=== PATIENT | male | born 1945 | race Caucasian/White ===

== ENCOUNTER → 2017-01-01 | Outpatient (CLI) | payer OTHER ==
[~2017-01-01] MED LIST: ACET-1256 PO; ALBU0.5N2 NEB; ASPI81TA28 PO; FLM4 PO; FLUT0.15 NAE; GFNSR600 PO; MULT-506 PO; NTRGSL/4 SL; OPTIRAY 320 IV PRN; SYMIN INH; SYMIN/8045 INH
--- NOTE | 2017-01-01 14:40 | DIAGNOSTIC IMAGING REPORT ---
CT OF THE CHEST WITH IV CONTRAST CLINICAL HISTORY: Lung cancer. COMPARISON STUDY: Chest CT February 07, 2015 and PET/CT June 18, 2010. TECHNIQUE: Following IV administration of 93 mL of Optiray-320, helical axial images of the chest were obtained. Images were viewed in the axial, sagittal and coronal planes. IV contrast was administered without complication. CT DOSE: 230.38 mGycm FINDINGS: The appearance of the left pneumonectomy cavity is unchanged and fluid-filled as expected. Several extrapleural nodules remain unchanged. These are benign given stability. There is expected left hemithorax volume loss. There is no pneumothorax. There is no right pleural effusion. There is mucus within the dependent aspect of the trachea. Band-like scarring within the right upper lobe is unchanged. However, there has been interval development of a 1 cm irregular nodule within the right upper lobe shown on image 91 of 341. This is new since prior exam. There is moderate to severe emphysema within the right lung. No suspicious osseous lesions are present. There is a 1 cm cyst within the upper pole of the left kidney. There are no adrenal lesions. Note is made of an 8 mm hepatic dome cyst. IMPRESSION: 1. Interval development of a 1 cm irregular right upper lobe nodule since CT of February 07, 2015. This is worrisome for malignancy. Progressive scar formation could appear similar although is considered unlikely. Otherwise, unchanged appearance of band-like scarring within the right upper lobe. 2. Stable appearance of the left pneumonectomy cavity. 3. No thoracic lymphadenopathy. 4. Moderate to severe emphysema within the right lung. Electronically signed by: Zackery Salgado M.D. 01/01/2017 2:38 PM Dictated Date/Time: 01/01/2017 1:56 PM
== END | disposition home or self-care (01) ==
LOC: C.CTS 13:24
PROVIDERS: ATTEND Internal Medicine Hematology & Oncology
DX: C34.90 Malignant neoplasm of unspecified part of unspecified bronchus or lung (principal)

== ENCOUNTER → 2017-01-11 | Outpatient (CLI) | payer OTHER ==
[~2017-01-11] MED LIST changes: -OPTIRAY 320 IV PRN
== END | disposition home or self-care (01) ==
LOC: C.LAB 15:12
PROVIDERS: ATTEND Surgery
DX: C34.90 Malignant neoplasm of unspecified part of unspecified bronchus or lung (principal)

== ENCOUNTER 2017-01-20 09:06 | Day surgery (SDC) | payer OTHER ==
[2017-01-13 08:31] VITALS: BMI 21.0
[~2017-01-20] VITALS: Ht 185.4 cm; Wt 72.7 kg
[~2017-01-20 09:06] MED LIST changes: -ACET-1256 PO; -FLM4 PO; -GFNSR600 PO; +LACTATED RINGER'S 1000ML IV SCH; -SYMIN INH
[2017-01-20] MEDS ORDERED: ACET-1256 PO (09:28)
[2017-01-20 09:29] VITALS: BP 166/84; PULSE 72; TEMP 36.5; O2SAT 98; Ht 185.4 cm; Wt 72.7 kg
[2017-01-20] MEDS ORDERED: NEOSTIGMINE METHYLSULFATE 5 MG/5 ML SYR ONE (12:25)
[2017-01-20] MEDS ORDERED: LIDOCAINE HCL 2% 2 ML VIAL (20MG/ML) ONE (12:25)
[2017-01-20] MEDS ORDERED: DEXAMETHASONE SOD INJ 4 MG/ML VIAL ONE (12:25)
[2017-01-20] MEDS ORDERED: MIDAZOLAM HCL 1 MG/ML 2ML VIAL ONE (12:25)
[2017-01-20] MEDS ORDERED: ROCURONIUM BROMIDE 10 MG/ML 5 ML VIAL ONE (12:25)
[2017-01-20] MEDS ORDERED: PROPOFOL IV EMULSION 10 MG/ML 20 ML VIAL IV ONE (12:25)
[2017-01-20] MEDS ORDERED: ONDANSETRON INJ 2 MG/ML 2 ML VIAL ONE (12:25)
[2017-01-20] MEDS ORDERED: FENTANYL CITRATE INJ 50 MCG/1 ML 2 ML VIAL ONE (12:25)
[2017-01-20] MEDS ORDERED: GLYCOPYRROLATE INJ 0.2 MG/ML VIAL ONE ×2 (12:25→13:25)
--- NOTE | 2017-01-20 12:26 | History & Physical Bridge Note ---
H&P Re-Evaluation Bridge Note: I have examined the patient, reviewed the History & Physical and in the interval since the performance of the History & Physical I have noted the following changes of clinical significance: No changes noted
--- NOTE | 2017-01-20 13:05 | Discharge Instructions ---
Discharge Instructions Date of Service Jan 20, 2017. Visit Reason for Visit: Right Lung Mass Discharge Discharge Diagnosis / Problem: Right Lung Mass Discharge Goals Goal(s): Learn about illness Activity Recommendations Activity Limitations: resume your previous activity (in 24 hours) Anesthesia . Post Anesthesia Instructions: If you have had General Anesthesia or IV Sedation: * Do not drive today. * Resume driving when surgeon permits. * Do not make important decisions or sign legal documents today. * Call surgeon for: 1. Temperature elevations greater than 101 degrees F. 2. Uncontrollable pain. 3. Excessive bleeding. 4. Persistent nausea and vomiting. 5. Medication intolerance (nausea, vomiting or rash). * For nausea and vomiting use only clear liquids such as: tea, soda, bouillon until nausea subsides, then gradually increase diet as tolerated. * If you have any concerns or questions, call your surgeon's office. If physician is unavailable and it is an emergency, call 911 or go to the nearest emergency room. . Instructions / Follow-Up Instructions / Follow-Up 1. Keep your scheduled appointment with Dr. Vicente on January 26 @ 1:30. 2. You may cough up some blood. Call physician if excessive amount noted. Diet Recommendations Recommended Home Diet: resume previous diet Pending Studies Studies pending at discharge: no Medical Emergencies . Who to Call and When: Medical Emergencies: If at any time you feel your situation is an emergency, please call 911 immediately. . Non-Emergent Contact Non-Emergency issues call your: Surgeon Call Non-Emergent contact if: temperature is above 101 . . "Provider Documentation" section prepared by Hector Michel.
[2017-01-20] MEDS ORDERED: PROMETHAZINE HCL INJ 6.25 MG in SODIUM CHLORIDE 0.9% 50ML 50 ML IV PRN (13:15)
[2017-01-20] MEDS ORDERED: FENTANYL CITRATE INJ 50 MCG/1 ML 2 ML VIAL IV PRN (13:15)
[2017-01-20] MEDS ORDERED: EpHEDrine SULFATE INJ 50 MG/ML AMP IV PRN (13:15)
[2017-01-20] MEDS ORDERED: ONDANSETRON INJ 2 MG/ML 2 ML VIAL IV PRN (13:15)
[2017-01-20] MEDS ORDERED: ATROPINE SULFATE 0.1 MG/ML 5ML SYR IV PRN (13:15)
[2017-01-20] MEDS ORDERED: CLINDAMYCIN PHOS 150 MG/ML 2 ML VIAL ONE (13:25)
[2017-01-20] MEDS ORDERED: PHENYLEPHRINE HCL INJ 10 MG/ML VIAL ONE (13:25)
--- NOTE | 2017-01-20 14:11 | DIAGNOSTIC IMAGING REPORT ---
Portable chest CHEST 1 VIEW FRONTAL CLINICAL HISTORY: NAVIGATIONAL BRONCH navigational bronchoscopy TECHNIQUE: Navigational bronchoscopy COMPARISON STUDY: 11/18/2015 FINDINGS: Image intensifier was used for navigational bronchoscopy. Catheter is identified with evidence for a marker IMPRESSION: Navigational bronchoscopy Electronically signed by: Paddy Douglas M.D. 01/20/2017 2:10 PM Dictated Date/Time: 01/20/2017 2:09 PM
--- NOTE | 2017-01-20 14:39 | Anesthesiology Progress Note ---
Anesthesia Post Op Note Date & Time Jan 20, 2017 at 14:39 Vital Signs Pain Intensity: 0 Vital Signs Past 12 Hours Date Time Temp Pulse Resp B/P Pulse Ox O2 Delivery O2 Flow Rate FiO2 01/20/17 09:29 36.5 72 18 166/84 98 Room Air Notes Mental Status: alert / awake / arousable, participated in evaluation Pt Amnestic to Procedure: Yes Nausea / Vomiting: adequately controlled Pain: adequately controlled Airway Patency, RR, SpO2: stable & adequate BP & HR: stable & adequate Hydration State: stable & adequate Anesthetic Complications: no major complications apparent
--- NOTE | 2017-01-20 14:45 | DIAGNOSTIC IMAGING REPORT ---
CHEST ONE VIEW PORTABLE CLINICAL HISTORY: s/p [facility] post procedural evaluation COMPARISON STUDY: 11/18/2015 FINDINGS: Complete opacification left hemithorax post fibrotic changes right pulmonary apex with a biopsy marker within the right upper lung inferior to the fibrotic line. No evidence for postprocedural pneumothorax. IMPRESSION: No significant postprocedural pneumothorax. Post biopsy marker right upper lung Electronically signed by: Paddy Douglas M.D. 01/20/2017 2:43 PM Dictated Date/Time: 01/20/2017 2:42 PM
[2017-01-20 15:05] VITALS: BP 137/76; PULSE 63; TEMP 36.6; O2SAT 98
[2017-01-20 15:35] VITALS: BP 113/68; PULSE 55; O2SAT 96
--- NOTE | 2017-01-20 15:54 | OPERATIVE REPORT ---
DATE OF OPERATION: 01/20/2017 PREOPERATIVE DIAGNOSES: 1. Right upper lobe mass. 2. Status post left pneumonectomy for non-small cell carcinoma. POSTOPERATIVE DIAGNOSES: Same. PROCEDURES: 1. Endobronchial ultrasound with biopsy. 2. Navigational bronchoscopy with biopsy. 3. Placement of fiducial marker in right upper lobe mass. 4. Use of ultrasound guidance. SURGEON: Naun Vicente MD DIRECTOR OF SEARCH ENGINE MARKETING: CHRISTIANO Pang ANESTHESIA: General anesthesia endotracheal intubation. INDICATIONS FOR PROCEDURE AND FINDINGS: James Abdi is a 71-year-old male who underwent a left pneumonectomy many years ago in [place] for a non-small cell lung carcinoma. He apparently had an en bloc chest wall resection. He underwent chemotherapy postoperative, apparently developed a mass in the right upper lobe and this was biopsied with a needle and he was treated with radiation therapy. It sounds like he had FBRT at [place]. At any rate, he has done fine until recently when a surveillance CT scan showed a new mass in the right upper lobe below the scarring of the prior radiation therapy. We had a long talk about this and elected to proceed with a biopsy and possible leaving a fiducial marker. I did not think this patient is a candidate for any further resections. On 01/18/2017, he underwent uneventful endobronchial ultrasound. The nodes were small, but I felt that we were there, I would like to at least biopsy them and biopsied the left level 10, right level 10, right level 4 and level 7 nodes. We saw some lymphocytes in the right level 10, but we did not see any evidence of malignancy. We then performed a navigation bronchoscopy and with the radial ultrasound, I could see that I was right in the middle of this mass. I did brushings, needle biopsies, as well as forceps biopsies with touch preps. We saw no evidence of malignancy. I did leave a fiducial marker and did washings. The patient tolerated it well. DESCRIPTION OF PROCEDURE: The patient was brought to the operating room and laid in supine position. General anesthesia was induced and endotracheal intubation was performed with a single lumen tube. After appropriate time-out had been called and prophylactic antibiotics have been given, the endobronchial ultrasound scope was placed. There was scant amount of thick whitish sputum and I suctioned this out. He had a fairly long stump in the left mainstem bronchus, but it was intact. I then biopsied the level 10 area laterally, a bit distal to the bifurcation, but I did not put the scope all the way down to the old suture line. I then biopsied the level 7 areas on the right side and then the level 10 areas and the level 4 areas. These were small nodes and while it appeared that we were right in the middle of most of that we had very little in the way of lymphatic tissue bed. We did have full lymph nodes in the right level 10 node which appeared to be the largest node even though still not pathologic in size and very little in the way of bleeding. I irrigated out both airways. A fiberoptic bronchoscope was then placed. Using a navigational probe, we then registered the right bronchial tree airways. We then navigated out to the open wound mass without difficulty. We removed the navigational probe and under ultrasound guidance conceivably right in the middle of this mass. I then did multiple biopsies with brushes as well as needle biopsies with aspiration and forceps biopsies with the touch preps. We got very little in the way of bleeding. I irrigated this out and we saw very little in the way of any bleeding. I then placed a fiducial marker in this mass after I checked again to make sure we were in the middle of it during the ultrasound. After this, I then used 35 mL of normal saline and irrigated out and suctioned from this airway as we were leaving. There was really very little in the way of any bleeding. After suctioning all the excess fluid, blood, and mucus, I slowly removed the bronchoscope. He tolerated it well and chest x-ray is pending at this time. I attest to the content of the Intraoperative Record and any orders documented therein. Any exceptio ns are noted below.
[2017-01-20 16:00] VITALS: BP 134/75; PULSE 62; TEMP 36.6; O2SAT 95
== END 2017-01-20 16:22 | disposition home or self-care (01) ==
LOC: C.ACU 09:06
PROVIDERS: ATTEND Surgery
DX: C34.91 Malignant neoplasm of unspecified part of right bronchus or lung (principal); J44.9 Chronic obstructive pulmonary disease, unspecified; L04.9 Acute lymphadenitis, unspecified; J96.90 Respiratory failure, unspecified, unspecified whether with hypoxia or hypercapnia; Z98.890 Other specified postprocedural states

== ENCOUNTER 2017-01-24 02:27 | Inpatient (IN) | payer OTHER ==
[2017-01-24] VITALS (11 sets, daily range): BP systolic 101–145; BP diastolic 66–79; PULSE 69–95; TEMP 36.7–37.7; O2SAT 93–98; Ht 182.9 cm; Wt 73.0 kg
[~2017-01-24] VITALS: Ht 182.9 cm; Wt 73.0 kg
[~2017-01-24 02:27] MED LIST changes: +ACET-1256 PO; -LACTATED RINGER'S 1000ML IV SCH
[2017-01-24] MEDS ORDERED: ALBUT/IPRATROP 3MG/0.5MG NEB 3 ML VIAL INH ONE (03:15)
[2017-01-24] MEDS ORDERED: OPTIRAY 320 IV PRN (03:15)
[2017-01-24 03:26] LABS: BUN/CREATININE RATIO 14.2 (10-20); CALCIUM 8.8 mg/dl (8.5-10.1); CREATININE 0.93 mg/dl (0.60-1.40); MAGNESIUM 1.9 mg/dl (1.8-2.4); POTASSIUM 3.5 mmol/L (3.5-5.1)
[2017-01-24 04:10] LABS: BASO % 0.2 %; BASO ABS # 0.04 K/uL (0-0.2); COMPLETE YES; EOS % 0.1 %; HEMATOCRIT 48.5 % (42-52); IG% 0.4 %; LYMPH % 7.2 %; LYMPH ABS # 1.57 K/uL (1.2-3.4); MEAN CORPUSCULAR HEMOGLOBIN 29.6 pg (25-34); MEAN CORPUSCULAR HGB CONC 34.4 g/dl (32-36); MEAN PLATELET VOLUME 11.6 fL (7.4-10.4); MONO % 9.4 %; NEUT % 82.7 %; PLATELET COUNT 283 K/uL (130-400); PLT ESTIMATE NORMAL; RED BLOOD COUNT 5.64 M/uL (4.7-6.1); WHITE BLOOD COUNT 21.88 K/uL (4.8-10.8)
[2017-01-24 04:27] LABS: VEN BLOOD GAS BASE EXCESS -1.2 mmol/L
--- NOTE | 2017-01-24 04:42 | EMERGENCY ROOM VISIT NOTE ---
ED Visit Note First contact with patient: 02:56 I saw this patient in conjunction with Darion Porras PA-C. I agree with his decision-making and treatment plan.
[2017-01-24] MEDS ORDERED: LEVAQUIN 750MG / 150ML D5W IV ONE (05:15)
[2017-01-24] MEDS ORDERED: VANCOMYCIN INJ 1,000 MG in SODIUM CHLORIDE 0.9% 250ML 250 ML IV STA (05:29)
[2017-01-24] MEDS ORDERED: ACETAMINOPHEN IV 100 ML IV PRN (05:30)
[2017-01-24] MEDS ORDERED: ONDANSETRON INJ 2 MG/ML 2 ML VIAL IV PRN (05:30)
[2017-01-24] MEDS ORDERED: IPRATROPIUM BROMIDE NEB SOLN 0.02% 2.5 ML VIAL INH PRN (05:45)
[2017-01-24] MEDS ORDERED: LEVALBUTEROL 1.25MG/0.5ML NEB INH PRN (05:45)
[2017-01-24] MEDS ORDERED: VANCOMYCIN INJ 1,900 MG in SODIUM CHLORIDE 0.9% 500ML 500 ML IV STA (05:49)
[2017-01-24] MEDS ORDERED: VANCOMYCIN CONSULT ACTIVE PRN (06:15)
--- NOTE | 2017-01-24 06:36 | EMERGENCY ROOM VISIT NOTE ---
History First contact with patient: 02:56 Chief Complaint: RESPIRATORY DISTRESS Stated Complaint: RESP DIFFICULTY Nursing Triage Summary: Patient arrived ALS for evaluation of respiratory distress. Patient has hx lung cancer in 2003 and was treated and in remission. Patient had a CT January 01, 2017 and showed possible new lung cancer, biopsy was taken but no treatment has been started. Patient has hx COPD. History of Present Illness The patient is a 71 year old male who presents to the Emergency Room with complaints of difficulty breathing worsening over the past day. The patient has extensive pulmonary history. He had lung cancer that was treated 13 years ago. He had a CT scan 3 weeks ago that showed possible new cancer, and biopsy did appear to show a new cancerous process. The patient has a history of COPD secondary to tobacco use, but he has not been smoking for greater than 20 years. The patient reports that he has had an increased heart rate today between 110 and 1:30. He has a pulse oximeter at home, and states that his oxygen has been in the low 90s throughout the day. This is different from his normal baseline. He does not have chest pain, but does report dyspnea on exertion. No reported fever or chills. He has not taken anything over-the- counter for his symptoms. He does not wear oxygen at home. He rates his current discomfort a 7/10. Review of Systems More than 10 systems were reviewed and otherwise negative with the exception of history of present illness. Past Medical/Surgical History Medical Problems: (1) Aspiration pneumonia (2) Bronchitis (3) Community acquired pneumonia (4) COPD (chronic obstructive pulmonary disease) (5) COPD (chronic obstructive pulmonary disease) (6) left thoracotomy (7) Lung cancer (8) Pneumonia involving right lung Social History Problems: (1) History of pneumonectomy Family History Cardiovascular disease Heart disease Social History Smoking Status: Never Smoker Alcohol Use: none Drug Use: none Marital Status: Housing Status: lives alone Occupation Status: retired Current/Historical Medications Scheduled Aspirin (Aspirin Ec), 81 MG PO QAM Budesonide/Formoterol Fumarate (Symbicort 80/4.5 Inhaler), 2 PUFFS INH BID Fluticasone Propionate (Nasal) (Flonase Allergy Relief), 2 SPRAY CHARITY QD Multivitamin (Multivitamin), 1 TABLET PO QAM Nitroglycerin (Nitrostat), 1 TAB SL UD Scheduled PRN Acetaminophen (Tylenol), 1,500 MG PO Q8 PRN for Pain Albuterol 0.5% Soln (Ventolin 0.5% Soln), 1 VIAL NEB Q6 PRN for SOB/Wheezing Allergies Coded Allergies: Penicillins (Verified Allergy, Mild, RASH, 01/24/17) Lorazepam (Unverified Allergy, Unknown, PT UNSURE, 01/24/17) Cephalexin (Unverified Adverse Reaction, Mild, pt states "unpleasent yeast infection", 01/24/17) Minocycline (Unverified Adverse Reaction, Mild, BAD YEAST INFECTION, ) Physical Exam Vital Signs Date Time Temp Pulse Resp B/P Pulse Ox O2 Delivery O2 Flow Rate FiO2 01/24/17 04:35 122 35 133/68 98 Nebulizer 10.0 01/24/17 02:35 109 01/24/17 02:33 90 Room Air 01/24/17 02:33 90 Room Air 01/24/17 02:33 37.0 115 34 159/88 90 Room Air Physical Exam VITALS: Vitals are noted on the nurse's note and reviewed by myself. Vital signs stable. GENERAL: Well-developed, well-nourished, white male, who appears chronically ill. He is speaking in 4-5 word sentences. HEAD: Normocephalic atraumatic. NECK: Supple without nuchal rigidity. No lymphadenopathy. No thyromegaly. Cervical spine is nontender. HEART: Regular rate and rhythm without murmurs gallops or rubs. LUNGS: Diffuse wheezing and rhonchi throughout. No distinct crackles. ABDOMEN: Positive normal bowel sounds x 4. Soft, nontender, without masses or organomegaly. No guarding or rebound tenderness. MUSCULOSKELETAL: No muscle atrophy, erythema, or edema noted. Full range of motion without joint tenderness in all extremities. Medical Decision & Procedures ER Provider Diagnostic Interpretation: Preliminary Findings Only See Final Report For Complete Findings CT CHEST With Contrast: Pulmonary venous greater than arterial contrast density limits the evaluation No evidence of filling defect to suggest pulmonary embolism Patchy right lower lobe airspace opacity concerning for possible pneumonia Status post left pneumonectomy again noted with small amount of left pleural fluid again seen Bandlike area of scar at the right apex again seen Mediastinal structures are again shifted to the left, unchanged Small pericardial fluid again noted Thoracic aorta within limits Laboratory Results 01/24/17 02:33 Red Blood Count 5.64, Mean Corpuscular Volume 86.0, Mean Corpuscular Hemoglobin 29.6, Mean Corpuscular Hemoglobin Concent 34.4, Mean Platelet Volume 11.6, Neutrophils (%) (Auto) 82.7, Lymphocytes (%) (Auto) 7.2, Monocytes (%) (Auto) 9.4, Eosinophils (%) (Auto) 0.1, Basophils (%) (Auto) 0.2, Neutrophils # (Auto) 18.10, Lymphocytes # (Auto) 1.57, Monocytes # (Auto) 2.06, Eosinophils # (Auto) 0.03, Basophils # (Auto) 0.04 01/24/17 02:33 Test 01/24/17 02:33 01/24/17 03:17 01/24/17 04:09 White Blood Count 21.88 K/uL (4.8-10.8) Red Blood Count 5.64 M/uL (4.7-6.1) Hemoglobin 16.7 g/dL (14.0-18.0) Hematocrit 48.5 % (42-52) Mean Corpuscular Volume 86.0 fL (80-100) Mean Corpuscular Hemoglobin 29.6 pg (25-34) Mean Corpuscular Hemoglobin Concent 34.4 g/dl (32-36) Platelet Count 283 K/uL (130-400) Mean Platelet Volume 11.6 fL (7.4-10.4) Neutrophils (%) (Auto) 82.7 % Lymphocytes (%) (Auto) 7.2 % Monocytes (%) (Auto) 9.4 % Eosinophils (%) (Auto) 0.1 % Basophils (%) (Auto) 0.2 % Neutrophils # (Auto) 18.10 K/uL (1.4-6.5) Lymphocytes # (Auto) 1.57 K/uL (1.2-3.4) Monocytes # (Auto) 2.06 K/uL (0.11-0.59) Eosinophils # (Auto) 0.03 K/uL (0-0.5) Basophils # (Auto) 0.04 K/uL (0-0.2) RDW Standard Deviation 43.7 fL (36.4-46.3) RDW Coefficient of Variation 14.0 % (11.5-14.5) Immature Granulocyte % (Auto) 0.4 % Immature Granulocyte # (Auto) 0.08 K/uL (0.00-0.02) Platelet Estimate NORMAL Anion Gap 10.0 mmol/L (3-11) Est Creatinine Clear Calc Drug Dose 77.7 ml/min Estimated GFR () 95.4 Estimated GFR (Non- 82.3 BUN/Creatinine Ratio 14.2 (10-20) Calcium Level 8.8 mg/dl (8.5-10.1) Magnesium Level 1.9 mg/dl (1.8-2.4) Total Bilirubin 0.7 mg/dl (0.2-1) Aspartate Amino Transf (AST/SGOT) 15 U/L (15-37) Alanine Aminotransferase (ALT/SGPT) 24 U/L (12-78) Alkaline Phosphatase 90 U/L (45-117) Total Protein 7.7 gm/dl (6.4-8.2) Albumin 3.8 gm/dl (3.4-5.0) Globulin 3.9 gm/dl (2.5-4.0) Albumin/Globulin Ratio 1.0 (0.9-2) Lipase 95 U/L (73-393) Bedside Troponin I 0.000 ng/ml (0-0.045) Venous Blood pH 7.32 (7.36-7.41) Venous Blood Partial Pressure CO2 52 mmHg (38.0-50.0) Venous Blood Partial Pressure O2 36 mmHg Venous Blood HCO3 26 mmol/L Venous Blood Oxygen Saturation 67.0 % Venous Blood Base Excess -1.2 mmol/L Medications Administered Medications (Trade) Dose Ordered Sig/Avila Route Start Time Stop Time Status Last Admin Dose Admin Albuterol/ Ipratropium (Duoneb) 12 ml NOW ONCE INH 01/24/17 03:15 01/24/17 03:16 DC 01/24/17 03:29 12 ML Levofloxacin (Levaquin / D5W) 750 mg NOW ONCE IV 01/24/17 05:15 01/24/17 05:16 DC 01/24/17 05:36 750 MG ED Course Physical exam and history were performed. Nursing notes and EMR were reviewed. Patient appears to have shortness of breath with an elevated heart rate worsening over the past day. On examination the patient is able to speak in several word sentences. He is not febrile, however his recent history is concerning. IV access was established and labs were obtained. The patient was given a one-hour DuoNeb. I did elect to perform a CTA injury of the chest due to his risk for PE or other metastatic etiology. The patient was placed on a sr. operations manager. The patient's blood work is as above and was reviewed. He does have an elevated white blood cell count of greater than 20,000. He does not have significant anemia, bandemia, or gross electrolyte imbalance. His VBG's are as above. Troponin 1 is negative. Lipase and transaminases are nondiagnostic. The patient CT scan is as above and is concerning for pneumonia which would be new from CT scan on 12/31/2016. I discussed the case with my attending physician, Dr. Tobar, who also had apparently evaluated the patient. The patient was empirically started on IV Levaquin and his case was discussed with the on-call hospitalist, Dr. Olivas. Please see Dr. Olivas's dictation for patient course, plan, and disposition. The chart was completed utilizing [employer] Speech Voice Recognition Software. Grammatical errors, random word insertions, pronoun errors, and incomplete sentences are an occasional consequence of this system due to software limitations, ambient noise, and hardware issues. Any formal questions or concerns about the content, text, or information contained within the body of this dictation should be directly addressed to the provider for clarification. . Medical Decision Differential diagnosis includes, but is not limited to: Myocardial infarction, dysrhythmia, pericarditis, pneumothorax, aortic aneurysm/dissection, DVT/PE, anxiety, GERD, PUD, electrolyte imbalance, thyroid disorder, pneumonia, bronchitis, pancreatitis, and others Impression Primary Impression: Pneumonia Additional Impression: Shortness of breath Departure Information Referrals Jarvis Ortega M.D. (PCP) Patient Instructions Asthma - [facility], COPD - [facility], Croup - [facility], My [facility] Problem Qualifiers
--- NOTE | 2017-01-24 07:01 | History and Physical ---
History & Physical Date & Time of Service: Jan 24, 2017 at 06:45 Chief Complaint: Resp Difficulty Primary Care Physician: Jarvis Ortega M.D. History of Present Illness Source: patient The patient is a 71-year-old male who presents emergency department with worsening breathing and cough over the past day. He has a past medical history of lung cancer, status post left pneumonectomy in 2003, and had a CT scan performed 3 weeks ago that showed a possible new cancer. He underwent a lung biopsy by Dr. Vicente 2 days ago, that showed a new lung cancer. Yesterday he noted coughing up some bright red blood, and then later on in the day reports that it was black. His heart rate did increase into the 110 to 130s, and his pulse ox decreased to the low 90s throughout the day yesterday. He reports that he has noted more noise when he breathes, which has developed after the procedure. He denies any fevers or chills. His overall appetite has decreased but he does not report difficulty swallowing. Past Medical/Surgical History Medical Problems: (1) Aspiration pneumonia Status: Resolved (2) Bronchitis Status: Resolved (3) Community acquired pneumonia Status: Resolved (4) COPD (chronic obstructive pulmonary disease) Status: Chronic (5) COPD (chronic obstructive pulmonary disease) Status: Chronic (6) left thoracotomy Status: Chronic (7) Lung cancer Status: Resolved Social History Problems: (1) History of pneumonectomy Status: Resolved Family History Cardiovascular disease Heart disease Social History Smoking Status: Former Smoker Smokeless Tobacco Use: No Alcohol Use: none Drug Use: none Marital Status: Housing status: lives with family Occupational Status: retired Immunizations History of Influenza Vaccine: Unknown History of Tetanus Vaccine?: Unknown History of Pneumococcal: Unknown History of Hepatitis B Vaccine: Unknown Multi-Drug Resistant Organisms History of MDRO: No Allergies Coded Allergies: Penicillins (Verified Allergy, Mild, RASH, 01/24/17) Lorazepam (Unverified Allergy, Unknown, PT UNSURE, 01/24/17) Cephalexin (Unverified Adverse Reaction, Mild, pt states "unpleasent yeast infection", 01/24/17) Minocycline (Unverified Adverse Reaction, Mild, BAD YEAST INFECTION, ) Home Medications Scheduled Aspirin (Aspirin Ec), 81 MG PO QAM Budesonide/Formoterol Fumarate (Symbicort 80/4.5 Inhaler), 2 PUFFS INH BID Fluticasone Propionate (Nasal) (Flonase Allergy Relief), 2 SPRAY CHARITY QD Multivitamin (Multivitamin), 1 TABLET PO QAM Nitroglycerin (Nitrostat), 1 TAB SL UD Scheduled PRN Acetaminophen (Tylenol), 1,500 MG PO Q8 PRN for Pain Albuterol 0.5% Soln (Ventolin 0.5% Soln), 1 VIAL NEB Q6 PRN for SOB/Wheezing Review of Systems The patient denies lower extremity swelling, vision change, hearing change, sore throat, fevers, chills, sweats, weight change, vomiting, abdominal pain, pelvic pain, blood in urine or stool, dysuria, urinary frequency or urgency, lightheadedness, dizziness, headache, memory loss, rash, abnormal bruising , imbalance, focal weakness, numbness or tingling in arms or legs, arthralgias or myalgias, back or neck pain, night sweats, or allergy symptoms. The review of systems is otherwise negative other than for that already noted above, and at least 10 systems have been reviewed. Physical Exam Vital Signs Date Time Temp Pulse Resp B/P Pulse Ox O2 Delivery O2 Flow Rate FiO2 01/24/17 04:35 122 35 133/68 98 Nebulizer 10.0 01/24/17 02:35 109 01/24/17 02:33 90 Room Air 01/24/17 02:33 90 Room Air 01/24/17 02:33 37.0 115 34 159/88 90 Room Air The patient is awake, alert and oriented 3, normocephalic and atraumatic, appears somewhat disheveled, sitting upright in bed and in mild respiratory distress. HEENT--PERRL, EOMI, mucous membranes and oropharynx dry. Neck--supple, no JVD or bruits, thyroid normal, trachea midline, no adenopathy. Heart--normal S1 and S2, no extra beats, no murmurs, rubs or gallops. Lungs--coarse breath sounds bilaterally decreased at the bases bilaterally, mild respiratory distress, no accessory muscle use. Abdomen--normal bowel sounds and soft, nontender and nondistended, no hernias or masses, no organomegaly. Extremities--no cyanosis, clubbing or edema. There are good distal pulses b/l. Dermatologic--normal skin turgor, normal color, warm and dry, no abnormal lymph nodes, no rash. Neurologic--cranial nerves II through XII grossly intact, motor and sensory examination normal. Rheumatologic--normal range of motion, nontender, muscles and joints. Psychiatric--normal affect. Diagnostics Laboratory Results Results Past 24 Hours Test 01/24/17 02:33 01/24/17 03:17 01/24/17 04:09 Range/Units White Blood Count 21.88 4.8-10.8 K/uL Red Blood Count 5.64 4.7-6.1 M/uL Hemoglobin 16.7 14.0-18.0 g/dL Hematocrit 48.5 42-52 % Mean Corpuscular Volume 86.0 80-100 fL Mean Corpuscular Hemoglobin 29.6 25-34 pg Mean Corpuscular Hemoglobin Concent 34.4 32-36 g/dl Platelet Count 283 130-400 K/uL Mean Platelet Volume 11.6 7.4-10.4 fL Neutrophils (%) (Auto) 82.7 % Lymphocytes (%) (Auto) 7.2 % Monocytes (%) (Auto) 9.4 % Eosinophils (%) (Auto) 0.1 % Basophils (%) (Auto) 0.2 % Neutrophils # (Auto) 18.10 1.4-6.5 K/uL Lymphocytes # (Auto) 1.57 1.2-3.4 K/uL Monocytes # (Auto) 2.06 0.11-0.59 K/uL Eosinophils # (Auto) 0.03 0-0.5 K/uL Basophils # (Auto) 0.04 0-0.2 K/uL RDW Standard Deviation 43.7 36.4-46.3 fL RDW Coefficient of Variation 14.0 11.5-14.5 % Immature Granulocyte % (Auto) 0.4 % Immature Granulocyte # (Auto) 0.08 0.00-0.02 K/uL Platelet Estimate NORMAL Sodium Level 140 136-145 mmol/L Potassium Level 3.5 3.5-5.1 mmol/L Chloride Level 102 98-107 mmol/L Carbon Dioxide Level 28 21-32 mmol/L Anion Gap 10.0 3-11 mmol/L Blood Urea Nitrogen 13 7-18 mg/dl Creatinine 0.93 0.60-1.40 mg/dl Est Creatinine Clear Calc Drug Dose 77.7 ml/min Estimated GFR () 95.4 Estimated GFR (Non- 82.3 BUN/Creatinine Ratio 14.2 10-20 Random Glucose 116 70-99 mg/dl Calcium Level 8.8 8.5-10.1 mg/dl Magnesium Level 1.9 1.8-2.4 mg/dl Total Bilirubin 0.7 0.2-1 mg/dl Aspartate Amino Transf (AST/SGOT) 15 15-37 U/L Alanine Aminotransferase (ALT/SGPT) 24 12-78 U/L Alkaline Phosphatase 90 45-117 U/L Total Protein 7.7 6.4-8.2 gm/dl Albumin 3.8 3.4-5.0 gm/dl Globulin 3.9 2.5-4.0 gm/dl Albumin/Globulin Ratio 1.0 0.9-2 Lipase 95 73-393 U/L Bedside Troponin I 0.000 0-0.045 ng/ml Venous Blood pH 7.32 7.36-7.41 Venous Blood Partial Pressure CO2 52 38.0-50.0 mmHg Venous Blood Partial Pressure O2 36 mmHg Venous Blood HCO3 26 mmol/L Venous Blood Oxygen Saturation 67.0 % Venous Blood Base Excess -1.2 mmol/L EKG EKG shows sinus tachycardia at 106 bpm, left anterior fascicular block, no acute ST-T changes. Impression Assessment and Plan Lung cancer/status post left pneumonectomy 2003/status post lung biopsy 3 days ago/hemoptysis--the patient will be admitted to telemetry unit for close oxygen monitoring. We'll start on vancomycin 1 g IV per renal dosing, aztreonam 2000 mg IV every 8 hours, clindamycin 900 mg IV every 8 hours, and Xopenex with Atrovent nebulizer to use every 6 hours while awake and every 2 hours when necessary. We'll consult Dr. Rafael Gonsalez his door and arrival attendant, and Dr. Vicente his thoracic surgeon. We'll keep him nothing by mouth in the event of upcoming procedure. Place on normal saline with potassium chloride 20 mEq at 100 ML's per hour. Hold aspirin 81 mg by mouth daily, Symbicort, Flonase and Ventolin nebulizer. Of note, the patient is allergic to cephalosporins and penicillins. Level of Care Telemetry Advanced Directives Existing Advance Directive: No Existing Living Will: No Existing Power of Golf Cart Assembler: No Resuscitation Status FULL RESUSCITATION VTE Prophylaxis VTE Risk Assessment Done? Y/N: Yes Risk Level: Moderate Given or contraindicated: SCD's
[2017-01-24] MEDS: LEVALBUTEROL 1.25MG/0.5ML NEB INH SCH ×3 (07:54→20:52)
[2017-01-24] MEDS: IPRATROPIUM BROMIDE NEB SOLN 0.02% 2.5 ML VIAL INH SCH ×3 (07:54→20:52)
[2017-01-24] MEDS: AZTREONAM IV 2,000 MG in DEXTROSE 5% 100ML 100 ML IV SCH ×3 (08:00→23:45)
[2017-01-24] MEDS: LACTOBACILLUS ACIDOPHILUS (FLORANEX) TAB PO SCH ×3 (08:00→17:22)
[2017-01-24] MEDS ORDERED: FLUTICASONE PROPIONATE NA SPR 16 GM BTL NAE SCH (08:45)
[2017-01-24] MEDS ORDERED: LEVALBUTEROL/IPRATROPIUM NEB INH SCH (09:00)
--- NOTE | 2017-01-24 09:11 | DIAGNOSTIC IMAGING REPORT ---
CT ANGIOGRAPHY OF THE CHEST, PULMONARY EMBOLUS PROTOCOL CLINICAL HISTORY: Shortness of breath. History of lung cancer and recent bronchoscopy. COMPARISON STUDY: Chest CT January 01, 2017 and chest radiograph January 20, 2017. TECHNIQUE: Following IV administration of 92 mL of Optiray-320, helical axial images of the chest were obtained utilizing the pulmonary embolus protocol. Maximal intensity projections and sagittal and coronal reformats were viewed on an independent 3D workstation. IV contrast was administered without complication. CT DOSE: 327.96 mGy.cm FINDINGS: There are postsurgical findings consistent with a left pneumonectomy. The appearance of the left pneumonectomy cavity is unchanged. Opacification of the right sided pulmonary arteries is suboptimal but no central large pulmonary embolus is identified. Cardiac size is normal. There is no evidence of thoracic aortic dissection. No enlarged axillary, mediastinal or hilar lymph nodes are present. Bandlike scarring within the right lung apex is unchanged. The previously described 1 cm irregular right upper lobe nodule shown image 244 of 333 is again noted. There has been interval placement of a fiducial marker within this nodule. Moderate to severe right lung emphysema is present. Right lower lobe consolidation has developed. Bony thorax and upper abdomen are unremarkable. There is no pneumothorax or pleural effusion. IMPRESSION: 1. Suboptimal opacification of the right-sided pulmonary arteries. No central pulmonary embolus identified. 2. Stable appearance of the left pneumonectomy cavity. 3. Redemonstration of the 1 cm right upper lobe irregular nodule as shown on prior CT. This now contains a fiducial marker and is suggestive of malignancy. 4. Interval development of mild to moderate right lower lobe consolidation which favors pneumonia. Electronically signed by: Zackery Salgado M.D. 01/24/2017 9:09 AM Dictated Date/Time: 01/24/2017 9:02 AM
[2017-01-24] MEDS: BUDESONIDE/FORMOTEROL FUMARATE 80/4.5 60 PUFFS/INHALER INH SCH ×2 (09:43→21:25)
[2017-01-24] MEDS: CLINDAMYCIN IV 900 MG in DEXTROSE 5% ADD-VANTAGE 100ML 100 ML IV SCH ×3 (09:44→23:46)
--- NOTE | 2017-01-24 11:04 | Pharmacy Progress Note ---
Pharmacy Antibiotic Consult Date of Service: Jan 24, 2017. Pharmacy Dosing Scope Pharmacy is consulted to initiate IV Vancomycin dosing therapy, order appropriate labs and adjust drug dose/frequency. Subjective The patient is a 71 year old male admitted on Jan 24, 2017 at 05:59. Objective Height (Feet): 6 Height (Inches): 0.00 Weight (Kilograms): 75.400 Lab Results (24hrs): Laboratory Tests Test 01/24/17 02:33 BUN/Creatinine Ratio 14.2 Blood Urea Nitrogen 13 mg/dl Creatinine 0.93 mg/dl White Blood Count 21.88 K/uL Red Blood Count 5.64 M/uL Hemoglobin 16.7 g/dL Hematocrit 48.5 % Mean Corpuscular Volume 86.0 fL Mean Corpuscular Hemoglobin 29.6 pg Mean Corpuscular Hemoglobin Concent 34.4 g/dl Platelet Count 283 K/uL Mean Platelet Volume 11.6 fL Neutrophils (%) (Auto) 82.7 % Lymphocytes (%) (Auto) 7.2 % Monocytes (%) (Auto) 9.4 % Eosinophils (%) (Auto) 0.1 % Basophils (%) (Auto) 0.2 % Neutrophils # (Auto) 18.10 K/uL Lymphocytes # (Auto) 1.57 K/uL Monocytes # (Auto) 2.06 K/uL Eosinophils # (Auto) 0.03 K/uL Basophils # (Auto) 0.04 K/uL Recent Pertinent Medications Item Value Date Time Vancomycin HCl 538 ml @ 200 mls/hr 01/24/17 0549 1900 mg/Sodium NOW STAT/IV 01/24/17 0710 Chloride Vancomycin HCl 272 ml @ 125 mls/hr 01/24/17 1800 1100 mg/Sodium Q12H/IV Chloride Item Value Date Time Aztreonam 2000 mg/ 110 ml @ 100 mls/hr 01/24/17 0800 Dextrose Q8H/IV Item Value Date Time Clindamycin 106 ml @ 100 mls/hr 01/24/17 0800 Phosphate 900 mg/ Q8H/IV 01/24/17 0944 Dextrose Assessment & Plan Vancomycin * Loading dose: Vancomycin 1900mg IV x 1 dose (25mg/kg) * Maintenance dose: Vancomycin 1100mg IV q12h (14.6mg/kg) * Goal peak level: 30-40mcg/mL * Goal trough level: 15-20mcg/mL * Est half-life ~ 10hr * Trough level ordered for: 01/26/17 0600 dose Pharmacy will continue to follow and will adjust dose/frequency as necessary. Thank you
[2017-01-24 11:28] LABS: MANUAL MICROSCOPIC REQUIRED? NO; REVIEW REQ? NO; URINE APPEARANCE CLEAR (CLEAR); URINE BILIRUBIN NEG (NEG); URINE COLOR YELLOW; URINE NITRITE NEG (NEG); URINE SPECIFIC GRAVITY > 1.045 (1.000-1.030); UROBILINOGEN NEG (NEG); ZZUR CULT IF INDIC CLEAN CATCH NO
--- NOTE | 2017-01-24 14:17 | Progress Note ---
Progress Note Date of Service Jan 24, 2017. Progress Note Patient was admitted this morning by Dr. Hickey with pneumonia/COPD exac. He is breathing better, but not as baseline. Pulmonology Dr. Gonsalez was consulted and has already seen the patient.
--- NOTE | 2017-01-24 15:21 | PULMONARY CONSULTATION ---
DATE OF CONSULTATION: 01/24/2017 HISTORY OF PRESENT ILLNESS: The patient is a 71-year-old male who is admitted to [facility] with right lower lobe pneumonia. Dr. Hickey has asked me to evaluate this patient from a pulmonary standpoint. The patient had bronchoscopy done on Wednesday, the by Dr. Vicente. He had evaluation of the right upper lobe mass, endobronchial ultrasound, and navigational bronchoscopy done. I reviewed the pathology specimens. It reveals changes consistent with adenocarcinoma with recurrence and nodular density in the right upper lobe. All lymph nodes are negative. Washings showed some atypical cells, not consistent with adenocarcinoma but the biopsies are certainly consistent with it. Nonetheless, on Wednesday and , he did well and was able to get out, do his chores, care for his animals at home, etc. and then Wednesday night, just 48 hours after the procedure, he developed some cough, producing some thick posey sputum with 1 episode of bloody sputum on Wednesday night. Yesterday, he felt poorly with some shortness of breath and cough and then presented to the Emergency Room this morning with shortness of breath, was seen by Dr. Tobar. He arrived by ALS with respiratory distress. He states he had increased heart rate. He has a pulse oximeter at home and his oxygen saturation was low. In the emergency room, his oxygen saturation was 90% on room air with respiratory rate of 34 and blood pressure of 159/88. He had a CT of his chest, which shows a right lower lobe infiltrative process with a nodular density in the right upper lobe. No evidence of any pulmonary emboli. He is status post left pneumonectomy. His white count is 21.88 as well. He has been placed on triple antimicrobial agents, lying in bed this morning supine and states he feels better. He denies any chest pain, lower extremity edema, fevers, or night sweats. Actually he has been gaining weight recently. He has had no chills or rigors. No one in his family has been ill. He has not been around anyone that has been ill. None of his animals have been ill. He does his chores at home and is able to shovel some snow and work on his trucks without difficulty, but he is limited with significant dyspnea with exertion. He had been evaluated by nutrition in the past for severe cachexia and that has all resolved. REVIEW OF SYSTEMS: Otherwise unremarkable. He has not had any TB. 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 Ramon Howard in [place] in 2003. 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 He actually did fairly well and then around 2007, had recurrence or an additional carcinoma of the right upper lobe, but because of the pneumonectomy and significant obstructive lung disease, no surgery was recommended. He underwent full radiation therapy to his right upper lobe, but has not had any evidence of recurrence until now. He carries a history of respiratory failure in the past from aspiration and significant dysphagia with aspiration. He has been seen by Dr. Burns in the past and had an upper GI series with barium swallow that showed significant aspiration. He had this treated by speech therapy and he has actually done fairly well. He states he usually uses a chin tuck maneuver when he eats. He carries a history of shoulder surgery, left thoracotomy without chest wall resection, recurrent lung cancer in the right upper lobe, chronic obstructive lung disease and pneumonia in the past. SOCIAL HISTORY: He has a [id number] history of cigarette smoking, quit in 2003. He is not an alcohol user. 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 He actually remains fairly active at home. He is up-to-date with the immunizations. ALLERGIES: LORAZEPAM, KEFLEX, MINOCYCLINE, AND PENICILLIN. THE REACTIONS ARE UNKNOWN. He has been using his inhalers at home and actually does fairly well at home. PHYSICAL EXAMINATION: VITAL SIGNS: Stable. Blood pressure 101/66, oxygen saturation 95% on 4 liters, and respiratory rate is down from 35-18. His weight is stable at 75.4 kilograms. When he was seen here in August of 2015, he was 69.6 kilograms. So, he is actually up about 5 kilograms over the last 2 years. HEENT: Unremarkable. He does have some temporal muscle wasting, which I believe is new. The posterior pharynx is unremarkable. No adenopathy is noted anywhere. CHEST: Expansion of the thorax, actually I thought was fairly good with deep inspiration. Trachea is midline. Carotid upstroke normal. No axillary adenopathy or supraclavicular adenopathy is noted. Breast exam normal. HEART: Regular rate and rhythm. No murmurs are heard. LUNGS: With decreased breath sounds bilaterally. I do not detect any crackles or rales. Decreased breath sounds over the left hemithorax of course are noted. ABDOMEN: Soft and nontender. EXTREMITIES: He has no cyanosis, clubbing or edema. 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 EKG shows a normal sinus rhythm with left anterior fascicular block, borderline right atrial enlargement, has not changed since August of 2015. A CT of his chest reveals an infiltrative process at the right base with no evidence of pulmonary emboli noted. He does have evidence of the left pneumonectomy with a small amount of fluid in the left chest. I reviewed the biopsies of the bronchoscopy from the that suggest recurrent adenocarcinoma of the right upper lobe. LABORATORY DATA: White count is 21.88, hemoglobin is 16.7, and hematocrit is 48.5% with platelet count 283,000 with 83% segmented neutrophils. Blood gas reveals pH 7.32, pCO2 of 52, and pO2 of 36, that was a venous blood gas. Glucose is 116. Otherwise, the PRP, chemistry profile, and troponin are unremarkable. IMPRESSION: 1. Right lower lobe pneumonia. This needs to be considered as healthcare facility pneumonia following the bronchoscopy, although interestingly, he actually did very well on Wednesday, and Wednesday until he developed some shortness of breath and cough, producing some bloody sputum. I still think pneumococcus needs to be considered. 2. Respiratory insufficiency with chronic obstructive pulmonary disease. 3. 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 He has had pneumonectomy on the left side for adenocarcinoma in 2003, radiation therapy to the right upper lobe lesion in about 2005 or [address] in [place] [address] Geovanny Cochran and now has recurrence in that area. He did have fiducial markers placed during the bronchoscopy by Dr. Vicente. 4. History of aspiration. Certainly, aspiration pneumonia is a possibility that may have occurred when he was home. RECOMMENDATIONS: 1. Check a sputum Gram stain C & S. 2. Continue on his present antimicrobial agents. I believe the choice is good to cover anaerobes and staph. 3. Continue on the Xopenex 2 puffs 4 times a day and q. 4 hours p.r.n. and Atrovent. 4. Continue on oxygen at 1-2 liters per minute, just to keep his saturation at about 90%. You may want to consider putting a courtesy consult in for Dr. Vicente as well. The patient will be followed by Dr. Gutierrez, starting tomorrow. ALEXANDREA
--- NOTE | 2017-01-24 16:12 | SURGICAL CONSULTATION ---
DATE OF CONSULTATION: 01/24/2017 HISTORY OF PRESENT ILLNESS: Mr. Abdi is a 71-year-old male who I met a couple of weeks ago in the office. He has a history of a left pneumonectomy and had the other cancer in his right lung which was treated with external beam radiation and then subsequently treated again with SBRT. This was 12 years ago. He is 13 years out from his original pneumonectomy. The patient has a new nodule in his right upper lobe with no symptoms. I brought the patient to the operating room 4 days ago and did a navigational bronchoscopy and an endobronchial ultrasound. The patient appears to have an adenocarcinoma of this right upper lobe mass. We only got lymphatic tissue back on 3 of the specimens, but it appears the right level 10 node was negative. Right level 4 node had some cells, as did the level 7. These were insufficient for definitive diagnosis; however, there was very little in the way of lymphadenopathy in these nodes. I left a fiducial marker in him. He was sent home and was okay for a couple days and then developed acute shortness of breath and was admitted with an infiltrate in his right lower lobe. He is coughing up purulent sputum and some bloody sputum which is not surprising. There really was not much blood in what I looked at today. He feels better since the antibiotics were instituted last night. PAST MEDICAL HISTORY: 1. History of cigarette smoking. 2. History of nonsmall cell lung carcinoma, right lung. 3. History of nonsmall cell lung carcinoma, right upper lobe. 4. Newly diagnosed adenocarcinoma, right upper lobe. 5. Chronic obstructive pulmonary disease. 6. Probable coronary artery disease. PAST SURGICAL HISTORY: 1. Left thoracotomy with pneumonectomy. 2. Endobronchial ultrasound with biopsy. 3. Electromagnetic navigational bronchoscopy with fiducial marking. 4. Needle biopsy of right upper lobe mass in the past. MEDICATIONS: Please see chart. ALLERGIES: INCLUDE PENICILLIN, LORAZEPAM, KEFLEX AND MINOCYCLINE. SOCIAL HISTORY: The patient does not smoke now. He . His sisters are very devoted to him. FAMILY MEDICAL HISTORY: Significant for coronary artery disease as well as hypertension, atherosclerotic cardiovascular disease. REVIEW OF SYSTEMS: The patient really has not had any symptoms until this occurred. He denied any chest pain or palpitations. He has had no fevers or chills until this occurred. He has had no real weight loss. He does have dyspnea on exertion but this has been unchanged over the last several months. He denies any night sweats or peripheral edema. PHYSICAL EXAMINATION: GENERAL: He is a well-developed, well-nourished male who is thin and tall. He is awake, alert and oriented. He appears to be a bit short of breath and audibly has some expiratory wheezing. HEENT: His sclerae are injected. He has no oral mucosal lesions. His tongue is midline. NECK: Supple. He has no carotid bruits. LUNGS: He has decreased breath sounds with some coarse rales in his right base. He has some mild tracheal deviation to the left. He has decreased breath sounds on the left. He has a well-healed thoracotomy incision on the left. ABDOMEN: Soft, nontender. EXTREMITIES: He has no peripheral edema. No joint effusion, has good peripheral pulses. NEUROLOGIC: He is intact. DATA: I reviewed his CT scan, shows an infiltrate in the right lower lobe. The fiducial marker is directly in the middle of this mass. ASSESSMENT AND PLAN: Newly diagnosed adenocarcinoma and the patient has already undergone a left pneumonectomy and not only external beam radiation but SBRT to the right upper lobe. We are going to discuss this patient at the cancer conference but I am not sure there is much we can offer him.
[2017-01-24] MEDS: VANCOMYCIN INJ 1,100 MG in SODIUM CHLORIDE 0.9% 250ML 250 ML IV SCH (17:22)
[2017-01-24] MEDS ORDERED: NURSING VERBAL MED ORDER ONE (21:30)
[2017-01-25] VITALS (11 sets, daily range): BP systolic 112–144; BP diastolic 67–82; PULSE 72–104; TEMP 36.5–36.8; O2SAT 94–99
[2017-01-25] MEDS: LEVALBUTEROL 1.25MG/0.5ML NEB INH SCH ×4 (01:30→20:49)
[2017-01-25] MEDS: IPRATROPIUM BROMIDE NEB SOLN 0.02% 2.5 ML VIAL INH SCH ×4 (01:30→20:49)
[2017-01-25] MEDS: VANCOMYCIN INJ 1,100 MG in SODIUM CHLORIDE 0.9% 250ML 250 ML IV SCH ×2 (05:49→17:27)
[2017-01-25 06:06] LABS: BASO % 0.1 %; BASO ABS # 0.02 K/uL (0-0.2); COMPLETE YES; EOS % 0.4 %; HEMATOCRIT 43.4 % (42-52); IG% 0.3 %; LYMPH % 7.2 %; LYMPH ABS # 1.12 K/uL (1.2-3.4); MEAN CELL VOLUME 87.9 fL (80-100); MEAN CORPUSCULAR HEMOGLOBIN 30.2 pg (25-34); MEAN CORPUSCULAR HGB CONC 34.3 g/dl (32-36); MEAN PLATELET VOLUME 11.3 fL (7.4-10.4); MONO % 11.2 %; NEUT % 80.8 %; PLATELET COUNT 234 K/uL (130-400); RED BLOOD COUNT 4.94 M/uL (4.7-6.1); WHITE BLOOD COUNT 15.57 K/uL (4.8-10.8)
[2017-01-25 06:41] LABS: BUN/CREATININE RATIO 17.3 (10-20); CALCIUM 8.2 mg/dl (8.5-10.1); CREATININE 0.81 mg/dl (0.60-1.40); MAGNESIUM 2.2 mg/dl (1.8-2.4); POTASSIUM 3.6 mmol/L (3.5-5.1)
[2017-01-25] MEDS: BUDESONIDE/FORMOTEROL FUMARATE 80/4.5 60 PUFFS/INHALER INH SCH (08:55)
[2017-01-25] MEDS: LACTOBACILLUS ACIDOPHILUS (FLORANEX) TAB PO SCH ×3 (08:57→17:24)
[2017-01-25] MEDS: AZTREONAM IV 2,000 MG in DEXTROSE 5% 100ML 100 ML IV SCH ×3 (09:02→23:48)
[2017-01-25] MEDS: CLINDAMYCIN IV 900 MG in DEXTROSE 5% ADD-VANTAGE 100ML 100 ML IV SCH ×3 (09:02→23:48)
[2017-01-25] MEDS ORDERED: TAMSULOSIN HCL 0.4 MG CAP PO ONE (09:45)
--- NOTE | 2017-01-25 12:32 | Pulmonology Progress Note ---
Pulmonary Progress Note Date of Service Jan 25, 2017. Attending Dr. Gutierrez Subjective Denies any changes in his respiratory effort, continued mild dyspnea and cough. No further episodes of expectoration or hemoptysis. No significant relief from nebulizers. Denies fevers or chills. Appetite diminished without abdominal discomfort or pain. Urinary retention relieved with indwelling catheter which is not bothersome. Reports some sinus congestion and drainage. Objective 71-yo male admitted to [facility] 01/24/17 with right sided pneumonia. 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 He recently underwent navigational bronchoscopy and EBUS 01/20/17 with RUL nodule biopsy consistent with adenocarcinoma (fiducial placed). Patient presented with 1-week h/o dyspnea and cough productive of brown/banda sputum and hemoptysis x 1 beginning several days post bronchoscopy. CTA described moderate/severe emphysema, h/o prior pneumonectomy on the left, right apical scar tissue, 1cm RUL nodule with fiducial marker and RLL consolidation - no evidence of definite PE. ABG 01/24 suggestive of CO2 retention. He was treated wtih oxygen, broad spectrum antibiotic (Vancomycin #2 , Clindamycin #2, and aztreonam #2), and bronchodilators. Today: - 94-97% 3-4LPM - Afebrile, HD stable - PT/OT consulted - WBC: 15.57 (decreased from 21.88), Co2: 29 - Sputum Pending Physical Exam: Constitutional: Well developed thin male sleeping in hospital bed - easily aroused to voice, no acute distress Head: + facial symmetry Eyes: EOMi, PERRLA, no injection Mouth: dry mucous membranes. Mallampati I. Thick green mucoid material adherent to the posterior pharynx. Respiratory: O2 via NC in place. Non-labored respirations with extended expiratory phase. Rhonchi on the right. CV: Diminished S1, S2, regular MSK/Extremities: moving symmetrically. No peripheral edema. missing digits left hand. Neurologic: A&O. Good data recall. Appropriate affect. Assessment & Plan 71-yo male with h/o lung adenocarcinoma s/p left pneumonectomy with recurrence on the right as well as COPD/emphysema and recent health care contact admitted with right sided pneumonia. 1. Agree with coverage for HAP 2. Avoid LAMA / Spiriva with urinary retention but will increase Symbicort to 160/4.5 BID 3. Add Mucinex 600 BID x 2 days with visible thick mucoid material from upper respiratory tract as long as he has an indwelling catheter 4. Consider nutrition consultation 5. Consideration addition of 40mg PO prednisone with Q3-day 10mg taper given underlying obstructive lung disease. Case discussed with Dr. Gutierrez Data Medications: Current Inpatient Medications Medications (Trade) Dose Ordered Sig/Avila Route Start Time Stop Time Status Last Admin Dose Admin Ioversol 100 ml 100 ml UD PRN IV 01/24/17 03:15 01/28/17 03:14 Aztreonam 2000 mg/ Dextrose 110 ml @ 100 mls/hr Q8H IV 01/24/17 08:00 01/31/17 07:59 01/25/17 09:02 100 MLS/HR Clindamycin Phosphate/Dextrose (Cleocin Iv/ Dextrose Add-[place] 100ML) 106 ml @ 100 mls/hr Q8H IV 01/24/17 08:00 01/31/17 07:59 01/25/17 09:02 100 MLS/HR Ondansetron HCl 4 mg 4 mg Q6H PRN IV 01/24/17 05:30 02/23/17 05:29 Acetaminophen (Ofirmev Iv) 100 ml @ 400 mls/hr Q8H PRN IV 01/24/17 05:30 02/23/17 05:29 Lactobacillus Acidophilus (Floranex Tab) 1 tab TIDM PO 01/24/17 08:00 02/23/17 07:59 01/25/17 11:33 1 TAB Ipratropium [place] (Atrovent 0.02% 0.5MG/2.5ML Neb) 0.5 mg Q6R INH 01/24/17 09:00 02/23/17 08:59 01/25/17 07:42 0.5 MG Levalbuterol (Xopenex 1.25MG/ 0.5ML Neb) 1.25 mg Q6R INH 01/24/17 09:00 02/23/17 08:59 01/25/17 07:42 1.25 MG Ipratropium [place] (Atrovent 0.02% 0.5MG/2.5ML Neb) 0.5 mg Q2H PRN INH 01/24/17 05:45 02/23/17 05:44 Levalbuterol (Xopenex 1.25MG/ 0.5ML Neb) 1.25 mg Q2H PRN INH 01/24/17 05:45 02/23/17 05:44 Vancomycin HCl (Consult) 1 ea UD PRN N/A 01/24/17 06:15 02/23/17 06:14 Budesonide/ Formoterol Fumarate 2 puffs 2 puffs BID INH 01/24/17 09:00 02/23/17 08:59 01/25/17 08:55 2 PUFFS Vancomycin HCl/ Sodium Chloride (Vancomycin Inj/ Nss 250ml) 272 ml @ 125 mls/hr Q12H IV 01/24/17 18:00 01/31/17 17:59 01/25/17 05:49 125 MLS/HR Fluticasone Propionate (Flonase Nasal [place]) 2 sprays HS CHARITY 01/25/17 21:00 02/24/17 20:59 Tamsulosin HCl (Flomax Cap) 0.4 mg QAM PO 01/26/17 09:00 02/25/17 08:59 I & O: 24-Hour Column 01/25/17 07:59 Intake Total 2716 ml Output Total 1075 ml Balance 1641 ml Vital Signs: Date Time Temp Pulse Resp B/P Pulse Ox O2 Delivery O2 Flow Rate FiO2 01/25/17 12:02 Nasal Cannula 3.0 01/25/17 11:24 36.5 84 20 131/73 98 4.0 01/25/17 08:00 Nasal Cannula 3.0 01/25/17 07:51 36.8 85 20 136/80 95 01/25/17 07:42 72 18 94 Nasal Cannula 4.0 01/25/17 04:50 36.8 95 18 144/82 97 01/25/17 04:00 Nasal Cannula 3.0 01/25/17 01:30 72 18 94 Nasal Cannula 4.0 01/25/17 00:00 Nasal Cannula 3.0 01/24/17 23:19 37.1 89 18 122/67 94 Room Air 01/24/17 20:53 72 18 96 Nasal Cannula 5.0 01/24/17 20:20 37.7 92 18 127/77 93 Room Air 01/24/17 20:00 Nasal Cannula 01/24/17 16:00 93 Nasal Cannula 4.0 01/24/17 16:00 93 Nasal Cannula 4.0 01/24/17 15:21 36.7 90 16 145/79 98 Nasal Cannula 4.0 01/24/17 14:37 71 18 96 Nasal Cannula 4.0 Laboratory Results: Last 24 Hours Test 01/25/17 05:21 White Blood Count 15.57 K/uL Red Blood Count 4.94 M/uL Hemoglobin 14.9 g/dL Hematocrit 43.4 % Mean Corpuscular Volume 87.9 fL Mean Corpuscular Hemoglobin 30.2 pg Mean Corpuscular Hemoglobin Concent 34.3 g/dl Platelet Count 234 K/uL Mean Platelet Volume 11.3 fL Neutrophils (%) (Auto) 80.8 % Lymphocytes (%) (Auto) 7.2 % Monocytes (%) (Auto) 11.2 % Eosinophils (%) (Auto) 0.4 % Basophils (%) (Auto) 0.1 % Neutrophils # (Auto) 12.58 K/uL Lymphocytes # (Auto) 1.12 K/uL Monocytes # (Auto) 1.74 K/uL Eosinophils # (Auto) 0.06 K/uL Basophils # (Auto) 0.02 K/uL RDW Standard Deviation 46.5 fL RDW Coefficient of Variation 14.3 % Immature Granulocyte % (Auto) 0.3 % Immature Granulocyte # (Auto) 0.05 K/uL Sodium Level 139 mmol/L Potassium Level 3.6 mmol/L Chloride Level 104 mmol/L Carbon Dioxide Level 29 mmol/L Anion Gap 6.0 mmol/L Blood Urea Nitrogen 14 mg/dl Creatinine 0.81 mg/dl Est Creatinine Clear Calc Drug Dose 89.3 ml/min Estimated GFR () 103.6 Estimated GFR (Non- 89.4 BUN/Creatinine Ratio 17.3 Random Glucose 122 mg/dl Calcium Level 8.2 mg/dl Magnesium Level 2.2 mg/dl
--- NOTE | 2017-01-25 15:14 | Family Medicine Progress Note ---
Progress Note Date of Service Jan 25, 2017. Subjective Pt evaluation today including: conversation w/ patient, physical exam, chart review, lab review, review of studies, review of inpatient medication list Voiding: santana catheter in place Urinary retention overnight therefore Santana catheter was placed. He feels much better after this and thinks he might be able to get some sleep. He notes a history of enlarged prostate previously. He complains of poor sleeping due steroids (he currently is not on any systemic steroids however). He feels his breathing is stable although he is not on any home O2 and currently requiring 3- 4L. He denies any fevers, chills or chest pain. He has an ongoing productive cough but reports no problems clearing his lungs. All Other Systems: Reviewed and Negative Medications Current Inpatient Medications Medications (Trade) Dose Ordered Sig/[place]ila Route Start Time Stop Time Status Last Admin Dose Admin Ioversol 100 ml 100 ml UD PRN IV 01/24/17 03:15 01/28/17 03:14 Aztreonam 2000 mg/ Dextrose 110 ml @ 100 mls/hr Q8H IV 01/24/17 08:00 01/31/17 07:59 01/25/17 09:02 100 MLS/HR Clindamycin Phosphate/Dextrose (Cleocin Iv/ Dextrose Add-[place] 100ML) 106 ml @ 100 mls/hr Q8H IV 01/24/17 08:00 01/31/17 07:59 01/25/17 09:02 100 MLS/HR Ondansetron HCl 4 mg 4 mg Q6H PRN IV 01/24/17 05:30 02/23/17 05:29 Acetaminophen (Ofirmev Iv) 100 ml @ 400 mls/hr Q8H PRN IV 01/24/17 05:30 02/23/17 05:29 Lactobacillus Acidophilus (Floranex Tab) 1 tab TIDM PO 01/24/17 08:00 02/23/17 07:59 01/25/17 11:33 1 TAB Ipratropium [place] (Atrovent 0.02% 0.5MG/2.5ML Neb) 0.5 mg Q6R INH 01/24/17 09:00 02/23/17 08:59 01/25/17 14:09 0.5 MG Levalbuterol (Xopenex 1.25MG/ 0.5ML Neb) 1.25 mg Q6R INH 01/24/17 09:00 02/23/17 08:59 01/25/17 14:09 1.25 MG Ipratropium [place] (Atrovent 0.02% 0.5MG/2.5ML Neb) 0.5 mg Q2H PRN INH 01/24/17 05:45 02/23/17 05:44 Levalbuterol (Xopenex 1.25MG/ 0.5ML [facility]) 1.25 mg Q2H PRN INH 01/24/17 05:45 02/23/17 05:44 Vancomycin HCl 1 ea 1 ea UD PRN N/A 01/24/17 06:15 02/23/17 06:14 Vancomycin HCl/ Sodium Chloride (Vancomycin Inj/ Nss 250ml) 272 ml @ 125 mls/hr Q12H IV 01/24/17 18:00 01/31/17 17:59 01/25/17 05:49 125 MLS/HR Fluticasone Propionate (Flonase Nasal [place]) 2 sprays HS CHARITY 01/25/17 21:00 02/24/17 20:59 Tamsulosin HCl (Flomax Cap) 0.4 mg QAM PO 01/26/17 09:00 02/25/17 08:59 Budesonide/ Formoterol Fumarate (Symbicort 160/ 4.5 Inh) 2 puffs BID INH 01/25/17 21:00 02/24/17 20:59 Guaifenesin (Mucinex Contr Rel Tab) 600 mg Q12 PO 01/25/17 21:00 02/26/17 09:00 Objective Vital Signs Date Time Temp Pulse Resp B/P Pulse Ox O2 Delivery O2 Flow Rate FiO2 01/25/17 14:10 72 18 94 Nasal Cannula 4.0 01/25/17 12:02 Nasal Cannula 3.0 01/25/17 11:24 36.5 84 20 131/73 98 4.0 01/25/17 08:00 Nasal Cannula 3.0 01/25/17 07:51 36.8 85 20 136/80 95 01/25/17 07:42 72 18 94 Nasal Cannula 4.0 01/25/17 04:50 36.8 95 18 144/82 97 01/25/17 04:00 Nasal Cannula 3.0 01/25/17 01:30 72 18 94 Nasal Cannula 4.0 01/25/17 00:00 Nasal Cannula 3.0 01/24/17 23:19 37.1 89 18 122/67 94 Room Air 01/24/17 20:53 72 18 96 Nasal Cannula 5.0 01/24/17 20:20 37.7 92 18 127/77 93 Room Air 01/24/17 20:00 Nasal Cannula 01/24/17 16:00 93 Nasal Cannula 4.0 01/24/17 16:00 93 Nasal Cannula 4.0 01/24/17 15:21 36.7 90 16 145/79 98 Nasal Cannula 4.0 Physical Exam General Appearance: WD/WN, no apparent distress Eyes: normal inspection (pupils equal), EOMI Neck: supple, no JVD Respiratory/Chest: no respiratory distress, no accessory muscle use, + pertinent finding (assymetrical chest expansion reduced on left, reduced breath sounds on left side, rhonchus, good air entry without wheezing) Cardiovascular: regular rate, rhythm, no JVD, no murmur Abdomen: normal bowel sounds, non tender, soft Extremities: no pedal edema, no calf tenderness, normal capillary refill Neurologic/Psychiatric: no motor/sensory deficits, alert, oriented x 3 Skin: normal color, warm/dry, no rash Laboratory Results 01/25/17 05:21 Red Blood Count 4.94, Mean Corpuscular Volume 87.9, Mean Corpuscular Hemoglobin 30.2, Mean Corpuscular Hemoglobin Concent 34.3, Mean Platelet Volume 11.3, Neutrophils (%) (Auto) 80.8, Lymphocytes (%) (Auto) 7.2, Monocytes (%) (Auto) 11.2, Eosinophils (%) (Auto) 0.4, Basophils (%) (Auto) 0.1, Neutrophils # (Auto ) 12.58, Lymphocytes # (Auto) 1.12, Monocytes # (Auto) 1.74, Eosinophils # (Auto ) 0.06, Basophils # (Auto) 0.02 01/25/17 05:21 Test 01/25/17 05:21 White Blood Count 15.57 K/uL (4.8-10.8) Red Blood Count 4.94 M/uL (4.7-6.1) Hemoglobin 14.9 g/dL (14.0-18.0) Hematocrit 43.4 % (42-52) Mean Corpuscular Volume 87.9 fL (80-100) Mean Corpuscular Hemoglobin 30.2 pg (25-34) Mean Corpuscular Hemoglobin Concent 34.3 g/dl (32-36) Platelet Count 234 K/uL (130-400) Mean Platelet Volume 11.3 fL (7.4-10.4) Neutrophils (%) (Auto) 80.8 % Lymphocytes (%) (Auto) 7.2 % Monocytes (%) (Auto) 11.2 % Eosinophils (%) (Auto) 0.4 % Basophils (%) (Auto) 0.1 % Neutrophils # (Auto) 12.58 K/uL (1.4-6.5) Lymphocytes # (Auto) 1.12 K/uL (1.2-3.4) Monocytes # (Auto) 1.74 K/uL (0.11-0.59) Eosinophils # (Auto) 0.06 K/uL (0-0.5) Basophils # (Auto) 0.02 K/uL (0-0.2) RDW Standard Deviation 46.5 fL (36.4-46.3) RDW Coefficient of Variation 14.3 % (11.5-14.5) Immature Granulocyte % (Auto) 0.3 % Immature Granulocyte # (Auto) 0.05 K/uL (0.00-0.02) Anion Gap 6.0 mmol/L (3-11) Est Creatinine Clear Calc Drug Dose 89.3 ml/min Estimated GFR () 103.6 Estimated GFR (Non- 89.4 BUN/Creatinine Ratio 17.3 (10-20) Calcium Level 8.2 mg/dl (8.5-10.1) Magnesium Level 2.2 mg/dl (1.8-2.4) Date/Time Source Procedure Growth Status 01/24/17 17:00 Nasal MRSA DNA Surveillance Screen - Final Specimen Negative for MRSA by DNA Probe Complete Assessment and Plan 71 year old male with presents with shortness of breath, hemoptysis with red and black blood. 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 Pneumonia - hospital acquired (started after after recent RUL nodule biopsy) vs. aspiration given (Hx significant dysphagia with aspiration) - Appreciate pulmonology recommendations - Continue aztreonam, clindamycin and vancomycin. Noted MRSA negative in nasal swab however - Guaifenesin added by pulmonology - speech consult for severe dysphagia with aspiration - sputum culture no growth, no blood cultures on admission Recurrent lung adenocarcinoma - to be discussed at tumor board. Managed by Edgard Dodge and Dr Gonsalez. Hemoptysis - s/p biopsy, possibly from biopsy site vs. lung ca. vs. pneumonia. - hold ASA and hold chemical VTE prophylaxis at present COPD - moderate to severe on CT, severe on PFTs 2010. - Continue Symbicort (increased to 160/4.5 2 puffs BID by pulmonology) - No LAMA ?due to urinary retention. I'm not concerned with his urinary retention given lack of systemic absorption but will leave this up to pulmonology given long winder tender he is not on this medication. - Continue Xopenex and Atrovent nebulizers - No steroids currently as no wheezing. - Aim sats 88-92% Urinary retention - probably secondary to BPH - Santana catheter to gravity - start tamsulosin - TWOC in urology clinic in 2 weeks Code - Discussed with patient in some detail and he wishes to be for full resuscitation at this stage. He has capacity to make this decision. VTE Prophylaxis - high risk of VTE but hold off chemical prophylaxis at present due to hemoptysis Disposition - stable on telemetry therefore will step down to med/surg care History Resident Physician Supervision Note: I was present with Dr. José during the history and exam. I discussed the case with the resident and agree with the findings and plan as documented in the note. Any exceptions or clarifications are listed here Pt seen and examined at bedside. No acute events overnight. At present, patient reports his breathing is somewhat improved from previous, though he reports minimal change with nebulizers. He reports no f/c, n/v/d/c, abd pain, [place], lightheadedness. General Appearance: WD/WN, no apparent distress Respiratory: chest non-tender, no respiratory distress, decreased breath sounds (RLL) Cardiovascular: normal peripheral pulses, regular rate, rhythm, no edema, no murmur Gastrointestinal: normal bowel sounds, non tender, soft, no organomegaly Assessment/Plan 71 y/o male h/o adenoCA of the lung s/p left lobectomy w/ RUL recurrence, COPD/ emphysema w/ R CAP CAP - continue present abx regimen at present COPD - increase symbicort, continue nebulizer. Agree w/ addition of mucinex RUL nodule w/ h/o adenoCA - have begun discussions regarding potential avenues of addressing, but will wait for further details for options from Dr. Vicente for now Urinary retention - continue flomax, urinary catheter in place Resident Tracking Resident Involvement: Resident Care Provided Care Provided: Adult Hospital Medicine
--- NOTE | 2017-01-25 18:13 | SURGERY PROGRESS NOTE ---
DATE: 01/25/2017 Mr. Abdi was seen today, on 01/25/2017. Mr. Abdi continues to complain of shortness of breath, but he looks much better than he did yesterday. He has got very little in the way of reserves so it does not surprise me that he has had such a difficult time with his right lower lobe pneumonia. His A-a gradient is improving; he is on 99% saturation on two liters. Overall, he is getting better. MTDD
[2017-01-25] MEDS: GUAIFENESIN 600 MG TABCR PO SCH (20:46)
[2017-01-25] MEDS: FLUTICASONE PROPIONATE NA SPR 16 GM BTL NAE SCH (20:46)
[2017-01-25] MEDS: BUDESONIDE/FORMOTEROL FUMARATE 160/4.5 60 PUFFS/INHALER INH SCH (20:56)
[2017-01-26] VITALS (7 sets, daily range): BP systolic 117–157; BP diastolic 72–86; PULSE 68–107; TEMP 36.4–37.3; O2SAT 95–98
[2017-01-26] MEDS ORDERED: NURSING VERBAL MED ORDER ONE (01:30)
[2017-01-26] MEDS ORDERED: MULTIVITAMIN TAB PO STA (02:08)
[2017-01-26] MEDS ORDERED: ASPIRIN 81 MG ECTAB PO STA (02:09)
[2017-01-26] MEDS: IPRATROPIUM BROMIDE NEB SOLN 0.02% 2.5 ML VIAL INH SCH ×4 (02:31→19:37)
[2017-01-26] MEDS: LEVALBUTEROL 1.25MG/0.5ML NEB INH SCH ×4 (02:31→19:37)
[2017-01-26] MEDS ORDERED: VANCOMYCIN TROUGH SCH (05:30)
[2017-01-26 06:15] LABS: BASO % 0.2 %; BASO ABS # 0.02 K/uL (0-0.2); COMPLETE YES; EOS % 1.3 %; HEMATOCRIT 41.2 % (42-52); IG% 0.3 %; LYMPH % 6.9 %; LYMPH ABS # 0.73 K/uL (1.2-3.4); MEAN CELL VOLUME 87.7 fL (80-100); MEAN CORPUSCULAR HGB CONC 34.2 g/dl (32-36); MEAN PLATELET VOLUME 11.2 fL (7.4-10.4); MONO % 13.4 %; NEUT % 77.9 %; PLATELET COUNT 244 K/uL (130-400); WHITE BLOOD COUNT 10.65 K/uL (4.8-10.8)
[2017-01-26] MEDS: VANCOMYCIN INJ 1,100 MG in SODIUM CHLORIDE 0.9% 250ML 250 ML IV SCH (06:20)
[2017-01-26 06:45] LABS: BUN/CREATININE RATIO 14.5 (10-20); CALCIUM 8.8 mg/dl (8.5-10.1); CREATININE 0.69 mg/dl (0.60-1.40); POTASSIUM 3.5 mmol/L (3.5-5.1)
[2017-01-26] MEDS: CLINDAMYCIN IV 900 MG in DEXTROSE 5% ADD-VANTAGE 100ML 100 ML IV SCH ×2 (08:59→15:48)
--- NOTE | 2017-01-26 09:31 | Clinical Documentation Query ---
CLINICAL DOCUMENTATION QUERY Dr. STOVALL, In your clinical opinion is this patient being managed for: (X) Acute respiratory failure, POA, treated and improved ( ) Other explanation of clinical findings (Please Explain) ( ) Unable to determine (Please Define) ( ) Need to Discuss ( ) Not Agree The medical record reflects the following clinical findings, treatment, and risk factors. Clinical Indicators: 71 yo male presenting with worsening dyspnea. ER documentation indicates pulse ox 90% on room air. Pt only able to speak in 4-5 word sentences. Respiratory rate of 34, HR 115. Treatment: hour long duoneb, IV levaquin, O2 support, CT chest, pulmonary and thoracic surgery consults, atrovent, xopenex Risk Factors: COPD, newly diagnosed adenocarcinoma RUL, hx of L pneumonectomy, pneumonia Please clarify and document your clinical opinion in the progress notes and discharge summary. Terms such as "probable", "suspected", "likely", "questionable", "possible", or "still to be ruled out" are acceptable. IF IN AGREEMENT, YOU MUST DOCUMENT ABOVE DIAGNOSTIC STATEMENT IN DAILY PROGRESS NOTES AND DISCHARGE SUMMARY. This document is not part of the patient's record. Thank You, Priscila Martini, RN [phone]
--- NOTE | 2017-01-26 09:32 | Clinical Documentation Query ---
CLINICAL DOCUMENTATION QUERY Dr. BRANTLEY, In your clinical opinion is this patient being managed for: ( X) Acute respiratory failure, POA, treated and improved ( ) Other explanation of clinical findings (Please Explain) ( ) Unable to determine (Please Define) ( ) Need to Discuss ( ) Not Agree The medical record reflects the following clinical findings, treatment, and risk factors. Clinical Indicators: 71 yo male presenting with worsening dyspnea. ER documentation indicates pulse ox 90% on room air. Pt only able to speak in 4-5 word sentences. Respiratory rate of 34, HR 115. Treatment: hour long duoneb, IV levaquin, O2 support, CT chest, pulmonary and thoracic surgery consults, atrovent, xopenex Risk Factors: COPD, newly diagnosed adenocarcinoma RUL, hx of L pneumonectomy, pneumonia Please clarify and document your clinical opinion in the progress notes and discharge summary. Terms such as "probable", "suspected", "likely", "questionable", "possible", or "still to be ruled out" are acceptable. IF IN AGREEMENT, YOU MUST DOCUMENT ABOVE DIAGNOSTIC STATEMENT IN DAILY PROGRESS NOTES AND DISCHARGE SUMMARY. This document is not part of the patient's record. Thank You, Priscila Martini, RN [phone]
[2017-01-26] MEDS: BUDESONIDE/FORMOTEROL FUMARATE 160/4.5 60 PUFFS/INHALER INH SCH ×2 (10:18→20:39)
[2017-01-26] MEDS: TAMSULOSIN HCL 0.4 MG CAP PO SCH (10:19)
[2017-01-26] MEDS: LACTOBACILLUS ACIDOPHILUS (FLORANEX) TAB PO SCH ×3 (10:19→17:24)
[2017-01-26] MEDS: GUAIFENESIN 600 MG TABCR PO SCH ×2 (10:19→20:39)
--- NOTE | 2017-01-26 10:42 | Family Medicine Progress Note ---
Progress Note Date of Service Jan 26, 2017. Subjective Pt evaluation today including: conversation w/ patient, physical exam, chart review, lab review, review of studies, conversation w/ home service consultant (Dr Gutierrez), review of inpatient medication list Voiding: no voiding problems Seen this morning just after walking outside his room and around the nursing station and he appears short of breath but notes such a distance would usually make him short of breath even before the biopsy and this acute illness. He doesn 't think he will be able to cope at home currently and is afraid about going home before he is completely better. Discussed antibiotics and initially refused to have any more antibiotics as they " enlarge his prostate" and cause him to have fungal infections, but he also wants the pneumonia to be completely clear so eventually was able to understand the need for antibiotics for the pneumonia. He is afraid of going to rehabilitation as "they will take his house ". All Other Systems: Reviewed and Negative Medications Current Inpatient Medications Medications (Trade) Dose Ordered Sig/[place] Route Start Time Stop Time Status Last Admin Dose Admin Ioversol 100 ml 100 ml UD PRN IV 01/24/17 03:15 01/28/17 03:14 Aztreonam 2000 mg/ Dextrose 110 ml @ 100 mls/hr Q8H IV 01/24/17 08:00 01/31/17 07:59 01/25/17 23:48 100 MLS/HR Clindamycin Phosphate/Dextrose (Cleocin Iv/ Dextrose Add-[place] 100ML) 106 ml @ 100 mls/hr Q8H IV 01/24/17 08:00 01/31/17 07:59 01/26/17 08:59 100 MLS/HR Ondansetron HCl 4 mg 4 mg Q6H PRN IV 01/24/17 05:30 02/23/17 05:29 Acetaminophen (Ofirmev Iv) 100 ml @ 400 mls/hr Q8H PRN IV 01/24/17 05:30 02/23/17 05:29 Lactobacillus Acidophilus (Floranex Tab) 1 tab TIDM PO 01/24/17 08:00 02/23/17 07:59 01/26/17 10:19 1 TAB Ipratropium [place] (Atrovent 0.02% 0.5MG/2.5ML Neb) 0.5 mg Q6R INH 01/24/17 09:00 02/23/17 08:59 01/26/17 07:26 0.5 MG Levalbuterol (Xopenex 1.25MG/ 0.5ML Neb) 1.25 mg Q6R INH 01/24/17 09:00 02/23/17 08:59 01/26/17 07:26 1.25 MG Ipratropium [place] (Atrovent 0.02% 0.5MG/2.5ML Neb) 0.5 mg Q2H PRN INH 01/24/17 05:45 02/23/17 05:44 Levalbuterol (Xopenex 1.25MG/ 0.5ML Neb) 1.25 mg Q2H PRN INH 01/24/17 05:45 02/23/17 05:44 Vancomycin HCl (Consult) 1 ea UD PRN N/A 01/24/17 06:15 02/23/17 06:14 Fluticasone Propionate (Flonase Nasal [place]) 2 sprays HS CHARITY 01/25/17 21:00 02/24/17 20:59 01/25/17 20:46 2 SPRAYS Tamsulosin HCl (Flomax Cap) 0.4 mg QAM PO 01/26/17 08:00 02/25/17 08:59 01/26/17 10:19 0.4 MG Budesonide/ Formoterol Fumarate (Symbicort 160/ 4.5 Inh) 2 puffs BID INH 01/25/17 21:00 02/24/17 20:59 01/26/17 10:18 2 PUFFS Guaifenesin (Mucinex Contr Rel Tab) 600 mg Q12 PO 01/25/17 21:00 02/26/17 09:00 01/26/17 10:19 600 MG Multivitamins (Multivitamin Tab) 1 tab QAM PO 01/27/17 08:00 02/26/17 07:59 Aspirin 81 mg 81 mg QAM PO 01/27/17 08:00 02/26/17 07:59 Vancomycin HCl/ Sodium Chloride (Vancomycin Inj/ Nss 250ml) 272 ml @ 125 mls/hr Q8H IV 01/26/17 14:00 01/30/17 23:59 Objective Vital Signs Date Time Temp Pulse Resp B/P Pulse Ox O2 Delivery O2 Flow Rate FiO2 01/26/17 07:35 37.3 92 22 117/72 97 Nasal Cannula 2.0 01/26/17 07:26 92 18 97 Nasal Cannula 2.0 01/26/17 02:31 68 18 95 Nasal Cannula 4.0 01/26/17 00:10 Nasal Cannula 2.0 01/25/17 23:35 36.6 89 18 112/67 97 Nasal Cannula 4.0 01/25/17 20:50 78 18 97 Nasal Cannula 4.0 01/25/17 20:13 36.7 104 18 130/81 96 Nasal Cannula 4.0 01/25/17 16:00 99 Nasal Cannula 2.0 01/25/17 15:32 36.6 98 16 125/75 99 01/25/17 14:10 72 18 94 Nasal Cannula 4.0 01/25/17 12:02 Nasal Cannula 3.0 01/25/17 11:24 36.5 84 20 131/73 98 4.0 Physical Exam General Appearance: + mild distress (after walking appears short of breath) Eyes: normal inspection (pupils equal) Neck: supple, no JVD Respiratory/Chest: no accessory muscle use, + respiratory distress (mild resp distress after walking), + decreased breath sounds (googd air entry bilaterally improved from previously, reduced expansion of left chest and reduced breath sounds this side as expected s/p pneumonectomy) Cardiovascular: regular rate, rhythm (HS loudest on left apex (heart shifted to this side due to pneumonectomy)), no edema, no murmur Abdomen: normal bowel sounds, non tender, soft Neurologic/Psychiatric: no motor/sensory deficits (no unilateal), alert, oriented x 3 Skin: normal color, warm/dry, no rash Laboratory Results 01/26/17 05:45 Red Blood Count 4.70, Mean Corpuscular Volume 87.7, Mean Corpuscular Hemoglobin 30.0, Mean Corpuscular Hemoglobin Concent 34.2, Mean Platelet Volume 11.2, Neutrophils (%) (Auto) 77.9, Lymphocytes (%) (Auto) 6.9, Monocytes (%) (Auto) 13.4, Eosinophils (%) (Auto) 1.3, Basophils (%) (Auto) 0.2, Neutrophils # (Auto ) 8.30, Lymphocytes # (Auto) 0.73, Monocytes # (Auto) 1.43, Eosinophils # (Auto ) 0.14, Basophils # (Auto) 0.02 01/26/17 05:45 Test 01/26/17 05:45 White Blood Count 10.65 K/uL (4.8-10.8) Red Blood Count 4.70 M/uL (4.7-6.1) Hemoglobin 14.1 g/dL (14.0-18.0) Hematocrit 41.2 % (42-52) Mean Corpuscular Volume 87.7 fL (80-100) Mean Corpuscular Hemoglobin 30.0 pg (25-34) Mean Corpuscular Hemoglobin Concent 34.2 g/dl (32-36) Platelet Count 244 K/uL (130-400) Mean Platelet Volume 11.2 fL (7.4-10.4) Neutrophils (%) (Auto) 77.9 % Lymphocytes (%) (Auto) 6.9 % Monocytes (%) (Auto) 13.4 % Eosinophils (%) (Auto) 1.3 % Basophils (%) (Auto) 0.2 % Neutrophils # (Auto) 8.30 K/uL (1.4-6.5) Lymphocytes # (Auto) 0.73 K/uL (1.2-3.4) Monocytes # (Auto) 1.43 K/uL (0.11-0.59) Eosinophils # (Auto) 0.14 K/uL (0-0.5) Basophils # (Auto) 0.02 K/uL (0-0.2) RDW Standard Deviation 46.1 fL (36.4-46.3) RDW Coefficient of Variation 14.2 % (11.5-14.5) Immature Granulocyte % (Auto) 0.3 % Immature Granulocyte # (Auto) 0.03 K/uL (0.00-0.02) Anion Gap 7.0 mmol/L (3-11) Est Creatinine Clear Calc Drug Dose 104.9 ml/min Estimated GFR () 110.7 Estimated GFR (Non- 95.5 BUN/Creatinine Ratio 14.5 (10-20) Calcium Level 8.8 mg/dl (8.5-10.1) Vancomycin Level Trough 8.9 mcg/ml (SEE COMMENT) Assessment and Plan 71 year old male with presents with shortness of breath, hemoptysis with red and black blood. 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 Pneumonia - hospital acquired (started after after recent RUL nodule biopsy) vs. aspiration given (Hx significant dysphagia with aspiration) - Appreciate pulmonology recommendations - Guaifenesin added by pulmonology - speech consult - video swallow negative for aspiration - sputum culture no growth, no blood cultures on admission - discussed antibiotic coverage with Dr Gutierrez. No aspiration on video swallow, negative sputum, no BC taken on admission, MRSA neg, clinical improvement will step down antibiotics to Levaquin - CXR in morning as per Dr Vicente Recurrent lung adenocarcinoma - to be discussed at tumor board. Managed by Edgard Dodge and Dr Gonsalez. - Dr Rene consulted by Thoracic surgery Hemoptysis - s/p biopsy, possibly from biopsy site vs. lung ca. vs. pneumonia. - hold chemical VTE prophylaxis at present as ambulatory and expected d/c tomorrow - ASA restarted by night doctor, therefore will continue to monitor this closely COPD - moderate to severe on CT, severe on PFTs 2010. - Continue Symbicort (increased to 160/4.5 2 puffs BID by pulmonology) - No LAMA ?due to urinary retention. I'm not concerned with his urinary retention given lack of systemic absorption but will leave this up to pulmonology given detention he is not on this medication. - Continue Xopenex and Atrovent nebulizers - No steroids currently as no wheezing, patient very anxious about steroid treatment in general - Aim sats 88-92% Urinary retention - probably secondary to BPH - Coelho catheter to gravity - start tamsulosin - TWOC in urology clinic in 2 weeks Code - Discussed with patient in some detail and he wishes to be for full resuscitation at this stage. He has capacity to make this decision. VTE Prophylaxis - high risk of VTE but hold off chemical prophylaxis at present due to hemoptysis Disposition - continued med/surg stay. Aim d/c tomorrow. History Resident Physician Supervision Note: I was present with Dr. José during the history and exam. I discussed the case with the resident and agree with the findings and plan as documented in the note. Any exceptions or clarifications are listed here. Shortness of breath after considerable walking on the floors 1 hour ago which has not improved. This is close to his baseline re: breathing. HE has not had a treatment since this event. Cough/SOB improving. Respiratory: chest non-tender, lungs clear, no respiratory distress, decreased breath sounds (left base), rales (mildly lower lobe improved) Cardiovascular: normal peripheral pulses, regular rate, rhythm, no edema, no murmur Assessment/Plan 71 y/o male h/o adenoCA of the lung s/p left lobectomy w/ RUL recurrence, COPD/ emphysema w/ R CAP CAP - continue present abx regimen at present, d/w pulmonology re: narrowing ( likely to FQ) Hemoptysis - 4 days prior, have been holding AC/AP agents, can restart ASA tm COPD - Continue symbicort, mucinex and nebulizer RUL nodule w/ h/o adenoCA - per Dr. Rene, will f/u OP for further chemo/rad related management Urinary retention - continue flomax, urinary catheter in place for outpatient voiding trial Resident Tracking Resident Involvement: Resident Care Provided Care Provided: Adult Hospital Medicine
[2017-01-26] MEDS: AZTREONAM IV 2,000 MG in DEXTROSE 5% 100ML 100 ML IV SCH ×2 (10:49→15:48)
--- NOTE | 2017-01-26 11:48 | SURGERY PROGRESS NOTE ---
DATE: 01/26/2017 DATE: 01/26/2017. Mr. Abdi looks much better today. He is sitting up eating breakfast. He is still on oxygen, but his lungs sound much better to me. His saturation is on 2 liters was 97% today. He is making good urine. His white count has now fallen to 10,650, hemoglobin stable. We really did not grow anything out from his sputum or other cultures. We are going to check a chest x-ray tomorrow since it has now been 3 days since he had any studies. I think his right lower lobe pneumonia is responding to the antibiotics. At this point, I think he is going to be stable for discharge. It should also be noted that this patient has what appears to be an isolated cancer in his right lung which we have marked with a fiducial marker. I will discuss his case at cancer conference.
--- NOTE | 2017-01-26 12:15 | PULMONARY PROGRESS NOTE ---
DATE: 01/26/2017 TIME: 11:10 a.m. SUBJECTIVE: The patient states he is feeling much better. His breathing is a lot better. He is less congested. He did cough up some sputum this morning. He describes it as the size of his thumb nail. He states it was somewhat black in color. This might suggest dried blood. He is having no chest pains. The patient still has a catheter in place. He has been started on tamsulosin. OBJECTIVE: GENERAL: The patient appears comfortable. VITAL SIGNS: Temperature is 37.3 this morning. NECK: Palpation of the neck reveals no lymph nodes. HEART: Rate is 92 per minute. Blood pressure 117/72. Respiratory rate was 22 breaths per minute. The breath sounds are markedly LUNGS: Diminished on the left. There were mild rhonchi on the right side. Saturation was 97% on 2 liters. He does have a surgical scar on the left side. ABDOMEN: Soft and nontender. EXTREMITIES: Showed no edema. LABORATORY DATA: White count today is 10.65. This has been steadily improving. He was 21.88 on the . Hemoglobin today is 14.1. Platelets are 244,000. Electrolytes show sodium 139, potassium 3.5, chloride 103, and bicarbonate 29. BUN was 10 with a creatinine of 0.69. Blood sugar was 114. I did review the patient's CAT scan, which was done on January 24. IMPRESSIONS: 1. Right lower lobe pneumonia. 2. Adenocarcinoma, right upper lobe. 3. Status post left pneumonectomy for a carcinoma in 2003. 4. Chronic obstructive pulmonary disease. COMMENTS AND RECOMMENDATIONS: The patient clinically is much improved. He has been receiving vancomycin and clindamycin and aztreonam. He is on the Symbicort 2 puffs b.i.d. He is on levalbuterol and ipratropium by nebulizer q. 6 hours. I agree with all of the above. The patient still has a Coelho in place as noted. He may be appropriate for discharge relatively soon.
--- NOTE | 2017-01-26 12:49 | DIAGNOSTIC IMAGING REPORT ---
VIDEO SWALLOW HISTORY: Dysphagia assess for aspiration, please schedule per order TECHNIQUE: Video fluoroscopic evaluation of swallowing was performed in the AP and lateral projections by the speech pathology staff. The patient is fed nectar-thick and thin liquid barium, a barium coated wafer, and barium pudding. FLUOROSCOPY TIME: 3.1 minutes. COMPARISON STUDY: None. FINDINGS: There is normal hyoid excursion and epiglottic deflection. No significant penetration or aspiration identified. Swallowing function is within normal limits. Trace penetration with thin liquids. IMPRESSION: 1. No aspiration identified. Trace intermittent penetration. 2. Please see the speech pathologist report for detailed findings and recommendations. Electronically signed by: Paddy Douglas M.D. 01/26/2017 12:48 PM Dictated Date/Time: 01/26/2017 12:46 PM
[2017-01-26] MEDS ORDERED: VANCOMYCIN INJ 1,100 MG in SODIUM CHLORIDE 0.9% 250ML 250 ML IV SCH (14:00)
--- NOTE | 2017-01-26 18:31 | ONCOLOGY CONSULTATION ---
DATE OF CONSULTATION: 01/26/2017 REASON FOR CONSULTATION: Newly diagnosed lung cancer. HISTORY OF PRESENT ILLNESS: Mr. Abdi is a pleasant 71-year-old gentleman, actually well known to [facility] with history of lung cancer x2. He was previously managed by Dr. Ramon Rodriguez, who was subsequently left [facility] for another opportunity. Nonetheless, Mr. Abdi was actually seen by me in follow up back on the 06 of January. At that time, reviewed most recent CT scan of the chest revealing a 1 cm right upper lobe lesion which was new from comparison films performed in January of 2015. Based on these findings, I asked the patient to visit with Dr. Vicente who performed a navigational bronchoscopy and subsequent biopsy, a couple of days prior to his most recent admission. Bronchial washings and tissue biopsy were submitted for pathologic analysis both positive for either cellular atypia or adenocarcinoma. Pathology comments the relative uniform atypia favors a neoplastic process over reaction. Overall, thought to be consistent with a low grade adenocarcinoma. Unfortunately, a couple of days post-procedurally, he developed cough with mild hemoptysis. He was subsequently admitted and has been seen by Dr. Vicente and pulmonary. James appears clinically stable at the time of this consultation and I have been asked to see him to discuss most recent pathologic findings and establish a therapeutic plan. PAST MEDICAL HISTORY: Again, significant for nonsmall cell lung cancer x2, chronic obstructive pulmonary disease and suspected coronary artery disease. PAST SURGICAL HISTORY: Includes a left thoracotomy with pneumonectomy, endobronchial ultrasound with biopsy, electromagnetic navigational bronchoscopy with fiducial marking, needle biopsy of right upper lobe mass. MEDICATIONS: Prior to admission include albuterol via nebulizer, Ecotrin 81 mg p.o. daily, mometasone nasal spray 2 sprays once daily, multivitamins 1 capsule p.o. every day, nitroglycerin sublingual p.r.n., Symbicort 80/4.5 mcg 2 puffs twice daily. ALLERGIES: CEPHALEXIN AND LORAZEPAM. SOCIAL HISTORY: The patient is retired, , reformed smoker, nondrinker. FAMILY MEDICAL HISTORY: Significant for coronary artery disease, hypertension, and atherosclerotic cardiovascular disease. REVIEW OF SYSTEMS: GENERAL: James actually had been feeling well and maintaining his weight and appetite. SKIN: No skin rashes. No history of dermatosis. HEENT: Denies headaches, lightheadedness or dizziness. No visual or hearing deficits. No sinus symptoms, sore throat, or dysphasia. Positive for cough post-procedurally and hemoptysis. LYMPH: No history of lymphoproliferative disorder. PULMONARY: Status post left pneumonectomy for lung cancer. He is not acutely short of breath or dyspneic. Reported cough prior to admission. GASTROINTESTINAL: Negative for abdominal pain, nausea, vomiting, diarrhea or constipation, hematochezia or melena of stools. GENITOURINARY: No hematuria, dysuria, no history of prostate disease. PSYCHIATRIC: Negative for anxiety, depression or psychoses. ENDOCRINE: Negative for diabetes or thyroid disease. NEUROLOGIC: Negative for seizure, stroke, or migraine headache. HEMATOLOGIC: Negative for anemia, thrombophilia or bleeding diathesis. PHYSICAL EXAMINATION: GENERAL: Very pleasant 71-year-old gentleman in no acute distress. VITAL SIGNS: Temperature 36.9, pulse 97, respirations 22, blood pressure 122/79. SKIN: Warm, dry, noncyanotic without petechia, rash, or ecchymosis. Turgor is poor. HEENT: Atraumatic, normocephalic. EYES: PERRLA, EOMI. Sclerae nonicteric. No conjunctival injection. Nares are patent without rhinorrhea or discharge. Throat is clear. Tongue is midline. NECK: Supple without JVD or thyromegaly. LYMPH: No cervical, supraclavicular, axillary palpable nodes. HEART: Regular rate and rhythm. LUNGS: Diffuse rhonchorous breath sounds, diminished on the left side of the chest status post laminectomy. ABDOMEN: Soft, nontender, nondistended, without palpable hepatosplenomegaly. EXTREMITIES: No calf tenderness or swelling. No clubbing, cyanosis or edema. NEUROLOGICALLY: He is awake, alert and oriented x3. Cranial nerves II-XII were intact. No gross motor or sensory deficits are noted. RADIOGRAPHIC DATA: CTA of the chest done on admission. Redemonstration 1 cm right upper lobe irregular nodule shown on prior CT, now contains a fiduciary marker, suggestive of malignancy. Interval development of mild to moderate right lower lobe, thought to be impending pneumonic process. LABORATORY DATA: WBC count 10,650, hemoglobin 14.1, platelet count 244,000. Sodium 139, potassium 3.5, chloride 103, carbon dioxide 29, creatinine 0.69 and BUN 10. IMPRESSION: 1. New nonsmall cell lung cancer diagnosis, right upper lobe. 2. Hemoptysis. 3. Right lower lobe pneumonia. PLAN: I was asked to visit with James today at bedside. His clinical history and hospital course are well documented. I had seen James in the outpatient clinic back in early December, when radiographs revealed a new right upper lobe lesion (1 cm). I asked Dr. Vicente to evaluate James and recommended EBUS, which was performed a couple of days prior to admission. Biopsy confirms low grade adenocarcinoma. Recommend analysis of tumor specifically EGFR, ALK, and PDL-1 biomarkers. Surgical resection is most likely not an option considering prior pneumonectomy. salvage radiation may be feasible. Mr. Abdi's performance status is reasonable to consider chemo options and will discuss further as outpatient. Thank you for allowing me to participate in Mr. Abdi's care. [facility] HOSPITALPurnima
[2017-01-26] MEDS: FLUTICASONE PROPIONATE NA SPR 16 GM BTL NAE SCH (20:39)
[2017-01-27] VITALS (14 sets, daily range): BP systolic 110–167; BP diastolic 70–95; PULSE 78–107; TEMP 36.4–37.2; O2SAT 92–100
[2017-01-27] MEDS: LEVALBUTEROL 1.25MG/0.5ML NEB INH SCH ×4 (01:45→19:25)
[2017-01-27] MEDS: IPRATROPIUM BROMIDE NEB SOLN 0.02% 2.5 ML VIAL INH SCH ×4 (01:45→19:25)
[2017-01-27 07:27] LABS: BASO % 0.3 %; BASO ABS # 0.02 K/uL (0-0.2); COMPLETE YES; EOS % 3.5 %; HEMATOCRIT 40.5 % (42-52); IG% 0.4 %; LYMPH % 13.8 %; LYMPH ABS # 1.08 K/uL (1.2-3.4); MEAN CORPUSCULAR HEMOGLOBIN 28.7 pg (25-34); MEAN CORPUSCULAR HGB CONC 33.3 g/dl (32-36); MEAN PLATELET VOLUME 10.8 fL (7.4-10.4); MONO % 18.4 %; NEUT % 63.6 %; PLATELET COUNT 297 K/uL (130-400); RED BLOOD COUNT 4.71 M/uL (4.7-6.1); WHITE BLOOD COUNT 7.81 K/uL (4.8-10.8)
[2017-01-27] MEDS: BUDESONIDE/FORMOTEROL FUMARATE 160/4.5 60 PUFFS/INHALER INH SCH ×2 (07:46→19:57)
[2017-01-27] MEDS: ASPIRIN 81 MG ECTAB PO SCH (07:55)
[2017-01-27] MEDS: LACTOBACILLUS ACIDOPHILUS (FLORANEX) TAB PO SCH ×3 (07:55→17:30)
[2017-01-27] MEDS: GUAIFENESIN 600 MG TABCR PO SCH ×2 (07:56→19:57)
[2017-01-27] MEDS: MULTIVITAMIN TAB PO SCH (07:56)
[2017-01-27] MEDS: TAMSULOSIN HCL 0.4 MG CAP PO SCH (07:56)
--- NOTE | 2017-01-27 08:14 | DIAGNOSTIC IMAGING REPORT ---
CHEST ONE VIEW PORTABLE CLINICAL HISTORY: lung cancer COMPARISON STUDY: 01/20/2017 FINDINGS: Post pneumonectomy changes are again evident on the left. There is cardiac and mediastinal shift to the left. There is underlying emphysema. There is right apical bandlike scarring. Since the prior study, the patient has developed right basilar airspace opacities suspicious for a pneumonia.[ There is a right upper lung zone fiducial marker. IMPRESSION: 1. Post pneumonectomy changes of the left 2. Interval development of right basilar airspace opacities, suspicious for pneumonia. Films subsequent to treatment are recommended in follow-up. Electronically signed by: Francisco J Campbell M.D. 01/27/2017 8:13 AM Dictated Date/Time: 01/27/2017 8:11 AM
--- NOTE | 2017-01-27 11:45 | SURGERY PROGRESS NOTE ---
DATE: 01/27/2017 DATE: 01/27/2017. Mr. Abdi was seen today on 01/27/2017. He is better. He still has some rales in the right base, but is moving air better. He is much more comfortable. Dr. Darion Rene has evaluated the patient. I am going to present this patient at the cancer conference next week. It is interesting to try to determine exactly what this patient needs. I think with his history of external beam radiation and then SBRT he may not be a candidate for any further radiation therapy. We will have to discuss this.
[2017-01-27] MEDS ORDERED: FLM4 PO (17:03)
[2017-01-27] MEDS ORDERED: SYMIN INH (17:03)
[2017-01-27] MEDS ORDERED: GFNSR600 PO (17:03)
--- NOTE | 2017-01-27 17:58 | Family Medicine Progress Note ---
Progress Note Date of Service Jan 27, 2017. Subjective Pt evaluation today including: conversation w/ patient, physical exam, chart review, lab review, review of studies, conversation w/ remediation consultant (Ramirez Julio PA-C), review of inpatient medication list Voiding: santana catheter in place Mr Abdi was seen in the morning and appears less short of breath than the previous day. He was ready to go home awaiting his 2 step evaluation for home O2. No acute events overnight and he feels he is improving day to day. Constitutional: No chills, No fever Respiratory: + cough, + dyspnea on exertion, + sputum, No wheezing Cardiovascular: No chest pain, No edema, No orthopnea Abdomen: No GI bleeding, No constipation, No diarrhea, No nausea, No pain, No vomiting Male : + problem reported (santana catheter in place) All Other Systems: Reviewed and Negative Medications Current Inpatient Medications Medications (Trade) Dose Ordered Sig/Avila Route Start Time Stop Time Status Last Admin Dose Admin Ioversol (Optiray 320) 100 ml UD PRN IV 01/24/17 03:15 01/28/17 03:14 Ondansetron HCl 4 mg 4 mg Q6H PRN IV 01/24/17 05:30 02/23/17 05:29 Acetaminophen (Ofirmev Iv) 100 ml @ 400 mls/hr Q8H PRN IV 01/24/17 05:30 02/23/17 05:29 Lactobacillus Acidophilus (Floranex Tab) 1 tab TIDM PO 01/24/17 08:00 02/23/17 07:59 01/27/17 17:30 1 TAB Ipratropium [place] (Atrovent 0.02% 0.5MG/2.5ML Neb) 0.5 mg Q6R INH 01/24/17 09:00 02/23/17 08:59 01/27/17 14:20 0.5 MG Levalbuterol (Xopenex 1.25MG/ 0.5ML Neb) 1.25 mg Q6R INH 01/24/17 09:00 02/23/17 08:59 01/27/17 14:20 1.25 MG Ipratropium [place] (Atrovent 0.02% 0.5MG/2.5ML Neb) 0.5 mg Q2H PRN INH 01/24/17 05:45 02/23/17 05:44 Levalbuterol (Xopenex 1.25MG/ 0.5ML Neb) 1.25 mg Q2H PRN INH 01/24/17 05:45 02/23/17 05:44 Fluticasone Propionate (Flonase Nasal [place]) 2 sprays HS CHARITY 01/25/17 21:00 02/24/17 20:59 01/26/17 20:39 2 SPRAYS Tamsulosin HCl (Flomax Cap) 0.4 mg QAM PO 01/26/17 08:00 02/25/17 08:59 01/27/17 07:56 0.4 MG Budesonide/ Formoterol Fumarate (Symbicort 160/ 4.5 Inh) 2 puffs BID INH 01/25/17 21:00 02/24/17 20:59 01/27/17 07:46 2 PUFFS Guaifenesin (Mucinex Contr Rel Tab) 600 mg Q12 PO 01/25/17 21:00 02/26/17 09:00 01/27/17 07:56 600 MG Multivitamins (Multivitamin Tab) 1 tab QAM PO 01/27/17 08:00 02/26/17 07:59 01/27/17 07:56 1 TAB Aspirin (Ecotrin Tab) 81 mg QAM PO 01/27/17 08:00 02/26/17 07:59 01/27/17 07:55 81 MG Objective Vital Signs Date Time Temp Pulse Resp B/P Pulse Ox O2 Delivery O2 Flow Rate FiO2 01/27/17 16:00 93 Nasal Cannula 3.0 01/27/17 15:48 36.4 79 16 130/77 100 01/27/17 15:00 78 20 94 Room Air 01/27/17 14:21 85 18 98 Room Air 01/27/17 11:20 37.2 92 16 110/70 97 Nasal Cannula 3.0 01/27/17 08:30 93 Nasal Cannula 3.0 01/27/17 07:43 37.0 85 18 131/70 93 01/27/17 07:31 102 20 97 Nasal Cannula 3.0 01/27/17 04:12 36.9 88 20 139/79 94 3.0 01/27/17 01:45 84 28 98 Nasal Cannula 3.0 01/27/17 00:35 37.2 107 18 167/95 96 3.0 01/27/17 00:10 Nasal Cannula 4.0 01/26/17 20:16 36.4 100 20 157/86 97 2.0 01/26/17 19:38 107 28 98 Nasal Cannula 3.0 01/26/17 19:12 Nasal Cannula 4.0 Physical Exam General Appearance: WD/WN, no apparent distress Respiratory/Chest: no respiratory distress, no accessory muscle use, + decreased breath sounds (left sided chronically, upper airway rhonchi noted throughout, improved air entry from previous day) Cardiovascular: regular rate, rhythm, no murmur Abdomen: normal bowel sounds, non tender, soft Neurologic/Psychiatric: alert, oriented x 3 Skin: normal color, warm/dry, no rash Laboratory Results 01/27/17 06:35 Red Blood Count 4.71, Mean Corpuscular Volume 86.0, Mean Corpuscular Hemoglobin 28.7, Mean Corpuscular Hemoglobin Concent 33.3, Mean Platelet Volume 10.8, Neutrophils (%) (Auto) 63.6, Lymphocytes (%) (Auto) 13.8, Monocytes (%) (Auto) 18.4, Eosinophils (%) (Auto) 3.5, Basophils (%) (Auto) 0.3, Neutrophils # (Auto ) 4.97, Lymphocytes # (Auto) 1.08, Monocytes # (Auto) 1.44, Eosinophils # (Auto ) 0.27, Basophils # (Auto) 0.02 Test 01/27/17 06:35 White Blood Count 7.81 K/uL (4.8-10.8) Red Blood Count 4.71 M/uL (4.7-6.1) Hemoglobin 13.5 g/dL (14.0-18.0) Hematocrit 40.5 % (42-52) Mean Corpuscular Volume 86.0 fL (80-100) Mean Corpuscular Hemoglobin 28.7 pg (25-34) Mean Corpuscular Hemoglobin Concent 33.3 g/dl (32-36) Platelet Count 297 K/uL (130-400) Mean Platelet Volume 10.8 fL (7.4-10.4) Neutrophils (%) (Auto) 63.6 % Lymphocytes (%) (Auto) 13.8 % Monocytes (%) (Auto) 18.4 % Eosinophils (%) (Auto) 3.5 % Basophils (%) (Auto) 0.3 % Neutrophils # (Auto) 4.97 K/uL (1.4-6.5) Lymphocytes # (Auto) 1.08 K/uL (1.2-3.4) Monocytes # (Auto) 1.44 K/uL (0.11-0.59) Eosinophils # (Auto) 0.27 K/uL (0-0.5) Basophils # (Auto) 0.02 K/uL (0-0.2) RDW Standard Deviation 44.1 fL (36.4-46.3) RDW Coefficient of Variation 13.9 % (11.5-14.5) Immature Granulocyte % (Auto) 0.4 % Immature Granulocyte # (Auto) 0.03 K/uL (0.00-0.02) Assessment and Plan 71 year old male with presents with shortness of breath, hemoptysis with red and black blood. 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 Acute hypoxic respiratory failure on admission Pneumonia - possible hospital acquired (started after after recent RUL nodule biopsy) - Appreciate pulmonology recommendations - Continue guaifenesin - speech consult - video swallow negative for aspiration - sputum culture no growth, no blood cultures on admission - Continue 10 day course of antibiotics with Levaquin Recurrent lung adenocarcinoma - to be discussed at tumor board. Managed by Edgard Dodge and Dr Gonsalez. - Dr Rene seen yesterday Hemoptysis - s/p biopsy, possibly from biopsy site vs. lung ca. vs. pneumonia. - holding chemical VTE prophylaxis at present as ambulatory and had hemoptysis - Continue aspirin and monitor COPD - moderate to severe on CT, severe on PFTs 2010. - Continue Symbicort (increased to 160/4.5 2 puffs BID by pulmonology) - Not on LAMA secondary to urinary retention - Continue Xopenex and Atrovent nebulizers - No steroids currently as no wheezing, patient very anxious about steroid treatment in general - Aim sats 88-92% Urinary retention - probably secondary to BPH - Santana catheter to gravity - start tamsulosin - originally the plan was discussed with the patient over multiple days as he was adamant he didn't want a quick removal so to give him the best opportunity to pass. However as I wrote his discharge papers he told the nurses he absolutely would not go home with a catheter. Despite discussing his concerns he is extremely concerned and is certain that he will get a UTI with the catheter inserted and tells me if he is discharged this afternoon we need to take the catheter out before he goes. He has never had a recorded UTI in the past and he describes some skin irritation previously around a catheter site when he last had a catheter in for urinary retention. Considering the risk of him failing (given previous urinary retention, BPH and only 2 days on tamsulosin ), going into urinary retention and ending back in the ER for reinsertion, or worse with a UTI/pyelonephritis/hydronephrosis/sepsis; I feel the safest option was to keep him overnight and take out the catheter around 2am to see if he can pass by the morning. Code - Discussed with patient in some detail and he wishes to be for full resuscitation at this stage. He has capacity to make this decision. VTE Prophylaxis - high risk of VTE but hold off chemical prophylaxis at present due to hemoptysis Disposition - Patient to stay overnight as refusing discharge with catheter despite previous plan discussed with him to leave it in for 2 weeks. Therefore safer to remove catheter tonight and discharge in the morning. History Resident Physician Supervision Note: I was present with Dr. José during the history and exam. I discussed the case with the resident and agree with the findings and plan as documented in the note. Any exceptions or clarifications are listed here. Gradually improving shortness of breath which still requires O2 at rest for comfort. Reports no sensory changes, nausea, [place], lightheadedness, chest pain, palpitations. 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 Rene, will f/u OP for further chemo/rad related management Resident Tracking Resident Involvement: Resident Care Provided Care Provided: Adult Hospital Medicine
[2017-01-27] MEDS: FLUTICASONE PROPIONATE NA SPR 16 GM BTL NAE SCH (19:57)
[2017-01-28] VITALS (7 sets, daily range): BP systolic 129–147; BP diastolic 73–99; PULSE 77–96; TEMP 36.7–37; O2SAT 93–95
[2017-01-28] MEDS: LEVALBUTEROL 1.25MG/0.5ML NEB INH SCH ×3 (01:53→14:28)
[2017-01-28] MEDS: IPRATROPIUM BROMIDE NEB SOLN 0.02% 2.5 ML VIAL INH SCH ×3 (01:53→14:28)
[2017-01-28] MEDS ORDERED: NURSING VERBAL MED ORDER ONE (04:30)
[2017-01-28] MEDS ORDERED: ACETAMINOPHEN 325 MG TAB ONE (04:34)
[2017-01-28] MEDS ORDERED: ACETAMINOPHEN 325 MG TAB PO PRN (05:00)
[2017-01-28 06:15] LABS: HEMATOCRIT 41.9 % (42-52)
[2017-01-28] MEDS: BUDESONIDE/FORMOTEROL FUMARATE 160/4.5 60 PUFFS/INHALER INH SCH (08:12)
[2017-01-28] MEDS: LACTOBACILLUS ACIDOPHILUS (FLORANEX) TAB PO SCH ×2 (08:12→14:48)
[2017-01-28] MEDS: GUAIFENESIN 600 MG TABCR PO SCH (08:12)
[2017-01-28] MEDS: ASPIRIN 81 MG ECTAB PO SCH (08:12)
[2017-01-28] MEDS: TAMSULOSIN HCL 0.4 MG CAP PO SCH (08:12)
[2017-01-28] MEDS: MULTIVITAMIN TAB PO SCH (08:12)
--- NOTE | 2017-01-28 08:54 | HEME/ONC PROGRESS NOTE ---
DATE: 01/28/2017 DATE: 01/28/2017. DIAGNOSES: 1. 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 2. Hemoptysis. 3. Right lower lobe pneumonia. HOSPITAL COURSE: Mr. Abdi is a pleasant 71-year-old gentleman well known to me with history of lung cancer x2. He was electively admitted and underwent biopsy via navigational bronchoscopy. Post-procedurally, he developed cough with mild hemoptysis and was subsequently admitted with presumptive pneumonia. Clinically, he seems to be doing pretty well. He is ambulating ad sundar, tolerating diet and moving his bowels. Nursing reports no overnight issues. PHYSICAL EXAMINATION: GENERAL: He is in no acute distress. VITAL SIGNS: Temperature 36.7, pulse 81, respiration 16, blood pressure 147/99. SKIN: Without rash or lesion. HEAD, EYES, EARS, NOSE, AND THROAT: Oral mucosa without erythema or ulceration. NECK: Supple. HEART: Regular rate and rhythm. No clicks, rubs or murmurs. LUNGS: Right hemithorax clear to auscultation. ABDOMEN: Soft, nontender, nondistended. EXTREMITIES: No clubbing, cyanosis or edema. NEUROLOGIC EXAMINATION: Grossly intact. LABORATORY DATA: Hemoglobin 14, hematocrit 41.9. Chest x-ray performed yesterday post-pneumonectomy changes on the left, interval development of a right basilar airspace opacities suspicious for pneumonia. IMPRESSION: 1. Right lower lobe pneumonia. 2. New nonsmall cell cancer diagnosis right upper lobe nodule. 3. Hemoptysis. PLAN: James was seen and examined at bedside today. I again reviewed his most recent imaging and lab results. Clinically, seems to be doing quite well and I anticipate discharge in the near future. Again would like pathology to analyze his tumor for EGFR, ALK and PD-L1 biomarkers. Outpatient followup has already been established and I have asked Mr. Abdi to maintain that appointment time. I will officially sign off at this juncture. I will certainly see him back if need be. Thank you for allowing me to participate in his care.
--- NOTE | 2017-01-28 10:22 | Discharge Instructions ---
Discharge Instructions Date of Service Jan 28, 2017. Admission Reason for Admission: Pneumonia Right Lung, Respiratory Distress Discharge Discharge Diagnosis / Problem: Pneumonia Discharge Goals Goal(s): Improve function Activity Recommendations Activity Limitations: per Instructions/Follow-up section Exercise/Sports Limitations: rest today, gradually increase as tolerated . Instructions / Follow-Up Instructions / Follow-Up You were admitted to [facility] for cough and difficulty breathing initially requiring oxygen. CT demonstrated acute find of right lower lobe pneumonia. You were treated with antibiotics for his. Given DOCUMENT REVIEWER your maintenance inhaler dose was also increased an you were treated with nebulizers. You were seen by pulmonology, thoracic surgery (Dr Vicente, due to recent recent biopsy) and oncology (Dr Rene, due to new reoccurance of lung cancer). You lung cancer case will be discussed at the tumor boar meeting next week with further follow up to be arrange after this. You had a catheter placed for urinary retention and were started on tamsulosin to treat an enlarged prostate. The urine catheter was removed the day before discharge and you were able to pass urine without a problem. We have prescribed tamsulosin and recommend taking for the next month to reduce the risk of this occurring again. We recommend following up with your Primary Care doctor potentially requiring longer term treatment with tamsulosin as this is your second episode of urinary retention. Please follow up with your primary care doctor within the next week for reassessment of pneumonia and urinary retention. You will be called regarding thoracic surgery, pulmonology an oncology follow up. Current Hospital Diet Patient's current hospital diet: Regular Diet Discharge Diet Recommended Diet: Regular Diet Pending Studies Studies pending at discharge: no Medical Emergencies . Who to Call and When: Medical Emergencies: If at any time you feel your situation is an emergency, please call 911 immediately. . Non-Emergent Contact Non-Emergency issues call your: Primary Care Provider . . "Provider Documentation" section prepared by Michael José. VTE Core Measure Inpt VTE Proph given/why not?: SCD's, Contraindicated (hemoptysis)
--- NOTE | 2017-01-28 11:19 | SURGERY PROGRESS NOTE ---
DATE: 01/28/2017 Mr. Abid is now on room air. Ambulating better. He would like pneumococcal vaccine before he leaves the hospital. His hemoptysis and cough is improved. He sounds better although he still has a few rales in the right base. I am going to present him at the cancer conference next week, we will discuss and I will see him back in the office. Dr. Rene is also following this patient.
--- NOTE | 2017-01-28 20:55 | Discharge Summary ---
Discharge Summary Date of Service Jan 28, 2017. (Michael José MD) Discharge Summary Admission Date: Jan 24, 2017 at 05:59 Discharge Date: Jan 28, 2017 Discharge Disposition: Home Principal Diagnosis: Acute hypoxic respiratory failure, Pneumonia Problems/Secondary Diagnoses: Acute hypoxic respiratory failure on admission Pneumonia - continue antibiotics, Recurrent lung adenocarcinoma - to be discussed at tumor board. Managed by Edgard Dodge and Dr Gonsalez. Hemoptysis - susspect from above COPD - Continue Symbicort (increased to 160/4.5 2 puffs BID by pulmonology), Not on LAMA secondary to urinary retention, refused steroids due to previous adverse effects (no current wheezing) Urinary retention - probably secondary to BPH, started tamsulosin, passed trial without catheter Code - Discussed with patient in some detail and he wishes to be for full resuscitation at this stage. He has capacity to make this decision. Immunizations: Have You Had Influenza Vaccine: Unknown History of Tetanus Vaccine?: Unknown History of Pneumococcal: Unknown History of Hepatitis B Vaccine: Unknown Consultations: Oncology Pulmonology Thoracic Surgery (Michael José MD) Medication Reconciliation New Medications: Budesonide/Formoterol Fumarate (Symbicort 160-4.5 Mcg/Act) 60 Puffs/Inhaler Aero 2 PUFFS INH BID for 30 Days Guaifenesin Ext Rel (Mucinex Ext Rel) 600 Mg Tabcr 600 MG PO Q12 for 7 Days, #14 TAB Tamsulosin HCl (Tamsulosin HCl) 0.4 Mg Cap 0.4 MG PO QAM for 30 Days, #30 CAP Continued Medications: Acetaminophen (Tylenol) 500 Mg Tab 1500 MG PO Q8 PRN for Pain, TAB Albuterol 0.5% Soln (Ventolin 0.5% Soln) Nebu 1 VIAL NEB Q6 PRN for SOB/Wheezing for 30 Days, #120 VIAL 5 Refills Aspirin (Aspirin Ec) 81 Mg Tab 81 MG PO QAM WAS NOT INSTRUCTED TO STOP Fluticasone Propionate (Nasal) (Flonase Allergy Relief) 50 Mcg/Act Spr 2 SPRAY CHARITY QD Multivitamin (Multivitamin) Tab 1 TABLET PO QAM, 0 Refills Nitroglycerin (Nitrostat) 0.4 Mg Tab 1 TAB SL UD, #100 TAB 3 Refills Discontinued Medications: Budesonide/Formoterol Fumarate (Symbicort 80/4.5 Inhaler) Aero 2 PUFFS INH BID Discharge Exam No acute issues overnight. Walking around the room without issues. Short of breath when walking around the corridor but does not qualify for oxygen based on 6 minute test (suspect this may change in the coming weeks). All other systems reviewed and acutely negative Physical Exam: General Appearance: no apparent distress, + thin Respiratory/Chest: + decreased breath sounds (left sided with reduced chest expansion (previous pneumonectomy)) Cardiovascular: regular rate, rhythm, no murmur Abdomen / GI: normal bowel sounds, non tender, soft Extremities: no calf tenderness, no pedal edema Neurologic/Psychiatric: kit assembler II-XII nml as tested (no facial droop), no motor /sensory deficits, alert, normal mood/affect, oriented x 3 Skin: normal color, warm/dry, no rash (Michael José MD) Hospital Course Mr Abdi was admitted to [facility] for cough and acute hypoxic respiratory failure. CT demonstrated acute find of right lower lobe pneumonia. Treated with broad spectrum antibiotics. Given COPD maintenance inhaler dose was increased and he was treated with nebulizers. He was seen by pulmonology, thoracic surgery (Dr Vicente, due to recent recent biopsy) and oncology (Dr Rene, due to new reoccurance of lung cancer). You lung cancer case will be discussed at the tumor boar meeting next week with further follow up to be arrange after this. You had a catheter placed for urinary retention and were started on tamsulosin to treat an enlarged prostate. The urine catheter was removed the day before discharge and you were able to pass urine without a problem. We have prescribed tamsulosin and recommend taking for the next month to reduce the risk of this occurring again. We recommend following up with your Primary Care doctor potentially requiring longer term treatment with tamsulosin as this is your second episode of urinary retention. Total Time Spent: Less than 30 minutes This includes examination of the patient, discharge planning, medication reconciliation, and communication with other providers. (Michael José MD) Discharge Instructions Please refer to the electronic Patient Visit Report (Discharge Instructions) for additional information. (Michael José MD) Follow-Up Follow up with PCP within the next week for reassessment of pneumonia. You will be called regarding thoracic surgery, pulmonology an oncology follow up. (Michael José MD) Additional Copies To Jarvis Ortega M.D.; Kevin Gonsalez D.O. Pulmonary; Darion Rene D.O.; Naun Vicente MD History Resident Physician Supervision Note: I was present with Dr. José during the history and exam. I discussed the case with the resident and agree with the findings and plan as documented in the note. Any exceptions or clarifications are listed here. Pt seen and examined at bedside. No acute events overnight. Passed voiding trial without discomfort. 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 Rene, will f/u OP for further chemo/rad related management (Mekhi Spencer MD)
== END 2017-01-28 14:45 | disposition home or self-care (01) | DRG 189 ==
LOC: ENRESERVTM → ENRESERVDT → EDBD 02:27 → C.EDA 02:28 → C.MED 05:59 → C.4E 01-26 02:01
PROVIDERS: ADMIT Hospitalist; ATTEND Family Medicine
DX: J96.00 Acute respiratory failure, unspecified whether with hypoxia or hypercapnia (principal); J18.9 Pneumonia, unspecified organism; J44.0 Chronic obstructive pulmonary disease with (acute) lower respiratory infection; C34.11 Malignant neoplasm of upper lobe, right bronchus or lung; R04.2 Hemoptysis; Y95 Nosocomial condition; N40.1 Benign prostatic hyperplasia with lower urinary tract symptoms; R33.9 Retention of urine, unspecified; Z92.3 Personal history of irradiation; Z87.01 Personal history of pneumonia (recurrent); Z87.09 Personal history of other diseases of the respiratory system; Z87.891 Personal history of nicotine dependence; Z90.2 Acquired absence of lung [part of]; Z98.890 Other specified postprocedural states; Z82.49 Family history of ischemic heart disease and other diseases of the circulatory system; Z79.82 Long term (current) use of aspirin

== ENCOUNTER → 2017-02-05 | Outpatient (CLI) | payer OTHER ==
[~2017-02-05] MED LIST changes: +FLM4 PO; +GFNSR600 PO; +SYMIN INH; -SYMIN/8045 INH
--- NOTE | 2017-02-05 11:59 | DIAGNOSTIC IMAGING REPORT ---
CHEST 2 VIEWS ROUTINE CLINICAL HISTORY: C34.90 Adenocarcinoma of lungJ44.9 Chronic obstructive pulmonary COMPARISON STUDY: 01/27/2017 FINDINGS: Post pneumonectomy changes are present on the right. There is a linear bandlike scarring within the right upper lung zone. There is a fiducial right upper lung zone marker. There is no focal pulmonary consolidation. There are no pleural effusions on the right. IMPRESSION: 1. Post pneumonectomy changes on the left 2. Interval resolution of the right basilar airspace opacities. Electronically signed by: Francisco J Campbell M.D. 02/05/2017 11:57 AM Dictated Date/Time: 02/05/2017 11:56 AM
== END | disposition home or self-care (01) ==
LOC: C.RAD1850 11:42
PROVIDERS: ATTEND Surgery
DX: C34.90 Malignant neoplasm of unspecified part of unspecified bronchus or lung (principal); J44.9 Chronic obstructive pulmonary disease, unspecified

== ENCOUNTER → 2017-04-29 | Outpatient (CLI) | payer OTHER ==
[~2017-04-29] MED LIST changes: -GFNSR600 PO
[2017-04-29 14:45] VITALS: BP 110/76; PULSE 92; TEMP 36.8; O2SAT 96
--- NOTE | 2017-04-29 16:17 | Radiation Oncology Follow-Up ---
Radiation Oncology Follow-Up Date of Visit Apr 29, 2017. Reason For Visit One-month follow-up Radiation Completion Date 04/01/17;SBRT x5 Diagnosis (1) Primary cancer of right upper lobe of lung Status: Acute Onset Date: 01/20/2017 Permanent Comment: He is status post left pneumonectomy January 2004 Adenocarcinoma stage pT2 pN0M0 stage I B Systemic chemotherapy with Taxol and carboplatin Finding of right upper lobe carcinoma while on chemotherapy Status post completion of radiation therapy to the right upper lobe 11/03/2004 received 7200 cGy PET positive area right upper lobe status post S/P SBRT at [facility] 3 fractions completed January 2007 Finding of right upper lobe mass December 2016 Status post endobronchial ultrasound and biopsy 01/20/2017 revealing adenocarcinoma Status post completion of radiation therapy 04/01/2017. Received a total of 5000 cGy utilizing stereotactic body radiation therapy. He received 5 fractions. Last Edited By: Stacy Cordero on Apr 12, 2017 16:57 History of Present Illness Mr. 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 He underwent a left pneumonectomy in January 2004 and was found to have a pathologic stage [id number]. He was treated with adjuvant systemic chemotherapy consisting of 4 cycles of Taxol And Carboplatin. However during the course of the systemic chemotherapy the patient was found to have a right upper lobe nodule which was confirmed on CT scan. The nodule did respond to the chemotherapy and was dealt to be consistent with a malignancy. A transbronchial biopsy was attempted in July 2004 and was negative. Despite this because of it's response to chemotherapy was felt to be consistent with recurrent lung cancer. The patient was seen in our department and proceeded with a course of radiation to the mediastinum and the right upper lobe. He received a dose of 70 20 Gy delivered from 09/04/2004 through 11/03/2004. The patient tolerated the treatment fairly well. A subsequent follow-up PET/CT scan however showed a recurrent area in the right upper lobe with an enlarging right upper lobe mass seen on CT scan. This was close to the area of original recurrent disease. The lesion was small measuring 1.1 cm. A percutaneous fine needle aspiration was performed on [address] Howard. This revealed cells positive for malignancy consistent with a moderately differentiated adenocarcinoma. This was felt to be consistent with metastatic disease from the original primary. 138. We saw the patient in referral at that time to see about possible reirradiation. I arranged for the patient be seen by Dr. Maurice Trinh, radiation oncologist at [facility] for consideration of stereotactic treatment with IGRT. He reviewed the case and felt the patient would be a candidate. The patient ultimately did undergo a course of SBRT for 3 fractions at [facility] to the right upper lobe nodule in January 2007. Follow-up scans have remained fairly stable. The patient continues to have fairly severe chronic obstructive pulmonary disease but does not require oxygen and has good O2 sats. He underwent a CT scan of the chest with IV contrast on 01/01/2017. This showed the interval development of a new 1 cm irregular right upper lobe nodule that was not present on the 02/07/2015 scan this is felt to be worrisome for malignancy. The possibility of a progressive scar formation could appear similar although this was felt to be less likely. The remainder of the bandlike scar within the right upper lobe was unchanged. No other abnormalities were appreciated. The patient was seen by Dr. Naun Vicente. A fine-needle EBUS was performed on 01/20/2017. Biopsy of the lymph node station 7 and endobronchial ultrasound- guided aspiration was negative with no malignant cells seen. An EBUS of the lymph node or 10 also revealed no malignant cells. EBUS of the lymph node or 4 revealed no malignant cells. Right upper lobe rhonchi to brushings revealed atypical bronchial epithelial cells. A fine-needle aspiration of the right upper lobe nodule revealed rare atypical bronchial epithelial cells which were not diagnostic of malignancy. Bronchial washings the left upper lobe revealed focal bronchial cell atypia but also not diagnostic of malignancy. A right upper lobe bronchial biopsy was also performed which revealed atypical glandular perforation most consistent with an adenocarcinoma. The differential was that of a low-grade adenocarcinoma withlepidic growth versus a reactive process. The changes do not appear to be consistent with prior radiation and the relatively uniform atypia favors a neoplastic process over a reactive process. The features were felt to be most consistent with a low-grade adenocarcinoma. The tissue was sent for ALK testing which was negative, ROS 1 testing which was negative and EGFR mutation revealing no mutations detected. Case: [id number]. Patient had a CT angiography of the chest for pulmonary embolus on 01/24/2017 to rule out pulmonary embolus. No central pulmonary embolus was identified. Stable appearance of the left pneumonectomy cavity was noted. 1 cm right upper lobe nodule was again seen. There was however interval development of a mild to moderate right lower lobe consolidation favoring pneumonia. The patient has been treated for this and is improving. The patient is not felt to be a good surgical candidate although surgery is not absolutely ruled out. There is a concern because of the prior radiation to the right upper lobe making the possibility of additional radiation questionable. We are asked to see the patient in referral today to review prior radiation and scans and see if additional radiation in the form of stereotactic treatment is possible. It is for that reason the patient is seen in referral. He returned underwent a CT simulation. This information was fused with is prior therapy. Decision was to treat with stereotactic body radiation therapy in 5 fractions. He received a total 5000 cGy. Interim History Over this past month she did develop bronchitis. He has had chest congestion and wheezing. He has a prescription for rescue therapy. He took a full prescription of Levaquin. With the medication he did have some improvement. But he continues to have cough. He has sputum ejection that is clear. In general he has felt weak since having the bronchitis. He currently denies fever or chills. He was seen recently by medical oncology. There is recommendation for follow-up CT of the chest. He did not develop any areas of skin irritation. He had no difficulty with swallowing. He's had some problems since lifting a heavy mower deck. He has had decreased urinary flow. He states this has happened to him periodically throughout his life. This resolves without difficulty. Allergies Coded Allergies: Penicillins (Verified Allergy, Mild, RASH, 01/24/17) Lorazepam (Unverified Allergy, Unknown, PT UNSURE, 01/24/17) Cephalexin (Unverified Adverse Reaction, Mild, pt states "unpleasent yeast infection", 01/24/17) Minocycline (Unverified Adverse Reaction, Mild, BAD YEAST INFECTION, ) Home Medications Scheduled Aspirin (Aspirin Ec), 81 MG PO QAM Budesonide/Formoterol Fumarate (Symbicort 160-4.5 Mcg/Act), 2 PUFFS INH BID Fluticasone Propionate (Nasal) (Flonase Allergy Relief), 2 SPRAY CHARITY QD Multivitamin (Multivitamin), 1 TABLET PO QAM Nitroglycerin (Nitrostat), 1 TAB SL UD Tamsulosin HCl (Tamsulosin HCl), 0.4 MG PO QAM Scheduled PRN Acetaminophen (Tylenol), 1,000 MG PO Q8 PRN for Pain Albuterol 0.5% Soln (Ventolin 0.5% Soln), 1 VIAL NEB Q6 PRN for SOB/Wheezing Review of Systems Gastrointestinal: Symptoms: WNL Oral: Symptoms: No Problems Respiratory: Symptoms: Dry Cough, Moist Cough, SOB With Exertion, Productive Cough Respiratory Comments: Treated for bronchitis on 04/15/17 Other Respiratory: Clear phlegm when cough is productive Urinary: Comments: see below notations Skin: Symptoms: No Problems Physical Exam Vital Signs Date Time Temp Pulse Resp B/P (MAP) Pulse Ox O2 Delivery O2 Flow Rate FiO2 04/29/17 14:45 36.8 92 24 110/76 96 Fatigue: None General Appearance: no apparent distress Eyes: normal inspection, EOMI ENT: normal ENT inspection, hearing grossly normal Neck: no adenopathy, thyroid normal Respiratory/Chest: no respiratory distress, no accessory muscle use, + wheezing Cardiovascular: regular rate, rhythm, no gallop, no murmur Extremities: no pedal edema Neurologic/Psychiatric: no motor/sensory deficits, alert, normal mood/affect Skin: warm/dry Laboratory Studies Test 02/10/17 14:54 04/14/17 14:04 White Blood Count 7.46 K/uL (4.8-10.8) 11.57 K/uL (4.8-10.8) Red Blood Count 5.32 M/uL (4.7-6.1) 5.24 M/uL (4.7-6.1) Hemoglobin 15.8 g/dL (14.0-18.0) 15.6 g/dL (14.0-18.0) Hematocrit 46.7 % (42-52) 46.6 % (42-52) Mean Corpuscular Volume 87.8 fL (80-100) 88.9 fL (80-100) Mean Corpuscular Hemoglobin 29.7 pg (25-34) 29.8 pg (25-34) Mean Corpuscular Hemoglobin Concent 33.8 g/dl (32-36) 33.5 g/dl (32-36) Platelet Count 439 K/uL (130-400) 261 K/uL (130-400) Mean Platelet Volume 10.7 fL (7.4-10.4) 10.8 fL (7.4-10.4) Neutrophils (%) (Auto) 66.1 % 69.7 % Lymphocytes (%) (Auto) 18.4 % 13.9 % Monocytes (%) (Auto) 13.0 % 13.5 % Eosinophils (%) (Auto) 1.5 % 2.2 % Basophils (%) (Auto) 0.7 % 0.4 % Neutrophils # (Auto) 4.94 K/uL (1.4-6.5) 8.06 K/uL (1.4-6.5) Lymphocytes # (Auto) 1.37 K/uL (1.2-3.4) 1.61 K/uL (1.2-3.4) Monocytes # (Auto) 0.97 K/uL (0.11-0.59) 1.56 K/uL (0.11-0.59) Eosinophils # (Auto) 0.11 K/uL (0-0.5) 0.26 K/uL (0-0.5) Basophils # (Auto) 0.05 K/uL (0-0.2) 0.05 K/uL (0-0.2) RDW Standard Deviation 45.1 fL (36.4-46.3) 47.4 fL (36.4-46.3) RDW Coefficient of Variation 14.0 % (11.5-14.5) 14.6 % (11.5-14.5) Immature Granulocyte % (Auto) 0.3 % 0.3 % Immature Granulocyte # (Auto) 0.02 K/uL (0.00-0.02) 0.03 K/uL (0.00-0.02) Sodium Level 142 mmol/L (136-145) 143 mmol/L (136-145) Potassium Level 4.3 mmol/L (3.5-5.1) 4.0 mmol/L (3.5-5.1) Chloride Level 106 mmol/L (98-107) 107 mmol/L (98-107) Carbon Dioxide Level 33 mmol/L (21-32) 29 mmol/L (21-32) Anion Gap 3.0 mmol/L (3-11) 7.0 mmol/L (3-11) Blood Urea Nitrogen 14 mg/dl (7-18) 12 mg/dl (7-18) Creatinine 0.93 mg/dl (0.60-1.40) 0.85 mg/dl (0.60-1.40) Est Creatinine Clear Calc Drug Dose 79.6 ml/min 85.8 ml/min Estimated GFR () 95.4 100.9 Estimated GFR (Non- 82.3 87.1 BUN/Creatinine Ratio 15.2 (10-20) 14.4 (10-20) Random Glucose 100 mg/dl (70-99) 102 mg/dl (70-99) Calcium Level 8.9 mg/dl (8.5-10.1) 8.4 mg/dl (8.5-10.1) Total Bilirubin 0.3 mg/dl (0.2-1) 0.4 mg/dl (0.2-1) Aspartate Amino Transferase (AST) 12 U/L (15-37) 18 U/L (15-37) Alanine Aminotransferase (ALT) 23 U/L (12-78) 27 U/L (12-78) Alkaline Phosphatase 83 U/L (45-117) 112 U/L (45-117) Total Protein 7.2 gm/dl (6.4-8.2) 7.3 gm/dl (6.4-8.2) Albumin 3.5 gm/dl (3.4-5.0) 3.5 gm/dl (3.4-5.0) Globulin 3.7 gm/dl (2.5-4.0) 3.8 gm/dl (2.5-4.0) Albumin/Globulin Ratio 0.9 (0.9-2) 0.9 (0.9-2) Assessment & Plan Plan: He was given a prescription for a Z-Feroz. His hope this will steadily improve his respiratory symptoms. We'll schedule him for a recheck CT of the chest in 3 months. He would like to come for a follow-up visit on the same day that he sees Dr. Rene. This will be scheduled to help decrease the number of trips for follow-up visits. He may follow-up with his primary care physician if he continues to have any difficulty with urination. He may call if he has any questions or concerns in the interim. Total Time In Follow-Up I spent 20 minutes speaking to the patient performing examination. I spent 15 minutes reviewing information on completing this note. Copy To Jarvis Ortega M.D.; Darion Rene D.O.; Naun Vicente MD
== END | disposition home or self-care (01) ==
LOC: C.ONC 14:41
PROVIDERS: ATTEND Physician Assistant Medical
DX: Z08 Encounter for follow-up examination after completed treatment for malignant neoplasm (principal); Z92.3 Personal history of irradiation; Z85.118 Personal history of other malignant neoplasm of bronchus and lung

== ENCOUNTER → 2017-07-19 | Outpatient (CLI) | payer OTHER ==
[~2017-07-19] MED LIST changes: +OPTIRAY 320 IV PRN
--- NOTE | 2017-07-19 13:57 | DIAGNOSTIC IMAGING REPORT ---
(CHEST) THORAX WITH CLINICAL HISTORY: 72 years-old Male presenting with lung cancer follow-up. TECHNIQUE: Multidetector CT imaging of the chest was performed without the use of intravenous contrast. IV contrast: 119 mL of Optiray 320. A dose lowering technique was used consistent with the principles of ALARA (as low as reasonably achievable). COMPARISON: 01/24/2017. CT DOSE (mGy.cm): The estimated cumulative dose is 214.40 mGy.cm. FINDINGS: [employer] topogram: Surgical clip projects over the mediastinum. Large left pleural effusion. On soft tissue windows, normal thyroid and thoracic inlet. Subcentimeter mediastinal lymph nodes in the precarinal and pretracheal region approximately change from prior exam, the largest measuring 6 mm in the short axis. No hilar lymphadenopathy. Atherosclerosis of aortic arch. Enlargement of the main pulmonary artery, which measures 3.4 cm in maximal transverse dimension. Postsurgical changes of the left hilum status post left pneumonectomy. Left forward shift of the mediastinum with moderate left pleural effusion with chronic pleural thickening. No pericardial effusion. No right pleural effusion. Hypodensity at the left hepatic dome unchanged from prior. Remainder of the upper abdomen within normal limits, including normal adrenal glands. On lung windows, postsurgical changes of left pneumonectomy. Emphysema. Fiducial marker within the right upper lobe in a region of spiculated consolidation and architectural distortion. Associated masslike consolidation has significantly increased since the prior exam at this site. No other focal infiltrate. Previously noted consolidation dependently in the right lower lobe has resolved. Only minimal subpleural reticulation persists. Mild bronchial wall thickening. Postsurgical changes of the left mainstem bronchus. On bone windows, degenerative changes of the thoracic spine. Postsurgical changes of the left ribs. No destructive osseous lesion. IMPRESSION: 1. Interval increase in spiculated masslike consolidation associated with the fiducial marker in the right upper lobe, concerning for progression of disease. 2. Postsurgical changes of left pneumonectomy with chronic left pleural effusion and pleural thickening. 3. Essentially complete resolution of right lower lobe consolidation. 4. Persistent enlargement of the main pulmonary artery suggestive of pulmonary hypertension. Electronically signed by: Jarvis Kinney M.D. 07/19/2017 1:55 PM Dictated Date/Time: 07/19/2017 1:48 PM
== END | disposition home or self-care (01) ==
LOC: C.CTS 12:57
PROVIDERS: ATTEND Radiology Radiation Oncology
DX: C34.11 Malignant neoplasm of upper lobe, right bronchus or lung (principal)

== ENCOUNTER → 2017-07-20 | Outpatient (CLI) | payer OTHER ==
[~2017-07-20] MED LIST changes: -OPTIRAY 320 IV PRN
[2017-07-20 14:51] VITALS: BP 120/70; PULSE 78; TEMP 36.8; O2SAT 96
--- NOTE | 2017-07-20 15:38 | Radiation Oncology Follow-Up ---
Radiation Oncology Follow-Up Date of Visit Jul 20, 2017. Reason For Visit 3 month follow-up Radiation Completion Date 11/03/04, 04/01/17 Diagnosis (1) Primary cancer of right upper lobe of lung Status: Acute Onset Date: 01/20/2017 Permanent Comment: He is status post left pneumonectomy January 2004 Adenocarcinoma stage pT2 pN0M0 stage I B Systemic chemotherapy with Taxol and carboplatin Finding of right upper lobe carcinoma while on chemotherapy Status post completion of radiation therapy to the right upper lobe 11/03/2004 received 7200 cGy PET positive area right upper lobe status post S/P SBRT at [facility] 3 fractions completed January 2007 Finding of right upper lobe mass December 2016 Status post endobronchial ultrasound and biopsy 01/20/2017 revealing adenocarcinoma Status post completion of radiation therapy 04/01/2017. Received a total of 5000 cGy utilizing stereotactic body radiation therapy. He received 5 fractions. Last Edited By: Stacy Cordero on Apr 12, 2017 16:57 History of Present Illness Mr. 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 He underwent a left pneumonectomy in January 2004 and was found to have a pathologic stage T2N0M0. He was treated with adjuvant systemic chemotherapy consisting of 4 cycles of Taxol And Carboplatin. However during the course of the systemic chemotherapy the patient was found to have a right upper lobe nodule which was confirmed on CT scan. The nodule did respond to the chemotherapy and was dealt to be consistent with a malignancy. A transbronchial biopsy was attempted in July 2004 and was negative. Despite this because of it's response to chemotherapy was felt to be consistent with recurrent lung cancer. The patient was seen in our department and proceeded with a course of radiation to the mediastinum and the right upper lobe. He received a dose of 70 20 Gy delivered from 09/04/2004 through 11/03/2004. The patient tolerated the treatment fairly well. A subsequent follow-up PET/CT scan however showed a recurrent area in the right upper lobe with an enlarging right upper lobe mass seen on CT scan. This was close to the area of original recurrent disease. The lesion was small measuring 1.1 cm. A percutaneous fine needle aspiration was performed on [address] Howard. This revealed cells positive for malignancy consistent with a moderately differentiated adenocarcinoma. This was felt to be consistent with metastatic disease from the original primary. 138. We saw the patient in referral at that time to see about possible reirradiation. I arranged for the patient be seen by Dr. Maurice Trinh, radiation oncologist at [facility] for consideration of stereotactic treatment with IGRT. He reviewed the case and felt the patient would be a candidate. The patient ultimately did undergo a course of SBRT for 3 fractions at [facility] to the right upper lobe nodule in January 2007. Follow-up scans have remained fairly stable. The patient continues to have fairly severe chronic obstructive pulmonary disease but does not require oxygen and has good O2 sats. He underwent a CT scan of the chest with IV contrast on 01/01/2017. This showed the interval development of a new 1 cm irregular right upper lobe nodule that was not present on the 02/07/2015 scan this is felt to be worrisome for malignancy. The possibility of a progressive scar formation could appear similar although this was felt to be less likely. The remainder of the bandlike scar within the right upper lobe was unchanged. No other abnormalities were appreciated. The patient was seen by Dr. Naun Vicente. A fine-needle EBUS was performed on 01/20/2017. Biopsy of the lymph node station 7 and endobronchial ultrasound- guided aspiration was negative with no malignant cells seen. An EBUS of the lymph node or 10 also revealed no malignant cells. EBUS of the lymph node or 4 revealed no malignant cells. Right upper lobe rhonchi to brushings revealed atypical bronchial epithelial cells. A fine-needle aspiration of the right upper lobe nodule revealed rare atypical bronchial epithelial cells which were not diagnostic of malignancy. Bronchial washings the left upper lobe revealed focal bronchial cell atypia but also not diagnostic of malignancy. A right upper lobe bronchial biopsy was also performed which revealed atypical glandular perforation most consistent with an adenocarcinoma. The differential was that of a low-grade adenocarcinoma withlepidic growth versus a reactive process. The changes do not appear to be consistent with prior radiation and the relatively uniform atypia favors a neoplastic process over a reactive process. The features were felt to be most consistent with a low-grade adenocarcinoma. The tissue was sent for ALK testing which was negative, ROS 1 testing which was negative and EGFR mutation revealing no mutations detected. Case: [id number]. Patient had a CT angiography of the chest for pulmonary embolus on 01/24/2017 to rule out pulmonary embolus. No central pulmonary embolus was identified. Stable appearance of the left pneumonectomy cavity was noted. 1 cm right upper lobe nodule was again seen. There was however interval development of a mild to moderate right lower lobe consolidation favoring pneumonia. The patient has been treated for this and is improving. The patient is not felt to be a good surgical candidate although surgery is not absolutely ruled out. There is a concern because of the prior radiation to the right upper lobe making the possibility of additional radiation questionable. We are asked to see the patient in referral today to review prior radiation and scans and see if additional radiation in the form of stereotactic treatment is possible. It is for that reason the patient is seen in referral. He returned underwent a CT simulation. This information was fused with is prior therapy. Decision was to treat with stereotactic body radiation therapy in 5 fractions. He received a total 5000 cGy. Interim History He is been doing well over this past 3 months. He denies any changes respiratory status. He's had no problems with cough or sputum production. He has had no issues with recurrent upper respiratory infections. At his last visit he did have an upper Sparger infection and that was treated with Z-Feroz this cleared without difficulty. He was seen today by Dr. Rene. Yesterday he underwent a CT scan of the chest for surveillance following the SBRT. This questioned a possible increase in the spiculated masslike consolidation associated with of the initial marker in the right upper lobe. The radiologist was concerned about progression of disease. Dr. Luu had this reviewed in radiology. It is felt that the changes that are noted are due to the radiation therapy. This will be followed closely with recheck CT evaluations. Dr. Rene saw him today and has recommended a recheck CT scan in 3 months. Allergies Coded Allergies: Penicillins (Verified Allergy, Mild, RASH, 01/24/17) Lorazepam (Unverified Allergy, Unknown, PT UNSURE, 01/24/17) Cephalexin (Unverified Adverse Reaction, Mild, pt states "unpleasent yeast infection", 01/24/17) Minocycline (Unverified Adverse Reaction, Mild, BAD YEAST INFECTION, ) Home Medications Scheduled Aspirin (Aspirin Ec), 81 MG PO QAM Budesonide/Formoterol Fumarate (Symbicort 160-4.5 Mcg/Act), 2 PUFFS INH BID Fluticasone Propionate (Nasal) (Flonase Allergy Relief), 2 SPRAY CHARITY QD Multivitamin (Multivitamin), 1 TABLET PO QAM Nitroglycerin (Nitrostat), 1 TAB SL UD Scheduled PRN Acetaminophen (Tylenol), 1,000 MG PO Q8 PRN for Pain Albuterol 0.5% Soln (Ventolin 0.5% Soln), 1 VIAL NEB Q6 PRN for SOB/Wheezing Review of Systems Gastrointestinal: Symptoms: WNL Oral: Other Oral Symptoms: diff swallowing Respiratory: Symptoms: SOB With Exertion Urinary: Symptoms: WNL Skin: Symptoms: No Problems Physical Exam Vital Signs Date Time Temp Pulse Resp B/P (MAP) Pulse Ox O2 Delivery O2 Flow Rate FiO2 07/20/17 14:51 36.8 78 20 120/70 96 General Appearance: no apparent distress Eyes: normal inspection, EOMI ENT: normal ENT inspection, hearing grossly normal Neck: no adenopathy, thyroid normal Respiratory/Chest: lungs clear, no respiratory distress, no accessory muscle use, + decreased breath sounds Cardiovascular: regular rate, rhythm, no gallop, no murmur Extremities: no pedal edema Neurologic/Psychiatric: no motor/sensory deficits, alert, normal mood/affect Skin: warm/dry Laboratory Studies Test 07/20/17 13:57 White Blood Count 8.44 K/uL (4.8-10.8) Red Blood Count 5.39 M/uL (4.7-6.1) Hemoglobin 15.7 g/dL (14.0-18.0) Hematocrit 48.0 % (42-52) Mean Corpuscular Volume 89.1 fL (80-100) Mean Corpuscular Hemoglobin 29.1 pg (25-34) Mean Corpuscular Hemoglobin Concent 32.7 g/dl (32-36) Platelet Count 318 K/uL (130-400) Mean Platelet Volume 10.9 fL (7.4-10.4) Neutrophils (%) (Auto) 68.3 % Lymphocytes (%) (Auto) 15.0 % Monocytes (%) (Auto) 14.1 % Eosinophils (%) (Auto) 2.0 % Basophils (%) (Auto) 0.4 % Neutrophils # (Auto) 5.76 K/uL (1.4-6.5) Lymphocytes # (Auto) 1.27 K/uL (1.2-3.4) Monocytes # (Auto) 1.19 K/uL (0.11-0.59) Eosinophils # (Auto) 0.17 K/uL (0-0.5) Basophils # (Auto) 0.03 K/uL (0-0.2) RDW Standard Deviation 47.6 fL (36.4-46.3) RDW Coefficient of Variation 14.6 % (11.5-14.5) Immature Granulocyte % (Auto) 0.2 % Immature Granulocyte # (Auto) 0.02 K/uL (0.00-0.02) Sodium Level 139 mmol/L (136-145) Potassium Level 4.0 mmol/L (3.5-5.1) Chloride Level 103 mmol/L (98-107) Carbon Dioxide Level 30 mmol/L (21-32) Anion Gap 6.0 mmol/L (3-11) Blood Urea Nitrogen 17 mg/dl (7-18) Creatinine 0.72 mg/dl (0.60-1.40) Est Creatinine Clear Calc Drug Dose 101.3 ml/min Estimated GFR () 108.0 Estimated GFR (Non- 93.2 BUN/Creatinine Ratio 23.8 (10-20) Random Glucose 87 mg/dl (70-99) Calcium Level 9.6 mg/dl (8.5-10.1) Total Bilirubin 0.3 mg/dl (0.2-1) Aspartate Amino Transferase (AST) 17 U/L (15-37) Alanine Aminotransferase (ALT) 23 U/L (12-78) Alkaline Phosphatase 103 U/L (45-117) Total Protein 7.6 gm/dl (6.4-8.2) Albumin 3.7 gm/dl (3.4-5.0) Globulin 3.9 gm/dl (2.5-4.0) Albumin/Globulin Ratio 0.9 (0.9-2) Assessment & Plan Plan: Continue with surveillance scanning. He'll be due for his next CT scan in 3 months. It appears that this will be scheduled through Dr. Rene's office. I did asked the patient call if he does not hear from them by the first week of October. We asked him to return to our office in 6 months. He may call if he has any questions or concerns in the interim. Total Time In Follow-Up I spent 20 minutes speaking to the patient performing examination. I spent 15 minutes reviewing information in completing this note. Copy To Jarvis Ortega M.D.; Darion Rene D.O.
== END | disposition home or self-care (01) ==
LOC: C.ONC 14:35
PROVIDERS: ATTEND Physician Assistant Medical
DX: Z08 Encounter for follow-up examination after completed treatment for malignant neoplasm (principal); Z92.3 Personal history of irradiation; Z85.118 Personal history of other malignant neoplasm of bronchus and lung

== ENCOUNTER → 2017-07-26 | Outpatient (CLI) | payer OTHER ==
[~2017-07-26] MED LIST changes: -FLM4 PO
[2017-07-26 18:09] LABS: CHOLESTEROL/HDL RATIO 3.7; PROSTATE SPECIFIC ANTIGEN 2.04 ng/ml (0.000-4.000)
== END | disposition home or self-care (01) ==
LOC: C.LABPBG 14:42
PROVIDERS: ATTEND Internal Medicine
DX: N40.0 Benign prostatic hyperplasia without lower urinary tract symptoms (principal); Z13.220 Encounter for screening for lipoid disorders

== ENCOUNTER → 2017-11-26 | Outpatient (CLI) | payer OTHER ==
[~2017-11-26] MED LIST changes: +OPTIRAY 320 IV PRN
--- NOTE | 2017-11-26 11:46 | DIAGNOSTIC IMAGING REPORT ---
CT SCAN OF THE CHEST WITH IV CONTRAST CLINICAL HISTORY: Lung cancer. COMPARISON STUDY: Chest CT scans dated 07/19/2017 and 09/26/2013. TECHNIQUE: Following the IV administration of 118 cc of Optiray 320, CT scan of the thorax was performed from the thoracic inlet to the upper abdomen. Images are reviewed in the axial, sagittal, and coronal planes. IV contrast was administered without complication. A dose lowering technique was utilized adhering to the principles of ALARA. CT DOSE: 234.61 mGy.cm FINDINGS: Thyroid: Imaged portions of the thyroid gland are normal in size and attenuation. Thoracic aorta: There is atherosclerotic change identified in the thoracic aorta, which is normal in caliber and demonstrates standard 3-vessel arch anatomy. No dissection is seen. Pulmonary vasculature: The pulmonary trunk is dilated, measuring 3.6 cm in transverse diameter. This suggests pulmonary hypertension.. There are no filling defects identified in the central pulmonary vessels to indicate pulmonary embolus. Note that this examination was not protocoled for evaluation of the pulmonary arteries. Heart: The heart is normal in size and configuration, and without pericardial effusion. Lungs and pleural spaces: There are postoperative changes consistent with a left-sided pneumonectomy with compensatory hyperinflation of the right lung. A thick-walled pleural collection on the left is unchanged over multiple prior studies and likely related to previous surgery. Advanced emphysema is identified. 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 There is no evidence of superimposed pneumonia. There is increasing nodularity identified at the anterior right apex around a fiducial marker, best seen on image #80. This measures up to 2.7 cm. No new pulmonary lesion is identified. Minimal secretions are noted in the trachea. Mild diffuse peribronchial thickening is seen throughout the right-sided airways. Mediastinum: There is leftward shift of the mediastinum. Scattered subcentimeter mediastinal lymph nodes are identified. No pathologically enlarged lymph nodes are seen. Dianne: Clear. Axillae: There is no axillary lymphadenopathy. Lower neck: No supraclavicular adenopathy is identified. Upper abdomen: 1.6 cm cyst is seen in the upper pole the left kidney. Findings suggest hepatic steatosis. No adrenal lesion is identified. Skeletal structures: The Skeletal structures are osteopenic. No lytic or blastic bony lesions are seen. Posttraumatic/postoperative changes identified in the left ribs. Mild compression forms of T2, T3, T4, and T6 are again noted. IMPRESSION: 1. Advanced emphysema. 2. There are postoperative changes from left-sided pneumonectomy with compensatory hyperinflation of the right lung, fluid in the left thoracic space, and leftward shift of the mediastinum. 3. There is increasing nodularity/soft tissue identified in the anterior right apex around a fiducial marker. This could represent progression of disease versus treatment related change. Clinical correlation will be required. 4. No airspace consolidation is seen typical for pneumonia and there is no right-sided pleural effusion. Peribronchial thickening throughout the right lung suggests reactive airway disease. Clinical correlation will be required. 5. Bandlike fibrosis at the right apex is similar to prior studies dating back to 2013. 6. Additional findings as above. Electronically signed by: Vaibhav Rolon M.D. 11/26/2017 11:45 AM Dictated Date/Time: 11/26/2017 11:35 AM
== END | disposition home or self-care (01) ==
LOC: C.CTS 11:09
PROVIDERS: ATTEND Internal Medicine Hematology & Oncology
DX: C34.11 Malignant neoplasm of upper lobe, right bronchus or lung (principal); J43.9 Emphysema, unspecified

== ENCOUNTER → 2018-02-03 | Outpatient (CLI) | payer OTHER ==
[~2018-02-03] MED LIST changes: -OPTIRAY 320 IV PRN; +VNTHFA/IN INH
[2018-02-03 13:01] VITALS: BP 151/65; PULSE 80; TEMP 36.6; O2SAT 97
--- NOTE | 2018-02-03 13:56 | Radiation Oncology Follow-Up ---
Radiation Oncology Follow-Up Date of Visit Feb 03, 2018. Reason For Visit Six-month follow-up Radiation Completion Date 11/03/04, 04/01/17 Diagnosis (1) Primary cancer of right upper lobe of lung Status: Acute Onset Date: 01/20/2017 Permanent Comment: He is status post left pneumonectomy January 2004 Adenocarcinoma stage pT2 pN0M0 stage I B Systemic chemotherapy with Taxol and carboplatin Finding of right upper lobe carcinoma while on chemotherapy Status post completion of radiation therapy to the right upper lobe 11/03/2004 received 7200 cGy PET positive area right upper lobe status post S/P SBRT at [facility] 3 fractions completed January 2007 Finding of right upper lobe mass December 2016 Status post endobronchial ultrasound and biopsy 01/20/2017 revealing adenocarcinoma Status post completion of radiation therapy 04/01/2017. Received a total of 5000 cGy utilizing stereotactic body radiation therapy. He received 5 fractions. Last Edited By: Stacy Cordero on Apr 12, 2017 16:57 History of Present Illness Mr. Abdi presented with a poorly differentiated adenocarcinoma of the left lung on January 09, 2004. He underwent a left pneumonectomy in January 2004 and was found to have a pathologic stage T2N0M0. He was treated with adjuvant systemic chemotherapy consisting of 4 cycles of Taxol And Carboplatin. However during the course of the systemic chemotherapy the patient was found to have a right upper lobe nodule which was confirmed on CT scan. The nodule did respond to the chemotherapy and was dealt to be consistent with a malignancy. A transbronchial biopsy was attempted in July 2004 and was negative. Despite this because of it's response to chemotherapy was felt to be consistent with recurrent lung cancer. The patient was seen in our department and proceeded with a course of radiation to the mediastinum and the right upper lobe. He received a dose of 70 20 Gy delivered from 09/04/2004 through 2004. The patient tolerated the treatment fairly well. A subsequent follow-up PET/CT scan however showed a recurrent area in the right upper lobe with an enlarging right upper lobe mass seen on CT scan. This was close to the area of original recurrent disease. The lesion was small measuring 1.1 cm. A percutaneous fine needle aspiration was performed on [address] Howard. This revealed cells positive for malignancy consistent with a moderately differentiated adenocarcinoma. This was felt to be consistent with metastatic disease from the original primary. 138. We saw the patient in referral at that time to see about possible reirradiation. I arranged for the patient be seen by Dr. Maurice Trinh, radiation oncologist at [facility] for consideration of stereotactic treatment with IGRT. He reviewed the case and felt the patient would be a candidate. The patient ultimately did undergo a course of SBRT for [address] [facility] to the right upper lobe nodule in January 2007. Follow-up scans have remained fairly stable. The patient continues to have fairly severe chronic obstructive pulmonary disease but does not require oxygen and has good O2 sats. He underwent a CT scan of the chest with IV contrast on 01/01/2017. This showed the interval development of a new 1 cm irregular right upper lobe nodule that was not present on the 02/07/2015 scan this is felt to be worrisome for malignancy. The possibility of a progressive scar formation could appear similar although this was felt to be less likely. The remainder of the bandlike scar within the right upper lobe was unchanged. No other abnormalities were appreciated. The patient was seen by Dr. Naun Vicente. A fine-needle EBUS was performed on 01/20/2017. Biopsy of the lymph node station 7 and endobronchial ultrasound- guided aspiration was negative with no malignant cells seen. An EBUS of the lymph node or 10 also revealed no malignant cells. EBUS of the lymph node or 4 revealed no malignant cells. Right upper lobe rhonchi to brushings revealed atypical bronchial epithelial cells. A fine-needle aspiration of the right upper lobe nodule revealed rare atypical bronchial epithelial cells which were not diagnostic of malignancy. Bronchial washings the left upper lobe revealed focal bronchial cell atypia but also not diagnostic of malignancy. A right upper lobe bronchial biopsy was also performed which revealed atypical glandular perforation most consistent with an adenocarcinoma. The differential was that of a low-grade adenocarcinoma withlepidic growth versus a reactive process. The changes do not appear to be consistent with prior radiation and the relatively uniform atypia favors a neoplastic process over a reactive process. The features were felt to be most consistent with a low-grade adenocarcinoma. The tissue was sent for ALK testing which was negative, ROS 1 testing which was negative and EGFR mutation revealing no mutations detected. Case: [id number]. Patient had a CT angiography of the chest for pulmonary embolus on 01/24/2017 to rule out pulmonary embolus. No central pulmonary embolus was identified. Stable appearance of the left pneumonectomy cavity was noted. 1 cm right upper lobe nodule was again seen. There was however interval development of a mild to moderate right lower lobe consolidation favoring pneumonia. The patient has been treated for this and is improving. The patient is not felt to be a good surgical candidate although surgery is not absolutely ruled out. There is a concern because of the prior radiation to the right upper lobe making the possibility of additional radiation questionable. We are asked to see the patient in referral today to review prior radiation and scans and see if additional radiation in the form of stereotactic treatment is possible. It is for that reason the patient is seen in referral. He returned underwent a CT simulation. This information was fused with is prior therapy. Decision was to treat with stereotactic body radiation therapy in 5 fractions. He received a total 5000 cGy. Interim History Over the past 3 months his respiratory status is unchanged. He has a cough which is productive in the morning. Once this clears then he does well throughout the day. He has not noticed any increased shortness of breath. There is no change in the cough. He does not have any hemoptysis. His appetite is good and weight is stable. He had a CT scan November 26, 2017 in follow-up. This was reviewed by Dr. Luu and it was felt that the findings were compatible with post treatment changes. This was reviewed with the patient as well as Dr. Rene. Allergies Coded Allergies: Penicillins (Verified Allergy, Intermediate, RASH, 11/26/17) Lorazepam (Verified Allergy, Unknown, PT UNSURE, 11/26/17) Cephalexin (Verified Adverse Reaction, Mild, pt states "unpleasent yeast infection", 11/26/17) Minocycline (Verified Adverse Reaction, Mild, BAD YEAST INFECTION, 11/26/17 ) Home Medications Scheduled Aspirin (Aspirin Ec), 81 MG PO QAM Budesonide/Formoterol Fumarate (Symbicort 160-4.5 Mcg/Act), 2 PUFFS INH BID Fluticasone Propionate (Nasal) (Flonase Allergy Relief), 2 SPRAY CHARITY QD Multivitamin (Multivitamin), 1 TABLET PO QAM Nitroglycerin (Nitrostat), 1 TAB SL UD Scheduled PRN Acetaminophen (Tylenol), 1,000 MG PO Q8 PRN for Pain Albuterol Hfa (Ventolin Hfa), 2-4 PUFFS INH Q6H PRN for SOB/Wheezing Review of Systems Gastrointestinal: Symptoms: WNL Oral: Symptoms: No Problems Other Oral Symptoms: Trouble swallowing due to weak muscles in throat/ esophagus Respiratory: Symptoms: WNL, SOB With Exertion Urinary: Symptoms: WNL Comments: BPH Skin: Symptoms: No Problems Physical Exam Vital Signs Date Time Temp Pulse Resp B/P (MAP) Pulse Ox O2 Delivery O2 Flow Rate FiO2 02/03/18 13:01 36.6 80 16 151/65 97 Fatigue: None General Appearance: + thin Eyes: normal inspection, EOMI ENT: normal ENT inspection, hearing grossly normal Neck: no adenopathy, thyroid normal Respiratory/Chest: no respiratory distress, no accessory muscle use, + decreased breath sounds Cardiovascular: regular rate, rhythm, no gallop, no murmur Extremities: no pedal edema Neurologic/Psychiatric: no motor/sensory deficits, alert, normal mood/affect Skin: no rash Pain Management Patient Reports Pain: No Pain Management Plan He denies pain therefore requires no pain management. Laboratory Laboratory Results: not applicable Pathology Pathology Results: not applicable Imaging Imaging Studies: were reviewed, and pertinent findings noted below Imaging Comments Patient: SCAR ABDI SR Gail Address1: [address] [place] [address] Rec: [id number] Address[address] ID: [id number] [facility] Zip: [place] [address] Date: 1945 Sex: M Room/Bed: Ref Phy: Jarvis Ortega M.D. SC: C.CTS Att Phy: Darion Rene D.O. Report #: [id number] Evelyn Phy: Jarvis Ortega M.D. Test: CX Admit Phy: Ap Operator: TREY Interpreting Phy: Vaibhav Rolon M.D. Diagnosis: LUNG CA Ordering Phy: Darion Rene D.O. Service Date: 11/26/17 Admit Date: 11/26/17 MNE: [id number] CONF: DICTATED BY: Vaibhav Rolon M.D.]] CC: Jarvis Ortega M.D. Lieb, James V. D.O. Endcc: [~ rep ct add3]] CT SCAN OF THE CHEST WITH IV CONTRAST CLINICAL HISTORY: Lung cancer. COMPARISON STUDY: Chest CT scans dated 07/19/2017 and 09/26/2013. TECHNIQUE: Following the IV administration of 118 cc of Optiray 320, CT scan of the thorax was performed from the thoracic inlet to the upper abdomen. Images are reviewed in the axial, sagittal, and coronal planes. IV contrast was administered without complication. A dose lowering technique was utilized adhering to the principles of ALARA. CT DOSE: 234.61 mGy.cm FINDINGS: Thyroid: Imaged portions of the thyroid gland are normal in size and attenuation. Thoracic aorta: There is atherosclerotic change identified in the thoracic aorta, which is normal in caliber and demonstrates standard 3-vessel arch anatomy. No dissection is seen. Pulmonary vasculature: The pulmonary trunk is dilated, measuring 3.6 cm in transverse diameter. This suggests pulmonary hypertension.. There are no filling defects identified in the central pulmonary vessels to indicate pulmonary embolus. Note that this examination was not protocoled for evaluation of the pulmonary arteries. Heart: The heart is normal in size and configuration, and without pericardial effusion. Lungs and pleural spaces: There are postoperative changes consistent with a left-sided pneumonectomy with compensatory hyperinflation of the right lung. A thick-walled pleural collection on the left is unchanged over multiple prior studies and likely related to previous surgery. Advanced emphysema is identified. 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 There is no evidence of superimposed pneumonia. There is increasing nodularity identified at the anterior right apex around a fiducial marker, best seen on image #80. This measures up to 2.7 cm. No new pulmonary lesion is identified. Minimal secretions are noted in the trachea. Mild diffuse peribronchial thickening is seen throughout the right-sided airways. Mediastinum: There is leftward shift of the mediastinum. Scattered subcentimeter mediastinal lymph nodes are identified. No pathologically enlarged lymph nodes are seen. Dianne: Clear. Axillae: There is no axillary lymphadenopathy. Lower neck: No supraclavicular adenopathy is identified. Upper abdomen: 1.6 cm cyst is seen in the upper pole the left kidney. Findings suggest hepatic steatosis. No adrenal lesion is identified. Skeletal structures: The Skeletal structures are osteopenic. No lytic or blastic bony lesions are seen. Posttraumatic/postoperative changes identified in the left ribs. Mild compression forms of T2, T3, T4, and T6 are again noted. IMPRESSION: 1. Advanced emphysema. 2. There are postoperative changes from left-sided pneumonectomy with compensatory hyperinflation of the right lung, fluid in the left thoracic space, and leftward shift of the mediastinum. 3. There is increasing nodularity/soft tissue identified in the anterior right apex around a fiducial marker. This could represent progression of disease versus treatment related change. Clinical correlation will be required. 4. No airspace consolidation is seen typical for pneumonia and there is no right-sided pleural effusion. Peribronchial thickening throughout the right lung suggests reactive airway disease. Clinical correlation will be required. 5. Bandlike fibrosis at the right apex is similar to prior studies dating back to 2012. 6. Additional findings as above. Electronically signed by: Vaibhav Rolon M.D. 11/26/2017 11:45 AM Dictated Date/Time: 11/26/2017 11:35 AM Assessment & Plan Plan: The results of the prior CT were reviewed. He needs a follow-up CT. He requests that his chest CT on the same day that he sees Dr. Villarreal. This will help with transportation. It is quite a distance for him to drive to [facility]. He has an appoint with Dr. Villarreal on February 24 at 1:[address] scan was arranged for him for same day late morning. He was in agreement to that arrangement. Will await results of the CT. He was given an appointment to follow-up with our office in 6 months. Depending on the results of the CT will decide when to order the next study for follow-up. Total Time In Follow-Up I spent 20 minutes speaking to the patient in performing examination. I spent 15 minutes reviewing information and completing this note. AK Copy To Jarvis Ortega M.D.; Darion Rene D.O.
== END | disposition home or self-care (01) ==
LOC: C.ONC 12:49
PROVIDERS: ATTEND Radiology Radiation Oncology
DX: Z08 Encounter for follow-up examination after completed treatment for malignant neoplasm (principal); Z92.3 Personal history of irradiation; Z85.118 Personal history of other malignant neoplasm of bronchus and lung

== ENCOUNTER → 2018-02-24 | Outpatient (CLI) | payer OTHER ==
--- NOTE | 2018-02-24 12:20 | DIAGNOSTIC IMAGING REPORT ---
CT SCAN OF THE CHEST WITH IV CONTRAST CLINICAL HISTORY: Lung cancer. COMPARISON STUDY: Chest CT scans dated 11/26/2017 and 09/26/2013. TECHNIQUE: Following the IV administration of 95 cc of Optiray 320, CT scan of the thorax was performed from the thoracic inlet to the upper abdomen. Images are reviewed in the axial, sagittal, and coronal planes. IV contrast was administered without complication. A dose lowering technique was utilized adhering to the principles of ALARA. CT DOSE: 333.27 mGycm FINDINGS: Thyroid: Imaged portions of the thyroid gland are normal in size and attenuation. Thoracic aorta: There is atherosclerotic change identified in the thoracic aorta, which is normal in caliber and demonstrates standard 3-vessel arch anatomy. No dissection is seen. Pulmonary vasculature: The pulmonary trunk is dilated, measuring 3.6 cm in transverse diameter. This suggests pulmonary hypertension. There are no filling defects identified in the central pulmonary vessels to indicate pulmonary embolus. Note that this examination was not protocoled for evaluation of the pulmonary arteries. Heart: The heart is normal in size and without pericardial effusion. There are coronary artery calcifications. Lungs and pleural spaces: There are postoperative changes consistent with left-sided pneumonectomy and compensatory hyperinflation of the right lung. A thick-walled pleural collection on the left is unchanged over multiple prior studies and likely related to previous surgery. Advanced emphysema is identified. 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 There is no evidence of superimposed pneumonia a right-sided pleural effusion. Again seen is nodularity identified at the anterior right upper lobe around a fiducial marker, best seen on image #90. This measures up to 2.9 cm and is similar in appearance to 11/26/2017 no new pulmonary lesion is identified. Secretions are noted in the upper trachea. Mild diffuse peribronchial thickening is seen throughout the right-sided airways. Mediastinum: There is leftward shift of the mediastinum. Scattered subcentimeter mediastinal lymph nodes are identified. No pathologically enlarged lymph nodes are seen. Dianne: Clear. Axillae: There is no axillary lymphadenopathy. Lower neck: No supraclavicular adenopathy is identified. Upper abdomen: Findings suggest hepatic steatosis. A 10 mm cyst is noted in the left hepatic lobe. No adrenal lesion is identified. Skeletal structures: The Skeletal structures are osteopenic. No lytic or blastic bony lesions are seen. Posttraumatic/postoperative changes identified in the left ribs. Mild compression deformities from T1 through T6 are noted. IMPRESSION: 1. Advanced emphysema with postoperative changes from left pneumonectomy. 2. Again seen is nodularity/soft tissue in the anterior right upper lobe around a fiducial marker. This is similar in appearance to the 11/26/2017 examination but has increased in conspicuity as compared to earlier studies. This is pathologically indeterminant and may represent treatment related change. Continued attention at follow-up is recommended. 3. No airspace consolidation is seen typical for pneumonia and there is no right-sided pleural effusion. Peribronchial thickening throughout the right lung suggests reactive airway disease. Clinical correlation will be required. 4. Bandlike fibrosis at the right apex is similar to prior studies dating back to 2013. 5. Additional findings as above. 6. Additional findings as above. Electronically signed by: Vaibhav Rolon M.D. 02/24/2018 12:19 PM Dictated Date/Time: 02/24/2018 12:07 PM
== END | disposition home or self-care (01) ==
LOC: C.CTS 11:45
PROVIDERS: ATTEND Physician Assistant Medical
DX: C34.11 Malignant neoplasm of upper lobe, right bronchus or lung (principal); J43.9 Emphysema, unspecified; R91.8 Other nonspecific abnormal finding of lung field; J84.10 Pulmonary fibrosis, unspecified

== ENCOUNTER → 2018-06-23 | Outpatient (CLI) | payer OTHER ==
[~2018-06-23] MED LIST changes: -ALBU0.5N2 NEB
[2018-06-23 13:41] LABS: BASO % 0.5 %; BASO ABS # 0.04 K/uL (0-0.2); EOS % 1.4 %; EOS ABS # 0.12 K/uL (0-0.5); HEMATOCRIT 49.4 % (42-52); HEMOGLOBIN 16.9 g/dL (14.0-18.0); IG# 0.02 K/uL (0.00-0.02); LYMPH % 17.7 %; MEAN CELL VOLUME 89.5 fL (80-100); MEAN CORPUSCULAR HEMOGLOBIN 30.6 pg (25-34); MEAN CORPUSCULAR HGB CONC 34.2 g/dl (32-36); MEAN PLATELET VOLUME 11.1 fL (7.4-10.4); MONO % 12.4 %; MONO ABS # 1.05 K/uL (0.11-0.59); NEUT % 67.8 %; NEUT ABS # 5.75 K/uL (1.4-6.5); PLATELET COUNT 296 K/uL (130-400); RED CELL DISTRIBUTION WIDTH CV 14.3 % (11.5-14.5); RED CELL DISTRIBUTION WIDTH SD 46.7 fL (36.4-46.3); WHITE BLOOD COUNT 8.48 K/uL (4.8-10.8)
[2018-06-23 14:10] LABS: ALBUMIN 3.7 gm/dl (3.4-5.0); ALKALINE PHOSPHATASE 93 U/L (45-117); ALT/SGPT 25 U/L (12-78); AST/SGOT 15 U/L (15-37); BLOOD UREA NITROGEN 22 mg/dl (7-18); CARBON DIOXIDE 29 mmol/L (21-32); CREATININE 1.06 mg/dl (0.60-1.40); GLUCOSE 91 mg/dl (70-99); POTASSIUM 4.2 mmol/L (3.5-5.1); SODIUM 141 mmol/L (136-145); TOTAL PROTEIN 7.7 gm/dl (6.4-8.2)
== END | disposition home or self-care (01) ==
LOC: C.CCL 13:17
PROVIDERS: ATTEND Internal Medicine Hematology & Oncology
DX: C34.11 Malignant neoplasm of upper lobe, right bronchus or lung (principal)

== ENCOUNTER 2024-08-24 15:03 | Inpatient (IN) ==
[2024-08-24 15:40] LABS: Basophils # (auto) 0.01 K/uL (0.00-0.20); Basophils % (auto) 0.2 %; Hematocrit (blood only) 48.4 % (42.0-52.0); Immature Granulocytes # (auto) 0.04 K/uL (0.01-0.20); Immature Granulocytes % (auto) 0.6 %; Lymphocytes # (auto) 0.52 K/uL (1.20-3.40); Lymphocytes % (auto) 7.8 %; Mean Corpuscular Hemoglobin 28.9 pg (25.0-34.0); Mean Corpuscular Hgb Conc 33.1 g/dL (32.0-36.0); Mean Corpuscular Volume 87.5 fL (80.0-100.0); Mean Platelet Volume 11.1 fL (9.4-12.4); Monocytes # (auto) 0.28 K/uL (0.11-0.59); Monocytes % (auto) 4.2 %; Neutrophils # (auto) 5.79 K/uL (1.40-6.50); Neutrophils % (auto) 87.2 %; Platelet Count 281 K/uL (130-400); RDW Coefficient of Variation 13.8 % (11.5-14.5); RDW Standard Deviation 44.5 fL (36.4-46.3); Red Blood Count 5.53 M/uL (4.70-6.10); White Blood Count 6.64 K/ul (4.8-10.8)
[2024-08-24 15:48] LABS: Albumin Globulin Ratio 1.4 (0.9-2); Albumin Level 4.3 gm/dl (3.4-5.0); BUN Creatinine Ratio 17.2 (10-20); Bilirubin,Total 0.7 mg/dl (0.2-1.0); Calcium 9.5 mg/dl (8.6-10.3); Creatinine Clr Calc Pharmacy 63.7 ml/min; Globulin 3.1 gm/dl (2.5-4.0); Magnesium 1.8 mg/dl (1.7-2.4); Potassium 4.7 mmol/L (3.5-5.1); Total Protein 7.4 gm/dl (6.0-8.3)
--- NOTE | 2024-08-24 15:59 | XRay Report ---
XR chest 1V portable HISTORY: 79 years-old Male Dyspnea COMPARISON: Chest CT 07/17/2024 TECHNIQUE: AP view of the chest FINDINGS: Prior left pneumonectomy. Emphysema with unchanged linear scarring/opacity of the right upper lung. C hronic interstitial coarsening with compensatory hyperinflation of the right lung. Bones appear gross ly intact. Cardiac shadow is obscured. Chronic left rib fractures. IMPRESSION: 1. Prior left-sided pneumonectomy. 2. Emphysema with unchanged linear consolidative right upper lung opacity/scarring. ACT 112: Negative or not required by law. The above report was generated using voice recognition software. It may contain grammatical, syntax o r spelling errors. Electronically signed by: Elmo Ocasio M.D. 08/24/2024 3:58 PM
[2024-08-24 16:38] LABS: Base Excess VBG 3.7 mEq/L; HCO3 VBG 29 mmol/L; Oxygen Saturation VBG 80.5 %; PCO2 VBG 43 mmHg (38-50); PO2 VBG 42 mmHg; pH VBG 7.43 (7.36-7.41)
[2024-08-24 16:41] LABS: Adenovirus PCR Not Detected (NotDetected); Bordetella parapertussis PCR Not Detected (NotDetected); Bordetella pertussis PCR Not Detected (NotDetected); Chlamydia pneumoniae PCR Not Detected (NotDetected); Coronavirus 229E PCR Not Detected (NotDetected); Coronavirus CoV-2 (COVID19)PCR Not Detected (NotDetected); Coronavirus HKU1 PCR Not Detected (NotDetected); Coronavirus NL63 PCR Not Detected (NotDetected); Coronavirus OC43PCR Not Detected (NotDetected); Human Metapneumovirus PCR Not Detected (NotDetected); Influenza A PCR Not Detected (NotDetected); Influenza B PCR Not Detected (NotDetected); Mycoplasma pneumoniae PCR Not Detected (NotDetected); Parainfluenza Virus 1 PCR Not Detected (NotDetected); Parainfluenza Virus 2 PCR Not Detected (NotDetected); Parainfluenza Virus 3 PCR Not Detected (NotDetected); Parainfluenza Virus 4 PCR Not Detected (NotDetected); Respiratory Syncytial VirusPCR Not Detected (NotDetected); Rhinovirus/Enterovirus PCR Not Detected (NotDetected)
--- NOTE | 2024-08-24 17:36 | Emergency Department Note ---
Impression & Plan BRYANT (dyspnea on exertion), Hypoxia, Acute exacerbation of chronic obstructive pulmonary disease ED Provider Note HISTORY OF PRESENT ILLNESS: Patient is an 79-year-old male presenting with increasing shortness of breath and difficulty swallowing. Patient reports he had difficulty swallowing for the last few weeks. He states that since getting an endoscopy performed he has been unable to swallow any solids or liquids. He states that he got very short of breath today and felt like he could not catch his breath. Denies any chest pain. He denies any nausea or vomiting. Denies any abdominal pain. He reports he just does not feel well and feels very weak secondary to poor oral intake. Patient had received a DuoNeb and route with EMS. Patient also reports that he has had significant shortness of breath over the last few days. He has been taking his vital signs at home and when he walks he notices that his heart rate goes up and his oxygen saturation decreased to the mid 80s yesterday. He states this happened again today and when walking back from his bathroom into his living room today, he got lightheaded and was very short of breath, prompting him to call 911. Patient recently had an endoscopy performed and was diagnosed with esophageal candidiasis and started on antibiotics and prednisone. ROS: as above PHYSICAL EXAM: Constitutional: Patient appears in no acute distress. HENT: Head: Normocephalic and atraumatic. Eyes: EOMI, PERRL Mouth/Throat: Mucous membranes moist. Neck: Trachea midline. Neck supple. Cardiovascular: RRR, No murmurs, rubs or gallops. Intact distal pulses. Pulmonary/Chest: No respiratory distress. Breath sounds clear and equal bilaterally. No wheezes or rales. Abdominal: Abdomen soft, no tenderness, rebound or guarding. Musculoskeletal: No edema, tenderness or deformity noted. Skin: Warm and dry. No rash, erythema, pallor or cyanosis Psychiatric: Appropriate mood and affect for situation. Neurological: Alert and keenly responsive. CN II-XII grossly intact, moving all extremities equally and fully. MDM: - Vitals signs showed hypertension. - History obtained via patient. History as above. - Chronic conditions affecting care: prostate cancer; advanced COPD; lung cancer (s/p pneumonectomy); BPH - Differential diagnoses include, but are not limited to: Congestive heart failure; acute coronary syndrome; COPD/asthma exacerbation; pulmonary edema; pulmonary embolism; pneumonia; pneumothorax; viral syndrome - Order placed for continuous cardiac monitoring. At this time, monitor showed rate of 81 bpm with normal sinus rhythm, per my interpretation. - External medical records reviewed. EGD from 08/17/2024 was reviewed. Patient was noted to have esophageal plaques consistent with candidiasis. He was also noted to have a small hiatal hernia. Noted to have grade B reflux esophagitis without any bleeding. Also noted to have acute gastritis. - EKG interpreted by myself showed normal sinus rhythm. Rate 82 bpm. QT 400. No acute ischemic changes. Noted to have occasional PVCs. - Laboratory workup interpreted by myself showed normal WBC; stable hemoglobin; normal PT/INR; stable electrolytes; normal troponin; slightly elevated BNP (104) - UA negative for infection - Viral respiratory panel negative - VBG grossly normal - CXR negative for pneumonia, per my interpretation. - Patient ambulated in the emergency department and became tachycardic and his saturations dropped to the mid 80s. He was brought back to his examination room and his oxygen improved to the mid 90s on room air. - CT PE added to workup. CT PE negative for new PE. - Patient's case likely secondary to COPD exacerbation. He is already on oral prednisone. - Discussion was had with welfare case worker about patient's case and need for admission - Hospitalist, Dr. Hickey, consulted for admission - Patient admitted to [facility] service for further evaluation and management. 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 Chronic pulmonary embolism Peyronie's disease LVH (left ventricular hypertrophy) Herpes zoster Prostate nodule Hematuria Lower urinary tract symptoms (LUTS) History of pneumonectomy (01/2004) Left + 2 ribs removed COPD (chronic obstructive pulmonary disease) (Chronic) Medical History Dysphagia Chronic pulmonary embolism LVH (left ventricular hypertrophy) On home oxygen therapy Malignant neoplasm of prostate with intermediate recurrence risk, stage T2B-C or Matthias 7 or prostate-specific antigen (PSA) 10-20 Malignant neoplasm of left lung (01/20/17) Primary cancer of right upper lobe of lung (01/20/17) Poor historian Aspiration pneumonia Respiratory failure COPD (chronic obstructive pulmonary disease) Surgical History History of esophagogastroduodenoscopy (EGD) History of pneumonectomy (01/2004) History of amputation Hx of colonoscopy Status post shoulder surgery History of elbow surgery Family History Father Cardiac disorder Stroke Mother Cardiac disorder Diabetes Myocardial infarction Brother Diabetes Sister Breast cancer Other Cancer Denies family history of Ovarian cancer Prostate cancer Colorectal cancer Social History Smoking Status: Former smoker Tobacco Type: Cigarettes and Smokeless Tobacco (Dip or Chew) Age Started Using Tobacco: 14; Age Quit Using Tobacco: 42; packs per day: 2; Second Hand Exposure: Yes (as a child); Do You Dip or Chew Tobacco: Yes (Full leaf tobacco > advised none DOS); Hx Alcohol Use: Yes Alcohol type: hard liquor Alcohol type Comment: 6 oz whiskey a day w/honey Alcohol Intake Frequency: 4 or More x per/Week Hx Substance Use: No Preferred Language: Kosovan Communication Ability: Effective Visual Impairment: No Limitations Hearing Ability: Hard of Hearing Fur Nailer Required: No Beliefs That Will Affect Care: None marital status: Single Current Living Situation: Alone current occupational status: retired Feels Safe at Home: Yes Childhood Exposure to Second-Hand Smoke: Yes Diet: regular Diet Comment: regular caffeine: Yes during the past year weight has: remained stable Dental Care, Regularly: No Physical Activity Frequency: Does not Exercise Seatbelt Use: never Sunscreen Use: No (can not go in direct sunlight) Assistive Devices: Denture - Upper, Denture - Lower, Glasses and Oxygen - Continuous Allergies Allergies Allergy/AdvReac Type Severity Reaction Status Date / Time Penicillins Allergy Intermediate Difficulty Verified 08/22/24 15:21 Swallowing latex Allergy Unknown Rash Verified 08/22/24 15:21 lorazepam Allergy Unknown Rash Verified 08/22/24 15:21 sulfamethoxazole Allergy Unknown Difficulty Verified 08/22/24 15:21 Breathing cephalexin AdvReac Mild Yeast Verified 08/22/24 15:21 infection minocycline AdvReac Mild Yeast Verified 08/22/24 15:21 infection ciprofloxacin Allergy Unknown Difficulty Uncoded 08/22/24 15:21 Breathing Home Meds Home Medications Medication Instructions Recorded Confirmed acetaminophen 500 mg tablet 1,000 mg PO Q8H PRN pain 06/19/19 08/24/24 (Tylenol Extra Strength) aspirin 81 mg tablet,delayed 81 mg PO QAM 06/19/19 08/24/24 release multivitamin 1 tab PO DAILY 08/09/24 08/24/24 sucralfate 100 mg/mL oral 100 mg PO UD 08/24/24 08/24/24 suspension Previous Rx's Medication Instructions Recorded nitroglycerin 0.4 mg sublingual 0.4 mg sublingual UD PRN chest 12/24/20 tablet (Nitrostat) pain #25 tabs albuterol sulfate 90 mcg/actuation 2 puff inhalation Q4H PRN copd #18 11/04/23 aerosol inhaler (Ventolin HFA) grams budesonide-formoterol HFA 80 2 puff inhalation BID #10.2 grams 05/11/24 mcg-4.5 mcg/actuation aerosol inhaler (Symbicort) mometasone 50 mcg/actuation nasal 2 spray intranasal QAM #51 grams 06/19/24 spray alfuzosin 10 mg tablet,extended 10 mg PO DAILY #30 tabs 08/14/24 release 24 hr (Uroxatral) fluconazole 100 mg tablet 100 mg PO DAILY 14 days #14 tabs 08/17/24 (Diflucan) pantoprazole 40 mg tablet,delayed 40 mg PO DAILY #90 tabs 08/17/24 release cefdinir 300 mg capsule 300 mg PO BID 7 days #14 caps 08/22/24 doxycycline hyclate 100 mg capsule 100 mg PO BID 7 days #14 caps 08/22/24 prednisone 10 mg tablet See Rx Instructions PO DAILY #20 08/22/24 tabs Results & Data (ED) Vital Signs Vital Signs - 24 hr 08/24/24 15:05 08/24/24 15:08 08/24/24 15:22 Temperature 36.8 C Temperature Source Oral Pulse Rate 90 82 Pulse Rate [Exercises] Pulse Rate from SpO2 Sensor Respiratory Rate 16 Respiratory Rate [Exercises] Respiratory Effort / Characteristics Non-Labored Spontaneous Respiratory Depth Normal Respiratory Pattern Regular Blood Pressure 153/109 H Blood Pressure Mean 123 Pulse Oximetry 96 96 Pulse Oximetry [Exercises] Oxygen Delivery Method Room Air Room Air Oxygen Flow Rate Sepsis Recent Fever Within 48 Hours No Sepsis New/Unexplained Change in Mental Status No Sepsis Action Taken by Nursing No Action Required 08/24/24 15:26 08/24/24 16:15 08/24/24 16:30 Temperature Temperature Source Pulse Rate 83 75 Pulse Rate [Exercises] Pulse Rate from SpO2 Sensor 83 75 Respiratory Rate 19 18 Respiratory Rate [Exercises] Respiratory Effort / Characteristics Respiratory Depth Respiratory Pattern Blood Pressure 140/84 Blood Pressure Mean 102 Pulse Oximetry 96 96 96 Pulse Oximetry [Exercises] Oxygen Delivery Method Nasal Cannula Oxygen Flow Rate 0 Sepsis Recent Fever Within 48 Hours Sepsis New/Unexplained Change in Mental Status Sepsis Action Taken by Nursing 08/24/24 17:00 08/24/24 17:09 08/24/24 17:45 Temperature Temperature Source Pulse Rate 77 78 Pulse Rate [Exercises] Pulse Rate from SpO2 Sensor 77 86 Respiratory Rate 23 21 Respiratory Rate [Exercises] Respiratory Effort / Characteristics Respiratory Depth Respiratory Pattern Blood Pressure 156/81 H 148/102 H Blood Pressure Mean 111 117 Pulse Oximetry 95 97 98 Pulse Oximetry [Exercises] Oxygen Delivery Method Oxygen Flow Rate Sepsis Recent Fever Within 48 Hours Sepsis New/Unexplained Change in Mental Status Sepsis Action Taken by Nursing 08/24/24 18:30 08/24/24 19:21 08/24/24 19:24 Temperature Temperature Source Pulse Rate 71 Pulse Rate [Exercises] 113 H Pulse Rate from SpO2 Sensor 80 69 Respiratory Rate 27 H Respiratory Rate [Exercises] 28 H Respiratory Effort / Characteristics Respiratory Depth Respiratory Pattern Blood Pressure 142/90 H 121/68 Blood Pressure Mean 107 85 Pulse Oximetry 96 100 Pulse Oximetry [Exercises] 87 L Oxygen Delivery Method Room Air Oxygen Flow Rate Sepsis Recent Fever Within 48 Hours Sepsis New/Unexplained Change in Mental Status Sepsis Action Taken by Nursing 08/24/24 19:25 08/24/24 19:33 Temperature Temperature Source Pulse Rate 81 Pulse Rate [Exercises] Pulse Rate from SpO2 Sensor Respiratory Rate 20 22 Respiratory Rate [Exercises] Respiratory Effort / Characteristics Non-Labored Spontaneous Respiratory Depth Normal Respiratory Pattern Blood Pressure Blood Pressure Mean Pulse Oximetry 96 Pulse Oximetry [Exercises] Oxygen Delivery Method Room Air Oxygen Flow Rate Sepsis Recent Fever Within 48 Hours Sepsis New/Unexplained Change in Mental Status Sepsis Action Taken by Nursing Laboratory Data 08/24/24 Unknown 08/24/24 Unknown Lab Results 08/24/24 08/24/24 08/24/24 Range/Units 15:46 16:20 19:35 WBC (4.8-10.8) K/ul RBC (4.70-6.10) M/uL Hgb (14.0-18.0) g/dl Hct (42.0-52.0) % MCV (80.0-100.0) fL MCH (25.0-34.0) pg MCHC (32.0-36.0) g/dL RDW Std Deviation (36.4-46.3) fL RDW Coeff of Priti (11.5-14.5) % Plt Count (130-400) K/uL MPV (9.4-12.4) fL Immature Gran % (Auto) % Neut % (Auto) % Lymph % (Auto) % [place] % (Auto) % Eos % (Auto) % Baso % (Auto) % Neut # (Auto) (1.40-6.50) K/uL Lymph # (Auto) (1.20-3.40) K/uL [place] # (Auto) (0.11-0.59) K/uL Eos # (Auto) (0.00-0.50) K/uL Baso # (Auto) (0.00-0.20) K/uL Immature Gran # (Auto) (0.01-0.20) K/uL PT (9.0-12.0) Seconds INR (0.9-1.1) VBG pH 7.43 H (7.36-7.41) VBG pCO2 43 (38-50) mmHg VBG pO2 42 mmHg VBG HCO3 29 mmol/L VBG O2 Saturation 80.5 % VBG Base Excess 3.7 mEq/L Sodium (136-145) mmol/L Potassium (3.5-5.1) mmol/L Chloride (98-107) mmol/L Carbon Dioxide (21-32) mmol/L Anion Gap (3-11) BUN (6-23) mg/dl Creatinine (0.6-1.4) mg/dl Est Cr Clr Drug Dosing ml/min eGFR BUN/Creatinine Ratio (10-20) Glucose (70-99(Fasting)) mg/dl Calcium (8.6-10.3) mg/dl Magnesium (1.7-2.4) mg/dl Total Bilirubin (0.2-1.0) mg/dl AST (13-39) U/L ALT (7-52) U/L Alkaline Phosphatase (34-104) U/L Troponin I High Sens 6.3 (0-20) pg/ml B-Natriuretic Peptide (0-100) pg/ml Total Protein (6.0-8.3) gm/dl Albumin (3.4-5.0) gm/dl Globulin (2.5-4.0) gm/dl Albumin/Globulin Ratio (0.9-2) Urine Color Urine Appearance (Clear) Urine pH (4.5-7.5) Ur Specific [place] (1.000-1.030) Urine Protein (Negative) Urine Glucose (UA) (Negative) Urine Ketones (Negative) Urine Blood (Negative) Urine Nitrite (Negative) Urine Bilirubin (Negative) Urine Urobilinogen (Negative) Ur Leukocyte Esterase (Negative) Adenovirus (PCR) Not Detected (NotDetected) B. pertussis DNA (PCR) Not Detected (NotDetected) B.parapertussis DNA PCR Not Detected (NotDetected) C. pneumoniae DNA (PCR) Not Detected (NotDetected) Coronavirus OC43 (PCR) Not Detected (NotDetected) Coronavirus HKU1 (PCR) Not Detected (NotDetected) Coronavirus 229E (PCR) Not Detected (NotDetected) SARS-CoV-2 (PCR) Not Detected (NotDetected) Coronavirus NL63 (PCR) Not Detected (NotDetected) Human Metapneumovir PCR Not Detected (NotDetected) Influenza Type A (PCR) Not Detected (NotDetected) Influenza Type B (PCR) Not Detected (NotDetected) M. pneumoniae (PCR) Not Detected (NotDetected) Parainfluenza 1 (PCR) Not Detected (NotDetected) Parainfluenza 2 (PCR) Not Detected (NotDetected) Parainfluenza 3 (PCR) Not Detected (NotDetected) Parainfluenza 4 (PCR) Not Detected (NotDetected) RSV (PCR) Not Detected (NotDetected) Entero/Rhino (PCR) Not Detected (NotDetected) 08/24/24 Range/Units Unknown WBC 6.64 (4.8-10.8) K/ul RBC 5.53 (4.70-6.10) M/uL Hgb 16.0 (14.0-18.0) g/dl Hct 48.4 (42.0-52.0) % MCV 87.5 (80.0-100.0) fL MCH 28.9 (25.0-34.0) pg MCHC 33.1 (32.0-36.0) g/dL RDW Std Deviation 44.5 (36.4-46.3) fL RDW Coeff of Priti 13.8 (11.5-14.5) % Plt Count 281 (130-400) K/uL MPV 11.1 (9.4-12.4) fL Immature Gran % (Auto) 0.6 % Neut % (Auto) 87.2 % Lymph % (Auto) 7.8 % [place] % (Auto) 4.2 % Eos % (Auto) 0.0 % Baso % (Auto) 0.2 % Neut # (Auto) 5.79 (1.40-6.50) K/uL Lymph # (Auto) 0.52 L (1.20-3.40) K/uL [place] # (Auto) 0.28 (0.11-0.59) K/uL Eos # (Auto) 0.00 (0.00-0.50) K/uL Baso # (Auto) 0.01 (0.00-0.20) K/uL Immature Gran # (Auto) 0.04 (0.01-0.20) K/uL PT 11.0 (9.0-12.0) Seconds INR 1.0 (0.9-1.1) VBG pH (7.36-7.41) VBG pCO2 (38-50) mmHg VBG pO2 mmHg VBG HCO3 mmol/L VBG O2 Saturation % VBG Base Excess mEq/L Sodium 135 L (136-145) mmol/L Potassium 4.7 (3.5-5.1) mmol/L Chloride 97 L (98-107) mmol/L Carbon Dioxide 28 (21-32) mmol/L Anion Gap 10 (3-11) BUN 15 (6-23) mg/dl Creatinine 0.87 (0.6-1.4) mg/dl Est Cr Clr Drug Dosing 63.7 ml/min eGFR 87.77 BUN/Creatinine Ratio 17.2 (10-20) Glucose 138 H (70-99(Fasting)) mg/dl Calcium 9.5 (8.6-10.3) mg/dl Magnesium 1.8 (1.7-2.4) mg/dl Total Bilirubin 0.7 (0.2-1.0) mg/dl AST 22 (13-39) U/L ALT 14 (7-52) U/L Alkaline Phosphatase 63 (34-104) U/L Troponin I High Sens 6.0 (0-20) pg/ml B-Natriuretic Peptide 104 H (0-100) pg/ml Total Protein 7.4 (6.0-8.3) gm/dl Albumin 4.3 (3.4-5.0) gm/dl Globulin 3.1 (2.5-4.0) gm/dl Albumin/Globulin Ratio 1.4 (0.9-2) Urine Color Yellow Urine Appearance Clear (Clear) Urine pH 6.5 (4.5-7.5) Ur Specific [place] 1.006 (1.000-1.030) Urine Protein Negative (Negative) Urine Glucose (UA) Negative (Negative) Urine Ketones Negative (Negative) Urine Blood Negative (Negative) Urine Nitrite Negative (Negative) Urine Bilirubin Negative (Negative) Urine Urobilinogen Negative (Negative) Ur Leukocyte Esterase Negative (Negative) Adenovirus (PCR) (NotDetected) B. pertussis DNA (PCR) (NotDetected) B.parapertussis DNA PCR (NotDetected) C. pneumoniae DNA (PCR) (NotDetected) Coronavirus OC43 (PCR) (NotDetected) Coronavirus HKU1 (PCR) (NotDetected) Coronavirus 229E (PCR) (NotDetected) SARS-CoV-2 (PCR) (NotDetected) Coronavirus NL63 (PCR) (NotDetected) Human Metapneumovir PCR (NotDetected) Influenza Type A (PCR) (NotDetected) Influenza Type B (PCR) (NotDetected) M. pneumoniae (PCR) (NotDetected) Parainfluenza 1 (PCR) (NotDetected) Parainfluenza 2 (PCR) (NotDetected) Parainfluenza 3 (PCR) (NotDetected) Parainfluenza 4 (PCR) (NotDetected) RSV (PCR) (NotDetected) Entero/Rhino (PCR) (NotDetected) Administered Medications Discontinued Medications Ioversol (Optiray 320 100ml) 116 ml IV ONCE ONE Stop: 08/24/24 19:50 Last Admin: 08/24/24 19:49 Dose: 116 ml Documented By: GEREMIAS Imaging Data Radiologist's Impression: Chest X-Ray 08/24/24 15:05 XR chest 1V portable HISTORY: 79 years-old Male Dyspnea COMPARISON: Chest CT 07/17/2024 TECHNIQUE: AP view of the chest FINDINGS: Prior left pneumonectomy. Emphysema with unchanged linear scarring/opacity of the right upper lung. Chronic interstitial coarsening with compensatory hyperinflation of the right lung. Bones appear grossly intact. Cardiac shadow is obscured. Chronic left rib fractures. IMPRESSION: 1. Prior left-sided pneumonectomy. 2. Emphysema with unchanged linear consolidative right upper lung opacity/scarring. ACT 112: Negative or not required by law. The above report was generated using voice recognition software. It may contain grammatical, syntax or spelling errors. Electronically signed by: Elmo Ocasio M.D. 08/24/2024 3:58 PM Chest CTA 08/24/24 19:35 Exam(s): CTA CHEST IV Amt: 116ml EXAM: CT Angiography Chest With Intravenous Contrast CLINICAL HISTORY: Reason for exam: PE. TECHNIQUE: Axial computed tomographic angiography images of the chest with intravenous contrast. CTDI is 11.87 mGy and DLP is 466.19 mGy-cm. Automated exposure control was utilized for the study. A dose lowering technique was utilized adhering to the principles of ALARA. MIP reconstructed images were created and reviewed. COMPARISON: July 17, 2024 FINDINGS: Pulmonary arteries: The pulmonary arterial tree is well opacified with contrast. There is a small amount of thrombus in the right upper lobe pulmonary artery branch extending toward the area of irregular scarring. This is unchanged since previous. No new or course of pulmonary embolism is identified. Aorta: Mild scattered calcified plaque involving the thoracic aorta without aneurysm or dissection. Lungs: Surgical changes from previous left pneumonectomy with fluid in the remaining left pleural space, unchanged. No mass. Pleural space: Mild emphysematous changes in the right lung. There is mild central bronchial wall thickening suggesting bronchitis. No acute infiltrate, pneumothorax, or pleural effusion is seen on the right. Heart: Unremarkable. No cardiomegaly. No significant pericardial effusion. No evidence of RV dysfunction. Bones/joints: No acute fracture. No dislocation. Soft tissues: There is a platelike band of soft tissue density extending across the right upper hemithorax. This is difficult to measure, approximately 4.3 x 2.3 cm measured on the coronal image at the level of the metallic clip. Lymph nodes: Unremarkable. No enlarged lymph nodes. IMPRESSION: 1. The pulmonary arterial tree is well opacified with contrast. There is a small amount of thrombus in the right upper lobe pulmonary artery branch extending toward the area of irregular scarring. This is unchanged since previous. No new or course of pulmonary embolism is identified. 2. Mild emphysematous changes in the right lung. There is mild central bronchial wall thickening suggesting bronchitis. No acute infiltrate, pneumothorax, or pleural effusion is seen on the right. 3. Mild scattered calcified plaque involving the thoracic aorta without aneurysm or dissection. 4. Surgical changes from previous left pneumonectomy with fluid in the remaining left pleural space, unchanged. 5. There is a platelike band of soft tissue density extending across the right upper hemithorax. This is difficult to measure, approximately 4.3 x 2.3 cm measured on the coronal image at the level of the metallic clip. No significant change since previous. Probable scarring. Electronically signed by: Ant Case MD 08/24/24 20:22 PM Discharge Plan Visit Data Chief Complaint: Shortness of Breath/Dyspnea Stated Complaint: SOB, DIFF SWALLOWING ED Provider: Rosa Wang Discharge Problem: BRYANT (dyspnea on exertion), Hypoxia, Acute exacerbation of chronic obstructive pulmonary disease Forms Stand Alone Forms: [employer] Prescriptions Prescriptions: No Action nitroglycerin [Nitrostat] 0.4 mg tablet, sublingual 0.4 mg SL UD PRN (Reason: chest pain) Qty: 25 3RF albuterol sulfate [Ventolin HFA] 90 mcg/actuation HFA aerosol inhaler 2 puff INH Q4H PRN (Reason: copd) Qty: 18 1RF Symbicort 80-4.5 mcg/actuation HFA aerosol inhaler 2 puff INH BID Qty: 10.2 11RF mometasone 50 mcg/actuation spray,non-aerosol 2 spray intranasal QAM Qty: 51 3RF Rx Instructions: INSTILL 2 SPRAYS INTO EACH NOSTRIL DAILY alfuzosin [Uroxatral] 10 mg tablet extended release 24 hr 10 mg PO DAILY Qty: 30 5RF Rx Instructions: administer after supper each day acetaminophen [Tylenol Extra Strength] 500 mg tablet 1,000 mg PO Q8H PRN (Reason: pain) aspirin 81 mg tablet,delayed release (DR/EC) 81 mg PO QAM multivitamin Tablet 1 tab PO DAILY doxycycline hyclate 100 mg capsule 100 mg PO BID 7 Days Qty: 14 0RF cefdinir 300 mg capsule 300 mg PO BID 7 Days Qty: 14 0RF prednisone 10 mg tablet See Rx Instructions PO DAILY Qty: 20 0RF Rx Instructions: orally daily; 40 mg x3 days, 20 mg x3 days, 10 mg x2 days pantoprazole 40 mg tablet,delayed release (DR/EC) 40 mg PO DAILY Qty: 90 1RF fluconazole [Diflucan] 100 mg tablet 100 mg PO DAILY 14 Days Qty: 14 0RF sucralfate 100 mg/mL suspension 100 mg PO UD Rx Instructions: filled 08/21 30 day supply Referrals Referrals: Mony Caicedo DO [Primary Care Provider] -
[2024-08-24 19:22] LABS: Appearance Urine Clear (Clear); Bilirubin Urine Negative (Negative); Blood Urine Negative (Negative); Color Urine Yellow; Glucose Urine UA Negative (Negative); Ketones Urine Negative (Negative); Leukocyte Esterase Urine Negative (Negative); Nitrite Urine Negative (Negative); Protein Urine Negative (Negative); Specific Gravity Urine 1.006 (1.000-1.030); Urobilinogen Urine Negative (Negative); pH Urine 6.5 (4.5-7.5)
[2024-08-24] MEDS: OPTIRAY 320 100ml IV ONE (19:49)
--- NOTE | 2024-08-24 20:23 | CT Scan Report ---
Exam(s): CTA CHEST IV Amt: 116ml EXAM: CT Angiography Chest With Intravenous Contrast CLINICAL HISTORY: Reason for exam: PE. TECHNIQUE: Axial computed tomographic angiography images of the chest with intravenous contrast. CTDI is 11.87 mGy and DLP is 466.19 mGy-cm. Automated exposure control was utilized for the study. A dose lowering technique was utilized adhering to the principles of ALARA. MIP reconstructed images were created and reviewed. COMPARISON: July 17, 2024 FINDINGS: Pulmonary arteries: The pulmonary arterial tree is well opacified with contrast. There is a small amount of thrombus in the right upper lobe pulmonary artery branch extending toward the area of irregular scarring. This is unchanged since previous. No new or course of pulmonary embolism is identified. Aorta: Mild scattered calcified plaque involving the thoracic aorta without aneurysm or dissection. Lungs: Surgical changes from previous left pneumonectomy with fluid in the remaining left pleural space, unchanged. No mass. Pleural space: Mild emphysematous changes in the right lung. There is mild central bronchial wall thickening suggesting bronchitis. No acute infiltrate, pneumothorax, or pleural effusion is seen on the right. Heart: Unremarkable. No cardiomegaly. No significant pericardial effusion. No evidence of RV dysfunction. Bones/joints: No acute fracture. No dislocation. Soft tissues: There is a platelike band of soft tissue density extending across the right upper hemithorax. This is difficult to measure, approximately 4.3 x 2.3 cm measured on the coronal image at the level of the metallic clip. Lymph nodes: Unremarkable. No enlarged lymph nodes. IMPRESSION: 1. The pulmonary arterial tree is well opacified with contrast. There is a small amount of thrombus in the right upper lobe pulmonary artery branch extending toward the area of irregular scarring. This is unchanged since previous. No new or course of pulmonary embolism is identified. 2. Mild emphysematous changes in the right lung. There is mild central bronchial wall thickening suggesting bronchitis. No acute infiltrate, pneumothorax, or pleural effusion is seen on the right. 3. Mild scattered calcified plaque involving the thoracic aorta without aneurysm or dissection. 4. Surgical changes from previous left pneumonectomy with fluid in the remaining left pleural space, unchanged. 5. There is a platelike band of soft tissue density extending across the right upper hemithorax. This is difficult to measure, approximately 4.3 x 2.3 cm measured on the coronal image at the level of the metallic clip. No significant change since previous. Probable scarring. Electronically signed by: Ant Case MD 08/24/24 20:22 PM
[2024-08-24] MEDS ORDERED: ACETAMINOPHEN 1,000 MG/100 ML VIAL IV PRN (21:31)
--- NOTE | 2024-08-24 21:39 | History & Physical Report ---
Date of Service August 24, 2024 Assessment & Plan (1) Dysphagia: (2) Esophageal candidiasis: (3) Reflux esophagitis: (4) Acute gastritis: (5) Duodenal ulcer disease: (6) COPD (chronic obstructive pulmonary disease): (7) Chronic pulmonary embolism: (8) History of prostate cancer: Plan Dysphagia/esophageal candidiasis/LA grade B reflux esophagitis/acute gastritis/nonbleeding duodenal ulcers- Above diagnoses Determined at EGD on 08/17/2024 Dysphagia to solids, is able to tolerate liquids NPO Pantoprazole 40 mg IV now, and then twice daily Fluconazole 200 mg IV now, and then every morning Acetaminophen 1 g IV every 8 hours as needed for mild pain or fever NSS at 80 mL/h x 1 L Consult gastroenterology COPD/lung cancer/history of left pneumonectomy- Continue albuterol HFA Avoid steroids inhalers and orally for now Chronic pulmonary embolism- CTA with stable appearing small amount of thrombus in the right upper lobe pulmonary artery branch extending toward the area of irregular scarring this is unchanged compared to previous CTs History of Present Illness Chief Complaint: The patient presents to the emergency department with worsening dysphagia to solids, to the point of not being able to take any medications at this time Primary Care Provider: Mony Caicedo DO The patient is a 79-year-old male with a past medical history including prostate cancer, recurrent lung cancer, chronic pulmonary embolism, Peyronie's disease, herpes zoster, lower urinary tract symptoms, history of pneumonectomy, COPD, eso phageal candidiasis, LA grade B reflux esophagitis, gastritis, and nonbleeding duodenal ulcers. The patient has been having progressively worsening difficulty with swallowing, and underwent EGD on 08/17/2024, which revealed the preceding diagnoses. He has been given oral treatments including fluconazole, doxycycline, and prednisone, but reports not being able to swallow these pills recently due to severe difficulty with swallowing any solid substances. He reports that he is able to swallow liquids without a problem. Allergies Allergy/AdvReac Type Severity Reaction Status Date / Time Penicillins Allergy Intermediate Difficulty Verified 08/22/24 15:21 Swallowing ciprofloxacin Allergy Unknown Difficulty Verified 08/24/24 21:40 Breathing latex Allergy Unknown Rash Verified 08/22/24 15:21 lorazepam Allergy Unknown Rash Verified 08/22/24 15:21 sulfamethoxazole Allergy Unknown Difficulty Verified 08/22/24 15:21 Breathing cephalexin AdvReac Mild Yeast Verified 08/22/24 15:21 infection minocycline AdvReac Mild Yeast Verified 08/22/24 15:21 infection Home Medications Medication Instructions Recorded Confirmed Type acetaminophen 500 mg tablet 1,000 mg PO Q8H PRN pain 06/19/19 08/24/24 History (Tylenol Extra Strength) aspirin 81 mg tablet,delayed 81 mg PO QAM 06/19/19 08/24/24 History release nitroglycerin 0.4 mg sublingual 0.4 mg sublingual UD PRN chest 12/24/20 08/24/24 Rx tablet (Nitrostat) pain #25 tabs albuterol sulfate 90 mcg/actuation 2 puff inhalation Q4H PRN copd #18 11/04/23 08/24/24 Rx aerosol inhaler (Ventolin HFA) grams budesonide-formoterol HFA 80 2 puff inhalation BID #10.2 grams 05/11/24 08/24/24 Rx mcg-4.5 mcg/actuation aerosol inhaler (Symbicort) mometasone 50 mcg/actuation nasal 2 spray intranasal QAM #51 grams 06/19/24 08/24/24 Rx spray multivitamin 1 tab PO DAILY 08/09/24 08/24/24 History alfuzosin 10 mg tablet,extended 10 mg PO DAILY #30 tabs 08/14/24 08/24/24 Rx release 24 hr (Uroxatral) fluconazole 100 mg tablet 100 mg PO DAILY 14 days #14 tabs 08/17/24 08/24/24 Rx (Diflucan) pantoprazole 40 mg tablet,delayed 40 mg PO DAILY #90 tabs 08/17/24 08/24/24 Rx release cefdinir 300 mg capsule 300 mg PO BID 7 days #14 caps 08/22/24 08/24/24 Rx doxycycline hyclate 100 mg capsule 100 mg PO BID 7 days #14 caps 08/22/24 08/24/24 Rx prednisone 10 mg tablet See Rx Instructions PO DAILY #20 08/22/24 08/24/24 Rx tabs sucralfate 100 mg/mL oral 100 mg PO UD 08/24/24 08/24/24 History suspension Past Med/Surg History Problem List (Updated 08/25/24 @ 00:32 by Rafael Hickey MD) Dysphagia difficulty swallowing some pills Duodenal ulcer disease Acute gastritis Reflux esophagitis Esophageal candidiasis Acute exacerbation of chronic obstructive pulmonary disease (Acute) Hypoxia (Acute) BRYANT (dyspnea on exertion) (Acute) History of prostate cancer (Chronic 04/17/21) 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 Chronic pulmonary embolism Peyronie's disease LVH (left ventricular hypertrophy) Herpes zoster Prostate nodule Hematuria Lower urinary tract symptoms (LUTS) History of pneumonectomy (01/2004) Left + 2 ribs removed COPD (chronic obstructive pulmonary disease) (Chronic) Medical History Dysphagia Chronic pulmonary embolism LVH (left ventricular hypertrophy) On home oxygen therapy Malignant neoplasm of prostate with intermediate recurrence risk, stage T2B-C or Matthias 7 or prostate-specific antigen (PSA) 10-20 Malignant neoplasm of left lung (01/20/17) Primary cancer of right upper lobe of lung (01/20/17) Poor historian Aspiration pneumonia Respiratory failure COPD (chronic obstructive pulmonary disease) Surgical History History of esophagogastroduodenoscopy (EGD) History of pneumonectomy (01/2004) History of amputation Hx of colonoscopy Status post shoulder surgery History of elbow surgery Family History Father Cardiac disorder Stroke Mother Cardiac disorder Diabetes Myocardial infarction Brother Diabetes Sister Breast cancer Other Cancer Denies family history of Ovarian cancer Prostate cancer Colorectal cancer Social History Smoking Status: Former smoker Tobacco Type: Cigarettes and Smokeless Tobacco (Dip or Chew) Age Started Using Tobacco: 14; Age Quit Using Tobacco: 42; packs per day: 2; Second Hand Exposure: Yes (as a child); Do You Dip or Chew Tobacco: Yes (Full leaf tobacco > advised none DOS); Hx Alcohol Use: Yes Alcohol type: hard liquor Alcohol type Comment: 6 oz whiskey a day w/honey Alcohol Intake Frequency: 4 or More x per/Week Hx Substance Use: No Preferred Language: Slovenian Communication Ability: Effective Visual Impairment: No Limitations Hearing Ability: Hard of Hearing Health Care Legal Assistant Required: No Beliefs That Will Affect Care: None marital status: Single Current Living Situation: Spouse current occupational status: retired Feels Safe at Home: Yes Childhood Exposure to Second-Hand Smoke: Yes Diet: regular Diet Comment: regular caffeine: Yes during the past year weight has: remained stable Dental Care, Regularly: No Physical Activity Frequency: Does not Exercise Seatbelt Use: never Sunscreen Use: No (can not go in direct sunlight) Assistive Devices: None Review of Systems Review of Systems: The patient denies chest pain, palpitations, shortness of breath, dyspnea on exertion, cough, lower extremity swelling, fevers, chills, sweats, vomiting, diarrhea , constipation, blood in urine or stool, dysuria, urinary frequency or urgency, lightheadedness, dizziness, headache, memory loss, loss of consciousness, rash, abnormal bruising or bleeding, imbalance, focal weakness, numbness or tingling in arms or legs, generalized arthralgias or myalgias, back or neck pain, or night sweats. The review of systems is otherwise negative other than for that already noted above, and at least 10 systems have been reviewed. Physical Exam Physical Exam: The patient is awake, alert and oriented 3, appears thin. Normocephalic and atraumatic, lying in bed and in no acute distress. HEENT--PERRL, EOMI, mucous membranes and oropharynx dry. Thrush present Neck--supple. No JVD. No bruits. Thyroid normal, trachea midline, no adenopathy. Heart--normal S1 and S2. No murmurs, rubs or gallops. Lungs--decreased breath sounds throughout. No respiratory distress, no accessory muscle use. Abdomen--normal bowel sounds and soft. Nontender. Nondistended, no hernias or masses, no organomegaly. Extremities--No edema. Dermatologic-- skin is dry. No rash Neurologic--cranial nerves II through XII grossly intact. Rheumatologic--normal range of motion. Psychiatric--normal affect. Results & Data Results & Data Vital Signs (Past 12 Hours) Vital Signs Temp Pulse Pulse Resp Resp BP Pulse Ox 08/24/24 19:33 81 22 08/24/24 19:25 20 96 08/24/24 19:24 113 H 28 H 08/24/24 19:21 71 27 H 121/68 100 08/24/24 18:30 142/90 H 96 08/24/24 17:45 148/102 H 98 08/24/24 17:09 78 21 97 08/24/24 17:00 77 23 156/81 H 95 08/24/24 16:30 75 18 140/84 96 08/24/24 16:15 83 19 96 08/24/24 15:26 96 08/24/24 15:22 36.8 C 82 16 153/109 H 96 08/24/24 15:08 90 08/24/24 15:05 96 Pulse Ox O2 Del Method O2 Flow Rate 08/24/24 19:33 08/24/24 19:25 Room Air 08/24/24 19:24 87 L Room Air 08/24/24 19:21 08/24/24 18:30 08/24/24 17:45 08/24/24 17:09 08/24/24 17:00 08/24/24 16:30 08/24/24 16:15 08/24/24 15:26 Nasal Cannula 0 08/24/24 15:22 Room Air 08/24/24 15:08 08/24/24 15:05 Room Air Laboratory Results Laboratory Results WBC 6.64 K/ul (4.8-10.8) 08/24/24 Unknown RBC 5.53 M/uL (4.70-6.10) 08/24/24 Unknown Hgb 16.0 g/dl (14.0-18.0) 08/24/24 Unknown Hct 48.4 % (42.0-52.0) 08/24/24 Unknown MCV 87.5 fL (80.0-100.0) 08/24/24 Unknown MCH 28.9 pg (25.0-34.0) 08/24/24 Unknown MCHC 33.1 g/dL (32.0-36.0) 08/24/24 Unknown RDW Std Deviation 44.5 fL (36.4-46.3) 08/24/24 Unknown RDW Coeff of Priti 13.8 % (11.5-14.5) 08/24/24 Unknown Plt Count 281 K/uL (130-400) 08/24/24 Unknown MPV 11.1 fL (9.4-12.4) 08/24/24 Unknown Immature Gran % (Auto) 0.6 % 08/24/24 Unknown Neut % (Auto) 87.2 % 08/24/24 Unknown Lymph % (Auto) 7.8 % 08/24/24 Unknown Cataño % (Auto) 4.2 % 08/24/24 Unknown Eos % (Auto) 0.0 % 08/24/24 Unknown Baso % (Auto) 0.2 % 08/24/24 Unknown Neut # (Auto) 5.79 K/uL (1.40-6.50) 08/24/24 Unknown Lymph # (Auto) 0.52 K/uL (1.20-3.40) L 08/24/24 Unknown [place] # (Auto) 0.28 K/uL (0.11-0.59) 08/24/24 Unknown Eos # (Auto) 0.00 K/uL (0.00-0.50) 08/24/24 Unknown Baso # (Auto) 0.01 K/uL (0.00-0.20) 08/24/24 Unknown Immature Gran # (Auto) 0.04 K/uL (0.01-0.20) 08/24/24 Unknown PT 11.0 Seconds (9.0-12.0) 08/24/24 Unknown INR 1.0 (0.9-1.1) 08/24/24 Unknown VBG pH 7.43 (7.36-7.41) H 08/24/24 16:20 VBG pCO2 43 mmHg (38-50) 08/24/24 16:20 VBG pO2 42 mmHg 08/24/24 16:20 VBG HCO3 29 mmol/L 08/24/24 16:20 VBG O2 Saturation 80.5 % 08/24/24 16:20 VBG Base Excess 3.7 mEq/L 08/24/24 16:20 Sodium 135 mmol/L (136-145) L 08/24/24 Unknown Potassium 4.7 mmol/L (3.5-5.1) 08/24/24 Unknown Chloride 97 mmol/L (98-107) L 08/24/24 Unknown Carbon Dioxide 28 mmol/L (21-32) 08/24/24 Unknown Anion Gap 10 (3-11) 08/24/24 Unknown BUN 15 mg/dl (6-23) 08/24/24 Unknown Creatinine 0.87 mg/dl (0.6-1.4) 08/24/24 Unknown Est Cr Clr Drug Dosing 63.7 ml/min 08/24/24 Unknown eGFR 87.77 08/24/24 Unknown BUN/Creatinine Ratio 17.2 (10-20) 08/24/24 Unknown Glucose 138 mg/dl (70-99(Fasting)) H 08/24/24 Unknown Calcium 9.5 mg/dl (8.6-10.3) 08/24/24 Unknown Magnesium 1.8 mg/dl (1.7-2.4) 08/24/24 Unknown Total Bilirubin 0.7 mg/dl (0.2-1.0) 08/24/24 Unknown AST 22 U/L (13-39) 08/24/24 Unknown ALT 14 U/L (7-52) 08/24/24 Unknown Alkaline Phosphatase 63 U/L (34-104) 08/24/24 Unknown Troponin I High Sens 6.0 pg/ml (0-20) 08/24/24 Unknown B-Natriuretic Peptide 104 pg/ml (0-100) H 08/24/24 Unknown Total Protein 7.4 gm/dl (6.0-8.3) 08/24/24 Unknown Albumin 4.3 gm/dl (3.4-5.0) 08/24/24 Unknown Globulin 3.1 gm/dl (2.5-4.0) 08/24/24 Unknown Albumin/Globulin Ratio 1.4 (0.9-2) 08/24/24 Unknown Urine Color Yellow 08/24/24 Unknown Urine Appearance Clear (Clear) 08/24/24 Unknown Urine pH 6.5 (4.5-7.5) 08/24/24 Unknown Ur Specific [place] 1.006 (1.000-1.030) 08/24/24 Unknown Urine Protein Negative (Negative) 08/24/24 Unknown Urine Glucose (UA) Negative (Negative) 08/24/24 Unknown Urine Ketones Negative (Negative) 08/24/24 Unknown Urine Blood Negative (Negative) 08/24/24 Unknown Urine Nitrite Negative (Negative) 08/24/24 Unknown Urine Bilirubin Negative (Negative) 08/24/24 Unknown Urine Urobilinogen Negative (Negative) 08/24/24 Unknown Ur Leukocyte Esterase Negative (Negative) 08/24/24 Unknown Adenovirus (PCR) Not Detected (NotDetected) 08/24/24 15:46 B. pertussis DNA (PCR) Not Detected (NotDetected) 08/24/24 15:46 B.parapertussis DNA PCR Not Detected (NotDetected) 08/24/24 15:46 C. pneumoniae DNA (PCR) Not Detected (NotDetected) 08/24/24 15:46 Coronavirus OC43 (PCR) Not Detected (NotDetected) 08/24/24 15:46 Coronavirus HKU1 (PCR) Not Detected (NotDetected) 08/24/24 15:46 Coronavirus 229E (PCR) Not Detected (NotDetected) 08/24/24 15:46 SARS-CoV-2 (PCR) Not Detected (NotDetected) 08/24/24 15:46 Coronavirus NL63 (PCR) Not Detected (NotDetected) 08/24/24 15:46 Human Metapneumovir PCR Not Detected (NotDetected) 08/24/24 15:46 Influenza Type A (PCR) Not Detected (NotDetected) 08/24/24 15:46 Influenza Type B (PCR) Not Detected (NotDetected) 08/24/24 15:46 M. pneumoniae (PCR) Not Detected (NotDetected) 08/24/24 15:46 Parainfluenza 1 (PCR) Not Detected (NotDetected) 08/24/24 15:46 Parainfluenza 2 (PCR) Not Detected (NotDetected) 08/24/24 15:46 Parainfluenza 3 (PCR) Not Detected (NotDetected) 08/24/24 15:46 Parainfluenza 4 (PCR) Not Detected (NotDetected) 08/24/24 15:46 RSV (PCR) Not Detected (NotDetected) 08/24/24 15:46 Entero/Rhino (PCR) Not Detected (NotDetected) 08/24/24 15:46 Impressions Chest X-Ray 08/24/24 15:05 XR chest 1V portable HISTORY: 79 years-old Male Dyspnea COMPARISON: Chest CT 07/17/2024 TECHNIQUE: AP view of the chest FINDINGS: Prior left pneumonectomy. Emphysema with unchanged linear scarring/opacity of the right upper lung. Chronic interstitial coarsening with compensatory hyperinflation of the right lung. Bones appear grossly intact. Cardiac shadow is obscured. Chronic left rib fractures. IMPRESSION: 1. Prior left-sided pneumonectomy. 2. Emphysema with unchanged linear consolidative right upper lung opacity/scarring. ACT 112: Negative or not required by law. The above report was generated using voice recognition software. It may contain grammatical, syntax or spelling errors. Electronically signed by: Elmo Ocasio M.D. 08/24/2024 3:58 PM Chest CTA 08/24/24 19:35 Exam(s): CTA CHEST IV Amt: 116ml EXAM: CT Angiography Chest With Intravenous Contrast CLINICAL HISTORY: Reason for exam: PE. TECHNIQUE: Axial computed tomographic angiography images of the chest with intravenous contrast. CTDI is 11.87 mGy and DLP is 466.19 mGy-cm. Automated exposure control was utilized for the study. A dose lowering technique was utilized adhering to the principles of ALARA. MIP reconstructed images were created and reviewed. COMPARISON: July 17, 2024 FINDINGS: Pulmonary arteries: The pulmonary arterial tree is well opacified with contrast. There is a small amount of thrombus in the right upper lobe pulmonary artery branch extending toward the area of irregular scarring. This is unchanged since previous. No new or course of pulmonary embolism is identified. Aorta: Mild scattered calcified plaque involving the thoracic aorta without aneurysm or dissection. Lungs: Surgical changes from previous left pneumonectomy with fluid in the remaining left pleural space, unchanged. No mass. Pleural space: Mild emphysematous changes in the right lung. There is mild central bronchial wall thickening suggesting bronchitis. No acute infiltrate, pneumothorax, or pleural effusion is seen on the right. Heart: Unremarkable. No cardiomegaly. No significant pericardial effusion. No evidence of RV dysfunction. Bones/joints: No acute fracture. No dislocation. Soft tissues: There is a platelike band of soft tissue density extending across the right upper hemithorax. This is difficult to measure, approximately 4.3 x 2.3 cm measured on the coronal image at the level of the metallic clip. Lymph nodes: Unremarkable. No enlarged lymph nodes. IMPRESSION: 1. The pulmonary arterial tree is well opacified with contrast. There is a small amount of thrombus in the right upper lobe pulmonary artery branch extending toward the area of irregular scarring. This is unchanged since previous. No new or course of pulmonary embolism is identified. 2. Mild emphysematous changes in the right lung. There is mild central bronchial wall thickening suggesting bronchitis. No acute infiltrate, pneumothorax, or pleural effusion is seen on the right. 3. Mild scattered calcified plaque involving the thoracic aorta without aneurysm or dissection. 4. Surgical changes from previous left pneumonectomy with fluid in the remaining left pleural space, unchanged. 5. There is a platelike band of soft tissue density extending across the right upper hemithorax. This is difficult to measure, approximately 4.3 x 2.3 cm measured on the coronal image at the level of the metallic clip. No significant change since previous. Probable scarring. Electronically signed by: Ant Case MD 08/24/24 20:22 PM Code Status & VTE Plan Code Status Full code VTE Prophylaxis Plan VTE Prophylaxis will be ordered: Yes PG Care Time/CCT Total # of Minutes Spent Total Time Spent with Patient: Total time spent is greater than 50% in coordination of care (as documented) at patient's floor/unit and/or counseling patient: Coding Level of Care Code 48394 INT INP/OBS CARE 3/75MIN Diagnoses Dysphagia R13.10 Esophageal candidiasis B37.81 Reflux esophagitis K21.00 Acute gastritis K29.00 Duodenal ulcer disease K26.9 COPD (chronic obstructive pulmonary disease) J44.9 Chronic pulmonary embolism I27.82 History of prostate cancer Z85.46
[2024-08-24] MEDS: PANTOprazole 40 MG/10 ML SYR IV ONE (22:09)
[2024-08-24] MEDS: FLUCONAZOLE 200 MG/100 ML BAG IV STA (22:19)
[2024-08-24] MEDS: SODIUM CHLORIDE 0.9% 1,000 ML IV SCH (22:22)
[2024-08-24] MEDS ORDERED: ONDANSETRON INJ 2 MG/ML 2 ML VIAL IV PRN (22:53)
[2024-08-25 05:04] LABS: Basophils # (auto) 0.04 K/uL (0.00-0.20); Basophils % (auto) 0.5 %; Eosinophils # (auto) 0.04 K/uL (0.00-0.50); Eosinophils % (auto) 0.5 %; Hematocrit (blood only) 46.4 % (42.0-52.0); Hemoglobin 15.4 g/dl (14.0-18.0); Immature Granulocytes # (auto) 0.02 K/uL (0.01-0.20); Immature Granulocytes % (auto) 0.3 %; Lymphocytes # (auto) 1.42 K/uL (1.20-3.40); Lymphocytes % (auto) 19.5 %; Mean Corpuscular Hemoglobin 29.4 pg (25.0-34.0); Mean Corpuscular Hgb Conc 33.2 g/dL (32.0-36.0); Mean Corpuscular Volume 88.5 fL (80.0-100.0); Monocytes # (auto) 1.08 K/uL (0.11-0.59); Monocytes % (auto) 14.8 %; Neutrophils # (auto) 4.68 K/uL (1.40-6.50); Neutrophils % (auto) 64.4 %; Platelet Count 280 K/uL (130-400); RDW Standard Deviation 45.1 fL (36.4-46.3); Red Blood Count 5.24 M/uL (4.70-6.10); White Blood Count 7.28 K/ul (4.8-10.8)
[2024-08-25 05:20] LABS: Albumin Level 3.9 gm/dl (3.4-5.0); BUN Creatinine Ratio 15.5 (10-20); Calcium 9.2 mg/dl (8.6-10.3); Phosphorus 3.3 mg/dl (2.5-4.9); Potassium 4.2 mmol/L (3.5-5.1)
--- NOTE | 2024-08-25 05:47 | Electrocardiogram Report ---
Test Reason : Blood Pressure : */* mmHG Vent. Rate : 82 BPM Atrial Rate : 82 BPM P-R Int : 152 ms QRS Dur : 98 ms QT Int : 400 ms P-R-T Axes : 89 7 65 degrees QTcB Int : 467 ms Sinus rhythm with occasional , and consecutive Premature ventricular complexes Nonspecific T wave abnormality Abnormal ECG When compared with ECG of 26-Aug-2022 14:27, Premature ventricular complexes are now Present Confirmed by Damian Kelly ([id number]) on 08/25/2024 5:46:44 AM Referred By: Confirmed By: Damian Kelly
[2024-08-25] MEDS: PANTOprazole 40 MG/10 ML SYR IV SCH (08:24)
[2024-08-25] MEDS: FLUCONAZOLE 200 MG/100 ML BAG IV SCH (08:24)
--- NOTE | 2024-08-25 10:07 | Gastrointestinal Consultation ---
Date of Consultation August 25, 2024 Assessment & Plan (1) Dysphagia: (2) Esophageal adenocarcinoma: Plan Biopsies concerning for esophageal adenocarcinoma, though endoscopic appearance was not suspicious for this. Patient has continued to be unable to tolerate solid food/pills. No food/solids by mouth x 2 days. Last sip of water around 8:30 AM. Keep NPO and proceed with EGD for further biopsies today. Based on findings on today's EGD will make decisions about further esophageal rolando treatment. Patient will need case management consultation due significant concerns around his ability to pay for his medical bills. Supervising Physician Co-Signing Physician Notes I saw and examined this patient with our nurse practitioner and agree with her assessment and plan. Persistent dysphagia difficulty taking antifungal medication. Follow-up biopsies from last endoscopy were suspicious for cancer. Will proceed with repeat endoscopy with biopsies. History of Present Illness Reason for Consultation: Dysphagia Attending Physician: Michael Lorenz MD History of Present Illness Patient is a 79 yo male who presents at the [facility] outpatient offices for dysphagia. He recently underwent an EGD with Dr. Wen on 08/17/24 at which time he had esophageal rolando. Biopsies were taken of the GEJ. Preliminary biopsies were concerning for adenocarcinoma, though there was no visible abnormality on endoscopy. Dr. Wen has attempted to contact the patient to discuss these results and biopsies were sent for second opinion with recommendations to correlate clinically. The patient contacted our outpatient office as he was unable to tolerate food without it getting stuck. He was unable to take his pills for his esophageal rolando. His PCP also made recommendations to come to the ER. Patient notes he hesitated to seek further care due to concern regarding his finances. He notes he has no money leftover each month to pay for copays and healthcare bills and has very little money for food and utilities. He notes that he has not attempted to eat solid food for 2 days. Last sip of water around 8:30 AM today. No further complaints at present. A CTA was performed on 08/24 without concern for GI abnormalities. Allergies Allergy/AdvReac Type Severity Reaction Status Date / Time Penicillins Allergy Intermediate Difficulty Verified 08/22/24 15:21 Swallowing ciprofloxacin Allergy Unknown Difficulty Verified 08/24/24 21:40 Breathing latex Allergy Unknown Rash Verified 08/22/24 15:21 lorazepam Allergy Unknown Rash Verified 08/22/24 15:21 sulfamethoxazole Allergy Unknown Difficulty Verified 08/22/24 15:21 Breathing cephalexin AdvReac Mild Yeast Verified 08/22/24 15:21 infection minocycline AdvReac Mild Yeast Verified 08/22/24 15:21 infection Home Medications Medication Instructions Recorded Confirmed Type acetaminophen 500 mg tablet 1,000 mg PO Q8H PRN pain 06/19/19 08/24/24 History (Tylenol Extra Strength) aspirin 81 mg tablet,delayed 81 mg PO QAM 06/19/19 08/24/24 History release nitroglycerin 0.4 mg sublingual 0.4 mg sublingual UD PRN chest 12/24/20 08/24/24 Rx tablet (Nitrostat) pain #25 tabs albuterol sulfate 90 mcg/actuation 2 puff inhalation Q4H PRN copd #18 11/04/23 08/24/24 Rx aerosol inhaler (Ventolin HFA) grams budesonide-formoterol HFA 80 2 puff inhalation BID #10.2 grams 05/11/24 08/24/24 Rx mcg-4.5 mcg/actuation aerosol inhaler (Symbicort) mometasone 50 mcg/actuation nasal 2 spray intranasal QAM #51 grams 06/19/24 08/24/24 Rx spray multivitamin 1 tab PO DAILY 08/09/24 08/24/24 History alfuzosin 10 mg tablet,extended 10 mg PO DAILY #30 tabs 08/14/24 08/24/24 Rx release 24 hr (Uroxatral) fluconazole 100 mg tablet 100 mg PO DAILY 14 days #14 tabs 08/17/24 08/24/24 Rx (Diflucan) pantoprazole 40 mg tablet,delayed 40 mg PO DAILY #90 tabs 08/17/24 08/24/24 Rx release cefdinir 300 mg capsule 300 mg PO BID 7 days #14 caps 08/22/24 08/24/24 Rx doxycycline hyclate 100 mg capsule 100 mg PO BID 7 days #14 caps 08/22/24 08/24/24 Rx prednisone 10 mg tablet See Rx Instructions PO DAILY #20 08/22/24 08/24/24 Rx tabs sucralfate 100 mg/mL oral 100 mg PO UD 08/24/24 08/24/24 History suspension Patient History Medical History Chronic pulmonary embolism pt unaware LVH (left ventricular hypertrophy) On home oxygen therapy 2L when walking/ exertion Malignant neoplasm of prostate with intermediate recurrence risk, stage T2B-C or Matthias 7 or prostate-specific antigen (PSA) 10-20 Malignant neoplasm of left lung (01/20/17) hx s/p surgery, chemo/xrt Primary cancer of right upper lobe of lung (01/20/17) Poor historian Aspiration pneumonia Remote hx per records (2012) Respiratory failure 2012 > resulted in ICU stay/required ventilator x2 days COPD (chronic obstructive pulmonary disease) 2L PRN via NC (typically does use daily) Surgical History History of esophagogastroduodenoscopy (EGD) History of pneumonectomy (01/2004) Left + 2 ribs removed 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 Family History Father Cardiac disorder Stroke Mother Cardiac disorder Diabetes Myocardial infarction Brother Diabetes Sister Breast cancer Other Cancer Denies family history of Ovarian cancer Prostate cancer Colorectal cancer Social History Smoking Status: Former smoker Tobacco Type: Cigarettes and Smokeless Tobacco (Dip or Chew) Age Started Using Tobacco: 14; Age Quit Using Tobacco: 42; packs per day: 2; Second Hand Exposure: Yes (as a child); Do You Dip or Chew Tobacco: Yes (Full leaf tobacco > advised none DOS); Hx Alcohol Use: Yes Alcohol type: hard liquor Alcohol type Comment: 6 oz whiskey a day w/honey Alcohol Intake Frequency: 4 or More x per/Week Hx Substance Use: No Preferred Language: Polish Communication Ability: Effective Visual Impairment: No Limitations Hearing Ability: Hard of Hearing Studio Operator Required: No Beliefs That Will Affect Care: None marital status: Single Current Living Situation: Spouse current occupational status: retired Feels Safe at Home: Yes Safety Concerns: Feels Safe At This Time Childhood Exposure to Second-Hand Smoke: Yes Diet: regular Diet Comment: regular caffeine: Yes during the past year weight has: remained stable Dental Care, Regularly: No Physical Activity Frequency: Does not Exercise Seatbelt Use: never Sunscreen Use: No (can not go in direct sunlight) Assistive Devices: None Review of Systems Constitutional: no fever and no chills Respiratory: + cough and + dyspnea on exertion Cardiovascular: no chest pain Gastrointestinal: + dysphagia Physical Exam Constitutional: well developed Respiratory: normal respiratory effort Gastrointestinal (Abdomen): Inspection/Auscultation: abdomen normal to inspection Psychiatric: Orientation: alert and oriented x 3 Results & Data Vital Signs (Past 12 Hours) Vital Signs Pulse Pulse Resp BP BP Pulse Ox Pulse Ox 08/25/24 08:20 79 23 139/85 100 08/25/24 07:15 91 H 08/25/24 06:30 74 20 144/89 H 94 08/25/24 06:09 64 16 08/25/24 05:12 63 15 08/25/24 04:03 69 20 08/25/24 01:19 90 08/25/24 01:03 76 18 160/103 H 97 08/25/24 01:01 97 08/25/24 01:01 63 20 160/103 H 97 08/25/24 00:31 72 22 167/98 H 97 08/25/24 00:01 75 22 159/83 H 97 08/24/24 23:52 74 21 157/80 H 95 08/24/24 23:30 78 20 157/80 H 98 08/24/24 22:36 63 17 144/72 H 95 08/24/24 22:06 69 21 95 08/24/24 22:05 135/82 O2 Del Method O2 Del Method O2 Flow Rate O2 Flow Rate 08/25/24 08:20 Room Air 08/25/24 07:15 08/25/24 06:30 Room Air 08/25/24 06:09 08/25/24 05:12 08/25/24 04:03 08/25/24 01:19 08/25/24 01:03 08/25/24 01:01 Nasal Cannula 2 08/25/24 01:01 Nasal Cannula 2 08/25/24 00:31 Nasal Cannula 2 08/25/24 00:01 Nasal Cannula 2 08/24/24 23:52 Room Air 08/24/24 23:30 Nasal Cannula 2 08/24/24 22:36 08/24/24 22:06 08/24/24 22:05 PG Care Time/CCT Total # of Minutes Spent Total Time Spent with Patient: Total time spent is greater than 50% in coordination of care (as documented) at patient's floor/unit and/or counseling patient: Coding Level of Care Code 04455 INT INP/OBS CARE 3/75MIN Diagnoses Dysphagia R13.10 Esophageal adenocarcinoma C15.9
--- NOTE | 2024-08-25 13:38 | Anesthesiology Consultation ---
Date of Service August 25, 2024 Assessment & Plan Consults Requested medical & cardiac Pulmonary ASA ASA4 Proposed Anesthesia Anesthesia Type: MAC Risk / Benefits Reviewed With: PT / POA / Parent / Guardian, Accepts Plan and Informed Consent Obtained History Surgery Operation Date: 08/25/24 16:30 Proposed Procedures p Esophagogastroduodenoscopy Dr. Chapis Nation MD Height/Weight Height: 6 ft Weight: 65.4 kg Allergies Allergy/AdvReac Type Severity Reaction Status Date / Time Penicillins Allergy Intermediate Difficulty Verified 08/22/24 15:21 Swallowing ciprofloxacin Allergy Unknown Difficulty Verified 08/24/24 21:40 Breathing latex Allergy Unknown Rash Verified 08/22/24 15:21 lorazepam Allergy Unknown Rash Verified 08/22/24 15:21 sulfamethoxazole Allergy Unknown Difficulty Verified 08/22/24 15:21 Breathing cephalexin AdvReac Mild Yeast Verified 08/22/24 15:21 infection minocycline AdvReac Mild Yeast Verified 08/22/24 15:21 infection Medications Home Medications Medication Instructions Recorded Confirmed Last Taken acetaminophen 500 mg tablet 1,000 mg PO Q8H PRN pain 06/19/19 08/24/24 Unknown (Tylenol Extra Strength) aspirin 81 mg tablet,delayed 81 mg PO QAM 06/19/19 08/24/24 08/16/24 release nitroglycerin 0.4 mg sublingual 0.4 mg sublingual UD PRN chest 12/24/20 08/24/24 Unknown tablet (Nitrostat) pain #25 tabs albuterol sulfate 90 mcg/actuation 2 puff inhalation Q4H PRN copd #18 11/04/23 08/24/24 Unknown aerosol inhaler (Ventolin HFA) grams budesonide-formoterol HFA 80 2 puff inhalation BID #10.2 grams 05/11/24 08/24/24 08/17/24 mcg-4.5 mcg/actuation aerosol inhaler (Symbicort) mometasone 50 mcg/actuation nasal 2 spray intranasal QAM #51 grams 06/19/24 08/24/24 08/16/24 spray multivitamin 1 tab PO DAILY 08/09/24 08/24/24 08/16/24 alfuzosin 10 mg tablet,extended 10 mg PO DAILY #30 tabs 08/14/24 08/24/24 08/16/24 release 24 hr (Uroxatral) fluconazole 100 mg tablet 100 mg PO DAILY 14 days #14 tabs 08/17/24 08/24/24 Unknown (Diflucan) pantoprazole 40 mg tablet,delayed 40 mg PO DAILY #90 tabs 08/17/24 08/24/24 Unknown release cefdinir 300 mg capsule 300 mg PO BID 7 days #14 caps 08/22/24 08/24/24 Unknown doxycycline hyclate 100 mg capsule 100 mg PO BID 7 days #14 caps 08/22/24 08/24/24 Unknown prednisone 10 mg tablet See Rx Instructions PO DAILY #20 08/22/24 08/24/24 Unknown tabs sucralfate 100 mg/mL oral 100 mg PO UD 08/24/24 08/24/24 Unknown suspension Active Medications Generic Name Dose Route Start Last Admin Trade Name Freq PRN Reason Stop Dose Admin Pantoprazole Sodium 40 mg in 10 mls @ 5 mls/min 08/25/24 09:00 08/25/24 08:24 Protonix IV 09/24/24 08:59 5 mls/min BID MADDIE Administration Fluconazole 200 mg in 100 mls @ 100 mls/hr 08/25/24 09:00 08/25/24 09:29 Diflucan IV 09/04/24 08:59 Infused DAILY MADDIE Infusion NPO Date Last Intake of Fluids: 08/25/24 Time Last Intake of Fluids: 08:30 Date Last Intake of Solids: 08/23/24 Time Last Intake of Solids: 23:59 Past Medical History Medical History Chronic pulmonary embolism pt unaware LVH (left ventricular hypertrophy) On home oxygen therapy 2L when walking/ exertion Malignant neoplasm of prostate with intermediate recurrence risk, stage T2B-C or Matthias 7 or prostate-specific antigen (PSA) 10-20 Malignant neoplasm of left lung (01/20/17) hx s/p surgery, chemo/xrt Primary cancer of right upper lobe of lung (01/20/17) Poor historian Aspiration pneumonia Remote hx per records (2012) Respiratory failure 2012 > resulted in ICU stay/required ventilator x2 days COPD (chronic obstructive pulmonary disease) 2L PRN via NC (typically does use daily) Exercise / Class Metabolic Activity III < 4 Walking/Shop/Light housework Past Family History Family History Father Cardiac disorder Stroke Mother Cardiac disorder Diabetes Myocardial infarction Brother Diabetes Sister Breast cancer Other Cancer Denies family history of Ovarian cancer Prostate cancer Colorectal cancer Past Surgical History Surgical History History of esophagogastroduodenoscopy (EGD) History of pneumonectomy (01/2004) Left + 2 ribs removed 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 Past Anesthesia History No Hx of Anesthesia Complications and No Family Hx of Anesthesia Complications History of PONV No Hx of PONV and No Hx of Motion Sickness Social History Smoking Status: Former smoker tobacco type: pipe Do You Dip or Chew Tobacco: Yes (Full leaf tobacco > advised none DOS) Hx Alcohol Use: Yes Alcohol type: hard liquor alcohol intake frequency: holidays/special occasions only Hx Substance Use: No substance use type: does not use Physical Exam Vital Signs Last Vital Signs Temp 36.8 C 08/25/24 13:18 Pulse 74 08/25/24 13:18 Resp 20 08/25/24 13:18 BP 167/97 H 08/25/24 13:18 Pulse Ox 100 08/25/24 13:18 O2 Del Method Nasal Cannula 08/25/24 13:18 O2 Flow Rate 2 08/25/24 13:18 Constitutional + cachectic; no acute distress ENMT Mouth: + dentition abnormality and + edentulous Thyromental Distance: > or= 3.5 Finger Breadths Mallampati Class: II Neck normal visual inspection Respiratory normal respiratory effort; no respiratory distress Auscultation: + diminished lung sounds (L diminished c/w h/o pneumonectomy ) Cardiovascular Rate/Rhythm: regular rate and regular rhythm Heart Sounds: no murmur Musculoskeletal Spine: normal cervical ROM Psychiatric Orientation: alert and oriented x 3 Testing Laboratory Results 08/25/24 04:38 08/25/24 04:38 PT 11.0 Seconds (9.0-12.0) 08/24/24 Unknown INR 1.0 (0.9-1.1) 08/24/24 Unknown Urine Color Yellow 08/24/24 Unknown Urine Appearance Clear (Clear) 08/24/24 Unknown Urine pH 6.5 (4.5-7.5) 08/24/24 Unknown Ur Specific [place] 1.006 (1.000-1.030) 08/24/24 Unknown Urine Protein Negative (Negative) 08/24/24 Unknown Urine Glucose (UA) Negative (Negative) 08/24/24 Unknown Urine Ketones Negative (Negative) 08/24/24 Unknown Urine Nitrite Negative (Negative) 08/24/24 Unknown Ur Leukocyte Esterase Negative (Negative) 08/24/24 Unknown Day of Procedure Evaluation. Date of Surgery August 25, 2024 Height/Weight Height: 6 ft Weight: 65.4 kg Vital Signs Last Vital Signs Temp 36.8 C 08/25/24 13:18 Pulse 74 08/25/24 13:18 Resp 20 08/25/24 13:18 BP 167/97 H 08/25/24 13:18 Pulse Ox 100 08/25/24 13:18 O2 Del Method Nasal Cannula 08/25/24 13:18 O2 Flow Rate 2 08/25/24 13:18 Allergies Allergy/AdvReac Type Severity Reaction Status Date / Time Penicillins Allergy Intermediate Difficulty Verified 08/22/24 15:21 Swallowing ciprofloxacin Allergy Unknown Difficulty Verified 08/24/24 21:40 Breathing latex Allergy Unknown Rash Verified 08/22/24 15:21 lorazepam Allergy Unknown Rash Verified 08/22/24 15:21 sulfamethoxazole Allergy Unknown Difficulty Verified 08/22/24 15:21 Breathing cephalexin AdvReac Mild Yeast Verified 08/22/24 15:21 infection minocycline AdvReac Mild Yeast Verified 08/22/24 15:21 infection Medications Home Medications Medication Instructions Recorded Confirmed Last Taken acetaminophen 500 mg tablet 1,000 mg PO Q8H PRN pain 06/19/19 08/24/24 Unknown (Tylenol Extra Strength) aspirin 81 mg tablet,delayed 81 mg PO QAM 06/19/19 08/24/24 08/16/24 release nitroglycerin 0.4 mg sublingual 0.4 mg sublingual UD PRN chest 12/24/20 08/24/24 Unknown tablet (Nitrostat) pain #25 tabs albuterol sulfate 90 mcg/actuation 2 puff inhalation Q4H PRN copd #18 11/04/23 08/24/24 Unknown aerosol inhaler (Ventolin HFA) grams budesonide-formoterol HFA 80 2 puff inhalation BID #10.2 grams 05/11/24 08/24/24 08/17/24 mcg-4.5 mcg/actuation aerosol inhaler (Symbicort) mometasone 50 mcg/actuation nasal 2 spray intranasal QAM #51 grams 06/19/24 08/24/24 08/16/24 spray multivitamin 1 tab PO DAILY 08/09/24 08/24/24 08/16/24 alfuzosin 10 mg tablet,extended 10 mg PO DAILY #30 tabs 08/14/24 08/24/24 08/16/24 release 24 hr (Uroxatral) fluconazole 100 mg tablet 100 mg PO DAILY 14 days #14 tabs 08/17/24 08/24/24 Unknown (Diflucan) pantoprazole 40 mg tablet,delayed 40 mg PO DAILY #90 tabs 08/17/24 08/24/24 Unknown release cefdinir 300 mg capsule 300 mg PO BID 7 days #14 caps 08/22/24 08/24/24 Unknown doxycycline hyclate 100 mg capsule 100 mg PO BID 7 days #14 caps 08/22/24 08/24/24 Unknown prednisone 10 mg tablet See Rx Instructions PO DAILY #20 08/22/24 08/24/24 Unknown tabs sucralfate 100 mg/mL oral 100 mg PO UD 08/24/24 08/24/24 Unknown suspension Active Medications Generic Name Dose Route Start Last Admin Trade Name Freq PRN Reason Stop Dose Admin Pantoprazole Sodium 40 mg in 10 mls @ 5 mls/min 08/25/24 09:00 08/25/24 08:24 Protonix IV 09/24/24 08:59 5 mls/min BID MADDIE Administration Fluconazole 200 mg in 100 mls @ 100 mls/hr 08/25/24 09:00 08/25/24 09:29 Diflucan IV 09/04/24 08:59 Infused DAILY MADDIE Infusion Past Anesthesia History No Hx of Anesthesia Complications and No Family Hx of Anesthesia Complications History of PONV No Hx of PONV and No Hx of Motion Sickness NPO Date Last Intake of Fluids: 08/25/24 Time Last Intake of Fluids: 08:30 Date Last Intake of Solids: 08/23/24 Time Last Intake of Solids: 23:59 Home Medications Home Medications Medication Instructions Recorded Confirmed Last Taken acetaminophen 500 mg tablet 1,000 mg PO Q8H PRN pain 06/19/19 08/24/24 Unknown (Tylenol Extra Strength) aspirin 81 mg tablet,delayed 81 mg PO QAM 06/19/19 08/24/24 08/16/24 release nitroglycerin 0.4 mg sublingual 0.4 mg sublingual UD PRN chest 12/24/20 08/24/24 Unknown tablet (Nitrostat) pain #25 tabs albuterol sulfate 90 mcg/actuation 2 puff inhalation Q4H PRN copd #18 11/04/23 08/24/24 Unknown aerosol inhaler (Ventolin HFA) grams budesonide-formoterol HFA 80 2 puff inhalation BID #10.2 grams 05/11/24 08/24/24 08/17/24 mcg-4.5 mcg/actuation aerosol inhaler (Symbicort) mometasone 50 mcg/actuation nasal 2 spray intranasal QAM #51 grams 06/19/24 08/24/24 08/16/24 spray multivitamin 1 tab PO DAILY 08/09/24 08/24/24 08/16/24 alfuzosin 10 mg tablet,extended 10 mg PO DAILY #30 tabs 08/14/24 08/24/24 08/16/24 release 24 hr (Uroxatral) fluconazole 100 mg tablet 100 mg PO DAILY 14 days #14 tabs 08/17/24 08/24/24 Unknown (Diflucan) pantoprazole 40 mg tablet,delayed 40 mg PO DAILY #90 tabs 08/17/24 08/24/24 Unknown release cefdinir 300 mg capsule 300 mg PO BID 7 days #14 caps 08/22/24 08/24/24 Unknown doxycycline hyclate 100 mg capsule 100 mg PO BID 7 days #14 caps 08/22/24 08/24/24 Unknown prednisone 10 mg tablet See Rx Instructions PO DAILY #20 08/22/24 08/24/24 Unknown tabs sucralfate 100 mg/mL oral 100 mg PO UD 08/24/24 08/24/24 Unknown suspension Active Medications Generic Name Dose Route Start Last Admin Trade Name Freq PRN Reason Stop Dose Admin Pantoprazole Sodium 40 mg in 10 mls @ 5 mls/min 08/25/24 09:00 08/25/24 08:24 Protonix IV 09/24/24 08:59 5 mls/min BID MADDIE Administration Fluconazole 200 mg in 100 mls @ 100 mls/hr 08/25/24 09:00 08/25/24 09:29 Diflucan IV 09/04/24 08:59 Infused DAILY MADDIE Infusion Exercise / Class Metabolic Activity Metabolic Activity: III < 4 Walking/Shop/Light housework Physical Exam Constitutional: + cachectic; no acute distress Mouth: + dentition abnormality and + edentulous Thyromental Distance: > or= 3.5 Finger Breadths Mallampati Class: II Neck: + visual inspection normal Respiratory: + respiratory effort normal and + diminished lung sounds (L diminished c/w h/o pneumonectomy ); no respiratory distress Cardiovascular: + regular rate and + regular rhythm; no murmur Musculoskeletal: no limited cervical ROM Psychiatric: + alert and + oriented x 3 ASA ASA4 Proposed Anesthesia Proposed Anesthesia: MAC Risk / Benefits Reviewed With: PT / POA / Parent / Guardian, Accepts Plan and Informed Consent Obtained
--- NOTE | 2024-08-25 14:49 | Anesthesiology Progress Note ---
Date of Service August 25, 2024 Anesthesia Post Procedure Vital Signs Vital Signs: Temp Pulse Pulse Pulse Resp Resp BP 08/25/24 14:35 69 16 08/25/24 14:20 62 16 08/25/24 14:20 72 08/25/24 14:05 77 16 08/25/24 13:18 36.8 C 74 20 08/25/24 12:51 79 08/25/24 12:42 08/25/24 12:35 36.4 C L 70 08/25/24 08:20 79 23 08/25/24 07:15 91 H 08/25/24 06:30 74 20 08/25/24 06:09 64 16 08/25/24 05:12 63 15 08/25/24 04:03 69 20 08/25/24 01:19 90 08/25/24 01:03 76 18 160/103 H 08/25/24 01:01 08/25/24 01:01 63 20 08/25/24 00:31 72 22 167/98 H 08/25/24 00:01 75 22 159/83 H 08/24/24 23:52 74 21 08/24/24 23:30 78 20 157/80 H 08/24/24 22:36 63 17 144/72 H 08/24/24 22:06 69 21 08/24/24 22:05 135/82 08/24/24 21:48 65 21 08/24/24 21:33 69 22 08/24/24 21:00 75 18 148/71 H 08/24/24 20:51 70 25 H 08/24/24 20:00 74 19 08/24/24 19:33 81 22 08/24/24 19:25 20 08/24/24 19:24 113 H 28 H 08/24/24 19:21 71 27 H 121/68 08/24/24 18:30 142/90 H 08/24/24 17:45 148/102 H 08/24/24 17:09 78 21 08/24/24 17:00 77 23 156/81 H 08/24/24 16:30 75 18 140/84 08/24/24 16:15 83 19 08/24/24 15:26 08/24/24 15:22 36.8 C 82 16 153/109 H 08/24/24 15:08 90 08/24/24 15:05 BP BP Pulse Ox Pulse Ox Pulse Ox O2 Del Method O2 Del Method 08/25/24 14:35 138/86 100 Nasal Cannula 08/25/24 14:20 122/77 100 Nasal Cannula 08/25/24 14:20 08/25/24 14:05 119/75 100 Nasal Cannula 08/25/24 13:18 167/97 H 167/97 H 100 Nasal Cannula 08/25/24 12:51 08/25/24 12:42 Room Air 08/25/24 12:35 164/84 H 94 Room Air 08/25/24 08:20 139/85 100 Room Air 08/25/24 07:15 08/25/24 06:30 144/89 H 94 Room Air 08/25/24 06:09 08/25/24 05:12 08/25/24 04:03 08/25/24 01:19 08/25/24 01:03 97 08/25/24 01:01 97 Nasal Cannula 08/25/24 01:01 160/103 H 97 Nasal Cannula 08/25/24 00:31 97 Nasal Cannula 08/25/24 00:01 97 Nasal Cannula 08/24/24 23:52 157/80 H 95 Room Air 08/24/24 23:30 98 Nasal Cannula 08/24/24 22:36 95 08/24/24 22:06 95 08/24/24 22:05 08/24/24 21:48 08/24/24 21:33 08/24/24 21:00 97 08/24/24 20:51 100 08/24/24 20:00 100 08/24/24 19:33 08/24/24 19:25 96 Room Air 08/24/24 19:24 87 L Room Air 08/24/24 19:21 100 08/24/24 18:30 96 08/24/24 17:45 98 08/24/24 17:09 97 08/24/24 17:00 95 08/24/24 16:30 96 08/24/24 16:15 96 08/24/24 15:26 96 Nasal Cannula 08/24/24 15:22 96 Room Air 08/24/24 15:08 08/24/24 15:05 96 Room Air O2 Flow Rate O2 Flow Rate 08/25/24 14:35 2 08/25/24 14:20 2 08/25/24 14:20 08/25/24 14:05 2 08/25/24 13:18 2 08/25/24 12:51 08/25/24 12:42 08/25/24 12:35 08/25/24 08:20 08/25/24 07:15 08/25/24 06:30 08/25/24 06:09 08/25/24 05:12 08/25/24 04:03 08/25/24 01:19 08/25/24 01:03 08/25/24 01:01 2 08/25/24 01:01 2 08/25/24 00:31 2 08/25/24 00:01 2 08/24/24 23:52 08/24/24 23:30 2 08/24/24 22:36 08/24/24 22:06 08/24/24 22:05 08/24/24 21:48 08/24/24 21:33 08/24/24 21:00 08/24/24 20:51 08/24/24 20:00 08/24/24 19:33 08/24/24 19:25 08/24/24 19:24 08/24/24 19:21 08/24/24 18:30 08/24/24 17:45 08/24/24 17:09 08/24/24 17:00 08/24/24 16:30 08/24/24 16:15 08/24/24 15:26 0 08/24/24 15:22 08/24/24 15:08 08/24/24 15:05 Transfer of Care Handoff Completed per policy Notes Mental Status: alert / awake / arousable and participated in evaluation Nausea / Vomiting: adequately controlled Pain: adequately controlled Airway Patency, RR, SpO2: stable & adequate BP & HR: stable & adequate Hydration State: stable & adequate Anesthetic Complications: no major complications apparent and Pt Satisfied with anesthetic care
--- NOTE | 2024-08-25 15:05 | GI REPORT ---
[facility] Patient: SCAR CASTILLO : 1945 Sex at : Male Age: 79 Years Procedure: Upper GI endoscopy Date: 08/25/2024 Attending Physician: Darrel Nation MD Referring MD: Mony Caicedo; Michael Lorenz Indications: - Dysphagia Medications: - Monitored Anesthesia Care Complications: - No immediate complications. Procedure: - Prior to the procedure, a History and Physical was performed, and patient medications and allergies were reviewed. The patient's tolerance of previous anesthesia was also reviewed. The risks and benefits of the procedure and the sedation options and risks were discussed with the patient. All questions were answered, and informed consent was obtained. [Anticoagulant Agents] [Days Prior to Procedure]. [ASA Grade]. After reviewing the risks and benefits, the patient was deemed in satisfactory condition to undergo the procedure. - The egd scope was introduced through the mouth and advanced to the second part of the duodenum. - The upper GI endoscopy was accomplished without difficulty. - The patient tolerated the procedure well. Findings: - Localized mucosal changes characterized by nodularity and erythema were found at the gastroesophageal junction. Biopsies were taken with a cold forceps for histology. Biopsies taken at two separate sites. Jar 1 taken from erythematous folds just below the Z-line (photos 1, 2 and 3). Jar 2 taken from Z line (photos 4 and 5) . Jar 3 random biopsies mid esophagus. - Mild inflammation characterized by erythema was found in the entire examined stomach. - The examined duodenum was normal. Impression: - Nodular, erythematous mucosa in the esophagus. Biopsied. - Gastritis, characterized by erythema. - Normal examined duodenum. Recommendation: - Resume previous diet. - Patient has a contact number available for emergencies. The signs and symptoms of potential delayed complications were discussed with the patient. Return to normal activities tomorrow. Written discharge instructions were provided to the patient. Procedure Code(s): - 11601, Esophagogastroduodenoscopy, flexible, transoral; with biopsy, single or multiple Diagnosis Code(s): - R13.10, Dysphagia, unspecified - K22.89, Other specified disease of esophagus - K29.70, Gastritis, unspecified, without bleeding CPT(R) - 2022 copyright [employer]. All Rights Reserved. The CPT codes, CCI edits and ICD codes generated are intended as suggestions and were generated based on input data. These codes are preliminary and upon virtual assistant review may be revised to meet current compliance and payer requirements. The provider is responsible for the final determination of appropriate codes, and modifiers. Darrel Nation MD This document has been electronically signed. Note Initiated:08/25/2024 Note Completed:08/25/2024 3:04 PM \\[email or web address]\Results\[email or web address]\[id number]
[2024-08-25] MEDS: PROPOFOL IV EMULSION 10 MG/ML 20 ML VIAL IV ONE (16:41)
[2024-08-25] MEDS: LIDOCAINE 2% 2 ML VIAL/AMP(20MG/ML) INFIL ONE (16:41)
--- NOTE | 2024-08-25 18:13 | Hospitalist Progress Note ---
Date of Service August 25, 2024 Assessment & Plan (1) Dysphagia: Plan: Patient presented with continued inability to tolerate solid food/pills Dysphagia/esophageal candidiasis/LA grade B reflux esophagitis/acute gastritis/nonbleeding duodenal ulcers- - Above diagnoses determined at EGD on 08/17/2024, with preliminary biopsy results concerning for adenocarcinoma. - Dysphagia to solids, is able to tolerate liquids - Consulted gastroenterology > Repeat EGD 08/25 for further biopsies. No EGD report to review at this time > Defer to GI for diet order recommendations > Further recommendations based on repeat EGD findings - Pantoprazole 40 mg IV twice daily - Fluconazole 200 mg IV every morning - Acetaminophen 1 g IV every 8 hours as needed for mild pain or fever (2) Esophageal candidiasis: (3) COPD (chronic obstructive pulmonary disease): Plan: COPD/lung cancer/history of left pneumonectomy- Continue albuterol HFA Avoid steroids inhalers and orally for now (4) Chronic pulmonary embolism: Plan: Chronic pulmonary embolism- CTA with stable appearing small amount of thrombus in the right upper lobe pulmonary artery branch extending toward the area of irregular scarring this is unchanged compared to previous CTs Plan Updated brother at bedside CODE STATUS: Full code Admission and Anticipated Discharge Date Admission Date: August 24, 2024 Supervising Physician Co-Signing Physician Notes Attending Attestation - Chart reviewed, care plan d/w CHRISTIANO Thomas. I agree w/ the stout components of her documentation. Appreciate GI consult and assistance. Michael Lorenz MD Subjective Patient seen and evaluated at bedside with brother present. He had an EGD earlier this afternoon to obtain further biopsies given recent EGD was suspicious for adenocarcinoma. He reports feeling well since his procedure. He denies any difficulty swallowing his saliva or thin liquids, notes that his dysphagia is to solid food and pills. No EGD report at this time to review with patient. No additional complaints or concerns at this time. Physical Exam Physical Exam: General: No acute distress, nondiaphoretic, thin appearing male. Skin: The skin was without rashes, erythema, edema, or bruising. Cardiac: Regular rate and rhythm without murmurs gallops or rubs. Pulm: Diminished lung sounds throughout (left-sided diminished consistent with history of pneumonectomy). No respiratory distress. Abdominal: Soft, nontender, nondistended. Bowel sounds present. Neuro: A&O x3. No focal neurological deficits. Results & Data Results & Data Vital Signs (Past 12 Hours) Vital Signs Temp Pulse Pulse Resp BP BP Pulse Ox 08/25/24 15:05 97.5 F L 65 169/82 H 98 08/25/24 14:35 69 16 138/86 100 08/25/24 14:20 62 16 122/77 100 08/25/24 14:20 72 08/25/24 14:05 77 16 119/75 100 08/25/24 13:18 98.2 F 74 20 167/97 H 167/97 H 100 08/25/24 12:51 79 08/25/24 12:42 08/25/24 12:35 97.5 F L 70 164/84 H 94 08/25/24 08:20 79 23 139/85 100 08/25/24 07:15 91 H 08/25/24 06:30 74 20 144/89 H 94 08/25/24 06:09 64 16 O2 Del Method O2 Flow Rate 08/25/24 15:05 Nasal Cannula 2 08/25/24 14:35 Nasal Cannula 2 08/25/24 14:20 Nasal Cannula 2 08/25/24 14:20 08/25/24 14:05 Nasal Cannula 2 08/25/24 13:18 Nasal Cannula 2 08/25/24 12:51 08/25/24 12:42 Room Air 08/25/24 12:35 Room Air 08/25/24 08:20 Room Air 08/25/24 07:15 08/25/24 06:30 Room Air 08/25/24 06:09 Laboratory Results Reviewed CBC Reviewed coags Reviewed chemistries Reviewed UA PG Care Time/CCT Total # of Minutes Spent Total Time Spent with Patient: Total time spent is greater than 50% in coordination of care (as documented) at patient's floor/unit and/or counseling patient: Coding Level of Care Code 07051 SUB INP/OBS CARE 2/35MIN Diagnoses Dysphagia R13.10 Esophageal candidiasis B37.81 COPD (chronic obstructive pulmonary disease) J44.9 Chronic pulmonary embolism I27.82
[2024-08-25] MEDS: ALBUTEROL HFA 8 GM INHALER INH PRN (21:34)
[2024-08-26] MEDS: ALBUTEROL HFA 8 GM INHALER INH SCH (07:41)
[2024-08-26] MEDS ORDERED: FLUTICASONE/VILANTEROL 100/25MCG 14 PUFFS/INHALER INH SCH (09:00)
[2024-08-26] MEDS: FLUTICASONE PROPIONATE NA SPR 16 GM BTL SCH (09:17)
[2024-08-26 09:33] LABS: Basophils # (auto) 0.05 K/uL (0.00-0.20); Basophils % (auto) 0.8 %; Eosinophils # (auto) 0.14 K/uL (0.00-0.50); Eosinophils % (auto) 2.1 %; Hematocrit (blood only) 47.4 % (42.0-52.0); Immature Granulocytes # (auto) 0.02 K/uL (0.01-0.20); Immature Granulocytes % (auto) 0.3 %; Lymphocytes # (auto) 1.33 K/uL (1.20-3.40); Lymphocytes % (auto) 20.1 %; Mean Corpuscular Hemoglobin 28.7 pg (25.0-34.0); Mean Corpuscular Hgb Conc 31.6 g/dL (32.0-36.0); Mean Corpuscular Volume 90.8 fL (80.0-100.0); Monocytes # (auto) 0.93 K/uL (0.11-0.59); Neutrophils # (auto) 4.16 K/uL (1.40-6.50); Neutrophils % (auto) 62.7 %; Platelet Count 260 K/uL (130-400); RDW Coefficient of Variation 13.8 % (11.5-14.5); RDW Standard Deviation 46.5 fL (36.4-46.3); Red Blood Count 5.22 M/uL (4.70-6.10); White Blood Count 6.63 K/ul (4.8-10.8)
[2024-08-26 09:45] LABS: Albumin Level 3.9 gm/dl (3.4-5.0); BUN Creatinine Ratio 14.8 (10-20); Calcium 8.8 mg/dl (8.6-10.3); Creatinine Clr Calc Pharmacy 65.7 ml/min; Magnesium 1.8 mg/dl (1.7-2.4); Phosphorus 3.8 mg/dl (2.5-4.9); Potassium 4.1 mmol/L (3.5-5.1)
--- NOTE | 2024-08-26 12:26 | Gastroenterology Progress Note ---
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 Advance diet to pure. Awaiting pathology. When diagnosis confirmed follow-up with oncology. Admission and Anticipated Discharge Date Admission Date: August 24, 2024 Subjective The patient tolerates liquid diet. No other gastrointestinal symptoms. Physical Exam Physical Exam: Constitutional: Appears cachectic., vitals as above Respiratory: normal respiratory effort, Cardiovascular: RRR, no murmur, no edema Gastrointestinal (Abdomen): normal bowel sounds, soft, nontender, no hepatosplenomegaly. Neurological: Oriented x 3, grossly no focal abnormalities, speech is intact. Results & Data Results & Data Vital Signs (Past 12 Hours) Vital Signs Temp Pulse Pulse Resp BP BP Pulse Ox 08/26/24 11:53 36.8 C 68 20 154/80 H 97 08/26/24 07:33 36.6 C 87 20 130/82 97 08/26/24 07:24 08/26/24 07:07 59 L 08/26/24 02:58 36.4 C L 83 18 113/81 99 08/26/24 00:52 08/26/24 00:43 76 O2 Del Method O2 Flow Rate 08/26/24 11:53 Nasal Cannula 2 08/26/24 07:33 Nasal Cannula 2 08/26/24 07:24 Nasal Cannula 2 08/26/24 07:07 08/26/24 02:58 Nasal Cannula 2 08/26/24 00:52 Room Air, Nasal Cannula 2 08/26/24 00:43 PG Care Time/CCT Total # of Minutes Spent Total Time Spent with Patient: Total time spent is greater than 50% in coordination of care (as documented) at patient's floor/unit and/or counseling patient: Coding Level of Care Code 79330 SUB INP/OBS CARE 2/35MIN Diagnoses Esophageal dysphagia R13.19 Dysphagia type: esophageal phase (1) Dysphagia Dysphagia type: esophageal phase Qualified Code(s): R13.19 - Other dysphagia
--- NOTE | 2024-08-26 16:00 | Hospitalist Progress Note ---
Date of Service August 26, 2024 Assessment & Plan (1) Dysphagia: Plan: Patient presented with continued inability to tolerate solid food/pills Dysphagia/esophageal candidiasis/LA grade B reflux esophagitis/acute gastritis/nonbleeding duodenal ulcers- - Above diagnoses determined at EGD on 08/17/2024, with preliminary biopsy results concerning for adenocarcinoma - Dysphagia to solids, is able to tolerate liquids - Consulted gastroenterology > Repeat EGD 08/25 for further biopsies. No EGD report to review at this time > Defer to GI for diet order recommendations, currently advanced to pured regular diet > Repeat EGD findings with suspected distal esophageal adenocarcinoma. Awaiting pathology results > When diagnosis is confirmed, follow-up with oncology - Speech therapy consulted - unfortunately, there is nothing speech therapy can offer at this time. > Feels the difficulty swallowing solids likely due to the esophageal Melissa and patient's issues are esophageal, not an issue with his swallow function > Recommending patient eats what he can tolerate while the Melissa is treated - Pantoprazole 40 mg IV twice daily - Fluconazole 200 mg IV every morning - Acetaminophen 1 g IV every 8 hours as needed for mild pain or fever (2) Esophageal candidiasis: (3) COPD (chronic obstructive pulmonary disease): Plan: COPD/lung cancer/history of left pneumonectomy- Continue albuterol HFA Avoid steroids inhalers and orally for now (4) Chronic pulmonary embolism: Plan: Chronic pulmonary embolism- CTA with stable appearing small amount of thrombus in the right upper lobe pulmonary artery branch extending toward the area of irregular scarring this is unchanged compared to previous CTs Plan Consulted and discussed case with speech therapy Diet advanced by GI to pured regular diet CODE STATUS: Full code Admission and Anticipated Discharge Date Admission Date: August 24, 2024 Supervising Physician Co-Signing Physician Notes Attending Attestation - Chart reviewed, care plan d/w CHRISTIANO Thomas. I agree w/ the stout components of her documentation. Appreciate GI consult and assistance. Appreciate speech therapy consult. Diet advanced to regular - pureed consistency - today. Will see how he tolerates. Michael Lorenz MD Subjective Patient seen and evaluated at bedside. He reports a productive cough in the morning, which is chronic since 2003 when he had a pneumonectomy. He notes this is clear sputum, no symptoms of infectious etiology. Patient reports he has been tolerating clear liquid diet. Informed him that GI is advancing his diet to pure. He is excited for that. No additional complaints or concerns at this time. Physical Exam Physical Exam: General: No acute distress, nondiaphoretic, thin appearing male. Skin: The skin was without rashes, erythema, edema, or bruising. Cardiac: Regular rate and rhythm without murmurs gallops or rubs. Pulm: Diminished lung sounds throughout (left-sided diminished consistent with history of pneumonectomy). No respiratory distress. 95% on room air. Abdominal: Soft, nontender, nondistended. Bowel sounds present. Neuro: A&O x3. No focal neurological deficits. Results & Data Results & Data Vital Signs (Past 12 Hours) Vital Signs Temp Pulse Pulse Resp BP Pulse Ox O2 Del Method 08/26/24 15:17 96 H 08/26/24 15:02 97.9 F 93 H 20 160/94 H 95 Nasal Cannula 08/26/24 11:53 98.2 F 68 20 154/80 H 97 Nasal Cannula 08/26/24 07:33 97.9 F 87 20 130/82 97 Nasal Cannula 08/26/24 07:24 Nasal Cannula 08/26/24 07:07 59 L O2 Flow Rate 08/26/24 15:17 08/26/24 15:02 2 08/26/24 11:53 2 08/26/24 07:33 2 08/26/24 07:24 2 08/26/24 07:07 Laboratory Results Reviewed CBC Reviewed BMP PG Care Time/CCT Total # of Minutes Spent Total Time Spent with Patient: Total time spent is greater than 50% in coordination of care (as documented) at patient's floor/unit and/or counseling patient: Coding Level of Care Code 40222 SUB INP/OBS CARE 2/35MIN Diagnoses Esophageal dysphagia R13.19 Dysphagia type: esophageal phase Esophageal candidiasis B37.81 COPD (chronic obstructive pulmonary disease) J44.9 Chronic pulmonary embolism I27.82 (1) Dysphagia Dysphagia type: esophageal phase Qualified Code(s): R13.19 - Other dysphagia
[2024-08-26] MEDS: FORMOTEROL FUMARATE INH SCH (21:33)
[2024-08-26] MEDS: BUDESONIDE INH SCH (21:33)
[2024-08-26] MEDS ORDERED: ALFUZOSIN HCL 10 MG TAB PO SCH (21:45)
[2024-08-27 08:06] LABS: Basophils # (auto) 0.06 K/uL (0.00-0.20); Basophils % (auto) 0.9 %; Eosinophils % (auto) 2.9 %; Hematocrit (blood only) 44.5 % (42.0-52.0); Hemoglobin 14.3 g/dl (14.0-18.0); Immature Granulocytes # (auto) 0.03 K/uL (0.01-0.20); Immature Granulocytes % (auto) 0.4 %; Lymphocytes # (auto) 1.09 K/uL (1.20-3.40); Mean Corpuscular Hemoglobin 28.9 pg (25.0-34.0); Mean Corpuscular Hgb Conc 32.1 g/dL (32.0-36.0); Mean Corpuscular Volume 90.1 fL (80.0-100.0); Mean Platelet Volume 11.5 fL (9.4-12.4); Monocytes # (auto) 1.16 K/uL (0.11-0.59); Neutrophils # (auto) 4.28 K/uL (1.40-6.50); Neutrophils % (auto) 62.8 %; Platelet Count 241 K/uL (130-400); RDW Coefficient of Variation 13.5 % (11.5-14.5); RDW Standard Deviation 45.1 fL (36.4-46.3); Red Blood Count 4.94 M/uL (4.70-6.10); White Blood Count 6.82 K/ul (4.8-10.8)
[2024-08-27] MEDS: ASPIRIN 81 MG ECTAB PO SCH (08:07)
[2024-08-27 08:16] LABS: Albumin Level 3.5 gm/dl (3.4-5.0); BUN Creatinine Ratio 19.7 (10-20); Calcium 8.8 mg/dl (8.6-10.3); Creatinine Clr Calc Pharmacy 80.5 ml/min; Magnesium 1.8 mg/dl (1.7-2.4); Phosphorus 2.9 mg/dl (2.5-4.9); Potassium 3.6 mmol/L (3.5-5.1)
[2024-08-27] MEDS ORDERED: ALFUZOSIN HCL 10 MG TAB PO SCH (09:00)
--- NOTE | 2024-08-27 12:47 | Gastroenterology Progress Note ---
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 Awaiting pathology. When diagnosis confirmed follow-up with oncology. Will sign off and see as needed. Admission and Anticipated Discharge Date Admission Date: August 24, 2024 Subjective Tolerates pured diet. No other symptoms. Histopathology pending Review of Systems Review of Systems: All systems reviewed & are unremarkable except as noted in HPI & below Physical Exam Physical Exam: Constitutional: Appears cachectic., vitals as above Respiratory: normal respiratory effort, Cardiovascular: RRR, no murmur, no edema Gastrointestinal (Abdomen): normal bowel sounds, soft, nontender, no hepatosplenomegaly. Neurological: Oriented x 3, grossly no focal abnormalities, speech is intact. Results & Data Results & Data Vital Signs (Past 12 Hours) Vital Signs Temp Pulse Pulse Resp BP Pulse Ox O2 Del Method 08/27/24 11:04 36.6 C 78 16 119/78 96 Nasal Cannula 08/27/24 08:00 36.6 C 79 15 145/77 H 95 Room Air 08/27/24 07:28 Room Air 08/27/24 07:06 82 08/27/24 02:50 36.8 C 90 18 138/79 96 Nasal Cannula O2 Flow Rate 08/27/24 11:04 2 08/27/24 08:00 08/27/24 07:28 08/27/24 07:06 08/27/24 02:50 2 PG Care Time/CCT Total # of Minutes Spent Total Time Spent with Patient: Total time spent is greater than 50% in coordination of care (as documented) at patient's floor/unit and/or counseling patient: Coding Level of Care Code 49914 SUB INP/OBS CARE 11/25MIN Diagnoses Esophageal dysphagia R13.19 Dysphagia type: esophageal phase (1) Dysphagia Dysphagia type: esophageal phase Qualified Code(s): R13.19 - Other dysphagia
--- NOTE | 2024-08-27 13:02 | Hospitalist Progress Note ---
Date of Service August 27, 2024 Assessment & Plan (1) Dysphagia: Plan: Patient presented with continued inability to tolerate solid food/pills Dysphagia/esophageal candidiasis/LA grade B reflux esophagitis/acute gastritis/nonbleeding duodenal ulcers- - Above diagnoses determined at EGD on 08/17/2024, with preliminary biopsy results concerning for adenocarcinoma - Dysphagia to solids, is able to tolerate liquids - Consulted gastroenterology > Repeat EGD 08/25 for further biopsies - sent out, pending > Advanced to pured regular diet, well-tolerating as long as eating slowly > Repeat EGD findings with suspected distal esophageal adenocarcinoma. 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 -- please advise on treatment options - Speech therapy consulted - unfortunately, there is nothing speech therapy can offer at this time > Feels the difficulty swallowing solids likely due to the esophageal Melissa and patient's issues are esophageal, not an issue with his swallow function > Recommending patient eats what he can tolerate while the Melissa is treated - Converted IV medications to PO - monitor dysphagia and globus sensation - Pantoprazole 40 mg twice daily - Fluconazole 200 mg every morning - Acetaminophen 1 g every 8 hours as needed for mild pain or fever (2) Esophageal candidiasis: (3) COPD (chronic obstructive pulmonary disease): Plan: COPD/lung cancer/history of left pneumonectomy- Continue albuterol HFA Avoid steroids inhalers and orally for now (4) Chronic pulmonary embolism: Plan: Chronic pulmonary embolism- CTA with stable appearing small amount of thrombus in the right upper lobe pulmonary artery branch extending toward the area of irregular scarring this is unchanged compared to previous CTs Plan Converted IV meds to PO Consulted oncology CODE STATUS: Full code Admission and Anticipated Discharge Date Admission Date: August 24, 2024 Supervising Physician Co-Signing Physician Notes Attending Attestation - Chart reviewed, care plan d/w CHRISTIANO Thomas. I agree w/ the stout components of her documentation. Michael Lorenz MD Subjective Patient seen and evaluated at bedside. He reports well-tolerating his pureed diet as long as he eats slowly. He notes that he took his alfuzosin last night and had a globus sensation. He reports he ate 3 cups of pudding and the sensation then passed. He reports he is able to swallow his smaller sized pills, but describes a globus sensation with larger pills. No additional complaints at this time. Physical Exam Physical Exam: General: No acute distress, nondiaphoretic, thin appearing male. Skin: The skin was without rashes, erythema, edema, or bruising. Cardiac: Regular rate and rhythm without murmurs gallops or rubs. Pulm: Diminished lung sounds throughout (left-sided diminished consistent with history of pneumonectomy). No respiratory distress. 96% on 2L. Abdominal: Soft, nontender, nondistended. Bowel sounds present. Neuro: A&O x3. No focal neurological deficits. Results & Data Results & Data Vital Signs (Past 12 Hours) Vital Signs Temp Pulse Pulse Resp BP Pulse Ox O2 Del Method 08/27/24 11:04 97.9 F 78 16 119/78 96 Nasal Cannula 08/27/24 08:00 97.9 F 79 15 145/77 H 95 Room Air 08/27/24 07:28 Room Air 08/27/24 07:06 82 08/27/24 02:50 98.2 F 90 18 138/79 96 Nasal Cannula O2 Flow Rate 08/27/24 11:04 2 08/27/24 08:00 08/27/24 07:28 08/27/24 07:06 08/27/24 02:50 2 Laboratory Results Reviewed CBC Reviewed chemistries PG Care Time/CCT Total # of Minutes Spent Total Time Spent with Patient: Total time spent is greater than 50% in coordination of care (as documented) at patient's floor/unit and/or counseling patient: Coding Level of Care Code 74272 SUB INP/OBS CARE 3/50MIN Diagnoses Esophageal dysphagia R13.19 Dysphagia type: esophageal phase Esophageal candidiasis B37.81 COPD (chronic obstructive pulmonary disease) J44.9 Chronic pulmonary embolism I27.82 (1) Dysphagia Dysphagia type: esophageal phase Qualified Code(s): R13.19 - Other dysphagia
[2024-08-27] MEDS ORDERED: ACETAMINOPHEN 500 MG TAB PO PRN (17:39)
[2024-08-27] MEDS ORDERED: ONDANSETRON ORAL SOLN 0.8 MG/1 ML PO PRN (17:40)
[2024-08-27] MEDS ORDERED: ONDANSETRON 4 MG OD TAB PO PRN (17:51)
[2024-08-27] MEDS: PANTOprazole 40 MG TAB PO SCH (20:04)
[2024-08-27] MEDS: ALFUZOSIN HCL 10 MG TAB PO SCH (20:04)
--- NOTE | 2024-08-28 08:08 | Oncology Consultation ---
Date of Consultation August 28, 2024 Assessment & Plan (1) Dysphagia: (2) Esophageal candidiasis: Plan 79-year-old gentleman with history of lung cancer presenting with dysphagia. Pathology from biopsy obtained during upper endoscopy on 08/17/2024 was suspicious for adenocarcinoma. Repeat upper endoscopy was performed on 08/25/2024 with results pending at time of today's visit. -If dysphagia persists, would need to consider PEG tube placement which can be pursued outpatient. -Await biopsy results. If this confirms esophageal cancer, would need to discuss with interventional GI to see if he would be a candidate for endoscopic resection/ablation. If he is not a candidate for this, would need to consider definitive chemoradiation treatment as I suspect that he would not be a candidate for esophagectomy given performance status as well as history of pneumonectomy -Will arrange for outpatient PET/CT and follow-up with me Thank you for this consult. Feel free to call if you have any further questions. 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 Presented with dysphagia. Upper endoscopy on 08/17/2024 revealed esophageal plaques consistent with candidiasis, reflux esophagitis and acute gastritis. Biopsy was concerning for possible adenocarcinoma. He then presented to the ER on 08/24/2024 with dysphagia. Upper endoscopy was repeated on 08/25/2024 with pathology pending at the time of today's visit. Allergies Allergy/AdvReac Type Severity Reaction Status Date / Time Penicillins Allergy Intermediate Difficulty Verified 08/22/24 15:21 Swallowing ciprofloxacin Allergy Unknown Difficulty Verified 08/24/24 21:40 Breathing latex Allergy Unknown Rash Verified 08/22/24 15:21 lorazepam Allergy Unknown Rash Verified 08/22/24 15:21 sulfamethoxazole Allergy Unknown Difficulty Verified 08/22/24 15:21 Breathing cephalexin AdvReac Mild Yeast Verified 08/22/24 15:21 infection minocycline AdvReac Mild Yeast Verified 08/22/24 15:21 infection Home Medications Medication Instructions Recorded Confirmed Type acetaminophen 500 mg tablet 1,000 mg PO Q8H PRN pain 06/19/19 08/24/24 History (Tylenol Extra Strength) aspirin 81 mg tablet,delayed 81 mg PO QAM 06/19/19 08/24/24 History release nitroglycerin 0.4 mg sublingual 0.4 mg sublingual UD PRN chest 12/24/20 08/24/24 Rx tablet (Nitrostat) pain #25 tabs albuterol sulfate 90 mcg/actuation 2 puff inhalation Q4H PRN copd #18 11/04/23 08/24/24 Rx aerosol inhaler (Ventolin HFA) grams budesonide-formoterol HFA 80 2 puff inhalation BID #10.2 grams 05/11/24 08/24/24 Rx mcg-4.5 mcg/actuation aerosol inhaler (Symbicort) mometasone 50 mcg/actuation nasal 2 spray intranasal QAM #51 grams 06/19/24 08/24/24 Rx spray multivitamin 1 tab PO DAILY 08/09/24 08/24/24 History alfuzosin 10 mg tablet,extended 10 mg PO DAILY #30 tabs 08/14/24 08/24/24 Rx release 24 hr (Uroxatral) fluconazole 100 mg tablet 100 mg PO DAILY 14 days #14 tabs 08/17/24 08/24/24 Rx (Diflucan) pantoprazole 40 mg tablet,delayed 40 mg PO DAILY #90 tabs 08/17/24 08/24/24 Rx release cefdinir 300 mg capsule 300 mg PO BID 7 days #14 caps 08/22/24 08/24/24 Rx doxycycline hyclate 100 mg capsule 100 mg PO BID 7 days #14 caps 08/22/24 08/24/24 Rx prednisone 10 mg tablet See Rx Instructions PO DAILY #20 08/22/24 08/24/24 Rx tabs sucralfate 100 mg/mL oral 100 mg PO UD 08/24/24 08/24/24 History suspension Patient History Medical History Chronic pulmonary embolism pt unaware LVH (left ventricular hypertrophy) On home oxygen therapy 2L when walking/ exertion Malignant neoplasm of prostate with intermediate recurrence risk, stage T2B-C or [place] 7 or prostate-specific antigen (PSA) 10-20 Malignant neoplasm of left lung (01/20/17) hx s/p surgery, chemo/xrt Primary cancer of right upper lobe of lung (01/20/17) Poor historian Aspiration pneumonia Remote hx per records (2013) Respiratory failure 2012 > resulted in ICU stay/required ventilator x2 days COPD (chronic obstructive pulmonary disease) 2L PRN via NC (typically does use daily) Surgical History History of esophagogastroduodenoscopy (EGD) History of pneumonectomy (01/2004) Left + 2 ribs removed 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 Family History Father Cardiac disorder Stroke Mother Cardiac disorder Diabetes Myocardial infarction Brother Diabetes Sister Breast cancer Other Cancer Denies family history of Ovarian cancer Prostate cancer Colorectal cancer Social History Smoking Status: Former smoker Tobacco Type: Cigarettes and Smokeless Tobacco (Dip or Chew) Age Started Using Tobacco: 14; Age Quit Using Tobacco: 42; packs per day: 2; Second Hand Exposure: Yes (as a child); Do You Dip or Chew Tobacco: Yes (Full leaf tobacco > advised none DOS); Hx Alcohol Use: Yes Alcohol type: hard liquor Alcohol type Comment: 6 oz whiskey a day w/honey Alcohol Intake Frequency: 4 or More x per/Week Hx Substance Use: No Preferred Language: Tanzanian Communication Ability: Effective Visual Impairment: No Limitations Hearing Ability: Hard of Hearing Refueling [place] Required: No Beliefs That Will Affect Care: None marital status: Single Current Living Situation: Spouse current occupational status: retired Feels Safe at Home: Yes Safety Concerns: Feels Safe At This Time Childhood Exposure to Second-Hand Smoke: Yes Diet: regular Diet Comment: regular caffeine: Yes during the past year weight has: remained stable Dental Care, Regularly: No Physical Activity Frequency: Does not Exercise Seatbelt Use: never Sunscreen Use: No (can not go in direct sunlight) Assistive Devices: None Results & Data Vital Signs (Past 12 Hours) Vital Signs Temp Pulse Pulse Resp BP Pulse Ox O2 Del Method 08/28/24 07:48 36.5 C 72 17 133/78 97 Room Air 08/28/24 07:00 80 08/28/24 03:51 36.6 C 80 18 136/78 95 Room Air 08/27/24 23:47 36.8 C 80 18 143/89 H 95 Room Air 08/27/24 21:46 77 (1) Dysphagia Dysphagia type: esophageal phase Qualified Code(s): R13.19 - Other dysphagia
[2024-08-28] MEDS: FLUCONAZOLE 100 MG TAB PO SCH (09:17)
--- NOTE | 2024-08-28 12:31 | Hospitalist Progress Note ---
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 -- please advise on treatment options - Speech therapy consulted - unfortunately, there is nothing speech therapy can offer at this time > Feels the difficulty swallowing solids likely due to the esophageal Melissa and patient's issues are esophageal, not an issue with his swallow function > Recommending patient eats what he can tolerate while the Melissa is treated - Diet advanced to easy to chew -- monitor how this is tolerated - Converted IV medications to PO -- no reported globus sensation - Pantoprazole 40 mg twice daily - Fluconazole 200 mg every morning - Acetaminophen 1 g every 8 hours as needed for mild pain or fever (2) Esophageal candidiasis: Plan: Continue Diflucan as noted above (3) COPD (chronic obstructive pulmonary disease): Plan: COPD/lung cancer/history of left pneumonectomy- Continue albuterol HFA Avoid steroids inhalers and orally for now (4) Chronic pulmonary embolism: Plan: Chronic pulmonary embolism- CTA with stable appearing small amount of thrombus in the right upper lobe pulmonary artery branch extending toward the area of irregular scarring this is unchanged compared to previous CTs Plan Discussed preliminary pathology results with patient 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 I agree w/ the stout components of her documentation. Michael Lorenz MD Subjective Patient seen and evaluated at bedside. He reports no difficulty in swallowing his pills this morning. He expressed interest in advancing his diet further to see how he tolerates it. He reported that GI did not review biopsy results with him. We had a discussion that the results are still preliminary, but are suspicious for distal esophageal adenocarcinoma. He took this news well stating "The good Lord saved me from cancer before and he is my number one doctor." I offered for him to see the professor of floriculture, which he was interested in. Informed him t hat the oncologist will be seeing him later today to discuss possible treatment options if this is confirmed to be cancer. No additional complaints or concerns at this time. Physical Exam Physical Exam: General: No acute distress, nondiaphoretic, thin appearing male. Skin: The skin was without rashes, erythema, edema. Scattered bruising noted. Cardiac: Regular rate and rhythm without murmurs gallops or rubs. Pulm: Diminished lung sounds throughout (left-sided diminished consistent with history of pneumonectomy). No respiratory distress. 98% on 2L. Intermittently wears O2 PRN. Abdominal: Soft, nontender, nondistended. Bowel sounds present. Neuro: A&O x3. No focal neurological deficits. Results & Data Results & Data Vital Signs (Past 12 Hours) Vital Signs Temp Pulse Pulse Resp BP Pulse Ox O2 Del Method 08/28/24 11:35 97.5 F L 82 18 154/89 H 98 Nasal Cannula 08/28/24 08:00 Nasal Cannula 08/28/24 07:48 97.7 F 72 17 133/78 97 Room Air 08/28/24 07:00 80 08/28/24 03:51 97.9 F 80 18 136/78 95 Room Air O2 Flow Rate 08/28/24 11:35 2 08/28/24 08:00 2 08/28/24 07:48 08/28/24 07:00 08/28/24 03:51 PG Care Time/CCT Total # of Minutes Spent Total Time Spent with Patient: Total time spent is greater than 50% in coordination of care (as documented) at patient's floor/unit and/or counseling patient: Coding Level of Care Code 35969 SUB INP/OBS CARE 3/50MIN Diagnoses Esophageal dysphagia R13.19 Dysphagia type: esophageal phase Esophageal candidiasis B37.81 COPD (chronic obstructive pulmonary disease) J44.9 Chronic pulmonary embolism I27.82 (1) Dysphagia Dysphagia type: esophageal phase Qualified Code(s): R13.19 - Other dysphagia
[2024-08-29 07:46] LABS: BUN Creatinine Ratio 22.5 (10-20); Calcium 9.1 mg/dl (8.6-10.3); Creatinine Clr Calc Pharmacy 74.1 ml/min; Potassium 4.1 mmol/L (3.5-5.1)
[2024-08-29 08:00] LABS: Thyroid Stimulating Hormone 3.112 uIu/ml (0.300-4.500)
--- NOTE | 2024-08-29 08:13 | Hospitalist Progress Note ---
Date of Service August 29, 2024 Assessment & Plan (1) Dysphagia: Plan: Patient presented with continued inability to tolerate solid food/pills Dysphagia/esophageal candidiasis/LA grade B reflux esophagitis/acute gastritis/nonbleeding duodenal ulcers- - Dysphagia to solids, is able to tolerate liquids s/p EGD on 08/17/[address] Wen, prelim results concerning for adenocarcinoma however final results negative from that time GI consulted Repeat EGD 08/[address] Nation. Final pathology: Esophagus bx GE junction and Z line c/w adenocarcinoma. Random bx esophagus w/ squamous epithelium with mild reactive changes of reflux esophagitis HER2 FISH is pending on part B and the results will be reported in an addendum. Dr Remy, heme/oncology consulted Plans to arrange for outpt PET/CT scan and ref for interventional GI and patient to be notified of follow up appointment/times per oncology Continue fluconazole, increased to 200mg daily - complete course PPI BID, aspiration precautions Diet: easy to chew Speech consulted, feels difficult swallowing likely due to esophageal rolando and not issue with swallow function (however upon discussion with James today 08/29 he reported having swallowing tests in the past x 2 with reports of "weak mouth muscles" and will plan for Video swallow in AM Nutrition consulted, supplements to be provided. CM consulted as well for possible needs at home/rehab/additional support (make $14 too much for assistance per patient, $1079/month and can only make $1065) Utilizing 1L NC this morning, not on NC at home but reports using a box fan 2step done to see if any needs prior to dc 2 step noting needs for 1L w/ activity, no needs at rest--> Rx given to CM and arranging PT/OT consults, recs for rehab. CM to follow up but possibly dc w/ HH if doesn't want inpatient rehab (2) Esophageal candidiasis: Plan: Continue Diflucan as noted above , outpatient plans for f/u for pathology as outlined (3) COPD (chronic obstructive pulmonary disease): Plan: COPD/lung cancer/history of left pneumonectomy- Continue albuterol HFA Avoid steroids inhalers and orally for now, will check CXR in AM/adding incentive spirometry. Denies SOB and reports only using NC as not having box fan but as above 2step noting 1L NC needs w/ exertion (chronic thrombus below, not on AC) Fu CXR AM 10/30 (4) Chronic pulmonary embolism: Plan: Chronic pulmonary embolism- CTA with stable appearing small amount of thrombus in the right upper lobe pulmonary artery branch extending toward the area of irregular scarring this is unchanged compared to previous CTs and does not appear to be on any systemic anticoagulation but should be entertained in follow up given now w/ esophageal adenocarcinoma Plan Plan: consulted nutrition/CM for needs as well as PT/OT. Speech for re-eval and plan on video swallow in AM prior to possible discharge with home health vs rehab 08/30. CM following and can arrange HH if final decision for such. Will need outpt f/u oncology as well as interventional GI/PET CT scan as to be arranged by [facility] Admission and Anticipated Discharge Date Admission Date: August 24, 2024 Supervising Physician Co-Signing Physician Notes The patient was not seen by me. The chart was reviewed. Case discussed with CHRISTIANO Knott. Agree with assessment and plan Subjective Evaluated this after following lunch, sitting up at side of bed. On 1L NC, occasional cough with eggs this morning, would like some soup. Discussed having speech repeat eval/information on things to avoid given pathology w/ concerns for malignancy and Dr Remy arranging PET/CT scan and interventional GI outpatient. Mr Abdi reports he did have 2 swallowing studies in the past and notes "weak mouth muscles" as well as his esophageal ca and likely benefit from ongoing nutritional supplement. He reports he has Ensure at home but his prior insurance [employer] card would cover it but new one does not. Possible benefit from rehab, denies having been seen by therapy and will ensure consults placed/case management notified of possible additional needs at home and needing to ensure support/plan in place for safety at home. Using O2, breathing stable and does report not using as much at home as he has a box fan and that is the only reason he is reporting using this at this time but typically isn't using all the time. Questions/concerns addressed at this time. Physical Exam 2 Physical Exam: General: 79 yo male, thin/cachectic appearing male, not well nourished/well kept, sitting up at bedside eating lunch, NAD HEENT: head atraumatic,bitemporal wasting, thin neck, trachea midline Resp: bibasilar crackles, diminished lung sounds (L>R) but no wheezing, on 1L NC CV: NSR on telemetry, occ PVC , rates 60-80s, no significant m/r/g, no pitting edema/calf tenderness GI: +BS, scaphoid, nontender no santana MSK/Neuro: generalized weakness but nonfocal/no slurred speech, not confused Psych: AOx3, cooperative with exam Results & Data Results & Data Vital Signs (Past 12 Hours) Vital Signs Temp Pulse Pulse Resp BP Pulse Ox O2 Del Method 08/29/24 07:33 Nasal Cannula 08/29/24 07:13 36.5 C 79 14 123/73 95 Nasal Cannula 08/29/24 07:00 72 08/29/24 04:22 36.6 C 76 20 113/79 95 Nasal Cannula 08/28/24 23:46 36.6 C 78 20 153/92 H 97 Nasal Cannula 08/28/24 21:58 78 08/28/24 21:40 Nasal Cannula O2 Flow Rate 08/29/24 07:33 2 08/29/24 07:13 2 08/29/24 07:00 08/29/24 04:22 2 08/28/24 23:46 2 08/28/24 21:58 08/28/24 21:40 2 Laboratory Results 08/27/24 06:46 08/29/24 06:58 BNP 77 Magnesium 2.0 TSH 3.112 Vit D 33.9 B12 269 PG Care Time/CCT Total # of Minutes Spent Total Time Spent with Patient: Total time spent is greater than 50% in coordination of care (as documented) at patient's floor/unit and/or counseling patient: Coding Level of Care Code 76509 SUB INP/OBS CARE 3/50MIN Diagnoses Esophageal dysphagia R13.19 Dysphagia type: esophageal phase Esophageal candidiasis B37.81 COPD (chronic obstructive pulmonary disease) J44.9 Chronic pulmonary embolism I27.82 (1) Dysphagia Dysphagia type: esophageal phase Qualified Code(s): R13.19 - Other dysphagia
[2024-08-29] MEDS: FLUCONAZOLE 100 MG TAB PO SCH (09:28)
[2024-08-29] MEDS: CYANOCOBALAMIN 1000 MCG/ML VIAL IM SCH (18:11)
[2024-08-30 07:00] LABS: Calcium 9.2 mg/dl (8.6-10.3); Creatinine Clr Calc Pharmacy 76.3 ml/min; Magnesium 1.9 mg/dl (1.7-2.4); Potassium 3.9 mmol/L (3.5-5.1)
--- NOTE | 2024-08-30 07:25 | XRay Report ---
XR chest 1V portable CLINICAL HISTORY: f/u asp TECHNIQUE: Single frontal radiograph of the chest was obtained. Comparison: Comparison is made to chest radiographs 08/24/2024 FINDINGS: No lines and tubes are seen. The cardiomediastinal silhouette is normal. Postsurgical changes of left pneumonectomy and linear scarring in the right upper lung. No evidence of pleural effusion or pneumo thorax. IMPRESSION: No abnormality to suggest aspiration. Chronic postpneumonectomy changes are seen. ACT 112: Negative or not required by law. Electronically signed by: Enrique Yusuf M.D. 08/30/2024 7:24 AM
[2024-08-30 08:10] VITALS: RESP 16
--- NOTE | 2024-08-30 08:24 | Hospitalist Progress Note ---
Date of Service August 30, 2024 Assessment & Plan (1) Dysphagia: Plan: Patient presented with continued inability to tolerate solid food/pills Dysphagia/esophageal candidiasis/LA grade B reflux esophagitis/acute gastritis/nonbleeding duodenal ulcers- - Dysphagia to solids, is able to tolerate liquids s/p EGD on 08/17/[address] Wen, prelim results concerning for adenocarcinoma however final results negative from that time GI consulted Repeat EGD 08/[address] Nation. -Final pathology: Esophagus bx GE junction and Z line c/w adenocarcinoma. Random bx esophagus w/ squamous epithelium with mild reactive changes of reflux esophagitis. HER2 FISH is pending on part B and the results will be reported in an addendum. Dr Remy, heme/oncology consulted. Plans to arrange for outpt PET/CT scan and ref for interventional GI and patient to be notified of follow up appointment/times per oncology Continue fluconazole daily, BBI BID. Aspiration precautions in place Diet: easy to chew Speech consulted, feels difficult swallowing likely due to esophageal rolando and not issue with swallow function (however upon discussion with James today 08/29 he reported having swallowing tests in the past x 2 with reports of "weak mouth muscles" and will plan for Video swallow AM 08/30 Nutrition consulted, supplements to be provided. CM consulted as well for possible needs at home/rehab/additional support (make $14 too much for assistance per patient, $1079/month and can only make $1065) Utilizing 1L NC this morning, not on NC at home but reports using a box fan 2step done to see if any needs prior to dc 2 step noting needs for 1L w/ activity, no needs at rest--> Rx given to CM and arranging PT/OT consults, recs for rehab. CM to follow up but possibly dc w/ HH if doesn't want inpatient rehab 08/30 Video swallow for today for further eval but planning for dc w/ HH following (2) Esophageal candidiasis: Plan: Continue Diflucan as noted above , outpatient plans for f/u for pathology as outlined (3) COPD (chronic obstructive pulmonary disease): Plan: COPD/lung cancer/history of left pneumonectomy- Continue albuterol HFA Avoid steroids inhalers and orally for now, will check CXR in AM/adding incentive spirometry. Denies SOB and reports only using NC as not having box fan but as above 2step noting 1L NC needs w/ exertion (chronic thrombus below, not on AC) Fu CXR AM 08/30 (4) Chronic pulmonary embolism: Plan: Chronic pulmonary embolism- CTA with stable appearing small amount of thrombus in the right upper lobe pulmonary artery branch extending toward the area of irregular scarring this is unchanged compared to previous CTs and does not appear to be on any systemic anticoagulation but should be entertained in follow up given now w/ esophageal adenocarcinoma Plan Plan: consulted nutrition/CM for needs as well as PT/OT. Speech for re-eval and plan on video swallow in AM prior to possible discharge with home health vs rehab 08/30. CM following and can arrange HH if final decision for such. Will need outpt f/u oncology as well as interventional GI/PET CT scan as to be arranged by [facility] Admission and Anticipated Discharge Date Admission Date: August 24, 2024 Results & Data Results & Data Vital Signs (Past 12 Hours) Vital Signs Temp Pulse Pulse Resp BP Pulse Ox O2 Del Method 08/30/24 08:09 36.3 C L 87 16 135/92 96 Nasal Cannula 08/30/24 07:00 71 08/30/24 03:04 36.6 C 73 18 118/75 93 Nasal Cannula 08/29/24 22:42 36.3 C L 101 H 18 150/96 H 97 Nasal Cannula 08/29/24 21:42 78 O2 Flow Rate 08/30/24 08:09 1 08/30/24 07:00 08/30/24 03:04 1 08/29/24 22:42 1 08/29/24 21:42 PG Care Time/CCT Total # of Minutes Spent Total Time Spent with Patient: Total time spent is greater than 50% in coordination of care (as documented) at patient's floor/unit and/or counseling patient: Coding Diagnoses Esophageal dysphagia R13.19 Dysphagia type: esophageal phase Esophageal candidiasis B37.81 COPD (chronic obstructive pulmonary disease) J44.9 Chronic pulmonary embolism I27.82 (1) Dysphagia Dysphagia type: esophageal phase Qualified Code(s): R13.19 - Other dysphagia
[2024-08-30 11:21] VITALS: O2SAT 95
--- NOTE | 2024-08-30 11:48 | Fluoroscopy Report ---
VIDEO SWALLOW STUDY CLINICAL HISTORY: Aspiration. Pneumonia. COMPARISON STUDY: Video swallow study dated 01/26/2017. FLUOROSCOPY TIME: 3.1 minutes. Ka,r: 4.58 mGy. TECHNIQUE: Fluoroscopic guidance was provided to the department of speech pathology in performing a v ideo swallow study. The patient consumed barium impregnated pudding, nectar thick liquids, and thin b arium while the swallowing mechanism was observed in real-time. There is pharyngeal penetration and a spiration seen with thin barium. No penetration or aspiration was seen with the pudding or nectar thi ck liquids. Dysmotility and esophageal retention was observed during the examination. IMPRESSION: 1. There is pharyngeal penetration and aspiration seen with thin barium. 2. No penetration or aspiration was seen with the remaining sampled textures. 3. See dedicated speech pathology report for detailed findings and recommendations. Dictated: 08/30/2024 11:16 AM Transcribed: 08/30/2024 11:29 AM Vidhi [id number] [email or web address] [id number] Electronically signed by: Vaibhav oRlon M.D. 08/30/2024 11:47 AM
--- NOTE | 2024-08-30 12:24 | Discharge Summary ---
Discharge Summary Date of Service August 30, 2024 Principal Dx & Hospital Course #1 = Principal Diagnosis (1) Dysphagia: Patient presented with inability to tolerate solid food/pills Hx dysphagia/esophageal candidiasis/LA grade B reflux esophagitis/acute gastritis/nonbleeding duodenal ulcers- Dysphagia to solids, able to tolerate liquids and reported prior swallowing testing with oropharyngeal dysphagia s/p EGD on 08/17/[address] Wen, prelim results concerning for adenocarcinoma however final results negative from that time but GI was consulted on admission and repeat EGD 08/[address] Nation performed. Pathology: Esophagus bx GE junction and Z line c/w adenocarcinoma. Random bx esophagus w/ squamous epithelium with mild reactive changes of reflux esophagitis. HER2 FISH is pending on part B and the results will be reported in an addendum. Speech consulted, repeat Video swallow. Easy to chew diet recommended, aspiration precautions. Continues with chin tuck maneuvers and has been doing such. Dr Remy consulted, heme/onc. Review of pathology and is to be arranging outpt PET/CT scan and ref for interventional GI and patient to be notified of follow up appointment/times per oncology Patient had been provided supportive care, PPI increased to BID and continued BID at discharge as well as course of fluconazole for esophageal candidiasis from prior EGD and was unable prior to tolerate PO. Nutrition consulted while inpatient and supplements provided and encouraged to continue such. Of note, was req 1L NC, CXR w/o acute process. Uses box fan at home reported but did do 2step prior to dc and 1L w/ exertion needs. Rx to CM provided and tank delivered to room prior to dc. PT/OT rec rehab, pt declined but agreed to which was arranged. Outpt CM to follow for assistance/etc. Patient reported feeling well, tolerating easy to chew diet and wanting to go home. Updated son Alexander per ok w/ James prior to discharge on plan. (2) Esophageal candidiasis: Continued Diflucan as noted (3) COPD (chronic obstructive pulmonary disease): COPD/lung cancer/history of left pneumonectomy- Continued albuterol HFA and avoided steroids. CXR w/o acute process. 2step as above performed, 1L w/ exertion (4) Chronic pulmonary embolism: Chronic pulmonary embolism- CTA with stable appearing small amount of thrombus in the right upper lobe pulmonary artery branch extending toward the area of irregular scarring this is unchanged compared to previous CTs and does not appear to be on any systemic anticoagulation but should be entertained in follow up given now w/ esophageal adenocarcinoma which can be discussed with PCP in follow up but avoiding chemoproph as likely needing further intervention/testing which would need to be placed on hold. No pleuritc pain reported/dizziness/hypotension. Did have some hypoxia however suspect 2nd to progressive COPD/hx lung Ca as above Outpt PET scan planned as above Notes For Next Care Provider Ensure PET/CT scan arranged as well as interventional GI as to be arranged by Dr Remy per discussion Follow up regarding chronic appearing thrombus on Ct imaging. Did not initiate anticoagulation as no pleuritic chest pain or hypotension/dizziness and appearing chronic but given new adenocarcinoma should be entertained. No evidence for DVT on exam/calf pain. Is at higher risk w/ underlying malignancy Encourage nutritional supplements, asked CM to follow outpatient given finances for support as able (reported makes ~$14 too much) Medication Changes From Visit Protonix increased to 40mg PO BID Fluconazole 200mg PO to complete course B12 500mcg PO daily Admission HPI Per Admitting Provider The patient is a 79-year-old male with a past medical history including prostate cancer, recurrent lung cancer, chronic pulmonary embolism, Peyronie's disease, herpes zoster, lower urinary tract symptoms, history of pneumonectomy, COPD, esophageal candidiasis, LA grade B reflux esophagitis, gastritis, and nonbleedin g duodenal ulcers. The patient has been having progressively worsening difficulty with swallowing, and underwent EGD on 08/17/2024, which revealed the preceding diagnoses. He has been given oral treatments including fluconazole, doxycycline, and prednisone, but reports not being able to swallow these pills recently due to severe difficulty with swallowing any solid substances. He reports that he is able to swallow liquids without a problem. Admission Exam Per Admitting Provider The patient is awake, alert and oriented 3, appears thin. Normocephalic and atraumatic, lying in bed and in no acute distress. HEENT--PERRL, EOMI, mucous membranes and oropharynx dry. Thrush present Neck--supple. No JVD. No bruits. Thyroid normal, trachea midline, no adenopathy. Heart--normal S1 and S2. No murmurs, rubs or gallops. Lungs--decreased breath sounds throughout. No respiratory distress, no accessory muscle use. Abdomen--normal bowel sounds and soft. Nontender. Nondistended, no hernias or masses, no organomegaly. Extremities--No edema. Dermatologic-- skin is dry. No rash Neurologic--cranial nerves II through XII grossly intact. Rheumatologic--normal range of motion. Psychiatric--normal affect. Discharge Exam General: 79 yo male, thin/cachectic appearing male, eating lunch, NAD, wanting to go home HEENT: head atraumatic,bitemporal wasting, thin neck, trachea midline Resp: bibasilar crackles, diminished lung sounds (L>R) but no wheezing, on 1L NC CV: NSR on telemetry, occ PVC , rates 60-80s, no significant m/r/g, no pitting edema/calf tenderness GI: +BS, scaphoid, nontender no santana MSK/Neuro: generalized weakness but nonfocal/no slurred speech, not confused Psych: AOx3, cooperative with exam Discharge Plan Discharge Items Patient Disposition: Home - Self-Care Reason For Visit: DYSPHAGIA Discharge Diagnosis: Dysphagia, esophageal adenocarcinoma Goals: You have been hospitalized for an acute medical problem. During your stay at [facility], we have made an effort to correct the problem that brought you to the hospital while keeping you as comfortable as possible. Medications were used to bring your condition under control and your discharge instructions will include directions for any medications you should take after leaving the hospital. Please make sure you see your Primary Care Provider as part of your follow up plan. Activity: As commented below Non-emergency contact: Primary Care Provider, Top Cleaner and Oncologist Call non-emergency contact if: you have any medication questions, your symptoms worsen, your pain is not controlled, your pain is worsening and you have a fever Follow-up/Referrals: Mony Caicedo DO [Primary Care Provider] - 09/05/24 10:20 am Radha Remy MD [Physician] - Mj Wen MD [Physician] - Diet: Regular Diet Texture: Easy to Chew Diet Comment: aspiration precautions, chin tuck per speech therapy Addtl Attending Provider Instructions: You have been hospitalized for issues with swallowing. Repeat consult with GI and endoscopy with biopsies were performed and do show evidence for underlying malignancy and Dr Remy is working on arranging ou tpatient PET/CT scan as well as follow up with interventional GI for treatment pending PET scan results. Your EGD showed fungal appearance and have been continued on FLUCONAZOLE daily which should be continued for another 7 days to complete 14 day course. You should continue your pantoprazole (Protonix), however this was INCREASED to TWICE daily. You should continue with aspiration precautions with easy to chew diet and supplements with protein drinks/boost/ensure to improve your baseline status prior to beginning treatment. Therapy evaluations were undertaken and recommend rehab but you declined this. Home health has been arranged. Please follow up with primary care in the next 7-10 days to monitor your progress after hospitalization and to help to coordinate your care. Please follo w up with oncology/Dr Remy as discussed. Please return to the ER with any worsening symptoms or symptoms concerning for you. It has been a pleasure being a part of the medical team providing for you while you have been in the hospital. Take care! Pending Studies at Discharge: No Stand-Alone Forms: My [employer], Smoking Cessation Medications and DC Order Prescriptions: New cyanocobalamin (vitamin B-12) 500 mcg Tablet 500 mcg PO QAM Qty: 30 0RF pantoprazole 40 mg Tablet,Delayed Release (Dr/Ec) 40 mg PO BID Qty: 60 0RF fluconazole 200 mg tablet 200 mg PO DAILY 7 Days Qty: 7 0RF Continued nitroglycerin [Nitrostat] 0.4 mg tablet, sublingual 0.4 mg SL UD PRN (Reason: chest pain) Qty: 25 3RF albuterol sulfate [Ventolin HFA] 90 mcg/actuation HFA aerosol inhaler 2 puff INH Q4H PRN (Reason: copd) Qty: 18 1RF Symbicort 80-4.5 mcg/actuation HFA aerosol inhaler 2 puff INH BID Qty: 10.2 11RF mometasone 50 mcg/actuation spray,non-aerosol 2 spray intranasal QAM Qty: 51 3RF Rx Instructions: INSTILL 2 SPRAYS INTO EACH NOSTRIL DAILY alfuzosin [Uroxatral] 10 mg tablet extended release 24 hr 10 mg PO DAILY Qty: 30 5RF Rx Instructions: administer after supper each day acetaminophen [Tylenol Extra Strength] 500 mg tablet 1,000 mg PO Q8H PRN (Reason: pain) aspirin 81 mg tablet,delayed release (DR/EC) 81 mg PO QAM multivitamin Tablet 1 tab PO DAILY sucralfate 100 mg/mL suspension 100 mg PO UD Rx Instructions: filled 08/21 30 day supply Discontinued doxycycline hyclate 100 mg capsule 100 mg PO BID 7 Days Qty: 14 0RF cefdinir 300 mg capsule 300 mg PO BID 7 Days Qty: 14 0RF prednisone 10 mg tablet See Rx Instructions PO DAILY Qty: 20 0RF Rx Instructions: orally daily; 40 mg x3 days, 20 mg x3 days, 10 mg x2 days pantoprazole 40 mg tablet,delayed release (DR/EC) 40 mg PO DAILY Qty: 90 1RF fluconazole [Diflucan] 100 mg tablet 100 mg PO DAILY 14 Days Qty: 14 0RF Discharge Orders: Discharge Order (Routine); Ordered 08/30/24 Ordered By: Eve Jackson Admission Data Admit Date/Time: 08/24/24 21:39 Attending Provider: Archie Wheat Admit Provider: Rafael Hickey Primary Care Provider: Mony Caicedo Other Providers: Rafael Hickey; Karely Mast Jr; Juan Carlos Emery; Bhavesh Chambers [facility] Other Interventions: Discharge Summary Assessment (RN) Last Done: 08/30/24 14:00 Hospital Stay Data Consultations 08/24/24 20:25 ED Decision to Admit Stat 08/24/24 22:53 Consult Gastroenterology Routine 08/27/24 17:35 Consult Oncology Routine Procedures Performed Operation Date: 08/25/24 16:30 Actual Procedures p EGD Biopsy Cytology(Not Applicable) - Darrel Nation MD Diagnostic Imagining Performed Chest X-Ray 08/24/24 15:05 XR chest 1V portable HISTORY: 79 years-old Male Dyspnea COMPARISON: Chest CT 07/17/2024 TECHNIQUE: AP view of the chest FINDINGS: Prior left pneumonectomy. Emphysema with unchanged linear scarring/opacity of the right upper lung. Chronic interstitial coarsening with compensatory hyperinflation of the right lung. Bones appear grossly intact. Cardiac shadow is obscured. Chronic left rib fractures. IMPRESSION: 1. Prior left-sided pneumonectomy. 2. Emphysema with unchanged linear consolidative right upper lung opacity/scarring. ACT 112: Negative or not required by law. The above report was generated using voice recognition software. It may contain grammatical, syntax or spelling errors. Electronically signed by: Elmo Ocasio M.D. 08/24/2024 3:58 PM Chest CTA 08/24/24 19:35 Exam(s): CTA CHEST IV Amt: 116ml EXAM: CT Angiography Chest With Intravenous Contrast CLINICAL HISTORY: Reason for exam: PE. TECHNIQUE: Axial computed tomographic angiography images of the chest with intravenous contrast. CTDI is 11.87 mGy and DLP is 466.19 mGy-cm. Automated exposure control was utilized for the study. A dose lowering technique was utilized adhering to the principles of ALARA. MIP reconstructed images were created and reviewed. COMPARISON: July 17, 2024 FINDINGS: Pulmonary arteries: The pulmonary arterial tree is well opacified with contrast. There is a small amount of thrombus in the right upper lobe pulmonary artery branch extending toward the area of irregular scarring. This is unchanged since previous. No new or course of pulmonary embolism is identified. Aorta: Mild scattered calcified plaque involving the thoracic aorta without aneurysm or dissection. Lungs: Surgical changes from previous left pneumonectomy with fluid in the remaining left pleural space, unchanged. No mass. Pleural space: Mild emphysematous changes in the right lung. There is mild central bronchial wall thickening suggesting bronchitis. No acute infiltrate, pneumothorax, or pleural effusion is seen on the right. Heart: Unremarkable. No cardiomegaly. No significant pericardial effusion. No evidence of RV dysfunction. Bones/joints: No acute fracture. No dislocation. Soft tissues: There is a platelike band of soft tissue density extending across the right upper hemithorax. This is difficult to measure, approximately 4.3 x 2.3 cm measured on the coronal image at the level of the metallic clip. Lymph nodes: Unremarkable. No enlarged lymph nodes. IMPRESSION: 1. The pulmonary arterial tree is well opacified with contrast. There is a small amount of thrombus in the right upper lobe pulmonary artery branch extending toward the area of irregular scarring. This is unchanged since previous. No new or course of pulmonary embolism is identified. 2. Mild emphysematous changes in the right lung. There is mild central bronchial wall thickening suggesting bronchitis. No acute infiltrate, pneumothorax, or pleural effusion is seen on the right. 3. Mild scattered calcified plaque involving the thoracic aorta without aneurysm or dissection. 4. Surgical changes from previous left pneumonectomy with fluid in the remaining left pleural space, unchanged. 5. There is a platelike band of soft tissue density extending across the right upper hemithorax. This is difficult to measure, approximately 4.3 x 2.3 cm measured on the coronal image at the level of the metallic clip. No significant change since previous. Probable scarring. Electronically signed by: Ant Case MD 08/24/24 20:22 PM Chest X-Ray 08/30/24 07:00 XR chest 1V portable CLINICAL HISTORY: f/u asp TECHNIQUE: Single frontal radiograph of the chest was obtained. Comparison: Comparison is made to chest radiographs 08/24/2024 FINDINGS: No lines and tubes are seen. The cardiomediastinal silhouette is normal. Postsurgical changes of left pneumonectomy and linear scarring in the right upper lung. No evidence of pleural effusion or pneumothorax. IMPRESSION: No abnormality to suggest aspiration. Chronic postpneumonectomy changes are seen. ACT 112: Negative or not required by law. Electronically signed by: Enrique Yusuf M.D. 08/30/2024 7:24 AM Videofluoroscopic Swallow 08/30/24 09:30 VIDEO SWALLOW STUDY CLINICAL HISTORY: Aspiration. Pneumonia. COMPARISON STUDY: Video swallow study dated 01/26/2017. FLUOROSCOPY TIME: 3.1 minutes. Ka,r: 4.58 mGy. TECHNIQUE: Fluoroscopic guidance was provided to the department of speech pathology in performing a video swallow study. The patient consumed barium impregnated pudding, nectar thick liquids, and thin barium while the swallowing mechanism was observed in real-time. There is pharyngeal penetration and aspiration seen with thin barium. No penetration or aspiration was seen with the pudding or nectar thick liquids. Dysmotility and esophageal retention was observed during the examination. IMPRESSION: 1. There is pharyngeal penetration and aspiration seen with thin barium. 2. No penetration or aspiration was seen with the remaining sampled textures. 3. See dedicated speech pathology report for detailed findings and recommendations. Dictated: 08/30/2024 11:16 AM Transcribed: 08/30/2024 11:29 AM Vidhi [id number] MARIBEL_Godfrey [id number] Electronically signed by: Vaibhav Rolon M.D. 08/30/2024 11:47 AM Discharge Instructions Given to Patient (Per Discharging Provider) You have been hospitalized for issues with swallowing. Repeat consult with GI and endoscopy with biopsies were performed and do show evidence for underlying malignancy and Dr Remy is working on arranging outpatient PET/CT scan as well as follow up with interventional GI for treatment pending PET scan results. Your EGD showed fungal appearance and have been continued on FLUCONAZOLE daily which should be continued for another 7 days to complete 14 day course. You should continue your pantoprazole (Protonix), however this was INCREASED to TWICE daily. You should continue with aspiration precautions with easy to chew diet and supplements with protein drinks/boost/ensure to improve your baseline status prior to beginning treatment. Therapy evaluations were undertaken and recommend rehab but you declined this. Home health has been arranged. Please follow up with primary care in the next 7-10 days to monitor your progress after hospitalization and to help to coordinate your care. Please follow up with oncology/Dr Remy as discussed. Please return to the ER with any worsening symptoms or symptoms concerning for you. It has been a pleasure being a part of the medical team providing for you while you have been in the hospital. Take care! Supervising Physician Co-Signing Physician Notes The patient was not seen by me. The chart was reviewed. Case discussed with CHRISTIANO Knott. Agree with assessment and plan Total Time Total Time Spent Total Time Spent (In Minutes): 45 Coding Level of Care Code 23562 INP/OBS DISCH >30 MIN Diagnoses Esophageal dysphagia R13.19 Dysphagia type: esophageal phase Esophageal candidiasis B37.81 COPD (chronic obstructive pulmonary disease) J44.9 Chronic pulmonary embolism I27.82
[2024-08-30 12:50] VITALS: TEMP 97.5
[2024-08-30 14:13] VITALS: BP 142/81
[2024-08-30 14:42] VITALS: PULSE 98
[2024-08-31] MEDS ORDERED: CYANOCOBALAMIN (B-12) 500 MCG TABLET PO SCH (09:00)
== END 2024-08-30 16:23 | disposition home or self-care (01) | DRG 375 ==
LOC: ED 15:03 → SUATTDRO 21:39 → EDINP 21:39 → 2N 22:53

== ENCOUNTER 2024-09-02 15:54 | Inpatient (IN) ==
--- OUTSIDE RECORDS SUMMARY | 2024-09-02 15:58 | External Medical Summary | Summary of Care ---
Author Name Unknown Organization [facility] Address [address] [place] [address] Phone [phone] Care Team Providers Care Separator Operator Shellfish Meats Name Role Phone Mony Caicedo DO Primary Care Provider +1- [phone] Reason for Referral * Evaluate & Treat - Unlimited Visits (Within 24 hrs (call dept; emergent)) - Authorized Specialty Diagnoses / Procedures Referred By Dana t Referred To Contact Gastroenterology Diagnoses Esophageal cancer (HCC) Eve Jackson PA-C [address] [place] [address] Referral ID Status Reason Start Date Expiration Date Visits Requested Visits Authorized [id number] Authorized Specialty Services Required [phone] Question Answer Referral Priority Within 24 hrs (call dept; emergent) Where should this appointment be scheduled? [facility] For what condition is the patient being referred? All Gastro Conditions Comments Esophageal cancer Encounter Details Date Type Department Care Team (Late st Contact Info) Description 08/30/2024 Orders Only Access Center, [address] Ext *DO NOT REMOVE THIS DEPARTMENT* [place] [phone] Request, External Referral Esophageal cancer (HCC)* Medications Medication Sig Dispensed Refills Start Date End Date Status ASPIRIN 81 MG PO TABS 1 TABLET DAILY 0 06/06/2009 Active MULTIVITAMINS PO TABS 1 tablet daily Active XOPENEX 0.63 MG/3ML IN NEBU inhale four times daily as needed for SOB/ wheezing Active BOOST HIGH PROTEIN PO LIQD 1 can every other day by mouth Active Tamsulosin HCl 0.4 MG Oral Capsule (Flomax) 05/28/2021 Act dominick Mometasone Furoate 50 MCG/ACT Nasal Suspension 06/09/2021 Active Budesonide-Formoterol Fumarate 80-4.5 MCG/ACT Inhalation Aerosol (Symbicort) 05/23/2021 Activ e documented as of this encounter (statuses as of 08/30/2024) Active Problems Problem Noted Date Diagnosed Date Lung cancer 02/23/2012 Overview: Pneumonectomy Left in 2003 Partial upper lobe removal right lung in ? Dysphagia 02/23/2012 Overview: H/o aspiration pneumonia ICD-10 update of inactive term documented as of this encounter (statuses as of 08/30/2024) Immunizations Name Administration Dates Next Due Pneumococcal Polysaccharide PPV23 (Pneumovax) Seasonal Influenza, Trivalent, (IIV3), PF, (Fluz one) 08/24/2011 documented as of this encounter Social History Tobacco Use Types Packs/Day Years Used Date Smoking Tobacco: Former Alcohol Use Standard Drinks/Week Comments No 0 (1 standard drink = 0.6 oz pur e alcohol) Hunger Vital Sign Answer Date Recorded Within the past 12 months, y ou worried that your food would run out before you got the money to buy more. Never true 06/11/20 23 Within the past 12 months, t he food you bought just didn't last and you didn't have money to get more. Never true 06/11/2023 Childcare Answer Date Recorded Do you feel overwhelmed with taking care of a child, family member or friend? No 06/11/2023 Does your family need help f inding childcare? (Household - for ages 0-17 years) Not on file 06/11/2023 Clothing Answer Date Recorded Have you been unable to get clothing when it was really needed? No 06/11/2023 Is your family able to get c lothes or diapers when needed? (Household - for ages 0-17 years) Not on file 06/11/2023 Personal Safety Answer Date Recorded Do you feel unsafe or have concerns for your saf ety? No 06/11/2023 Do you have concerns for you r family's safety? (Household - for ages 0-17 years) Not on file 06/11/2023 Utilities Answer Date Recorded Do you have trouble paying y our heating, water, or electric bill? (Adult - for ages 18 years and over) Not on file 06/12/2024 Is your family able to pay t he heat, water, or electric bill? (Household - for ages 0-17 years) Not on file 06/12/2024 Does your family have access to good internet? (Household - for ages 0-17 years) Not on file 06/12/2024 Employment Status Answer Date Recorded Are you unemployed or without regular income? No 06/11/2023 Does the household have a re lar source of income? (Household - for ages 0-17 years) Not on file 06/11/2023 Social Connections Answer Date Recorded How often do you feel lonely or isolated from those around you? (Adult - for ages 18 years and over) Not on file 06/12/2024 Financial Resource Strain Answer Date R ecorded Do you have any trouble payi ng for your medications, or do you think you might in the future? No 06/11/2023 Does your family have troubl e paying for medicine? (Household - for ages 0-17 years) Not on file 06/11/2023 Transportation Needs Answer Date Record ed READ ONLY Do you have troubl e getting a ride to medical visits or work? Never True 06/11/2023 Does your family have a hard time getting a ride to doctors visits? (Household - for ages 0-17 years) Not on file 06/11/2023 Has lack of transportation k ept you from medical appointments, meetings, work, or from getting things needed for daily living? Check all that apply. (Adult - for ages 18 years and over) Not on file 06/11/2023 Do you (or your family) have trouble finding or paying for a ride (transportation)? (Household - for ages 0-17 years) Not on file 06/11/2023 Housing Stability Answer Date Recorded Do you currently live in a s helter or have no steady place to sleep at night? No 06/11/2023 READ ONLY Do you think you a re at risk of becoming homeless? No 06/11/2023 Does your family worry about paying for your home or becoming homeless? (Household - for ages 0-17 years) Not on file 0 06/11/2023 Are you homeless or worried that you might be in the future? (Adult - for ages 18 years and over) Not on file Are you (or your family) pretty eless or worried that you might be in the future? (Household - for ages 0-17 years) Not on file Food Insecurity Answer Date Recorded Do you need food for this week? No 06/11/2023 Are you able to get enough f ood for your family? (Household - for ages 0-17 years) Not on file 06/11/2023 Does your family need food t his week? (Household - for ages 0-17 years) Not on file 06/11/2023 Do you always have enough fo od for your family? (Household - for ages 0-17 years) Not on file 06/11/2023 Sex and Gender Information Value Date Recorded Sex Assigned at Not on file Gender Identity Not on file Sexual Orientation Not on file documented as of this encounter Plan of Treatment Scheduled Referrals Name Type Priority Associated Diagnoses Order Schedule ADULT GASTROENTEROLOGY REFERRAL OP Referral Within 24 hrs (call dept; emergent) Esophageal cancer (HCC) Ordered: 08/30/2024 Health Maintenance Due Date Last Done Comments Depression Screening 1957 Hepatitis C Screening 1963 Zoster Vaccines (1 of 2) 1995 COVID-19 Vaccine ( season) 2024 Influenza Vaccine (FLU shot) (#1) 2024 07/25/2021, 08/09/2020, 08/10/2019, Additional history exists DTap/Tdap Vaccines (2 - Tdap) 02/12/2025 02/12/2015 Pneumococcal Vaccine: 65+ Years Completed 08/25/2019, 08/13/2017, 08/24/2011 HPV (Gardasil) Vaccine Aged Out No lo nger eligible based on patient's age to complete this topic Hepatitis B Vaccine Aged Out No longe r eligible based on patient's age to complete this topic MENINGOCOCCAL (MENACTRA/MENVEO) Aged Out No longer eligible based on patient's age to complete this topic documented as of this encounter Medical Devices Not on filedocumented as of this encounter Visit Diagnoses Diagnosis Esophageal cancer (HCC)- Primary Malignant neoplasm of esophagus, unspecified site documented in this encounter Care Teams Separator Operator Shellfish Meats Relationship Specialty Start Date End Date Mony Caicedo DO [address] [facility] 2 [place] [address] PCP - General Family Medicine 06/11/23 documented as of this encounter
--- OUTSIDE RECORDS SUMMARY | 2024-09-02 15:58 | External Medical Summary | Summary of Care ---
Author Name Unknown Organization [facility] Address [address] [place] [address] Phone [phone] Care Team Providers Care Circuit Designer Name Role Phone Mony Caicedo DO Primary Care Provider +1- [phone] Reason for Referral * Evaluate & Treat - Unlimited Visits (Within 24 hrs (call dept; emergent)) - Authorized Specialty Diagnoses / Procedures Referred By Dana t Referred To Contact Gastroenterology Diagnoses Esophageal cancer (HCC) Eve Jackson PA-C [address] [place] [address] Referral ID Status Reason Start Date Expiration Date Visits Requested Visits Authorized [id number] Authorized Specialty Services Required 4 [phone] Question Answer Referral Priority Within 24 hrs (call dept; emergent) Where should this appointment be scheduled? [facility] For what condition is the patient being referred? All Gastro Conditions Comments Esophageal cancer Encounter Details Date Type Department Care Team (Late st Contact Info) Description 08/30/2024 Orders Only Access Center, [address] *DO NOT REMOVE THIS DEPARTMENT* [place]STIANO MIXON [id number] Request, External Referral Esophageal cancer (HCC)* Medications [...] site documented in this encounter Care Teams Circuit Designer Relationship Specialty Start Date End Date Mony Caicedo DO [address] [facility] 2 [place] [address] PCP - General Family Medicine 06/11/23 documented as of this encounter
--- OUTSIDE RECORDS SUMMARY | 2024-09-02 15:58 | External Medical Summary | Summary of Care ---
Author Name Unknown Organization [facility] Address [address] [place] [address] Phone [phone] Care Team Providers Care Clinical Unit Coordinator Name Role Phone Mony Caicedo DO Primary Care Provider +1- [phone] Reason for Visit * Reason Onset Date Comments [facility]: Screening 08/28/2024 Encounter Details Date Type Department Care Team (Late st Contact Info) Description 08/28/2024 Telephone [facility], [address] [place] [address] Felicita Wright, CHIEF SCIENTIST [address] [place] [address] [facility]: Screening Medications Medication Sig Dispensed Refills Start Date [...] as of this encounter (statuses as of 08/28/2024) Active Problems Problem Noted Date Diagnosed Date Lung cancer 02/23/2012 Overview: Pneumonectomy Left in 2004 Partial upper lobe removal right lung in ? Dysphagia 02/23/2012 Overview: H/o aspiration pneumonia ICD-10 update of inactive term documented as of this encounter (statuses as of 08/28/2024) Immunizations Name Administration Dates Next Due Pneumococcal [...] 06/11/2023 Does the household have a re gular source of income? (Household - for ages [...] on file documented as of this encounter Miscellaneous Notes * Telephone Encounter - Felicita Wright LPN - 08/28/2024 3:44 PM EDT James Abdi was referred as a potential candidate for enrollment for [facility]. A review of this chart was completed and: James meets criteria for [facility]. Jump to Initiation Referring care team was notified via : [email or web address] communication Patient is currently admitted to [facility] Adding to the hospital list to follow for d/c documented in this encounter Plan of Treatment Health Maintenance Due Date Last Done Comments Depression Screening 1957 Hepatitis C Screening 1963 Zoster Vaccines (1 of 2) 1995 COVID-19 Vaccine ( - season) 2024 Influenza Vaccine (FLU shot) (#1) [...] Not on filedocumented as of this encounter Care Teams Clinical Unit Coordinator Relationship Specialty Start Date End Date Mony Caicedo DO [address] [facility] 2 [place] [address] PCP - General Family Medicine 06/11/23 documented as of this encounter
--- OUTSIDE RECORDS SUMMARY | 2024-09-02 15:58 | External Medical Summary | Summary of Care ---
Author Name Unknown Organization [facility] Address [address] [place] [address] Phone [phone] Care Team Providers Care Breast Buffer Name Role Phone Mony Caicedo DO Primary Care Provider +1- [phone] Encounter Details Date Type Department Care Team (Late st Contact Info) Description 08/30/2024 Telephone Gastroenterology, [facility] [address] [place] [address] Myles Cruz MD [address] [place] [address] Medications Medication Sig Dispensed Refills Start Date [...] encounter Miscellaneous Notes * Telephone Encounter - Jennifer Love OSA - 08/30/2024 11:56 AM EDT Received a message from scheduling POD for a 24 hour urgent appt. Looks like the records are for an ESD/EMR for esophageal cancer. Please review and advise. documented in this encounter Plan of Treatment [...] filedocumented as of this encounter Care Teams Breast Buffer Relationship Specialty Start Date End Date Mony Caicedo DO [address] [facility] 2 [place] [address] PCP - General Family Medicine 06/11/23 documented as of this encounter
--- OUTSIDE RECORDS SUMMARY | 2024-09-02 15:58 | External Medical Summary | Summary of Care ---
Author Name Unknown Organization [facility] Address [address] [place] [address] Phone [phone] Care Team Providers Care Pressfitter Name Role Phone Mony Caicedo DO Primary Care Provider +1- [phone] Encounter Details Date Type Department Care Team (Late st Contact Info) Description 08/30/2024 Telephone Gastroenterology, [facility] [address] [place] [address] Myles Cruz MD [address] [facility] [place] [address] Medications Medication Sig Dispensed Refills Start Date [...] as of this encounter (statuses as of 09/01/2024) Active Problems Problem Noted Date Diagnosed Date Lung cancer 02/23/2012 Overview: Pneumonectomy Left in 2004 Partial upper lobe removal right lung in ? Dysphagia 02/23/2012 Overview: H/o aspiration pneumonia ICD-10 update of inactive term documented as of this encounter (statuses as of 09/01/2024) Immunizations Name Administration Dates Next Due Pneumococcal [...] encounter Miscellaneous Notes * Telephone Encounter - Myles Cruz MD - 09/01/2024 11:49 AM EDT Leonora, this is really really urgent, waiting longer will risk invasion and he will loose his chanceof curative resection. * Telephone Encounter - Jennifer Love OSA - 09/01/2024 9:26 AM EDT Leonora, can I ask for pm OR time on 09/15? * Telephone Encounter - Myles Cruz MD - 08/31/2024 8:55 PM EDT Patient with T1 esophageal cancer and needs urgent EGD with EMR of the lesion with me at [facility] within3 weeks if possible, total 120 min for the case. * Telephone Encounter - Jennifer Love OSA [...] Vaccines (1 of 2) 1995 COVID-19 Vaccine (1 - 2023- season) 2024 Influenza Vaccine (FLU shot) (#1) [...] filedocumented as of this encounter Care Teams Pressfitter Relationship Specialty Start Date End Date Mony Caicedo DO [address] [facility] 2 [place] [address] PCP - General Family Medicine 06/11/23 documented as of this encounter
--- OUTSIDE RECORDS SUMMARY | 2024-09-02 15:58 | External Medical Summary | Summary of Care ---
Author Name Unknown Organization [facility] Address [address] [place] [address] Phone [phone] Care Team Providers Care Wolf Hunter Name Role Phone Mony Caicedo DO Primary Care Provider +1- [phone] Encounter Details Date Type Department Care Team (Late st Contact Info) Description 08/30/2024 Telephone Gastroenterology, [facility] [address] [place] [address] Myles Cruz MD [address] [facility] [place] [address] Medications Medication Sig Dispensed Refills Start Date [...] EMR of the lesion with me at [facility] within3 weeks if possible, total 120 min [...] of 2) 1995 COVID-19 Vaccine (1 - season) 2024 Influenza Vaccine (FLU shot) [...] filedocumented as of this encounter Care Teams Wolf Hunter Relationship Specialty Start Date End Date Mony Caicedo DO [address] [facility] 2 [place] [address] PCP - General Family Medicine 06/11/23 documented as of this encounter
--- OUTSIDE RECORDS SUMMARY | 2024-09-02 15:58 | External Medical Summary | Summary of Care ---
Author Name Unknown Organization [facility] Address [address] [place] [address] Phone [phone] Care Team Providers Care Internal Combustion Engine Inspector Name Role Phone Mony Caicedo DO Primary Care Provider +1- [phone] Encounter Details Date Type Department Care Team (Late st Contact Info) Description 08/30/2024 Telephone Gastroenterology, [facility] [address] [place] [address] Myles Cruz MD [address] [place] [address] Medications Medication Sig Dispensed Refills Start Date [...] as of this encounter (statuses as of 08/31/2024) Active Problems Problem Noted Date Diagnosed Date Lung cancer 02/23/2012 Overview: Pneumonectomy Left in 2004 Partial upper lobe removal right lung in ? Dysphagia 02/23/2012 Overview: H/o aspiration pneumonia ICD-10 update of inactive term documented as of this encounter (statuses as of 08/31/2024) Immunizations Name Administration Dates Next Due Pneumococcal [...] EMR of the lesion with me at [facility] within3 weeks if possible, total 120 min [...] filedocumented as of this encounter Care Teams Internal Combustion Engine Inspector Relationship Specialty Start Date End Date Mony Caicedo DO [address] [facility] [address] [place] [address] PCP - General Family Medicine 06/11/23 documented as of this encounter
--- OUTSIDE RECORDS SUMMARY | 2024-09-02 15:58 | External Medical Summary | Continuity of Care Document ---
Author Name Unknown Organization [facility] Address [address] [phone] Care Team Providers Care Mud Mixer Helper Name Role Phone Jarvis Ortega Primary Care Physician [phone] Encounter [facility] [id number] Date(s): 08/23/24 - 08/23/[address] [phone] Discharge Disposition: Home or Self Care Attending Physician: MD Osborn Sarah J Referring Physician: MD Osborn Sarah J Allergies, Adverse Reactions, Alerts No Known Allergies Medications aspirin Start: 10/17/10 2:15:10 PM EST, 81 mg =, PO, Daily, Refills: 0, current medication from another provider Start Date: 10/17/10 Status: Ordered Combivent Start: 11/25/11 12:53:00 PM EST, bid Start Date: 11/25/11 Status: Ordered multivitamin Start: 10/17/10 2:15:18 PM EST, PO, Daily, Refills: 0, current medication from another provider Start Date: 10/17/10 Status: Ordered Social History Social History Type Response Sex Male Sex Representation Male (finding) Patient Care team information Care Team Personnel Name: MD Ortega Paul Position: Referring DIRECT Member Role: Primary Care Provider Address: [address] [facility] [address] [place] [address] [place] Care Team Related Persons Name: DEBBIE PEREZ Name: ALMA DELIA FARFAN Name: MACI PIÑA
--- OUTSIDE RECORDS SUMMARY | 2024-09-02 15:58 | External Medical Summary | Summary of Care ---
Author Name Unknown Organization [facility] Address [address] [place] [address] Phone [phone] Care Team Providers Care Cell Assembly Pinner Name Role Phone Marifer Monyyazmin Diaz Primary Care Provider +1- [phone] Encounter Details Date Type Department Care Team (Late st Contact Info) Description 08/28/2024 Population Health External Data Unspecified Department Medications Medication Sig Dispensed Refills Start Date [...] as of this encounter Plan of Treatment Health Maintenance [...] filedocumented as of this encounter Care Teams Cell Assembly Pinner Relationship Specialty Start Date End Date Mony Caicedo DO [address] [facility] 2 [place] [address] PCP - General Family Medicine 06/11/23 documented as of this encounter
[2024-09-02 16:39] LABS: Basophils # (auto) 0.07 K/uL (0.00-0.20); Basophils % (auto) 0.9 %; Eosinophils # (auto) 0.07 K/uL (0.00-0.50); Eosinophils % (auto) 0.9 %; Hematocrit (blood only) 47.1 % (42.0-52.0); Hemoglobin 15.3 g/dl (14.0-18.0); Immature Granulocytes # (auto) 0.03 K/uL (0.01-0.20); Immature Granulocytes % (auto) 0.4 %; Lymphocytes # (auto) 1.16 K/uL (1.20-3.40); Lymphocytes % (auto) 14.9 %; Mean Corpuscular Hemoglobin 29.1 pg (25.0-34.0); Mean Corpuscular Hgb Conc 32.5 g/dL (32.0-36.0); Mean Corpuscular Volume 89.7 fL (80.0-100.0); Mean Platelet Volume 11.1 fL (9.4-12.4); Monocytes # (auto) 0.98 K/uL (0.11-0.59); Monocytes % (auto) 12.6 %; Neutrophils # (auto) 5.48 K/uL (1.40-6.50); Neutrophils % (auto) 70.3 %; Platelet Count 287 K/uL (130-400); RDW Coefficient of Variation 13.4 % (11.5-14.5); RDW Standard Deviation 44.1 fL (36.4-46.3); Red Blood Count 5.25 M/uL (4.70-6.10); White Blood Count 7.79 K/ul (4.8-10.8)
[2024-09-02 16:45] LABS: Albumin Globulin Ratio 1.3 (0.9-2); Albumin Level 4.2 gm/dl (3.4-5.0); BUN Creatinine Ratio 17.9 (10-20); Bilirubin,Total 0.5 mg/dl (0.2-1.0); Calcium 9.3 mg/dl (8.6-10.3); Creatinine Clr Calc Pharmacy 75.3 ml/min; Globulin 3.3 gm/dl (2.5-4.0); Potassium 4.4 mmol/L (3.5-5.1); Total Protein 7.5 gm/dl (6.0-8.3)
--- NOTE | 2024-09-02 17:14 | XRay Report ---
EXAM: Radiograph of the Chest 1 View INDICATION: Dyspnea. Possible esophageal foreign body. TECHNIQUE: Frontal view of the chest. COMPARISON: 08/30/2024 FINDINGS: Lungs and pleural spaces: Left pneumonectomy changes stable. Stable coarse bandlike scarring in the right upper lung with adjacent pleural thickening. Heart: Stable shifted heart into the left chest. Mediastinum: Normal contour. Bones/joints: No fracture, erosion or dislocation. Soft tissues: Aside from a surgical clip projecting to the left of the spine at the level of the proximal descending aorta, no foreign bodies identified. Upper abdomen: No abnormality noted. IMPRESSION: 1. Aside from a surgical clip projecting to the left of the spine at the level of the proximal descending aorta, no foreign bodies identified. 2. No acute cardiopulmonary disease. Stable chronic changes. ACT 112: Negative or not required by law. Electronically signed by Chrissy Valdes 09-02-2024 5:14 PM
--- NOTE | 2024-09-02 18:01 | History & Physical Report ---
Date of Service September 02, 2024 Assessment & Plan (1) Dysphagia: Plan: This is a 79-year-old gentleman with past medical history of prostate cancer, lung cancer, chronic pulmonary embolism, history of pneumonectomy, COPD, esophageal candidiasis who presented to the ER on 09/02/2024 with concerns of dysphagia and shortness of breath. S/p EGD 08/25/2024: Nodular erythematous mucosa in the esophagus, gastritis, normal examined duodenum EGD 08/30/2024: Nodular erythematous mucosa in the esophagus, gastritis, normal examined duodenum Video swallow study 08/30/2024: Pharyngeal penetration aspiration seen with thin barium. No penetration or aspiration was seen with the remaining sample textures. Continue Diflucan inpatient IV Keep patient n.p.o. pending GI consultation, appreciate recommendations IVF while patient NPO. IV PPI twice daily Patient will require oncology referral upon discharge Chest x-ray without acute pathology CBC and BMP stable AM CBC/BMP (2) COPD (chronic obstructive pulmonary disease): Plan: Patient with productive cough at time of encounter.per patient this is at baseline for him. Continue scheduled inhalers Chest x-ray negative Respiratory BioFire pending Obtain sputum culture 2 L oxygen via nasal cannula Wean if possible back to room air Plan DVT prophylaxis: Hold until seen by GI and event of emergent endoscopy CODE STATUS: Full Diet: N.p.o. Disposition admit to medical History of Present Illness Primary Care Provider: Mony Caicedo DO This is a 79-year-old gentleman with past medical history of prostate cancer, lung cancer, chronic pulmonary embolism, history of pneumonectomy, COPD, es ophageal candidiasis who presented to the ER on 09/02/2024 with concerns of dysphagia and shortness of breath. Patient was recently admitted to the hospital from 08/17/2024 to 08/30/2024. He underwent 2 EGDs during this hospitalization. 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 Also with candidal esophagitis. Patient originally was not able to tolerate oral Diflucan. He was unable to tolerate this and discharged home. He has been taking this as prescribed. Patient states that on 08/31 he had a potato salad and felt that a large potato was lodged in his throat. He feels that it is still stuck there. On 09 01 he states that he had a pot pie and he felt this went down okay but still felt that the potato was stuck in his throat. Then today he attempted to take his multivitamin pill and states that this is now lodged in his throat with his potato salad. At time of my encounter he was coughing up productive mucus. He states that this is baseline for him since his pneumonectomy. Patient also feels that he has bronchitis from his past hospitalization but would not further elaborate. He states that his cough is at baseline for him. He denies any shortness of breath or chest pain. He denies any abdominal pain. He denies nausea or vomiting. Per the ED provider, GI was called. It was recommended to keep him n.p.o., administer IV fluids and they will evaluate him in the morning. Possibility that a repeat endoscopy may be performed at some point. Allergies Allergy/AdvReac Type Severity Reaction Status Date / Time Penicillins Allergy Intermediate Difficulty Verified 09/05/24 16:12 Swallowing ciprofloxacin Allergy Unknown Difficulty Verified 09/05/24 16:12 Breathing latex Allergy Unknown Rash Verified 09/05/24 16:12 lorazepam Allergy Unknown Rash Verified 09/05/24 16:12 sulfamethoxazole Allergy Unknown Difficulty Verified 09/05/24 16:12 Breathing cephalexin AdvReac Mild Yeast Verified 09/05/24 16:12 infection minocycline AdvReac Mild Yeast Verified 09/05/24 16:12 infection Home Medications Medication Instructions Recorded Confirmed Type acetaminophen 500 mg tablet 1,000 mg PO Q8H PRN pain 06/19/19 09/05/24 History (Tylenol Extra Strength) aspirin 81 mg tablet,delayed 81 mg PO QAM 06/19/19 09/05/24 History release albuterol sulfate 90 mcg/actuation 2 puff inhalation Q4H PRN copd #18 11/04/23 09/05/24 Rx aerosol inhaler (Ventolin HFA) grams budesonide-formoterol HFA 80 2 puff inhalation BID #10.2 grams 05/11/24 09/05/24 Rx mcg-4.5 mcg/actuation aerosol inhaler (Symbicort) mometasone 50 mcg/actuation nasal 2 spray intranasal QAM #51 grams 06/19/24 09/05/24 Rx spray multivitamin 1 tab PO DAILY 08/09/24 09/05/24 History alfuzosin 10 mg tablet,extended 10 mg PO DAILY #30 tabs 08/14/24 09/05/24 Rx release 24 hr (Uroxatral) cyanocobalamin (vitamin B-12) 500 500 mcg PO QAM #30 tabs 08/30/24 09/05/24 Rx mcg tablet pantoprazole 40 mg tablet,delayed 40 mg PO BID 09/02/24 09/05/24 History release nitroglycerin 0.4 mg sublingual 0.4 mg sublingual UD PRN chest 09/06/24 Rx tablet (Nitrostat) pain #25 tabs Past Med/Surg History Problem List Esophageal adenocarcinoma Dysphagia (Acute) difficulty swallowing some pills Duodenal ulcer disease Acute gastritis Reflux esophagitis Esophageal candidiasis Acute exacerbation of chronic obstructive pulmonary disease (Acute) Hypoxia (Acute) BRYANT (dyspnea on exertion) (Acute) History of prostate cancer (Chronic 04/17/21) 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 Chronic pulmonary embolism Peyronie's disease LVH (left ventricular hypertrophy) Herpes zoster Prostate nodule Hematuria Lower urinary tract symptoms (LUTS) History of pneumonectomy (01/2004) Left + 2 ribs removed COPD (chronic obstructive pulmonary disease) (Chronic) Medical History Chronic pulmonary embolism LVH (left ventricular hypertrophy) On home oxygen therapy Malignant neoplasm of prostate with intermediate recurrence risk, stage T2B-C or Matthias 7 or prostate-specific antigen (PSA) 10-20 Malignant neoplasm of left lung (01/20/17) Primary cancer of right upper lobe of lung (01/20/17) Poor historian Aspiration pneumonia Respiratory failure COPD (chronic obstructive pulmonary disease) Surgical History History of esophagogastroduodenoscopy (EGD) History of pneumonectomy (01/2004) History of amputation Hx of colonoscopy Status post shoulder surgery History of elbow surgery Family History Father Cardiac disorder Stroke Mother Cardiac disorder Diabetes Myocardial infarction Brother Diabetes Sister Breast cancer Other Cancer Denies family history of Ovarian cancer Prostate cancer Colorectal cancer Social History Smoking Status: Former smoker Tobacco Type: Cigarettes Age Started Using Tobacco: 14; Age Quit Using Tobacco: 42; packs per day: 2; Second Hand Exposure: Yes (as a child); Do You Dip or Chew Tobacco: Yes (Full leaf tobacco > advised none DOS); Hx Alcohol Use: Yes Alcohol type: hard liquor Alcohol type Comment: 6 oz whiskey a day w/honey Alcohol Intake Frequency: 4 or More x per/Week Hx Substance Use: No Preferred Language: Faroese Communication Ability: Effective Visual Impairment: No Limitations Hearing Ability: Hard of Hearing Gaming Cashier Required: No Beliefs That Will Affect Care: None marital status: Single Current Living Situation: Spouse current occupational status: retired Feels Safe at Home: Yes Childhood Exposure to Second-Hand Smoke: Yes Diet: regular Diet Comment: regular caffeine: Yes during the past year weight has: remained stable Dental Care, Regularly: No Physical Activity Frequency: Does not Exercise Seatbelt Use: never Sunscreen Use: No (can not go in direct sunlight) Assistive Devices: Oxygen - Continuous Physical Exam Constitutional: WD/WN, vitals as above Eyes: PERRL, conjunctivae normal, anicteric sclerae Respiratory: diminished lung sounds throughout. L side diminished consistent with hx of pneumonectomy Cardiovascular: RRR, no murmur, no edema Psychiatric: A+Ox3, euthymic affect Results & Data Results & Data Vital Signs (Past 12 Hours) Vital Signs Temp Pulse Pulse Resp BP Pulse Ox O2 Del Method 09/02/24 17:21 71 24 100 Nasal Cannula 09/02/24 17:12 71 22 100 Nasal Cannula 09/02/24 17:03 68 22 100 Nasal Cannula 09/02/24 17:01 138/68 09/02/24 16:38 75 09/02/24 16:30 76 164/94 H 100 09/02/24 16:08 76 26 H 99 Nasal Cannula 09/02/24 16:08 99 Nasal Cannula 09/02/24 15:55 36.9 C 88 28 H 146/99 H 100 Room Air O2 Flow Rate 09/02/24 17:21 2 09/02/24 17:12 2 09/02/24 17:03 2 09/02/24 17:01 09/02/24 16:38 09/02/24 16:30 09/02/24 16:08 2 09/02/24 16:08 2 09/02/24 15:55 Code Status & VTE Plan VTE Prophylaxis Plan VTE Prophylaxis will be ordered: Yes Supervising Physician Co-Signing Physician Notes I personally saw and examined the patient. I independently reviewed the labs, EKG, imaging, problem list, medication list, past medical history and family history. I verified all stout points and agree with Maria Elena Fitzpatrick PA-C with the following exceptions and/or additions: 79 year old male with esophageal thrush and adenocarcinoma presents to the ER with concern with food bolus stuck and pills getting stuck O/E HS RRR, no murmurs, Chest CTAB, Abdo SNT A/P Dysphagia - recent esophageal thrush but nothing currently on exam, continue previous fluconazole IV, consult gastroenterology for consideration of EGD, IV pantoprazole 40mg IV BID, liquids today but NPO after midnight PG Care Time/CCT Total # of Minutes Spent Total Time Spent with Patient: Total time spent is greater than 50% in coordination of care (as documented) at patient's floor/unit and/or counseling patient: Coding Level of Care Code 39084 INT INP/OBS CARE MIN Diagnoses Esophageal dysphagia R13.19 Dysphagia type: esophageal phase COPD (chronic obstructive pulmonary disease) J44.9 (1) Dysphagia Dysphagia type: esophageal phase Qualified Code(s): R13.19 - Other dysphagia
[2024-09-02] MEDS: PANTOprazole 40 MG/10 ML SYR IV SCH (18:05)
[2024-09-02] MEDS ORDERED: ALBUTEROL HFA 8 GM INHALER INH PRN (18:38)
[2024-09-02] MEDS ORDERED: ONDANSETRON INJ 2 MG/ML 2 ML VIAL IV PRN (18:38)
[2024-09-02] MEDS ORDERED: ALBUT/IPRATROP 3MG/0.5MG NEB 3 ML VIAL NEB PRN (18:38)
[2024-09-02] MEDS: LACTATED RINGER'S 1,000 ML IV SCH (18:51)
[2024-09-02 19:23] LABS: Adenovirus PCR Not Detected (NotDetected); Bordetella parapertussis PCR Not Detected (NotDetected); Bordetella pertussis PCR Not Detected (NotDetected); Chlamydia pneumoniae PCR Not Detected (NotDetected); Coronavirus 229E PCR Not Detected (NotDetected); Coronavirus CoV-2 (COVID19)PCR Not Detected (NotDetected); Coronavirus HKU1 PCR Not Detected (NotDetected); Coronavirus NL63 PCR Not Detected (NotDetected); Coronavirus OC43PCR Not Detected (NotDetected); Human Metapneumovirus PCR Not Detected (NotDetected); Influenza A PCR Not Detected (NotDetected); Influenza B PCR Not Detected (NotDetected); Mycoplasma pneumoniae PCR Not Detected (NotDetected); Parainfluenza Virus 1 PCR Not Detected (NotDetected); Parainfluenza Virus 2 PCR Not Detected (NotDetected); Parainfluenza Virus 3 PCR Not Detected (NotDetected); Parainfluenza Virus 4 PCR Not Detected (NotDetected); Respiratory Syncytial VirusPCR Not Detected (NotDetected); Rhinovirus/Enterovirus PCR Not Detected (NotDetected)
--- NOTE | 2024-09-02 20:02 | Emergency Department Note ---
Impression & Plan Dysphagia ED Provider Note NAME: SCAR CASTILLO AGE: 79 SEX: Male INFORMANT: Patient and family ED PROVIDER(S): Ramon Helton MD CHIEF COMPLAINT: Dysphagia and difficulty breathing PLAN: Disposition: Admitted Outpatient prescription management: None Referral: None MEDICAL DECISION MAKING: Patient presented after an episode of difficulty breathing. He felt like he had a globus sensation with possible piece of potato and and his pill from today stuck. He does not make much saliva but had no vomiting or retching in the ER. His breathing was stable and vital signs looked good. Chest x-ray shows his chronic changes with left pneumonectomy present. No radiopaque foreign bodies other than surgical clips noted. Patient had unremarkable CBC and chemistry panel. ECG did not show any acute ischemia. Laboratory testing was unremarkable. Patient had a consultation placed with Dr. Clemens of gastroenterology. Discussed the case. Given the patient's recent history we concluded the patient should be admitted, made n.p.o., and he will evaluate the patient for consideration of treatment options. Consultation was made with Dr. José of the [facility] service. Patient was evaluated in the ER for further management. Care/management discussed with: communication manager, GI Level of care consideration(s): After review of the information above and other included data, I feel the patient requires escalation of care to admission Triage Nursing notes: reviewed and agree them. Vital Signs: reviewed and remarkable for no significant abnormalities Additional History obtained from: Family. They noted his episode today he had increased breathing and was quite anxious. No vomiting reported. Chronic Medical/Social Conditions affecting care: Cancer, pneumonectomy status, COPD Prior/ Outside/ External records reviewed: none Differential Diagnosis: Esophageal foreign body, esophageal food impaction, globus sensation, reactive airway disease, pneumonia, pneumothorax, COPD, CHF, infections, cardiac ischemia, pulmonary embolism, musculoskeletal, gastrointestinal, as well as other pathologies. Diagnostics, independently interpreted by me: ECG: Twelve-lead ECG reveals sinus rhythm at 80 beats per minute. No evidence of pericarditis, ischemia, or dysrhythmia. PVCs. Cardiac Monitoring: none Medical decision rules: none Imaging studies: Chest x-ray with findings consistent with left-sided pneumonectomy. HPI: 79 year old Male arrives for evaluation of shortness of breath and difficulty swallowing. Patient was recently admitted to the hospital and discharged 3 days ago. He was worked up for dysphagia. He was found to have adenocarcinoma of the distal esophagus with nodularity. No gross large lesions present. Hematology oncology recommended PET scan workup. Patient states that he went home and was feeling well. He then had potatoes the day before yesterday and felt like a piece got stuck. He seemed to do okay yesterday but then felt it again today. He tried to swallow his pills today and it would not go down. He had no vomiting. Family notes that they were called in a panic as the patient was having some difficulty breathing. He felt like he may have had an aspiration event but that has cleared. He still has a sensation of foreign body in his esophagus. Patient denies any fever, chills, passing out, chest pain, vomiting, abdominal pain, black or bloody stools, or other complaints.. PAST MEDICAL HISTORY: Lung cancer, see below PAST SURGICAL HISTORY: See Below, pneumonectomy SOCIAL HISTORY: See Below, former smoker HOME MEDICATIONS: See Below ALLERGIES: See Below VITALS: See Below PHYSICAL EXAMINATION: GENERAL: Awake, alert, cachectic-appearing, in no distress HENT: Normocephalic, atraumatic. Oropharynx unremarkable. EYES: Normal conjunctiva. Sclera non-icteric. NECK: Inspection normal. Non-tender. Supple. No nuchal rigidity. FROM. No masses. RESPIRATORY: Clear to auscultation. No wheezes. No rales. Normal respiratory effort. CARDIAC: Normal rate. Normal rhythm. No murmurs. No rubs. Extremities warm and well perfused. Pulses equal. No JVD. GI: Soft, non-distended. No tenderness to palpation. No rebound or guarding. No masses. RECTAL: Deferred. MUSCULOSKELETAL: Atraumatic. Chest examination reveals no tenderness. The back is symmetrical on inspection without obvious abnormality. There is no CVA tenderness to palpation. No joint edema. LOWER EXTREMITIES: Calves are equal size bilaterally and non-tender. No edema. No discoloration. NEURO: Normal sensorium. No sensory or motor deficits noted. SKIN: No rash or jaundice noted. 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 Chronic pulmonary embolism Peyronie's disease LVH (left ventricular hypertrophy) Herpes zoster Prostate nodule Hematuria Lower urinary tract symptoms (LUTS) History of pneumonectomy (01/2004) Left + 2 ribs removed COPD (chronic obstructive pulmonary disease) (Chronic) Medical History Chronic pulmonary embolism pt unaware LVH (left ventricular hypertrophy) On home oxygen therapy 2L when walking/ exertion Malignant neoplasm of prostate with intermediate recurrence risk, stage T2B-C or Matthias 7 or prostate-specific antigen (PSA) 10-20 Malignant neoplasm of left lung (01/20/17) hx s/p surgery, chemo/xrt Primary cancer of right upper lobe of lung (01/20/17) Poor historian Aspiration pneumonia Remote hx per records (2012) Respiratory failure 2012 > resulted in ICU stay/required ventilator x2 days COPD (chronic obstructive pulmonary disease) 2L PRN via NC (typically does use daily) Surgical History History of esophagogastroduodenoscopy (EGD) History of pneumonectomy (01/2004) Left + 2 ribs removed 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 Family History Father Cardiac disorder Stroke Mother Cardiac disorder Diabetes Myocardial infarction Brother Diabetes Sister Breast cancer Other Cancer Denies family history of Ovarian cancer Prostate cancer Colorectal cancer Social History Smoking Status: Former smoker Tobacco Type: Cigarettes Age Started Using Tobacco: 14; Age Quit Using Tobacco: 42; packs per day: 2; Second Hand Exposure: Yes (as a child); Do You Dip or Chew Tobacco: Yes (Full leaf tobacco > advised none DOS); Hx Alcohol Use: Yes Alcohol type: hard liquor Alcohol type Comment: 6 oz whiskey a day w/honey Alcohol Intake Frequency: 4 or More x per/Week Hx Substance Use: No Preferred Language: Algerian Communication Ability: Effective Visual Impairment: No Limitations Hearing Ability: Hard of Hearing Truck Shop Supervisor Required: No Beliefs That Will Affect Care: Gnosticism marital status: Single Current Living Situation: Spouse current occupational status: retired Feels Safe at Home: Yes Childhood Exposure to Second-Hand Smoke: Yes Diet: regular Diet Comment: regular caffeine: Yes during the past year weight has: remained stable Dental Care, Regularly: No Physical Activity Frequency: Does not Exercise Seatbelt Use: never Sunscreen Use: No (can not go in direct sunlight) Assistive Devices: Oxygen - Continuous Allergies Allergies Allergy/AdvReac Type Severity Reaction Status Date / Time Penicillins Allergy Intermediate Difficulty Verified 08/22/24 15:21 Swallowing ciprofloxacin Allergy Unknown Difficulty Verified 08/24/24 21:40 Breathing latex Allergy Unknown Rash Verified 08/22/24 15:21 lorazepam Allergy Unknown Rash Verified 08/22/24 15:21 sulfamethoxazole Allergy Unknown Difficulty Verified 08/22/24 15:21 Breathing cephalexin AdvReac Mild Yeast Verified 08/22/24 15:21 infection minocycline AdvReac Mild Yeast Verified 08/22/24 15:21 infection Home Meds Home Medications Medication Instructions Recorded Confirmed acetaminophen 500 mg tablet 1,000 mg PO Q8H PRN pain 06/19/19 09/02/24 (Tylenol Extra Strength) aspirin 81 mg tablet,delayed 81 mg PO QAM 06/19/19 09/02/24 release multivitamin 1 tab PO DAILY 08/09/24 09/02/24 pantoprazole 40 mg tablet,delayed 40 mg PO BID 09/02/24 09/02/24 release Previous Rx's Medication Instructions Recorded nitroglycerin 0.4 mg sublingual 0.4 mg sublingual UD PRN chest 12/24/20 tablet (Nitrostat) pain #25 tabs albuterol sulfate 90 mcg/actuation 2 puff inhalation Q4H PRN copd #18 11/04/23 aerosol inhaler (Ventolin HFA) grams budesonide-formoterol HFA 80 2 puff inhalation BID #10.2 grams 05/11/24 mcg-4.5 mcg/actuation aerosol inhaler (Symbicort) mometasone 50 mcg/actuation nasal 2 spray intranasal QAM #51 grams 06/19/24 spray alfuzosin 10 mg tablet,extended 10 mg PO DAILY #30 tabs 08/14/24 release 24 hr (Uroxatral) cyanocobalamin (vitamin B-12) 500 500 mcg PO QAM #30 tabs 08/30/24 mcg tablet fluconazole 200 mg tablet 200 mg PO DAILY 7 days #7 tabs 08/30/24 Results & Data (ED) Vital Signs Vital Signs - 24 hr 09/02/24 15:55 09/02/24 16:08 09/02/24 16:08 Temperature 36.9 C Temperature Source Temporal Artery Scan Pulse Rate 88 Pulse Rate [Left Apical] 76 Pulse Rate from SpO2 Sensor Respiratory Rate 28 H 26 H Respiratory Effort / Characteristics Short of Breath Spontaneous Short of Breath Respiratory Depth Normal Respiratory Pattern Tachypnea Regular Blood Pressure 146/99 H Blood Pressure Mean 114 Pulse Oximetry 100 99 99 Oxygen Delivery Method Room Air Nasal Cannula Nasal Cannula Oxygen Flow Rate 2 2 Sepsis Recent Fever Within 48 Hours No Sepsis New/Unexplained Change in Mental Status No Sepsis Action Taken by Nursing No Action Required 09/02/24 16:30 09/02/24 16:38 09/02/24 17:01 Temperature Temperature Source Pulse Rate 76 75 Pulse Rate [Left Apical] Pulse Rate from SpO2 Sensor 76 Respiratory Rate Respiratory Effort / Characteristics Respiratory Depth Respiratory Pattern Blood Pressure 164/94 H 138/68 Blood Pressure Mean 117 112 Pulse Oximetry 100 Oxygen Delivery Method Oxygen Flow Rate Sepsis Recent Fever Within 48 Hours Sepsis New/Unexplained Change in Mental Status Sepsis Action Taken by Nursing 09/02/24 17:03 09/02/24 17:12 09/02/24 17:21 Temperature Temperature Source Pulse Rate 68 71 71 Pulse Rate [Left Apical] Pulse Rate from SpO2 Sensor Respiratory Rate 22 22 24 Respiratory Effort / Characteristics Respiratory Depth Respiratory Pattern Blood Pressure Blood Pressure Mean Pulse Oximetry 100 100 100 Oxygen Delivery Method Nasal Cannula Nasal Cannula Nasal Cannula Oxygen Flow Rate 2 2 2 Sepsis Recent Fever Within 48 Hours Sepsis New/Unexplained Change in Mental Status Sepsis Action Taken by Nursing Laboratory Data 09/02/24 16:12 09/02/24 16:12 Lab Results 09/02/24 Range/Units 16:12 WBC 7.79 (4.8-10.8) K/ul RBC 5.25 (4.70-6.10) M/uL Hgb 15.3 (14.0-18.0) g/dl Hct 47.1 (42.0-52.0) % MCV 89.7 (80.0-100.0) fL MCH 29.1 (25.0-34.0) pg MCHC 32.5 (32.0-36.0) g/dL RDW Std Deviation 44.1 (36.4-46.3) fL RDW Coeff of Priti 13.4 (11.5-14.5) % Plt Count 287 (130-400) K/uL MPV 11.1 (9.4-12.4) fL Immature Gran % (Auto) 0.4 % Neut % (Auto) 70.3 % Lymph % (Auto) 14.9 % [place] % (Auto) 12.6 % Eos % (Auto) 0.9 % Baso % (Auto) 0.9 % Neut # (Auto) 5.48 (1.40-6.50) K/uL Lymph # (Auto) 1.16 L (1.20-3.40) K/uL [place] # (Auto) 0.98 H (0.11-0.59) K/uL Eos # (Auto) 0.07 (0.00-0.50) K/uL Baso # (Auto) 0.07 (0.00-0.20) K/uL Immature Gran # (Auto) 0.03 (0.01-0.20) K/uL Sodium 134 L (136-145) mmol/L Potassium 4.4 (3.5-5.1) mmol/L Chloride 95 L (98-107) mmol/L Carbon Dioxide 34 H (21-32) mmol/L Anion Gap 5 (3-11) BUN 14 (6-23) mg/dl Creatinine 0.78 (0.6-1.4) mg/dl Est Cr Clr Drug Dosing 75.3 ml/min eGFR 90.71 BUN/Creatinine Ratio 17.9 (10-20) Glucose 105 H (70-99(Fasting)) mg/dl Calcium 9.3 (8.6-10.3) mg/dl Total Bilirubin 0.5 (0.2-1.0) mg/dl AST 16 (13-39) U/L ALT 15 (7-52) U/L Alkaline Phosphatase 71 (34-104) U/L Total Protein 7.5 (6.0-8.3) gm/dl Albumin 4.2 (3.4-5.0) gm/dl Globulin 3.3 (2.5-4.0) gm/dl Albumin/Globulin Ratio 1.3 (0.9-2) Administered Medications Pantoprazole Sodium (Protonix) 40 mg in 10 mls @ 5 mls/min IV BID MADDIE Stop: 10/02/24 17:44 Last Admin: 09/02/24 18:05 Dose: 5 mls/min Documented By: [facility] Lactated Ringer's (Lr) 1,000 mls @ 80 mls/hr IV .[id number] MADDIE Stop: 09/03/24 18:14 Last Admin: 09/02/24 18:51 Dose: 80 mls/hr Documented By: AM Imaging Data Radiologist's Impression: Chest X-Ray 09/02/24 16:10 EXAM: Radiograph of the Chest 1 View INDICATION: Dyspnea. Possible esophageal foreign body. TECHNIQUE: Frontal view of the chest. COMPARISON: 08/30/2024 FINDINGS: Lungs and pleural spaces: Left pneumonectomy changes stable. Stable coarse bandlike scarring in the right upper lung with adjacent pleural thickening. Heart: Stable shifted heart into the left chest. Mediastinum: Normal contour. Bones/joints: No fracture, erosion or dislocation. Soft tissues: Aside from a surgical clip projecting to the left of the spine at the level of the proximal descending aorta, no foreign bodies identified. Upper abdomen: No abnormality noted. IMPRESSION: 1. Aside from a surgical clip projecting to the left of the spine at the level of the proximal descending aorta, no foreign bodies identified. 2. No acute cardiopulmonary disease. Stable chronic changes. ACT 112: Negative or not required by law. Electronically signed by Chrissy Valdes 09-02-2024 5:14 PM Discharge Plan Visit Data Chief Complaint: Shortness of Breath/Dyspnea Stated Complaint: SOB ED Provider: Ramon Helton Discharge Problem: Dysphagia Patient Disposition: Admitted As Inpatient Discharge Instructions Interventions: ED Discharge Assessment Last Done: 09/02/24 18:23
--- NOTE | 2024-09-03 01:59 | Gastrointestinal Consultation ---
Date of Consultation September 03, 2024 Assessment & Plan (1) Dysphagia: Multifactorial. 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 However, he has a GE junction cancer. By the pictures from the report it does not seem to be causing significant obstruction so I suspect this is more a motility issue possibly from infiltrative cancer or a paraneoplastic syndrome. He denies odynophagia so would be less suspicious of rolando etc. Ideally he should have a motility test but we can start with a barium swallow. I did briefly discuss with him that if this is a sequela of his underlying cancer, he may benefit either from esophageal stent or PEG placement. I do not perform the former and the latter may be doable but it would depend upon the extent of his tumor as it seems to involve the gastric mucosa. 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 He states he has a long history of dysphagia. He states he had 3 "swallow tests" years ago and was told the "muscles in my mouth and throat are weak." More recently he had a Speech Pathology evaluation which showed penetration with thin liquids. He states he came to the hospital because he felt a "lump" of food that would not go down. However, he has eaten and drank since then without difficulty and no vomiting. He currently cannot feel the "lump." He had an EGD on 08/25/2024 where the GE junction adenocarcinoma was diagnosed. Allergies Allergy/AdvReac Type Severity Reaction Status Date / Time Penicillins Allergy Intermediate Difficulty Verified 08/22/24 15:21 Swallowing ciprofloxacin Allergy Unknown Difficulty Verified 08/24/24 21:40 Breathing latex Allergy Unknown Rash Verified 08/22/24 15:21 lorazepam Allergy Unknown Rash Verified 08/22/24 15:21 sulfamethoxazole Allergy Unknown Difficulty Verified 08/22/24 15:21 Breathing cephalexin AdvReac Mild Yeast Verified 08/22/24 15:21 infection minocycline AdvReac Mild Yeast Verified 08/22/24 15:21 infection Home Medications Medication Instructions Recorded Confirmed Type acetaminophen 500 mg tablet 1,000 mg PO Q8H PRN pain 06/19/19 09/02/24 History (Tylenol Extra Strength) aspirin 81 mg tablet,delayed 81 mg PO QAM 06/19/19 09/02/24 History release nitroglycerin 0.4 mg sublingual 0.4 mg sublingual UD PRN chest 12/24/20 09/02/24 Rx tablet (Nitrostat) pain #25 tabs albuterol sulfate 90 mcg/actuation 2 puff inhalation Q4H PRN copd #18 11/04/23 09/02/24 Rx aerosol inhaler (Ventolin HFA) grams budesonide-formoterol HFA 80 2 puff inhalation BID #10.2 grams 05/11/24 09/02/24 Rx mcg-4.5 mcg/actuation aerosol inhaler (Symbicort) mometasone 50 mcg/actuation nasal 2 spray intranasal QAM #51 grams 06/19/24 09/02/24 Rx spray multivitamin 1 tab PO DAILY 08/09/24 09/02/24 History alfuzosin 10 mg tablet,extended 10 mg PO DAILY #30 tabs 08/14/24 09/02/24 Rx release 24 hr (Uroxatral) cyanocobalamin (vitamin B-12) 500 500 mcg PO QAM #30 tabs 08/30/24 09/02/24 Rx mcg tablet fluconazole 200 mg tablet 200 mg PO DAILY 7 days #7 tabs 08/30/24 09/02/24 Rx pantoprazole 40 mg tablet,delayed 40 mg PO BID 09/02/24 09/02/24 History release Patient History Medical History Chronic pulmonary embolism pt unaware LVH (left ventricular hypertrophy) On home oxygen therapy 2L when walking/ exertion Malignant neoplasm of prostate with intermediate recurrence risk, stage T2B-C or [place] 7 or prostate-specific antigen (PSA) 10-20 Malignant neoplasm of left lung (01/20/17) hx s/p surgery, chemo/xrt Primary cancer of right upper lobe of lung (01/20/17) Poor historian Aspiration pneumonia Remote hx per records (2012) Respiratory failure 2012 > resulted in ICU stay/required ventilator x2 days COPD (chronic obstructive pulmonary disease) 2L PRN via NC (typically does use daily) Surgical History History of esophagogastroduodenoscopy (EGD) History of pneumonectomy (01/2004) Left + 2 ribs removed 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 Family History Father Cardiac disorder Stroke Mother Cardiac disorder Diabetes Myocardial infarction Brother Diabetes Sister Breast cancer Other Cancer Denies family history of Ovarian cancer Prostate cancer Colorectal cancer Social History Smoking Status: Former smoker Tobacco Type: Cigarettes Age Started Using Tobacco: 14; Age Quit Using Tobacco: 42; packs per day: 2; Second Hand Exposure: Yes (as a child); Do You Dip or Chew Tobacco: Yes (Full leaf tobacco > advised none DOS); Hx Alcohol Use: Yes Alcohol type: hard liquor Alcohol type Comment: 6 oz whiskey a day w/honey Alcohol Intake Frequency: 4 or More x per/Week Hx Substance Use: No Preferred Language: Lao Communication Ability: Effective Visual Impairment: No Limitations Hearing Ability: Hard of Hearing Quality Assurance Supervisor Final Required: No Beliefs That Will Affect Care: None marital status: Single Current Living Situation: Spouse current occupational status: retired Feels Safe at Home: Yes Safety Concerns: Feels Safe At This Time Childhood Exposure to Second-Hand Smoke: Yes Diet: regular Diet Comment: regular caffeine: Yes during the past year weight has: remained stable Dental Care, Regularly: No Physical Activity Frequency: Does not Exercise Seatbelt Use: never Sunscreen Use: No (can not go in direct sunlight) Assistive Devices: Oxygen - Continuous Review of Systems Review of Systems: Negative except for HPI and below Respiratory: Chronic SOB Gastrointestinal: He denies any odynophagia. Physical Exam Physical Exam: Slender WM NAD Constitutional: Afebrile VSS Eyes: Sclera anicteric. Conjunctiva not pale Respiratory: Transmitted BS on left Cardiovascular: Reg Gastrointestinal (Abdomen): NL BS, soft, nontender Musculoskeletal: Negative edema Neurologic: A/O Results & Data Vital Signs (Past 12 Hours) Vital Signs Temp Pulse Pulse Resp BP BP Pulse Ox 09/02/24 23:56 36.5 C 71 17 154/84 H 96 09/02/24 19:00 36.4 C L 74 18 153/77 H 100 09/02/24 18:46 36.4 C L 74 18 153/77 H 100 09/02/24 18:40 09/02/24 18:00 156/92 H 09/02/24 17:51 79 24 98 09/02/24 17:21 71 24 100 09/02/24 17:12 71 22 100 09/02/24 17:03 68 22 100 09/02/24 17:01 138/68 09/02/24 16:38 75 09/02/24 16:30 76 164/94 H 100 09/02/24 16:08 76 26 H 99 09/02/24 16:08 99 09/02/24 15:55 36.9 C 88 28 H 146/99 H 100 O2 Del Method O2 Flow Rate 09/02/24 23:56 Room Air 09/02/24 19:00 Nasal Cannula 2 09/02/24 18:46 Nasal Cannula 2 09/02/24 18:40 Nasal Cannula 2 09/02/24 18:00 09/02/24 17:51 Nasal Cannula 2 09/02/24 17:21 Nasal Cannula 2 09/02/24 17:12 Nasal Cannula 2 09/02/24 17:03 Nasal Cannula 2 09/02/24 17:01 09/02/24 16:38 09/02/24 16:30 09/02/24 16:08 Nasal Cannula 2 09/02/24 16:08 Nasal Cannula 2 09/02/24 15:55 Room Air PG Care Time/CCT Total # of Minutes Spent Total Time Spent with Patient: Total time spent is greater than 50% in coordination of care (as documented) at patient's floor/unit and/or counseling patient: Coding Level of Care Code 37746 IN/OBS CONSULT LVL 4,60M Diagnoses Esophageal dysphagia R13.10
[2024-09-03 06:19] LABS: Hematocrit (blood only) 40.6 % (42.0-52.0); Hemoglobin 13.5 g/dl (14.0-18.0); Mean Corpuscular Hgb Conc 33.3 g/dL (32.0-36.0); Mean Corpuscular Volume 87.3 fL (80.0-100.0); Mean Platelet Volume 11.4 fL (9.4-12.4); Platelet Count 262 K/uL (130-400); RDW Coefficient of Variation 13.4 % (11.5-14.5); RDW Standard Deviation 42.9 fL (36.4-46.3); Red Blood Count 4.65 M/uL (4.70-6.10); White Blood Count 5.17 K/ul (4.8-10.8)
[2024-09-03 06:42] LABS: BUN Creatinine Ratio 14.1 (10-20); Calcium 8.9 mg/dl (8.6-10.3); Creatinine Clr Calc Pharmacy 85.4 ml/min; Potassium 3.9 mmol/L (3.5-5.1)
--- NOTE | 2024-09-03 07:46 | Hospitalist Progress Note ---
Date of Service September 03, 2024 Assessment & Plan (1) Dysphagia: Plan: This is a 79-year-old gentleman with past medical history of prostate cancer, lung cancer, chronic pulmonary embolism, history of pneumonectomy, COPD, esophageal candidiasis who presented to the ER on 09/02/2024 with concerns of dysphagia and shortness of breath after eating potato salad this past week and feeling like these is still something in his throat S/p EGD 08/25/2024: Nodular erythematous mucosa in the esophagus, gastritis, normal examined duodenum EGD 08/30/2024: Nodular erythematous mucosa in the esophagus, gastritis, normal examined duodenum Video swallow study 08/30/2024: Pharyngeal penetration aspiration seen with thin barium. No penetration or aspiration was seen with the remaining sample textures. Diflucan IV (to have completed another 7 days at dc from 08/30, EOT 09/06), PPI IV BID continued while inpatient NPO this morning, messaged GI as consulted and recs for Barium swallow, has been ordered -Unfortunately unable to perform today/weekend -Wanting initially to go AMA but still feeling like potato salad/multivitamin stuck. CXR w/o foreign body noted. Discussed and will trial full liquid for lunch/easy to chew for dinner and make NPO at midnight and plan for barium swallow in AM. On room air Continue aspiration precautions while inpatient Will need to ensure continued oncology f/u at discharge. Dr Remy was to be arranging for outpt CT/PET scan and interventional GI. Patient would benefit from outpt manometry testing, message sent to crusher and blender operator to arrange. Monitor w/ diet tolerability (2) COPD (chronic obstructive pulmonary disease): Plan: Patient with productive cough at time of encounter.per patient this is at baseline for him and not increased Continue inhaler/hospital equivalent Biofire negative Sputum cx ordered and has been titrated to room air. Sputum cx w/ moderate normal arleth on prelim and will monitor but suspect cough/increased w/ food/dysphagia Monitor for any issues Plan DVT prophylaxis: Heparin SQ BID added while inpatient given hx malignancy to prevent issues Dispo: trial diet as outlined and planning for barium swallow in AM. NPO at midnight. Needs outpt manometry as well as oncology follow up/interventional GI as prior to be arranged by Dr Remy from discharge this past week. Admission and Anticipated Discharge Date Admission Date: September 02, 2024 Supervising Physician Co-Signing Physician Notes The patient was not seen by me. The chart was reviewed. Case discussed with CHRISTIANO Knott. Agree with assessment and plan Subjective Evaluated this morning around 11:15, initially wanting to sign out AMA as wanting to eat. Reports he can eat bread/butter dipping in soup, but does endorse still feeling like potato salad/multivitamin stuck in his throat but had been eating since. Discussed barium swallow cannot be done today as discussed with radiology but will plan to do tomorrow. Will try full liquid/adv to easy to chew for today and make NPO at midnight. Hopeful dc in AM. Physical Exam Physical Exam: General: 79 yo male, thin/cachectic appearing male, not well nourished/well kept, sitting up in bed, NAD but frustrated about not eating HEENT: head atraumatic,bitemporal wasting, thin neck, trachea midline Resp: bibasilar crackles, diminished lung sounds (L>R) but no wheezing, on room air CV: NSR on telemetry, occ PVC , rates 60-80s, no significant m/r/g, no pitting edema/calf tenderness GI: +BS, scaphoid, nontender no santana MSK/Neuro: generalized weakness but nonfocal/no slurred speech, not confused Psych: AOx3, cooperative with exam Results & Data Results & Data Vital Signs (Past 12 Hours) Vital Signs Temp Pulse Resp BP Pulse Ox O2 Del Method 09/03/24 07:15 36.6 C 64 18 153/61 H 96 Room Air 09/02/24 23:56 36.5 C 71 17 154/84 H 96 Room Air Diagnostic Findings Chest X-Ray 09/02/24 16:10 EXAM: Radiograph of the Chest 1 View INDICATION: Dyspnea. Possible esophageal foreign body. TECHNIQUE: Frontal view of the chest. COMPARISON: 08/30/2024 FINDINGS: Lungs and pleural spaces: Left pneumonectomy changes stable. Stable coarse bandlike scarring in the right upper lung with adjacent pleural thickening. Heart: Stable shifted heart into the left chest. Mediastinum: Normal contour. Bones/joints: No fracture, erosion or dislocation. Soft tissues: Aside from a surgical clip projecting to the left of the spine at the level of the proximal descending aorta, no foreign bodies identified. Upper abdomen: No abnormality noted. IMPRESSION: 1. Aside from a surgical clip projecting to the left of the spine at the level of the proximal descending aorta, no foreign bodies identified. 2. No acute cardiopulmonary disease. Stable chronic changes. ACT 112: Negative or not required by law. Electronically signed by Chrissy Valdes 09-02-2024 5:14 PM PG Care Time/CCT Total # of Minutes Spent Total Time Spent with Patient: Total time spent is greater than 50% in coordination of care (as documented) at patient's floor/unit and/or counseling patient: Coding Level of Care Code 61596 SUB INP/OBS CARE 2MIN Diagnoses Esophageal dysphagia R13.10 COPD (chronic obstructive pulmonary disease) J44.9
[2024-09-03] MEDS: FLUCONAZOLE 200 MG/100 ML BAG IV SCH (08:40)
[2024-09-03] MEDS: FLUTICASONE/VILANTEROL 100/25MCG 14 PUFFS/INHALER INH SCH (08:40)
[2024-09-03] MEDS ORDERED: Nursing to Pharmacy Communication SCH (17:15)
--- NOTE | 2024-09-03 17:26 | Electrocardiogram Report ---
Test Reason : Blood Pressure : */* mmHG Vent. Rate : 80 BPM Atrial Rate : 80 BPM P-R Int : 148 ms QRS Dur : 84 ms QT Int : 390 ms P-R-T Axes : 89 -3 68 degrees QTcB Int : 449 ms Sinus rhythm with occasional , and consecutive Premature ventricular complexes and Fusion complexes Cannot rule out Anterior infarct , age undetermined Abnormal ECG When compared with ECG of 24-Aug-2024 15:26, Fusion complexes are now Present Confirmed by Mattie Mahajan (Courtney) on 09/03/2024 5:26:16 PM Referred By: REFERRED SELF Confirmed By: Mattie Mahajan
[2024-09-03] MEDS: ALFUZOSIN HCL 10 MG TAB PO SCH (18:23)
[2024-09-03] MEDS: BUDESONIDE/FORMOTEROL FUMARATE 80/4.5 60 PUFFS/INHALER INH SCH (21:04)
[2024-09-03] MEDS: HEPARIN SOD 5,000 UNIT/0.5 ML VIAL SQ SCH (21:12)
[2024-09-04 07:14] VITALS: RESP 18
[2024-09-04 07:31] LABS: BUN Creatinine Ratio 12.3 (10-20); Calcium 9.3 mg/dl (8.6-10.3); Creatinine Clr Calc Pharmacy 74.9 ml/min; Magnesium 1.9 mg/dl (1.7-2.4); Potassium 3.9 mmol/L (3.5-5.1)
--- NOTE | 2024-09-04 07:40 | Hospitalist Progress Note ---
Date of Service September 04, 2024 Assessment & Plan (1) Dysphagia: Plan: This is a 79-year-old gentleman with past medical history of prostate cancer, lung cancer, chronic pulmonary embolism, history of pneumonectomy, COPD, esophageal candidiasis who presented to the ER on 09/02/2024 with concerns of dysphagia and shortness of breath after eating potato salad this past week and feeling like these is still something in his throat S/p EGD 08/25/2024: Nodular erythematous mucosa in the esophagus, gastritis, normal examined duodenum EGD 08/30/2024: Nodular erythematous mucosa in the esophagus, gastritis, normal examined duodenum Video swallow study 08/30/2024: Pharyngeal penetration aspiration seen with thin barium. No penetration or aspiration was seen with the remaining sample textures. Diflucan IV (to have completed another 7 days at dc from 08/30, EOT 09/06), PPI IV BID continued while inpatient NPO this morning, messaged GI as consulted and recs for Barium swallow, has been ordered -Unfortunately unable to perform today/weekend -Wanting initially to go AMA but still feeling like potato salad/multivitamin stuck. CXR w/o foreign body noted. Discussed and will trial full liquid for lunch/easy to chew for dinner and make NPO at midnight and plan for barium swallow in AM. On room air Continue aspiration precautions while inpatient Will need to ensure continued oncology f/u at discharge. Dr Remy was to be arranging for outpt CT/PET scan and interventional GI. Patient would benefit from outpt manometry testing, message sent to coring machine operator to arrange. Monitor w/ diet tolerability 09/04 Provided with diet yesterday, NPO for barium swallow (2) COPD (chronic obstructive pulmonary disease): Plan: Patient with productive cough at time of encounter.per patient this is at baseline for him and not increased Continue inhaler/hospital equivalent Biofire negative Sputum cx ordered and has been titrated to room air. Sputum cx w/ moderate normal arleth on prelim and will monitor but suspect cough/increased w/ food/dysphagia Monitor for any issues Plan DVT prophylaxis: Heparin SQ BID added while inpatient given hx malignancy to prevent issues Dispo: trial diet as outlined and planning for barium swallow in AM. NPO at midnight. Needs outpt manometry as well as oncology follow up/interventional GI as prior to be arranged by Dr Remy from discharge this past week. Admission and Anticipated Discharge Date Admission Date: September 02, 2024 Results & Data Results & Data Vital Signs (Past 12 Hours) Vital Signs Temp Pulse Resp BP Pulse Ox O2 Del Method O2 Flow Rate 09/04/24 07:14 36.7 C 79 18 124/80 95 Room Air 09/04/24 00:22 36.5 C 69 16 133/78 98 Room Air 09/03/24 20:00 Nasal Cannula 2 PG Care Time/CCT Total # of Minutes Spent Total Time Spent with Patient: Total time spent is greater than 50% in coordination of care (as documented) at patient's floor/unit and/or counseling patient: Coding Diagnoses Esophageal dysphagia R13.10 COPD (chronic obstructive pulmonary disease) J44.9
--- NOTE | 2024-09-04 09:50 | Fluoroscopy Report ---
BARIUM SWALLOW CLINICAL HISTORY: Dysphagia.Esophageal cancer. COMPARISON STUDY: Chest CT August 24, 2024. FLUOROSCOPY TIME: 0.50 seconds FLUOROSCOPY IMAGES: 7 Ka,r: 14.5 mGy FINDINGS: Left pneumonectomy and suspected post treatment change within the right upper lobe are bett er depicted on prior chest CT of August 24, 2024. No high-grade esophageal stricture was identified. However, there was transient holdup of a 13 mm barium tablet within the esophagus at approximately t he level of the pat. The pill did eventually pass into the stomach. No definite esophageal mass wa s identified although mucosal detail is diminished on this exam. Reflux was difficult to assess for. No hiatal hernia was identified. There is moderate esophageal dysmotility. IMPRESSION: 1. No high-grade esophageal stricture. However, transient holdup of a 13 mm barium tablet within the esophagus at the level of the pat. This may reflect the site of mild esophageal narrowing. 2. Moderate esophageal dysmotility. 3. Otherwise, no significant abnormalities identified. Mucosal detail diminished on this exam. ACT 112: Negative or not required by law. Electronically signed by: Zackery Salgado M.D. 09/04/2024 9:49 AM
--- NOTE | 2024-09-04 09:56 | Gastroenterology Progress Note ---
<Statement entered by Raheem Clemens MD - 09/04/24 11:00> Patient seen and case discussed with Adria ALVARADO. Ba swallow as suspected indicates moderate esophageal dysmotility. Discussed with patient. Hope is that with treatment of underlying tumor some function may recur. Otherwise, esophageal motility test may uncover some treatable issues and if not PEG is an option. OK from GI standpoint to discharge with OP f/u from GI standpoint once otherwise cleared by medicine. IP GI Service will sign off. Raheem Clemens MD Date of Service September 04, 2024 Assessment & Plan (1) Esophageal adenocarcinoma: (2) Dysphagia: Plan I reviewed the case as well as the barium swallow results with Dr. Clemens who advised on plan. - continue with protonix 40mg bid. - recommend that we try to avoid larger pill medications and use liquid medications when able. - would recommend an outpatient referral to motility clinic given esophageal dysmotility seen. - ultimately, his symptoms are likely related to underlying cancer and may improve if this is treated. recommend he address this with his oncology team. - no role for EGD at this time, he just had EGD about 2 weeks ago. Admission and Anticipated Discharge Date Admission Date: September 02, 2024 Subjective Patient with ongoing globus sensation. he underwent Barium swallow today and felt that tablet was stuck. Barium swallow 09/04 No high-grade esophageal stricture. However, transient holdup of a 13 mm barium tablet within the esophagus at the level of the pat. This may reflect the site of mild esophageal narrowing. Moderate esophageal dysmotility. Otherwise, no significant abnormalities identified. Mucosal detail diminished on this exam. He tells me that he is planning to address the new esophageal cancer with his oncology team. Review of Systems Review of Systems: All systems reviewed & are unremarkable except as noted in HPI & below Physical Exam Constitutional: WD/WN, vitals as above Respiratory: normal respiratory effort, lungs clear to auscultation Cardiovascular: Rate/Rhythm: regular rate and regular rhythm Gastrointestinal (Abdomen): normal bowel sounds, soft, nontender, no hepatosplenomegaly Psychiatric: Orientation: alert and oriented x 3 Results & Data Results & Data Vital Signs (Past 12 Hours) Vital Signs Temp Pulse Resp BP Pulse Ox O2 Del Method 09/04/24 07:14 98.1 F 79 18 124/80 95 Room Air 09/04/24 00:22 97.7 F 69 16 133/78 98 Room Air Coding Level of Care Code 41865 SUB INP/OBS CARE 235MIN Diagnoses Esophageal adenocarcinoma C15.9 Esophageal dysphagia R13.10
[2024-09-04] MEDS: ACETAMINOPHEN 1,000 MG/100 ML VIAL IV PRN (10:56)
[2024-09-04 11:09] VITALS: BP 158/84; PULSE 69; TEMP 97.9; O2SAT 100
--- NOTE | 2024-09-04 11:58 | Discharge Summary ---
Discharge Summary Date of Service September 04, 2024 Principal Dx & Hospital Course #1 = Principal Diagnosis (1) Dysphagia: This is a 79-year-old gentleman with past medical history of prostate cancer, lung cancer, chronic pulmonary embolism, history of pneumonectomy, COPD, esophageal candidiasis who presented to the ER on 09/02/2024 with concerns of dysphagia and shortness of breath after eating potato salad this past week and feeling like there is/was still something in his throat S/p EGD 08/25/2024: Nodular erythematous mucosa in the esophagus, gastritis, normal examined duodenum EGD 08/30/2024: Nodular erythematous mucosa in the esophagus, gastritis, normal examined duodenum Video swallow study 08/30/2024: Pharyngeal penetration aspiration seen with thin barium. No penetration or aspiration was seen with the remaining sample textures. Diflucan IV (to have completed another 7 days at dc from 08/30, EOT 09/06), PPI IV BID continued while inpatient and to continue PO BID at discharge GI consulted, no EGD rec'd but wanting barium swallow which was ordered but unable to do on the weekend and was arranged for Wednesday morning 09/04. Was provided clear liquids while awaiting test which showed moderate esophageal dysmotility and GI office to arrange outpatient manometry testing (verified with nurse navigator that message sent to office) and possible motility test may uncover some treatable issues and if not PEG is option. Hope is that with treatment of underlying tumor some function may return. Titrated to room air 93-96% at rest, remains 1L w/ exertion for drop to 88%. Same as 2step requirements this past week. Dr Remy arranging for outpt CT/PET scan and interventional GI as noted this past week at discharge 09/04 Diet advanced to easy to chew and sitting up at the side of the bed eating without significant issue. Rec to decrease large pills as able/liquid meds if available. -->Review of meds and can rec for liquid tylenol use at home rather than pill as well as CHEWABLE aspirin. Most other meds are inhalers Will need to continue his fluconazole (2 more days) but only on baby aspirin which can be in chewable form, alfuzosin, fluconazole and protonix and not able to convert those to oral. 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 (2) COPD (chronic obstructive pulmonary disease): cough on admission, CXR no acute change. No fever. Continued breo while inpatient but patient brought in home symbicort and was provided Biofire negative. O2 req same as last week as above Continue home meds/inhalers at discharge and continue pulmonary toilet Notable sputum cx did grow Achromobacter xylosoxidans, however no increase sputum above baseline and WBC normalized without antibiotics without fever. If increased SOB/sputum production or fevers at discharge could be considered but will defer further abx for now and suspect colonized given lung ca/pneumonectomy hx CT chest this past week noting bronchitis but no focal consolidation Discussed with Dr Viramontes and recs for repeat sputum cx in 1 week, f/u outpatient Plan DVT prophylaxis: Heparin SQ BID while inpatient Dispo: discharged on easy to chew diet, to complete course Fluconazole as directed this past week for another 2 days and PPI BID. Recs for chewable aspirin/liquid tylenol and continue other essential medications and avoid large pills. Seen by speech this past week and continue chin/tuck maneuvers/speech therapy recommendations. GI arranging outpt manometry, heme/onc Dr Remy working on follow up ref w interventional GI/PET CT scan and patient to be notified of appointment times Notes For Next Care Provider Ensure outpt f/u GI for manometry and oncology PET/CT scan/interventional GI appts in place Avoid large pills, chewable/liquid medications as able Monitor for any increased sputum production/fevers given sputum cx but suspect colonization as discussed with vehicle insurance agent information coordinator however recommend repeat sputum culture in 1 week, f/u pulmonology at al recommended Medication Changes From Visit To use liquid tylenol/chewable aspirin in place of pills to decrease pill burden given dysphagia/esophageal adenocarcinoma Admission HPI Per Admitting Provider This is a 79-year-old gentleman with past medical history of prostate cancer, lung cancer, chronic pulmonary embolism, history of pneumonectomy, COPD, esophageal candidiasis who presented to the ER on 09/02/2024 with concerns of dysphagia and shortness of breath. Patient was recently admitted to the hospital from 08/17/2024 to 08/30/2024. He underwent 2 EGDs during this hospitalization. 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 Also with candidal esophagitis. Patient originally was not able to tolerate oral Diflucan. He was unable to tolerate this and discharged home. He has been taking this as prescribed. Patient states that on 08/31 he had a potato salad and felt that a large potato was lodged in his throat. He feels that it is still stuck there. On 09 01 he states that he had a pot pie and he felt this went down okay but still felt that the potato was stuck in his throat. Then today he attempted to take his multivitamin pill and states that this is now lodged in his throat with his potato salad. At time of my encounter he was coughing up productive mucus. He states that this is baseline for him since his pneumonectomy. Patient also feels that he has bronchitis from his past hospitalization but would not further elaborate. He states that his cough is at baseline for him. He denies any shortness of breath or chest pain. He denies any abdominal pain. He denies nausea or vomiting. Per the ED provider, GI was called. It was recommended to keep him n.p.o., administer IV fluids and they will evaluate him in the morning. Possibility that a repeat endoscopy may be performed at some point. Admission Exam Per Admitting Provider Constitutional: WD/WN, vitals as above Eyes: PERRL, conjunctivae normal, anicteric sclerae Respiratory: diminished lung sounds throughout. L side diminished consistent with hx of pneumonectomy Cardiovascular: RRR, no murmur, no edema Psychiatric: A+Ox3, euthymic affect Discharge Exam General: 79 yo male, thin/cachectic appearing male, not well nourished/well kept, sitting up in bed, NAD but frustrated about not eating HEENT: head atraumatic,bitemporal wasting, thin neck, trachea midline Resp: bibasilar crackles, diminished lung sounds (L>R) no overt wheezing, coarse but on room air at rest, 1L w/ exertion CV: NSR on telemetry, occ PVC , rates 60-80s, no significant m/r/g, no pitting edema/calf tenderness GI: +BS, scaphoid, nontender no santana MSK/Neuro: generalized weakness but nonfocal/no slurred speech, not confused Psych: AOx3, cooperative with exam Discharge Plan Discharge Items Patient Disposition: Home - Home Health Services Reason For Visit: SOB, DYSPHAGIA Discharge Diagnosis: Dysphagia from pill Goals: You have been hospitalized for an acute medical problem. During your stay at [facility], we have made an effort to correct the problem that brought you to the hospital while keeping you as comfortable as possible. Medications were used to bring your condition under control and your discharge instructions will include directions for any medications you should take after leaving the hospital. Please make sure you see your Primary Care Provider as part of your follow up plan. Activity: As commented below Non-emergency contact: Primary Care Provider, Food Science Professor and Oncologist Call non-emergency contact if: you have any medication questions, your symptoms worsen, your pain is not controlled, your pain is worsening, your pain is unusual for you and you have a fever Follow-up/Referrals: Mony Caicedo DO [Primary Care Provider] - 09/18/24 9:20 am (Hospital follow up scheduled September 18 at 9:[address] Caicedo) Raheem Clemens MD [Physician] - (Dr. Clemens's office will call Pt to schedule him with the motility clinic for a test before he is scheduled with Jas/Dr. Clemens.) Diet: Heart Healthy Ambulatory Orders: Sputum Culture and Gram Stain (Routine) Timeframe: 1 Week Location: Determined by Patient Ordered By: Eve Anaya Attending Provider Instructions: You have been hospitalized for shortness of breath and trouble swallowing following taking potato salad and multivitamin. GI was consulted and you underwent barium swallow which shows the known narrowing and did NOT feel needing repeat EGD and plans to arrange for outpatient manometry for further evaluation and treatment. Dr Remy is to be arranging outpatient PET CT scan as discussed last week as well as referral to interventional GI in follow up and you are supposed to be called with those appointments. Please continue your usual inhalers, fluconazole for another 2 days to complete the course. Continue Protonix twice daily. Please continue EASY TO CHEW diet and avoid large pills. If needing tylenol for pain you should buy over the counter liquid form to prevent issues with such. You can purchase the baby aspirin as chewable form as well to limit pills and for multivitamin please see about possibly a chewable Flintstones vitamin until able to discuss in follow up with primary care. Repeat sputum culture in 1 week and follow up with pulmonology outpatient per pulmonology information coordinator while inpatient. Please follow up with primary care, GI, oncology at discharge for ongoing management/treatment. Please return to the ER with any worsening symptoms or for any new symptoms concerning for you. Take care! Pending Studies at Discharge: No Stand-Alone Forms: My [facility] [employer], Smoking Cessation Medications and DC Order Prescriptions: Continued nitroglycerin [Nitrostat] 0.4 mg tablet, sublingual 0.4 mg SL UD PRN (Reason: chest pain) Qty: 25 3RF Rx Instructions: Unable to verify w/ pt or pharmacy at this date/time. albuterol sulfate [Ventolin HFA] 90 mcg/actuation HFA aerosol inhaler 2 puff INH Q4H PRN (Reason: copd) Qty: 18 1RF Symbicort 80-4.5 mcg/actuation HFA aerosol inhaler 2 puff INH BID Qty: 10.2 11RF Rx Instructions: Last filled 07/05/24 x30 day supply mometasone 50 mcg/actuation spray,non-aerosol 2 spray intranasal QAM Qty: 51 3RF Rx Instructions: INSTILL 2 SPRAYS INTO EACH NOSTRIL DAILY alfuzosin [Uroxatral] 10 mg tablet extended release 24 hr 10 mg PO DAILY Qty: 30 5RF Rx Instructions: administer after supper each day acetaminophen [Tylenol Extra Strength] 500 mg tablet 1,000 mg PO Q8H PRN (Reason: pain) Rx Instructions: Unable to verify w/ pt at this date/time. aspirin 81 mg tablet,delayed release (DR/EC) 81 mg PO QAM Rx Instructions: Unable to verify w/ pt at this date/time. pantoprazole 40 mg tablet,delayed release (DR/EC) 40 mg PO BID Rx Instructions: Pharmacy has 40mg daily, but other medical staff confirmed as 40mg twice daily. Unable to verify at this date/time. cyanocobalamin (vitamin B-12) 500 mcg Tablet 500 mcg PO QAM Qty: 30 0RF fluconazole 200 mg tablet 200 mg PO DAILY 7 Days Qty: 7 0RF Rx Instructions: Start Date 08/30/24 x7 day supply Held multivitamin Tablet 1 tab PO DAILY Hold Instructions: until seen in follow up, or can take FLINSTONE CHEWABLE VITAMIN Rx Instructions: Unable to verify w/ pt at this date/time. Discharge Orders: Discharge Order (Routine); Ordered 09/04/24 Ordered By: Eve Salcido/Other Patient Handouts: Treating Dysphagia, Dysphagia Tongue Exercises Admission Data Admit Date/Time: 09/02/24 17:43 Attending Provider: Gillian Pruitt Admit Provider: Michael José Primary Care Provider: Mony Caicedo Other Providers: Michael José; Noah Longo; Phillip Burns; Vicky Ye; Mariam Yusuf; Marcie Mckeon; Eloisa Brooks; Denisa Porras; Douglas Villalta; Milton Lan; Sallie Carroll; Felicita Reagan; Brittany Morin; Renetta Moscoso; Karla Sood; Annmarie Grider; Myles Griffin; Jas Covington; Estefanía Hyde; Karely Mast Jr; Kody Ronquillo.; Kervin Coleman; Mj Wen; Raheem Clemens; Sayda Thurston; Darrel Nation I; Jayna Vásquez; Bhavesh Chambers [facility] Hospital Stay Data Consultations 09/02/24 17:14 ED Decision to Admit Stat 09/02/24 18:38 Consult Gastroenterology Routine Diagnostic Imagining Performed Chest X-Ray 09/02/24 16:10 EXAM: Radiograph of the Chest 1 View INDICATION: Dyspnea. Possible esophageal foreign body. TECHNIQUE: Frontal view of the chest. COMPARISON: 08/30/2024 FINDINGS: Lungs and pleural spaces: Left pneumonectomy changes stable. Stable coarse bandlike scarring in the right upper lung with adjacent pleural thickening. Heart: Stable shifted heart into the left chest. Mediastinum: Normal contour. Bones/joints: No fracture, erosion or dislocation. Soft tissues: Aside from a surgical clip projecting to the left of the spine at the level of the proximal descending aorta, no foreign bodies identified. Upper abdomen: No abnormality noted. IMPRESSION: 1. Aside from a surgical clip projecting to the left of the spine at the level of the proximal descending aorta, no foreign bodies identified. 2. No acute cardiopulmonary disease. Stable chronic changes. ACT 112: Negative or not required by law. Electronically signed by Chrissy Valdes 09-02-2024 5:14 PM Barium Swallow X-Ray 09/04/24 08:50 BARIUM SWALLOW CLINICAL HISTORY: Dysphagia.Esophageal cancer. COMPARISON STUDY: Chest CT August 24, 2024. FLUOROSCOPY TIME: 0.50 seconds FLUOROSCOPY IMAGES: 7 Ka,r: 14.5 mGy FINDINGS: Left pneumonectomy and suspected post treatment change within the right upper lobe are better depicted on prior chest CT of August 24, 2024. No high-grade esophageal stricture was identified. However, there was transient holdup of a 13 mm barium tablet within the esophagus at approximately the level of the pat. The pill did eventually pass into the stomach. No definite esophageal mass was identified although mucosal detail is diminished on this exam. Reflux was difficult to assess for. No hiatal hernia was identified. There is moderate esophageal dysmotility. IMPRESSION: 1. No high-grade esophageal stricture. However, transient holdup of a 13 mm barium tablet within the esophagus at the level of the pat. This may reflect the site of mild esophageal narrowing. 2. Moderate esophageal dysmotility. 3. Otherwise, no significant abnormalities identified. Mucosal detail diminished on this exam. ACT 112: Negative or not required by law. Electronically signed by: Zackery Salgado M.D. 09/04/2024 9:49 AM Shoulder X-Ray 09/04/24 11:55 XR shoulder RT min 2V routine HISTORY: 79 years-old Male shoulder pain, ?dislocation acute right shoulder pain without trauma COMPARISON: Chest radiograph 09-24 TECHNIQUE: 3 views of the right shoulder FINDINGS: Moderate to severe glenohumeral and AC joint osteoarthritis. Mild lateral soft tissue swelling. No acute fracture or dislocation. Unchanged right upper lobe opacities. Left-sided pneumonectomy changes with leftward midline shift again seen. IMPRESSION: 1. No acute fracture or dislocation. 2. Moderate to severe osteoarthritis. ACT 112: Negative or not required by law. The above report was generated using voice recognition software. It may contain grammatical, syntax or spelling errors. Electronically signed by: Elmo Ocasio M.D. 09/04/2024 1:54 PM Discharge Instructions Given to Patient (Per Discharging Provider) You have been hospitalized for shortness of breath and trouble swallowing following taking potato salad and multivitamin. GI was consulted and you underwent barium swallow which shows the known narrowing and did NOT feel needing repeat EGD and plans to arrange for outpatient manometry for further evaluation and treatment. Dr Remy is to be arranging outpatient PET CT scan as discussed last week as well as referral to interventional GI in follow up and you are supposed to be called with those appointments. Please continue your usual inhalers, fluconazole for another 2 days to complete the course. Continue Protonix twice daily. Please continue EASY TO CHEW diet and avoid large pills. If needing tylenol for pain you should buy over the counter liquid form to prevent issues with such. You can purchase the baby aspirin as chewable form as well to limit pills and for multivitamin please see about possibly a chewable Flintstones vitamin until able to discuss in follow up with primary care. Repeat sputum culture in 1 week and follow up with pulmonology outpatient per pulmonology information coordinator while inpatient. Please follow up with primary care, GI, oncology at discharge for ongoing management/treatment. Please return to the ER with any worsening symptoms or for any new symptoms concerning for you. Take care! Total Time Total Time Spent Total Time Spent (In Minutes): 45 Coding Level of Care Code 72430 INP/OBS DISCH >30 MIN Diagnoses Esophageal dysphagia R13.10 COPD (chronic obstructive pulmonary disease) J44.9
[2024-09-04] MEDS: LIDOCAINE 5% 1 PATCH TD STA (12:23)
--- NOTE | 2024-09-04 13:56 | XRay Report ---
XR shoulder RT min 2V routine HISTORY: 79 years-old Male shoulder pain, ?dislocation acute right shoulder pain without trauma COMPARISON: Chest radiograph 09-24 TECHNIQUE: 3 views of the right shoulder FINDINGS: Moderate to severe glenohumeral and AC joint osteoarthritis. Mild lateral soft tissue swelling. No ac [place] fracture or dislocation. Unchanged right upper lobe opacities. Left-sided pneumonectomy changes w ith leftward midline shift again seen. IMPRESSION: 1. No acute fracture or dislocation. 2. Moderate to severe osteoarthritis. ACT 112: Negative or not required by law. The above report was generated using voice recognition software. It may contain grammatical, syntax o r spelling errors. Electronically signed by: Elmo Ocasio M.D. 09/04/2024 1:54 PM
== END 2024-09-04 04:15 | disposition home health service (06) | DRG 375 ==
LOC: ED 15:54 → SUATTDRO 17:43 → 2S 17:43
DX: Z79.899 Other long term (current) drug therapy; Z87.891 Personal history of nicotine dependence; Z90.2 Acquired absence of lung [part of]; Z91.040 Latex allergy status; Z88.1 Allergy status to other antibiotic agents; Z85.118 Personal history of other malignant neoplasm of bronchus and lung; Z79.82 Long term (current) use of aspirin; Z88.8 Allergy status to other drugs, medicaments and biological substances; Z88.0 Allergy status to penicillin; C16.0 Malignant neoplasm of cardia; C61 Malignant neoplasm of prostate; I27.82 Chronic pulmonary embolism; K22.4 Dyskinesia of esophagus; Z88.2 Allergy status to sulfonamides; J44.9 Chronic obstructive pulmonary disease, unspecified

== ENCOUNTER 2024-11-11 07:30 | Inpatient (IN) ==
--- NOTE | 2024-11-11 07:37 | Emergency Department Note ---
Impression & Plan Upper GI bleed, Esophageal stenosis, Symptomatic anemia, Esophageal adenocarcinoma, Syncope and collapse ED Provider Note NAME: SCAR CASTILLO Sr AGE: 79 SEX: M : 1945 ARRIVES VIA: Ambulance INFORMANT: Patient, nursing report ED PROVIDER(S): Bryant Rosado MD CHIEF COMPLAINT: Dizziness MEDICAL DECISION MAKING: Patient presents due to concern for dizziness. After leaving the room patient did not use the bathroom and in doing so patient syncopized. Patient was laid down. Patient was arousable soon thereafter did have a palpable pulse and was breathing on his own. Patient saturations of 100%. The patient did awake and was able to give his name. Patient did appear to have black-colored stool. 2 lines were placed [id number] was obtained in addition to type and screen. Patient was ordered IV fluids. Patient was laid down in bed. Patient was ordered additional IV fluids. Patient's [id number] hemoglobin was 10. This is almost a 4 point drop since November 02. Given this I did order 1 unit PRBCs to be given. I did speak with the charge nurse to speak with blood bank to ensure that we had this available soon and not something where it had to be requested from a place like [place]. We do have this in house and this is being readied. The patient's blood work shows a white count of 14 with a formal hemoglobin of 10.5. The patient's platelet count is unremarkable. Kidney function are unremarkable with regard to creatinine but does show significant prerenal azotemia which would be consistent with the patient's upper GI bleed. BioFire is negative. Patient still has softer blood pressures. Initially he seemed to have improvement and the second liter was canceled and this was reordered so the patient would receive a total of 2 L of IV fluid and a second unit of PRBCs was ordered. While this was being completed I did speak the on- call hospitalist Dr. Olivas as well as with Dr. Nation with gastroenterology who did kindly and promptly evaluate the patient. Dr. Nation did recommend obtaining a chest x-ray to screen for pneumomediastinum. This was ordered and pending at the time of admission. Critical Care: I have personally spent 125 minutes of critical care time in direct management of this patient. This includes bedside care, interpretation of diagnostic studies, and testing, discussion with consultants, patient, and family members, and other require inpatient management activities. This 125 minutes is in excess of all separately billable procedures. Discussion w/ other healthcare providers: ED case management Dr. Olivas inpatient medicine service Dr. Nation gastroenterology Prior /Outside records reviewed: I reviewed part of a primary care visit from October 16, [address] Caicedo. Patient with known history esophageal adenocarcinoma status postresection currently on hospice. We reviewed part of the findings of an upper GI endoscopy completed by Dr. Cruz on November 10 at 1250. Patient did have the endoscopy completed for dysphagia and for therapy of esophageal stenosis. 1 benign-appearing intrinsic moderate stenosis was found at the GE junction. This area was dilated. Baresel applied to control minor blood oozing no evidence of perforation. Entire examined stomach was normal duodenal bulb and second portion of the duodenum were normal. Differential diagnosis: Diverticulitis, AVM, coagulopathy, colitis, inflammatory bowel disease, malignancy, esophagitis, peptic ulcer disease, variceal bleed, gastritis, fissure, hemorrhoids, as well as other pathologies. Diagnostics, as interpreted by me: ECG: Normal sinus rhythm, rate of 96, normal intervals, normal axis no ST elevations. Cardiac monitoring: An order was placed for continuous cardiac monitoring. The monitor shows a rate of 95 with sinus rhythm. Patient was placed on pulse oximetry Medical decision rules: None Imaging studies: I informally interpreted the patient's chest x-ray does not show obvious pneumonia with left pneumonectomy noted with formal report to follow. HPI: Patient presents due to concern for dizziness. The patient reports that has been having some diarrhea and did have a recent endoscopy completed at [facility]. Patient denies any chest pains or shortness of breath. The patient feels as though he is can have a bowel movement during his initial evaluation. Patient has not seen the color of his stool. Patient is currently on hospice but did call the ambulance today. No reported syncope. No reported vomiting. Patient has had poor p.o. intake. Nursing reported that the patient was hypotensive and route. The patient does wear 4 L of nasal cannula oxygen at all times. PAST MEDICAL HISTORY: See Below PAST SURGICAL HISTORY: See Below SOCIAL HISTORY: See Below HOME MEDICATIONS: See Below ALLERGIES: See Below VITALS: See Below PHYSICAL EXAMINATION: GENERAL: Pale in appearance. Nasal cannula in place. EYE EXAM: Normal conjunctiva. PERRL, no anisocoria and EOM's grossly intact w/o pain. OROPHARYNX: Dry mucous membranes, edentulous. NECK: Trachea midline, no stridor. Supple, no nuchal rigidity, no adenopathy, non-tender. No signs of meningismus. FROM of the neck with good chin to chest and neck extension. LUNGS: Decreased breath sounds left chest. Normal chest wall mechanics. HEART: NSR, no MRG. ABDOMEN: Abdomen soft, non-tender, no masses, no rebound or guarding. BACK: No CVA TTP. SKIN: No rashes and no bruising. UPPER EXTREMITIES: Upper extremities are grossly normal. LOWER EXTREMITIES: Grossly normal, no edema. NEURO EXAM: A&O x3, cranial nerves II-XII grossly intact, normal speech, moves all 4 extremities. 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 Chronic pulmonary embolism Peyronie's disease LVH (left ventricular hypertrophy) Prostate nodule Lower urinary tract symptoms (LUTS) History of pneumonectomy (01/2004) Left + 2 ribs removed COPD (chronic obstructive pulmonary disease) (Chronic) Medical History Acute gastritis Esophageal candidiasis Acute exacerbation of chronic obstructive pulmonary disease Hypoxia BRYANT (dyspnea on exertion) Malignant neoplasm of prostate with intermediate recurrence risk, stage T2B-C or Matthias 7 or prostate-specific antigen (PSA) 10-20 Herpes zoster Hematuria LVH (left ventricular hypertrophy) Primary cancer of right upper lobe of lung (01/20/17) Poor historian Aspiration pneumonia Remote hx per records (2012) Respiratory failure 2012 > resulted in ICU stay/required ventilator x2 days Surgical History History of esophagogastroduodenoscopy (EGD) History of pneumonectomy (01/2004) Left + 2 ribs removed 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 Family History Father Cardiac disorder Stroke Mother Cardiac disorder Diabetes Myocardial infarction Brother Diabetes Sister Breast cancer Other Cancer Denies family history of Ovarian cancer Prostate cancer Colorectal cancer Social History Smoking Status: Former smoker Tobacco Type: Pipe Age Started Using Tobacco: 14; Age Quit Using Tobacco: 42; packs per day: 2; Second Hand Exposure: Yes (as a child); Do You Dip or Chew Tobacco: Yes (Full leaf tobacco > advised none DOS); Hx Alcohol Use: Yes Alcohol type: hard liquor Alcohol type Comment: 6 oz whiskey a day w/honey Alcohol Intake Frequency: 4 or More x per/Week Hx Substance Use: No Preferred Language: Latvian Communication Ability: Effective Visual Impairment: No Limitations Hearing Ability: Hard of Hearing Nib Adjuster Required: No Beliefs That Will Affect Care: None marital status: Single Current Living Situation: Alone current occupational status: retired Feels Safe at Home: Yes Childhood Exposure to Second-Hand Smoke: Yes Diet: regular Diet Comment: regular caffeine: Yes during the past year weight has: remained stable Dental Care, Regularly: No Physical Activity Frequency: Does not Exercise Seatbelt Use: never Sunscreen Use: No (can not go in direct sunlight) Assistive Devices: Denture - Upper, Denture - Lower, Glasses and Oxygen - Continuous Allergies Allergies Allergy/AdvReac Type Severity Reaction Status Date / Time Penicillins Allergy Intermediate Difficulty Verified 11/11/24 09:45 Swallowing sucralfate [From Carafate] Allergy Mild Dizziness Verified 11/11/24 09:45 ciprofloxacin Allergy Unknown Difficulty Verified 11/11/24 09:45 Breathing latex Allergy Unknown Rash Verified 11/11/24 09:45 lorazepam Allergy Unknown Rash Verified 11/11/24 09:45 sulfamethoxazole Allergy Unknown Difficulty Verified 11/11/24 09:45 Breathing cephalexin AdvReac Mild Yeast Verified 11/11/24 09:45 infection minocycline AdvReac Mild Yeast Verified 11/11/24 09:45 infection Home Meds Home Medications Medication Instructions Recorded Confirmed acetaminophen 500 mg tablet 1,000 mg PO Q8H PRN pain 06/19/19 11/11/24 (Tylenol Extra Strength) multivitamin 1 tab PO DAILY 08/09/24 11/11/24 aspirin 81 mg tablet,delayed 81 mg PO DAILY 09/13/24 11/11/24 release (Enteric Coated Aspirin) Previous Rx's Medication Instructions Recorded albuterol sulfate 90 mcg/actuation 2 puff inhalation Q4H PRN copd #18 11/04/23 aerosol inhaler (Ventolin HFA) grams budesonide-formoterol HFA 80 2 puff inhalation BID #10.2 grams 05/11/24 mcg-4.5 mcg/actuation aerosol inhaler (Symbicort) mometasone 50 mcg/actuation nasal 2 spray intranasal QAM #51 grams 06/19/24 spray alfuzosin 10 mg tablet,extended 10 mg PO DAILY #30 tabs 08/14/24 release 24 hr (Uroxatral) cyanocobalamin (vitamin B-12) 500 500 mcg PO QAM #30 tabs 08/30/24 mcg tablet nitroglycerin 0.4 mg sublingual 0.4 mg sublingual UD PRN chest 09/06/24 tablet (Nitrostat) pain #25 tabs omeprazole 20 mg capsule,delayed 40 mg (2 x 20 mg) PO BID #360 caps 11/02/24 release Results & Data (ED) Vital Signs Vital Signs - 24 hr 11/11/24 07:40 11/11/24 08:00 11/11/24 08:02 Temperature 36.5 C Temperature Source Oral Pulse Rate 108 H 100 H 116 H Pulse Rate [Apical] Pulse Rate from SpO2 Sensor 101 H Respiratory Rate 38 H 24 Respiratory Effort / Characteristics Spontaneous Short of Breath Respiratory Depth Shallow Blood Pressure 109/63 95/71 L Blood Pressure [Left Arm] Blood Pressure Mean 78 79 Blood Pressure Mean [Left Arm] Pulse Oximetry 100 99 Oxygen Delivery Method Nasal Cannula Nasal Cannula Oxygen Flow Rate 4 4 Sepsis Recent Fever Within 48 Hours No Sepsis New/Unexplained Change in Mental Status N/A Sepsis Action Taken by Nursing Physician Notified 11/11/24 08:15 11/11/24 08:30 11/11/24 08:30 Temperature Temperature Source Pulse Rate 90 Pulse Rate [Apical] 90 87 Pulse Rate from SpO2 Sensor Respiratory Rate 24 33 H 24 Respiratory Effort / Characteristics Spontaneous Spontaneous Respiratory Depth Blood Pressure 102/71 Blood Pressure [Left Arm] 111/82 102/71 Blood Pressure Mean 79 Blood Pressure Mean [Left Arm] 91 81 Pulse Oximetry 100 100 100 Oxygen Delivery Method Nasal Cannula Nasal Cannula Nasal Cannula Oxygen Flow Rate 4 4 4 Sepsis Recent Fever Within 48 Hours Sepsis New/Unexplained Change in Mental Status Sepsis Action Taken by Nursing 11/11/24 08:46 Temperature Temperature Source Pulse Rate 100 H Pulse Rate [Apical] Pulse Rate from SpO2 Sensor Respiratory Rate 21 Respiratory Effort / Characteristics Respiratory Depth Blood Pressure 103/62 Blood Pressure [Left Arm] Blood Pressure Mean 63 Blood Pressure Mean [Left Arm] Pulse Oximetry 100 Oxygen Delivery Method Nasal Cannula Oxygen Flow Rate 4 Sepsis Recent Fever Within 48 Hours Sepsis New/Unexplained Change in Mental Status Sepsis Action Taken by [facility] Medications Current Medication List: was personally reviewed by me Laboratory Data Attestation: I reviewed the patient's lab results. 11/11/24 07:56 11/11/24 07:56 Lab Results 11/11/24 11/11/24 11/11/24 Range/Units 07:56 07:58 08:02 WBC 14.01 H (4.8-10.8) K/ul RBC 3.71 L (4.70-6.10) M/uL Hgb 10.5 L (14.0-18.0) g/dl POC Hgb 10.5 L (14.0-18.0) g/dl Hct 32.9 L (42.0-52.0) % POC Hct 31 L (42-52) % MCV 88.7 (80.0-100.0) fL MCH 28.3 (25.0-34.0) pg MCHC 31.9 L (32.0-36.0) g/dL RDW Std Deviation 43.7 (36.4-46.3) fL RDW Coeff of Priti 13.4 (11.5-14.5) % Plt Count 298 (130-400) K/uL MPV 11.0 (9.4-12.4) fL Immature Gran % (Auto) 0.5 % Neut % (Auto) 77.4 % Lymph % (Auto) 12.9 % [place] % (Auto) 8.6 % Eos % (Auto) 0.2 % Baso % (Auto) 0.4 % Neut # (Auto) 10.84 H (1.40-6.50) K/uL Lymph # (Auto) 1.81 (1.20-3.40) K/uL [place] # (Auto) 1.21 H (0.11-0.59) K/uL Eos # (Auto) 0.03 (0.00-0.50) K/uL Baso # (Auto) 0.05 (0.00-0.20) K/uL Immature Gran # (Auto) 0.07 (0.01-0.20) K/uL PT 11.5 (9.0-12.0) Seconds INR 1.1 (0.9-1.1) APTT 24 (21-31) Seconds PTT Ratio 0.9 POC Sodium 137 (135-144) mmol/L Sodium 138 (136-145) mmol/L POC Potassium 4.7 (3.3-5.0) mmol/L Potassium 4.7 (3.5-5.1) mmol/L POC Chloride 101 (101-112) mmol/L Chloride 101 (98-107) mmol/L Carbon Dioxide 31 (21-32) mmol/L POC Total CO2 29 (24-31) mmol/L Anion Gap 6 (3-11) POC Anion Gap 13.0 L (16-25) mmol/L POC BUN 44 H (7-18) mg/dl BUN 51 H (6-23) mg/dl Creatinine 0.73 (0.6-1.4) mg/dl POC Creatinine 0.9 (0.6-1.3) mg/dl Est Cr Clr Drug Dosing 66.8 ml/min eGFR 92.55 BUN/Creatinine Ratio 69.9 H (10-20) Glucose 140 H (70-99(Fasting)) mg/dl POC Glucose (other) 133 H (70-99) mg/dl Calcium 8.3 L (8.6-10.3) mg/dl POC Ioniz Calcium Tigist 1.14 (1.12-1.32) mmol/l Total Bilirubin 0.6 (0.2-1.0) mg/dl AST 11 L (13-39) U/L ALT 8 (7-52) U/L Alkaline Phosphatase 61 (34-104) U/L Troponin I High Sens 9.4 (0-20) pg/ml Total Protein 5.8 L (6.0-8.3) gm/dl Albumin 3.4 (3.4-5.0) gm/dl Globulin 2.4 L (2.5-4.0) gm/dl Albumin/Globulin Ratio 1.4 (0.9-2) Stl C. cayetanensis PCR Not Detected (NotDetected) Stool Rotavirus A PCR Not Detected (NotDetected) Stl Adenov F 40/41 PCR Not Detected (NotDetected) Stool Astrovirus (PCR) Not Detected (NotDetected) Stool Campylobacter PCR Not Detected (NotDetected) Stl C. diff Tox B Gene Negative Cdiff Gene (Neg) Stool Cryptosporidium PCR Not Detected (NotDetected) Stl E.coli Shiga Tox PCR Not Detected (NotDetected) Stl Enterotoxigenic E PCR Not Detected (NotDetected) Stool EPEC (PCR) Not Detected (NotDetected) Stool EAEC (PCR) Not Detected (NotDetected) Stl E. histolytica PCR Not Detected (NotDetected) Stool Giardia Lamblia PCR Not Detected (NotDetected) Stool Salmonella PCR Not Detected (NotDetected) Stool Sapovirus (PCR) Not Detected (NotDetected) Stl P. shigelloides PCR Not Detected (NotDetected) Stl Shigella/EIEC PCR Not Detected (NotDetected) St Y.enterocolitica PCR Not Detected (NotDetected) Stool Vibrio (PCR) Not Detected (NotDetected) Stl Vibrio cholerae PCR Not Detected (NotDetected) Stl Norovirus GI/GII PCR Not Detected (NotDetected) Blood Type A Positive Blood Type Recheck Antibody Screen NEGATIVE Crossmatch See Detail 11/11/24 Range/Units 08:43 WBC (4.8-10.8) K/ul RBC (4.70-6.10) M/uL Hgb (14.0-18.0) g/dl POC Hgb (14.0-18.0) g/dl Hct (42.0-52.0) % POC Hct (42-52) % MCV (80.0-100.0) fL MCH (25.0-34.0) pg MCHC (32.0-36.0) g/dL RDW Std Deviation (36.4-46.3) fL RDW Coeff of Priti (11.5-14.5) % Plt Count (130-400) K/uL MPV (9.4-12.4) fL Immature Gran % (Auto) % Neut % (Auto) % Lymph % (Auto) % [place] % (Auto) % Eos % (Auto) % Baso % (Auto) % Neut # (Auto) (1.40-6.50) K/uL Lymph # (Auto) (1.20-3.40) K/uL [place] # (Auto) (0.11-0.59) K/uL Eos # (Auto) (0.00-0.50) K/uL Baso # (Auto) (0.00-0.20) K/uL Immature Gran # (Auto) (0.01-0.20) K/uL PT (9.0-12.0) Seconds INR (0.9-1.1) APTT (21-31) Seconds PTT Ratio POC Sodium (135-144) mmol/L Sodium (136-145) mmol/L POC Potassium (3.3-5.0) mmol/L Potassium (3.5-5.1) mmol/L POC Chloride (101-112) mmol/L Chloride (98-107) mmol/L Carbon Dioxide (21-32) mmol/L POC Total CO2 (24-31) mmol/L Anion Gap (3-11) POC Anion Gap (16-25) mmol/L POC BUN (7-18) mg/dl BUN (6-23) mg/dl Creatinine (0.6-1.4) mg/dl POC Creatinine (0.6-1.3) mg/dl Est Cr Clr Drug Dosing ml/min eGFR BUN/Creatinine Ratio (10-20) Glucose (70-99(Fasting)) mg/dl POC Glucose (other) (70-99) mg/dl Calcium (8.6-10.3) mg/dl POC Ioniz Calcium Tigist (1.12-1.32) mmol/l Total Bilirubin (0.2-1.0) mg/dl AST (13-39) U/L ALT (7-52) U/L Alkaline Phosphatase (34-104) U/L Troponin I High Sens (0-20) pg/ml Total Protein (6.0-8.3) gm/dl Albumin (3.4-5.0) gm/dl Globulin (2.5-4.0) gm/dl Albumin/Globulin Ratio (0.9-2) Stl C. cayetanensis PCR (NotDetected) Stool Rotavirus A PCR (NotDetected) Stl Adenov F 40/41 PCR (NotDetected) Stool Astrovirus (PCR) (NotDetected) Stool Campylobacter PCR (NotDetected) Stl C. diff Tox B Gene (Neg) Stool Cryptosporidium PCR (NotDetected) Stl E.coli Shiga Tox PCR (NotDetected) Stl Enterotoxigenic E PCR (NotDetected) Stool EPEC (PCR) (NotDetected) Stool EAEC (PCR) (NotDetected) Stl E. histolytica PCR (NotDetected) Stool Giardia Lamblia PCR (NotDetected) Stool Salmonella PCR (NotDetected) Stool Sapovirus (PCR) (NotDetected) Stl P. shigelloides PCR (NotDetected) Stl Shigella/EIEC PCR (NotDetected) St Y.enterocolitica PCR (NotDetected) Stool Vibrio (PCR) (NotDetected) Stl Vibrio cholerae PCR (NotDetected) Stl Norovirus GI/GII PCR (NotDetected) Blood Type Blood Type Recheck A Positive Antibody Screen Crossmatch Administered Medications Acetaminophen (Acetaminophen 1000 Mg/100 Ml Iv) 1,000 mg IV Q8H PRN PRN Reason: Pain or Fever Stop: 11/14/24 10:37 Last Admin: 11/11/24 12:55 Dose: 1,000 mg Documented By: DAKOTAH Fluticasone/Vilanterol (Fluticasone/Vilanterol 100/25mcg 14 Puffs/Inhaler) 1 puffs INH DAILY MADDIE; Protocol Stop: 12/11/24 10:59 Last Admin: 11/11/24 12:55 Dose: 1 puffs Documented By: DAKOTAH Pantoprazole Sodium 40 mg/ (Dextrose) 100 mls @ 20 mls/hr IV Q5H MADDIE Stop: 12/11/24 08:14 Last Admin: 11/11/24 08:48 Dose: 8 mg/hr, 20 mls/hr Documented By: FRANKLIN Ceftriaxone Sodium (Rocephin) 1,000 mg in 50 mls @ 100 mls/hr IV Q24H MADDIE Stop: 11/21/24 10:59 Last Admin: 11/11/24 12:37 Dose: 100 mls/hr Documented By: DAKOTAH Discontinued Medications Sodium Chloride (Nss) 1,000 mls @ 999 mls/hr IV .Q1H1M ONE Stop: 11/11/24 08:46 Last Infusion: 11/11/24 08:49 Dose: Infused Documented By: Admin: 11/11/24 07:53 Dose: 999 mls/hr Documented By: FRANKLIN Pantoprazole Sodium 80 mg/ (Dextrose) 120 mls @ 480 mls/hr IV NOW ONE Stop: 11/11/24 08:06 Last Infusion: 11/11/24 08:49 Dose: Infused Documented By: Admin: 11/11/24 08:21 Dose: 480 mls/hr Documented By: FRANKLIN Sodium Chloride (Nss) 1,000 mls @ 999 mls/hr IV .Q1H1M ONE Stop: 11/11/24 08:53 Last Infusion: 11/11/24 12:22 Dose: Infused Documented By: Admin: 11/11/24 08:56 Dose: 999 mls/hr Documented By: FRANKLIN Calcium Gluconate () 1,000 mg in 60 mls @ 240 mls/hr IV NOW STA Stop: 11/11/24 08:47 Last Infusion: 11/11/24 09:25 Dose: Infused Documented By: Admin: 11/11/24 08:55 Dose: 240 mls/hr Documented By: FRANKLIN Sodium Chloride (Nss) 1,000 mls @ 999 mls/hr IV .Q1H1M ONE Stop: 11/11/24 09:56 Last Admin: 11/11/24 12:23 Dose: Not Given Documented By: DAKOTAH Pantoprazole Sodium (Pantoprazole Bolus/Drip) 1 each IV NOW STA Stop: 11/11/24 07:53 Last Admin: 11/11/24 08:50 Dose: Not Given Documented By: FRANKLIN Imaging Data Radiologist's Impression: Chest X-Ray 11/11/24 08:43 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 Comparison: Comparison is made to chest radiographs 09/02/2024 FINDINGS: No lines and tubes are seen. Expected leftward mediastinal shift is seen with obscured borders of the heart and mediastinum. Postsurgical changes of left pneumonectomy. Chronic scarring is seen in the right upper lung. No evidence of pleural effusion or pneumothorax. IMPRESSION: Redemonstration of left pneumonectomy changes without acute abnormality. ACT 112: Negative or not required by law. Electronically signed by: Enrique Yusuf M.D. 11/11/2024 9:08 AM Discharge Plan Visit Data Chief Complaint: Dizziness Stated Complaint: DIZZINESS ED Provider: Bryant Rosado Discharge Problem: Upper GI bleed, Esophageal stenosis, Symptomatic anemia, Esophageal adenocarcinoma, Syncope and collapse Patient Disposition: Admitted As Inpatient Discharge Instructions Interventions: ED Discharge Assessment Last Done: 11/11/24 10:07
--- OUTSIDE RECORDS SUMMARY | 2024-11-11 07:39 | External Medical Summary | Summary of Care ---
Author Name Unknown Organization [facility] Address [address] [place] [address] Phone [phone] Care Team Providers Care Sharples Machine Operator Name Role Phone Mony Caicedo DO Primary Care Provider [phone]- [phone] Reason for Visit * Reason Onset Date Comments [facility]: Maintenance 11/09/2024 Encounter Details Date Type Department Care Team (Late st Contact Info) Description 11/09/2024 11:00 AM EST Scheduled Telephone [facility], [facility] [address] [facility] [address] [facility], Nurse [address] [place] [address] Allergies Active Allergy Reactions Criticality Noted Date Comments Cephalexin 09/07/2024 Ciprofloxacin 09/07/2024 Latex 09/07/2024 Lorazepam 09/07/2024 Minocycline 09/07/2024 Penicillins 09/07/2024 Sucralfate Unknown High 10/05/2024 States this medication gives him severe side effects but is unable to state what that side effect is Sulfamethoxazole 09/07/2024 documented as of this encounter (statuses as of 11/09/2024) Medications MULTIVITAMINS PO TABS Take by mouth. Activ e BOOST HIGH PROTEIN PO LIQD 1 can every other day by mouth Active Mometasone Furoate 50 MCG/ACT Nasal Suspension Active Budesonide-Formo terol Fumarate 80-4.5 MCG/ACT Inhalation Aerosol (Symbicort) 1 Active Pantoprazole Sodium 40 MG Oral Tablet Delayed Release (Protonix) Take 1 Tablet by mouth in the morning and 1 Tablet in the evening. Active Alfuzosin HCl ER 10 MG Oral Tablet Extended Release 24 Hour (Uroxatral) Take 1 Tablet by mouth in the morning. Active Nitroglycerin 0.4 MG Sublingual Tablet Sublingual (Nitrostat) Place 1 Tablet under the tongue every 5 minutes as needed for Pain, Chest. Active Aspirin 81 MG Oral Tablet Delayed Release Take 1 Tablet by mouth in the morning. Do not start before September 17, 2024. 30 Tablet 09/12/2024 11:41 AM EST 4 Active Albuterol Sulfate (TO GO ALBUTEROL HFA) IN puff Inhale 2 Puffs by mouth every 6 hours as needed. Active Vitamin B-12 500 MCG Oral Tablet (vitamin B-12) Take 1 Tablet by mouth in the morning. 4 Active Acetaminophen 500 MG Oral Tablet (Tylenol) Take 1 Tablet by mouth every 6 hours as needed for Pain, Breakthrough. Active Omeprazole 20 MG Oral Capsule Delayed Release (PriLOSEC)Indica tions:Gastroesop hageal reflux disease with esophagitis Take 1 Capsule by mouth in the morning and 1 Capsule before bedtime. 180 Capsule 4 Active Additional Information Patient taking differently: 40 mgOral BID (.AM/PM), Reported on 11/08/2024 documented as of this encounter (statuses as of 11/09/2024) Active Problems Problem Noted Date Diagnosed Date Malignant neoplasm of lower third of esophagus 1 11/11/2023 Abnormal endoscopy of upper gastrointestinal tra ct 09/11/2024 S/P endoscopy 09/11/2024 BPH with obstruction/lower urinary tract symptom s 09/11/2024 Lung cancer 02/23/2012 Overview (02/23/2012): Pneumonectomy Left in 2004 Partial upper lobe removal right lung in ? Dysphagia 02/23/2012 Overview (01/23/2016): H/o aspiration pneumonia ICD-10 update of inactive term documented as of this encounter (statuses as of 11/09/2024) Immunizations Name Administration Dates Next Due Pneumococcal Polysaccharide PPV23 (Pneumovax) Seasonal Influenza, Trivalent, (IIV3), PF, (Fluz one) 08/24/2011 documented as of this encounter Social History Tobacco Use Types Packs/Day Years Used Date Smoking Tobacco: Former Cigarettes 1 - 1958 Smokeless Tobacco: Current Alcohol Use Standard Drinks/Week Comments Yes 0 (1 standard drink = 0.6 oz pure alcohol) 3 double shots of whiskey TID (every day) Hunger Vital Sign Answer Date Recorded Within the past 12 months, y ou worried that your food would run out before you got the money to buy more. Never true 09/07/20 24 Within the past 12 months, t he food you bought just didn't last and you didn't have money to get more. Never true 09/07/2024 Childcare Answer Date Recorded Do you feel overwhelmed with taking care of a child, family member or friend? No 09/07/2024 Does your family need help f inding childcare? (Household - for ages 0-17 years) Not on file 09/07/2024 Clothing Answer Date Recorded Have you been unable to get clothing when it was really needed? No 09/07/2024 Is your family able to get c lothes or diapers when needed? (Household - for ages 0-17 years) Not on file 09/07/2024 Personal Safety Answer Date Recorded Do you feel unsafe or have concerns for your saf ety? No 09/11/2024 Do you have concerns for you r family's safety? (Household - for ages 0-17 years) Not on file 09/11/2024 Utilities Answer Date Recorded Do you have trouble paying y our heating, water, or electric bill? No 09/11/2024 Is your family able to pay t he heat, water, or electric bill? (Household - for ages 0-17 years) Not on file 09/11/2024 Does your family have access to good internet? (Household - for ages 0-17 years) Not on file 09/11/2024 Employment Status Answer Date Recorded Are you unemployed or without regular income? No 09/07/2024 Does the household have a re gular source of income? (Household - for ages 0-17 years) Not on file 09/07/2024 Social Connections Answer Date Recorded How often do you feel lonely or isolated from th ose around you? Never 09/07/2024 Financial Resource Strain Answer Date R ecorded Do you have any trouble payi ng for your medications, or do you think you might in the future? No 09/07/2024 Does your family have troubl e paying for medicine? (Household - for ages 0-17 years) Not on file 09/07/2024 Transportation Needs Answer Date Record ed Do you have trouble getting a ride to medical visits or work? (Adult - for ages 18 years and over) Not on file 09/11/2024 Does your family have a hard time getting a ride to doctors visits? (Household - for ages 0-17 years) Not on file 09/11/2024 Has lack of transportation k ept you from medical appointments, meetings, work, or from getting things needed for daily living? Check all that apply. No 09/11/2024 Do you (or your family) have trouble finding or paying for a ride (transportation)? (Household - for ages 0-17 years) Not on file 09/11/2024 Housing Stability Answer Date Recorded Do you currently live in a s helter or have no steady place to sleep at night? No 09/11/2024 Do you think you are at risk of becoming homeless? (Adult - for ages 18 years and over) Not on file 09/11/2024 Does your family worry about paying for your home or becoming homeless? (Household - for ages 0-17 years) Not on file 1 11/11/2023 Are you homeless or worried that you might be in the future? No 09/11/2024 Are you (or your family) pretty eless or worried that you might be in the future? (Household - for ages 0-17 years) Not on file Food Insecurity Answer Date Recorded Do you need food for this week? No 09/11/2024 Are you able to get enough f ood for your family? (Household - for ages 0-17 years) Not on file 09/11/2024 Does your family need food t his week? (Household - for ages 0-17 years) Not on file 09/11/2024 Do you always have enough fo od for your family? (Household - for ages 0-17 years) Not on file 09/11/2024 Sex and Gender Information Value Date Recorded Sex Assigned at Not on file Legal Sex Male 5:28 AM EST Gender Identity Not on file Sexual Orientation Not on file documented as of this encounter Functional Status * Are you deaf or do you have serious difficulty hearing? Answer Date of Assessment Author No 09/11/2024 5:02 PM Carlee Gauthier RN * Are you blind or do you have serious difficulty seeing, even when wearing glasses? Answer Date of Assessment Author No 09/11/2024 5:02 PM Carlee Gauthier RN * Do you have serious difficulty walking or climbing stairs? (5 years old or older) Answer Date of Assessment Author No 09/11/2024 5:02 PM Carlee Gauthier RN * Do you have difficulty dressing or bathing? (5 years old or older) Answer Date of Assessment Author No 09/11/2024 5:02 PM Carlee Gauthier RN * Because of a physical, mental, or emotional condition, do you have difficulty doing errands alone such as visiting a doctors office or shopping? (15 years old or older) Answer Date of Assessment Author No 09/11/2024 5:02 PM Carlee Gauthier RN documented as of this encounter Mental Status * Because of a physical, mental, or emotional condition, do you have serious difficulty concentrating, remembering, or making decisions? (5 years old or older) Answer Entry Date Author No 09/11/2024 5:02 PM Carlee Gauthier RN documented in this encounter Miscellaneous Notes * Telephone Encounter - Kiana Painter RN - 11/09/2024 12:01 PM EST [facility] Telephonic Nurse Follow-Up Call [facility] Subprogram: No data was found Follow Up Call Type: 24 hour follow up Acute issue requiring follow-up call: Other: s/p IVFs yesterday Objective: 11/08/2024 1:08 PM 11/08/2024 9:22 AM 10/13/2024 1:32 PM 10/06/2024 11:58 AM 10/05/2024 5:00 PM [facility]OUN[facility] BP 108/56 118/84 104/62 111/75 Pulse 72 92 88 96 Weight 60.8 kg BMI 18.17 BMI 18.17 kg/m2 Remote Patient Monitoring: NONE Oxygen Needs: NO supplemental oxygen needs identified DME Needs: NO DME needs identified Medications: No medication or dose adjustments made during acute episode Subjective: Condition Status: Improvement in symptoms but not at baseline Current Concerns: Follow up call for s/p IVFs yesterday. States that he ate a little egg salad yesterday and sipping fluids. Had small amount of fluids thismorning. States he just lets the water go down on it's own, otherwise, it causes heart burn. Deniesfeeling dizzy or light headed. Prepared for his EGD/dilation tomorrow. Transport will pick him up 08/1015 to leave by 1030. Due to[facility]rive at [facility] no later than 12:30 pm. Will add follow up call for 11/11 to see how he is doing post procedure. Disposition: Weekend call scheduled Future Visits Scheduled: Future Appointments-next 60 days Date/Time Provider Specialty Dept Phone 12/07/2024 1:30 PM Nhi Escobedo RDN [facility] [phone] Kiana Painter, RN documented in this encounter Plan of Treatment Upcoming Encounters Date Type Department Care Team (Latest Contact Info) Description 11/10/2024 1:30 PM EST Hospital Encounter OR [facility], Operating Room, [facility] - 4th Floor [address] [place] [phone] Myles Cruz MD [address] [place] [address] 11/10/2024 1:30 PM EST - 11/10/2024 2:12 PM EST Surgery OR [facility], Operating Room, [facility] - 4th Floor [address] [place] [phone] Myles Cruz MD [address] [place] [address] ESOPHAGOGASTRODUODENOSCOPY (EGD), FLEXIBLE, TRANSORAL, DIAGNOSTIC 11/11/2024 9:45 AM EST Scheduled Telephone [facility], [facility] [address] [facility] [facility] [place] [address] [facility], Nurse [facility] [address] [facility] [place] [address] 12/07/2024 1:30 PM EST Scheduled Telephone [facility], [facility] [address] [facility] [place] [address] Nhi Escobedo, RDN [address] [facility] [place] [address] Scheduled Procedures Name Priority Associated Diagnoses Date/Ti me ESOPHAGOGASTRODUODENOSCOPY ( EGD), FLEXIBLE, TRANSORAL, DIAGNOSTIC Dysphagia 11/10/2024 1:30 PM EST Health Maintenance Due Date Last Done Comments Depression Screening 1957 Hepatitis C Screening 1963 COVID-19 Vaccine ( season) 2024 03/17/2024, 07/23/2023 Influenza Vaccine (FLU shot) (#1) 2024 08/11/2022, 07/25/2021, 08/09/2020, Additional history exists DTap/Tdap Vaccines (2 - Tdap) 02/12/2025 02/12/2015 Pneumococcal Vaccine: 50+ Years Completed 09/22/2023, 08/25/2019, 08/13/2017, Additional history exists Zoster Vaccines Completed 07/29/2024, 09/22/2023 HPV (Gardasil) Vaccine Aged Out No lo nger eligible based on patient's age to complete this topic Hepatitis B Vaccine Aged Out No longe r eligible based on patient's age to complete this topic MENINGOCOCCAL (MENACTRA/MENVEO) Aged Out No longer eligible based on patient's age to complete this topic documented as of this encounter Medical Devices Not on filedocumented as of this encounter Advance Directives * Full Code (Latest Code Status on File) Date Activated Date Inactivated Comments 09/11/2024 4:30 PM 09/12/2024 9:35 PM This order reflects the patients wishes and were consensually agreed upon. Question Answer Comments Discussion of Advance Direct lambert occurred with: Not Discussed due to patient's condition Care Teams Sharples Machine Operator Relationship Specialty Start Date End Date Mony Caicedo DO [address] [facility] [address] [place] [address] PCP - General Family Medicine 06/11/23 documented as of this encounter
--- OUTSIDE RECORDS SUMMARY | 2024-11-11 07:39 | External Medical Summary | Summary of Care ---
Author Name Unknown Organization [facility] Address [address] [place] [address] Phone [phone] Care Team Providers Care Offset Assistant Press Operator Name Role Phone Mony Caicedoe Primary Care Provider [phone] Reason for Visit * Auth/Cert Specialty Diagnoses / Procedures Referred By Dana rivera Referred To Contact Diagnoses Dysphagia Dysphagia [R13.10] Procedures EGD, FLEXIBLE, DIAGNOSTIC ESOPHAGOGASTRODUODENOSCOPY (EGD), FLEXIBLE, TRANSORAL, DIAGNOSTIC Myles Cruz MD [address] [place] [address] Phone: tel: fax: OR [facility], Operating Room, [facility] - 4th Floor [address] [place] [address] Phone: tel: Referral ID Status Reason Start Date Expiration Date Visits Re quested Visits Authorized [id number] Encounter Details Date Type Department Care Team (Latest Contact Info) Description 11/10/2024 11:31 AM EST - 11/10/2024 3:26 PM EST Hospital Encounter OR [facility], Operating Room, [facility] - 4th Floor [address] [place] [address] Myles Cruz MD [address] [place] [address] Various: UGI,KRAVS Discharge Disposition: Home - Self Care Allergies Active Allergy Reactions Criticality Noted Date Comments Cephalexin 09/07/2024 Ciprofloxacin 09/07/2024 Latex 09/07/2024 Lorazepam 09/07/2024 Minocycline 09/07/2024 Penicillins 09/07/2024 Sucralfate Unknown High 10/05/2024 States this medication gives him severe side effects but is unable to state what that side effect is Sulfamethoxazole 09/07/2024 documented as of this encounter (statuses as of 11/11/2024) Medications MULTIVITAMINS PO TABS Take by mouth. Activ e BOOST HIGH PROTEIN PO LIQD 1 can every other day by mouth Active Mometasone Furoate 50 MCG/ACT Nasal Suspension 1 Active Budesonide-Formo terol Fumarate 80-4.5 MCG/ACT Inhalation [...] differently: 40 mgOral BID (.AM/PM), Reported on 11/10/2024 documented as of this encounter (statuses as of 11/11/2024) Active Problems Problem Noted Date Diagnosed Date [...] as of this encounter (statuses as of 11/11/2024) Immunizations Name Administration Dates Next Due Pneumococcal [...] 09/07/2024 Does the household have a re lar [...] on file documented as of this encounter Last Filed Vital Signs Vital Sign Reading Time Taken Comments Blood Pressure 139/68 11/10/2024 2:51 PM EST Pulse 75 11/10/2024 2:51 PM EST Temperature 36 C (96.8 F) 11/10/2024 2:51 PM EST Respiratory Rate 18 11/10/2024 2:51 PM EST Oxygen Saturation 99% 11/10/2024 2:51 PM EST Inhaled Oxygen Concentration - - Weight 60.8 kg (134 lb) 11/10/2024 11:57 AM EST Height 182.9 cm (6') 11/10/2024 11:57 AM EST Body Mass Index 18.17 11/10/2024 11:57 AM EST documented in this encounter Functional Status * Are you [...] Carlee Gauthier RN documented in this encounter H&P Notes * Myles Cruz MD - 11/10/2024 12:50 PM EST Endoscopy Pre-Procedure Assessment Name: James Abdi Date: 11/10/2024 Time: 12:50 PM Procedure(s): Upper GI Endoscopy; with Indication(s) of dilation of stenotic lesions Endoscopy Pre-Procedure Assessment: Prior to the procedure, the patient was identified. The patient's history, medications and allergies were reviewed as per the Anesthesia Assessment. The patient is competent. The risks and benefits of the proposed procedure and the planned sedation were discussed with the patient. All questions were answered and informed consent for the procedure was obtained. BP 128/74 | Pulse 79 | Temp 35.8 C (96.4 F) (Tympanic) | Resp 20 | Ht 1.829 m (6') | Wt 60.8 kg(134 lb) | SpO2 99% | BMI 18.17 kg/m | BSA 1.76 m Review of patient's allergies indicates: Allergen Reactions Sucralfate Unknown States this medication gives him severe side effects but is unable to state what that side effect is Cephalexin Ciprofloxacin Latex Lorazepam Minocycline Penicillins Sulfamethoxazole Prior to Admission medications Medication Sig Last Dose Discont. Omeprazole 20 MG Oral Capsule Delayed Release (PriLOSEC) Take 1 Capsule by mouth in the morning and1 Capsule before bedtime. Patient taking differently: Take 2 Capsules by mouth in the morning and 2 Capsules before bedtime. 11/10/2024 Acetaminophen 500 MG Oral Tablet (Tylenol) Take 1 Tablet by mouth every 6 hours as needed for Pain,Breakthrough. 11/10/2024 Albuterol Sulfate (TO GO ALBUTEROL HFA) IN puff Inhale 2 Puffs by mouth every 6 hours as needed. Unknown Alfuzosin HCl ER 10 MG Oral Tablet Extended Release 24 Hour (Uroxatral) Take 1 Tablet by mouth in the morning. Unknown Budesonide-Formoterol Fumarate 80-4.5 MCG/ACT Inhalation Aerosol (Symbicort) 11/10/2024 Mometasone Furoate 50 MCG/ACT Nasal Suspension 11/09/2024 BOOST HIGH PROTEIN PO LIQD 1 can every other day by mouth 11/09/2024 Vitamin B-12 500 MCG Oral Tablet (vitamin B-12) Take 1 Tablet by mouth in the morning. Patient not taking: Reported on 11/10/2024 Not Taking Aspirin 81 MG Oral Tablet Delayed Release Take 1 Tablet by mouth in the morning. Do not start before September 17, 2024. Sucralfate 1 GM/10ML Oral Suspension (Carafate) Take 10 mL by mouth 2 times a day 30 minutes beforemorning and evening meals. Patient not taking: Reported on 10/05/2024 Nitroglycerin 0.4 MG Sublingual Tablet Sublingual (Nitrostat) Place 1 Tablet under the tongue every5 minutes as needed for Pain, Chest. Patient not taking: Reported on 11/10/2024 Not Taking Pantoprazole Sodium 40 MG Oral Tablet Delayed Release (Protonix) Take 1 Tablet by mouth in the morning and 1 Tablet in the evening. Patient not taking: Reported on 11/10/2024 Not Taking MULTIVITAMINS PO TABS Take by mouth. Patient not taking: Reported on 11/10/2024 Not Taking Physical Exam: Mental Status Examination: alert and oriented. Airway Examination: normal oropharyngeal airway and neck mobility. Respiratory Examination: clear to auscultation. CV Examination: Regular rate and rythm, no murmurs. ASA Grade: III - A patient with severe systemic disease. After reviewing the risks and benefits, the patient was deemed in satisfactory condition to undergothe procedure. The anesthesia plan was to use sedation. Patient was explained in detail regarding risks, benefits, limitations and alternatives of the above endoscopic procedure. Risks of intravenous sedation used for procedure were also explained. Risks include, but not limited to perforation, bleeding, infection, respiratory distress, cardiac arrest and . Risk of acute pancreatitis and necrosis if ERCP is done. Patient is also aware about the possibility of missed lesion. Patient's questions were answered. The patient verbalized understandingthe information and agreed to undergo the procedure. Discussed with the patient that he/she is at an explicit higher risk for complications in comparison to other patients Myles Cruz MD 11/10/2024 documented in this encounter Procedure Notes * Mony Caicedo DO - 11/10/2024 12:50 PM ESTAssociated Order(s): UPPER GI ENDOSCOPY [facility] Patient Name: James Abdi Procedure Date: 11/10/2024 12:50 PM Date of : 1945 Admit Type: Outpatient Note Status: Finalized Date of : 1945 Admit Type: Outpatient Age: 79 Room: OR 5 Gender: Male Note Status: Finalized Procedure: Upper GI endoscopy Indications: Dysphagia, For therapy of esophageal stenosis Providers: Myles Cruz MD (Doctor), Willy Guajardo MD: Mony Caicedo DO Medicines: Propofol per Anesthesia Complications: No immediate complications. Procedure: Pre-Anesthesia Assessment: - Prior to the procedure, a History and Physical was performed, and patient medications, allergies and sensitivities were reviewed. The patient's tolerance of previous anesthesia was reviewed. - The risks and benefits of the procedure and the sedation options and risks were discussed with the patient. All questions were answered and informed consent was obtained. - Patient identification and proposed procedure were verified prior to the procedure by the physician and the nurse. The procedure was verified in the procedure room. - Pre-procedure physical examination revealed no contraindications to sedation. After obtaining informed consent, the endoscope was passed under direct vision. All instruments were visually inspected immediately before and after removal from the patient to ensure they are fully intact. Throughout the procedure, the patient's blood pressure, pulse, and oxygen saturations were monitored continuously.The upper GI endoscopy was accomplished without difficulty. The patient tolerated the procedure well. The GIF-Q190 Endoscope ([id number]) was introduced through the mouth, and advanced to the second part of duodenum. Findings & Specimens: One benign-appearing, intrinsic moderate stenosis was found at the gastroesophageal junction. The stenosis was traversed after dilation. Incisional therapy with IT-2 knife was successful. A TTS dilator was passed through the scope. Dilation with an 18-19-20 mm balloon dilator was performed to 20 mm. The dilation site was examined following endoscope reinsertion and showed moderate mucosal disruption, complete resolution of luminal narrowing and no perforation. Purastat applied to control minor blood oozing. The entire examined stomach was normal. The duodenal bulb and second portion of the duodenum were normal. Impression: - Benign-appearing esophageal stenosis. Dilated to 20 mm. Recommendation: - Discharge patient to home. - Clear liquid diet for 1 day, then advance as tolerated. - No aspirin, ibuprofen, naproxen, or other non-steroidal anti-inflammatory drugs for 5 days. - Follow an antireflux regimen. - Use a proton pump inhibitor PO BID. - Return to referring physician. Myles Cruz MD 11/10/2024 1:39:20 PM This report has been signed electronically. Estimated Blood Loss: Estimated blood loss: none. documented in this encounter Nursing Notes * Dayne León RN - 11/10/2024 3:21 PM EST [address] [address] [facility] Discharge Note Name: James Abdi Date: 11/10/2024 Time: 3:21 PM Discharge Disposition: Home Responsible adult as escort home: Friend Dwayne Transport Mode: Wheelchair Accompanied by: Cisco León RN To: Car Belongings with patient: Yes Patient meets criteria to be transferred or discharged. * Vanessa Lopez RN - 11/10/2024 1:36 PM EST EGD w/ dilation completed in [facility] OR. Purastat applied to dilation site. Sedated by [employer]. See anesthesia record for VS and medications given. Pt tolerated procedure well with minimal gagging. Abd soft. Airway patent. Pt to recovery on L side with HOB elevated. Report to recovery room nurse. Bedside cleaning done by Torres Ly RN. documented in this encounter Miscellaneous Notes * Pt Handout (on AVS) - Dayne León RN - 11/10/2024 2:55 PM EST Images from the original note were not included. [id number] Clear Liquid Diet Clear liquids are any liquid that you can see through. They are also very easy to digest. You may be put on a clear liquid diet if you are recovering from irritation or infection of the stomach or digestive tract. This diet may also be used before surgery or special procedures such as a colonoscopy. You shouldn't be on this diet for more than 3 days. Below are some clear liquids you can have on this diet. Adults and children older than 2 years Adults should drink a total of 2 to 3 quarts of liquid per day. It may be easier to drink small frequent servings rather than a few large ones. Clear liquids can include: Clear fruit juices without pulp. Apple, white grape, and cranberry juice; clear fruit drinks. Beverages. Sports drinks, sodas (no cola or root beer), mineral water (plain or flavored), tea, black coffee, liquid gelatin (add twice the advised amount of water). Soups. Clear broth. Desserts. Plain gelatin, frozen fruit juice bars without pulp or fruit pieces. Children younger than 2 years Oral rehydration fluids are available at drugstores and most grocery stores. You don?t need a prescription. Last Reviewed Date: 2022 00:00:00 [id number] [employer]. All rights reserved. This information is not intended as a substitute for professional medical care. Always follow your healthcare professional's instructions. documented in this encounter Plan of Treatment Upcoming Encounters Date Type Department Care Team (Late st Contact Info) Description 11/11/2024 9:45 AM EST Scheduled Telephone [facility], [facility] [address] [place] [address] [facility], Nurse [facility] [address] [place] [address] 12/07/2024 1:30 PM EST Scheduled Telephone [facility], [facility] [address] [place] [address] Fanny Nhi Foreman, RDN [address] [place] [address] Health Maintenance Due Date Last Done Comments Depression Screening 1957 Hepatitis C Screening 1963 COVID-19 Vaccine (2023- season) 2024 03/17/2024, 07/23/2023 Influenza Vaccine (FLU [...] Not on filedocumented as of this encounter Procedures Procedure Name Priority Date/Time Associated Diagnosis Comments UPPER GI ENDOSCOPY 11/10/2024 12 :50 PM EST documented in this encounter Results * UPPER GI ENDOSCOPY (11/10/2024 12:50 PM EST) 11/10/2024 12:5 0 PM EST Narrative Procedure Note oMny Caicedo DO - 11/10/2024 12:50 PM EST [facility] Patient Name: James Abdi Procedure Date: 11/10/2024 12:50 PM Date of : 1945 Admit Type: Outpatient Note Status:Finalized Date of : 1945 Admit Type: Outpatient Age: 79 Room: OR 5 Gender: Male Note Status: Finalized Procedure: Upper GI endoscopy Indications: Dysphagia, For therapy of esophageal stenosis Providers: Myles Cruz MD (Doctor), Willy Guajardo MD: Mony Caicedo DO Medicines: Propofol per Anesthesia Complications: No immediate complications. Procedure: Pre-Anesthesia Assessment: - Prior to the procedure, a History and Physicalwas performed, and patient medications, allergies and sensitivities werereviewed. The patient's tolerance of previous anesthesia was reviewed. - The risks and benefits of the procedure and thesedation options and risks were discussed with the patient. All questions wereanswered and informed consent was obtained. - Patient identification and proposed procedurewere verified prior to the procedure by the physician and the nurse. The procedure wasverified in the procedure room. - Pre-procedure physical examination revealed nocontraindications to sedation. After obtaining informed consent, the endoscope waspassed under direct vision. All instruments were visually inspected immediatelybefore and after removal from the patient to ensure they are fully intact. Throughoutthe procedure, the patient's blood pressure, pulse, and oxygen saturations weremonitored continuously.The upper GI endoscopy was accomplished without difficulty.The patient tolerated the procedure well. The GIF-Q190 Endoscope ([id number]) wasintroduced through the mouth, and advanced to the second part of duodenum. Findings & Specimens: One benign-appearing, intrinsic moderate stenosis was found at thegastroesophageal junction. The stenosis was traversed after dilation. Incisional therapy with IT-2knife was successful. A TTS dilator was passed through the scope. Dilation with an 18-19-20 mm balloondilator was performed to 20 mm. The dilation site was examined following endoscope reinsertion and showedmoderate mucosal disruption, complete resolution of luminal narrowing and no perforation. Purastatapplied to control minor blood oozing. The entire examined stomach was normal. The duodenal bulb and second portion of the duodenum were normal. Impression: - Benign-appearing esophageal stenosis. Dilated to20 mm. Recommendation: - Discharge patient to home. - Clear liquid diet for 1 day, then advance astolerated. - No aspirin, ibuprofen, naproxen, or othernon-steroidal anti-inflammatory drugs for 5 days. - Follow an antireflux regimen. - Use a proton pump inhibitor PO BID. - Return to referring physician. Myles Cruz MD 11/10/2024 1:39:20 PM This report has been signed electronically. Estimated Blood Loss: Estimated blood loss: none. us Mony Caicedo DO GASTRO UPPER Final Resu lt documented in this encounter Administered Medications Inactive Administered Medications - up to 3 most recent administrations Medication Order MAR Action Action Date Dose Rate Site Isolyte-S pH 7.4 infusion Intravenous, at 25 mL/hr, All Patients EXCEPT Dialysis patients Plasma-LYTE 148, isolyte-S, and isolyte-S pH 7.4 are considered equivalent - including for MAR barcode scanning., CONTINUOUS, Starting on Wed11/10/24 at 1230, Until Wed11/10/24 at 1931, Pre-Op Continue from Pre-Op 11/10/2024 1:12 PM EST 25 mL/hr New Bag 11/10/2024 12:12 PM EST 25 mL/hr 25 mL/hr documented in this encounter Active and Recently Administered Medications Times are shown in EST. Continuous Medication Order 11/08/2024 11/09/2024 11/10/2024 Isolyte-S pH 7.4 infusion Intravenous, at 25 mL/hr, All Patients EXCEPT Dialysis patients Plasma-LYTE 148, isolyte-S, and isolyte-S pH 7.4 are considered equivalent - including for MAR barcode scanning., CONTINUOUS, Starting on Wed11/10/24 at 1230, Until Wed11/10/24 at 1931, Pre-Op 1212 (New Bag - Prov ider: Lotus Gerard RN)1312 (Continue from Pre-Op - Provider: Sravanthi Mulligan CRNA)1335 (Anes Intra-Op Fluid - Provider: Sravanthi Mulligan CRNA) documented in this encounter Advance Directives * Full Code (Latest Code Status on File) Date Activated Date Inactivated Comments 09/11/2024 4:30 PM 09/12/2024 9:35 PM This order reflects the patients wishes and were consensually agreed upon. Question Answer Comments Discussion of Advance Direct lambert occurred with: Not Discussed due to patient's condition Care Teams Offset Assistant Press Operator Relationship Specialty Start Date End Date Mony Caicedo DO [address] [facility] [address] [place] [address] PCP - General Family Medicine 06/11/23 documented as of this encounter"
[2024-11-11] MEDS: SODIUM CHLORIDE 0.9% 1,000 ML IV ONE ×3 (07:53→08:59)
[2024-11-11] MEDS ORDERED: SODIUM CHLORIDE 0.9% 50 ML IV PRN ×2 (08:07→09:23)
[2024-11-11] MEDS ORDERED: SODIUM CHLORIDE 0.9% 100 ML IV PRN ×2 (08:07→09:23)
[2024-11-11 08:10] LABS: Basophils # (auto) 0.05 K/uL (0.00-0.20); Basophils % (auto) 0.4 %; Eosinophils # (auto) 0.03 K/uL (0.00-0.50); Eosinophils % (auto) 0.2 %; Hematocrit (blood only) 32.9 % (42.0-52.0); Hemoglobin 10.5 g/dl (14.0-18.0); Immature Granulocytes # (auto) 0.07 K/uL (0.01-0.20); Immature Granulocytes % (auto) 0.5 %; Lymphocytes # (auto) 1.81 K/uL (1.20-3.40); Lymphocytes % (auto) 12.9 %; Mean Corpuscular Hemoglobin 28.3 pg (25.0-34.0); Mean Corpuscular Hgb Conc 31.9 g/dL (32.0-36.0); Mean Corpuscular Volume 88.7 fL (80.0-100.0); Monocytes # (auto) 1.21 K/uL (0.11-0.59); Monocytes % (auto) 8.6 %; Neutrophils # (auto) 10.84 K/uL (1.40-6.50); Neutrophils % (auto) 77.4 %; Platelet Count 298 K/uL (130-400); RDW Coefficient of Variation 13.4 % (11.5-14.5); RDW Standard Deviation 43.7 fL (36.4-46.3); Red Blood Count 3.71 M/uL (4.70-6.10); White Blood Count 14.01 K/ul (4.8-10.8)
[2024-11-11 08:12] LABS: iSTAT Creatinine 0.9 mg/dl (0.6-1.3); iSTAT Hemoglobin 10.5 g/dl (14.0-18.0); iSTAT Ionized Calcium 1.14 mmol/l (1.12-1.32); iSTAT Potassium 4.7 mmol/L (3.3-5.0)
[2024-11-11] MEDS: PANTOprazole 80 MG in DEXTROSE 5% 100 ML IV ONE (08:21)
[2024-11-11 08:28] LABS: Albumin Globulin Ratio 1.4 (0.9-2); Albumin Level 3.4 gm/dl (3.4-5.0); BUN Creatinine Ratio 69.9 (10-20); Bilirubin,Total 0.6 mg/dl (0.2-1.0); Calcium 8.3 mg/dl (8.6-10.3); Creatinine Clr Calc Pharmacy 66.8 ml/min; Globulin 2.4 gm/dl (2.5-4.0); Potassium 4.7 mmol/L (3.5-5.1); Total Protein 5.8 gm/dl (6.0-8.3)
[2024-11-11 08:34] LABS: Troponin I High Sensitivity 9.4 pg/ml (0-20)
[2024-11-11 08:36] LABS: INR 1.1 (0.9-1.1); Partial Thromboplastin Ratio 0.9; Partial Thromboplastin Time 24 Seconds (21-31); Prothrombin Time 11.5 Seconds (9.0-12.0)
[2024-11-11] MEDS: PANTOprazole 40 MG in DEXTROSE 5% MINI-B 100 ML IV SCH (08:48)
[2024-11-11] MEDS: PANTOPRAZOLE BOLUS/DRIP IV STA (08:50)
[2024-11-11] MEDS: CALCIUM GLUCONATE 1,000 MG/60 ML BAG IV STA (08:55)
--- NOTE | 2024-11-11 09:01 | History & Physical Report ---
Date of Service November 11, 2024 Assessment & Plan (1) Upper GI bleed: (2) Symptomatic anemia: (3) Syncope and collapse: (4) Esophageal stenosis: Plan The patient is a 79-year-old male with a past medical history including esophageal stenosis, malignant neoplasm of left lung, chronic PE, esophageal adenocarcinoma, duodenal ulcer disease, reflux esophagitis, history of prostate cancer, LUTS, history of pneumonectomy, and COPD. the patient presented to the emergency department with dizziness. He did end up having a syncopal episode while in the bathroom in the in the emergency department. He did arouse to light stimulation, and did not require more significant interventions. He did have a large black-colored stool while in the bathroom. He was immediately given normal saline 1 L fluid bolus. And laboratories were ordered and drawn. He was found to have a hemoglobin of 10.5, significantly lower than the 14.0 that he had 9 days ago. He was done written for 2 units PRBCs, and additional 1 L normal saline bolus from the ED, and was referred for evaluation for adm ission. Patient was seen by gastroenterology Dr. Nation while in the ED, who reviewed the EGD that was performed in [facility] the previous day, and was agreeable with continue Protonix IV, transfusion as noted, and admission to the hospital. #Upper GI bleed- Hemoglobin on 11/02/2024 was 14.0. Initial hemoglobin today is 10.5, however, that was before further bleeding, and is therefore likely significantly lower He is status post EGD yesterday at [facility], where he had dilatation performed NPO Continue Protonix bolus/drip begun in the ED H&H every 4 hours Zofran 4 mg IV every 6 hours as needed Ceftriaxone 1 g IV every 24 hours Tylenol 1 g IV every 8 hours as needed for mild pain or fever Gastroenterology consulted and saw patient while in the ED Symptomatic anemia/syncope and collapse- Patient did have a syncopal episode while in the bathroom in the ED, and did arouse with aggressive intervention other than IV fluids Initial hemoglobin as noted above at 10.5, LA likely significantly lower He received 2 units PRBCs, and 2 L normal saline bolus Additional systolic blood pressure after getting back in bed was 102, and has resumed to 126 after receiving 1 L normal saline bolus At this time patient should be able to be admitted to full PCU bed, but may possibly end up becoming hypotensive and being to be on pressors COPD- Continues routine inhalers, except changing budesonide-formoterol per formulary interchange DuoNebs every 2 hours as needed Nasal cannula oxygen, titration goal to 92% Chronic medical problems: Prostate cancer Esophageal adenocarcinoma, reflux esophagitis, recurrent lung cancer, chronic pulmonary embolism-not on Xarelto History of Present Illness Chief Complaint: the patient presented to the emergency department with dizziness. He did end up having a syncopal episode while in the bathroom in the in the emergency department. He did arouse to light stimulation, and did not require more significant interventions. He did have a large black-colored stool while in the bathroom. He was immediately given normal saline 1 L fluid bolus. And labo ratories were ordered and drawn. He was found to have a hemoglobin of 10.5, significantly lower than the 14.0 that he had 9 days ago. He was done written for 2 units PRBCs, and additional 1 L normal saline bolus from the ED, and was referred for evaluation for admission. Patient was seen by gastroenterology Dr. Nation while in the ED, who reviewed the EGD that was performed in [facility] the previous day, and was agreeable with continue Protonix IV, transfusion as noted, and admission to the hospital. Primary Care Provider: Mony Caicedo DO The patient is a 79-year-old male with a past medical history including esophageal stenosis, malignant neoplasm of left lung, chronic PE, esophageal adenocarcinoma, duodenal ulcer disease, reflux esophagitis, history of prostate cancer, LUTS, history of pneumonectomy, and COPD. the patient presented to the emergency department with dizziness. He did end up having a syncopal episode while in the bathroom in the in the emergency department. He did arouse to light stimulation, and did not require more significant interventions. He did have a large black-colored stool while in the bathroom. He was immediately given normal saline 1 L fluid bolus. And laboratories were ordered and drawn. He was found to have a hemoglobin of 10.5, significantly lower than the 14.0 that he had 9 days ago. He was done written for 2 units PRBCs, and additional 1 L normal saline bolus from the ED, and was referred for evaluation for admission. Patient was seen by gastroenterology Dr. Nation while in the ED, who reviewed the EGD that was performed in [facility] the previous day, and was agreeable with continue Protonix IV, transfusion as noted, and admission to the hospital. Allergies Allergy/AdvReac Type Severity Reaction Status Date / Time Penicillins Allergy Intermediate Difficulty Verified 10/17/24 14:14 Swallowing sucralfate [From Carafate] Allergy Mild Dizziness Verified 10/17/24 14:15 ciprofloxacin Allergy Unknown Difficulty Verified 10/17/24 14:14 Breathing latex Allergy Unknown Rash Verified 10/17/24 14:14 lorazepam Allergy Unknown Rash Verified 10/17/24 14:14 sulfamethoxazole Allergy Unknown Difficulty Verified 10/17/24 14:14 Breathing cephalexin AdvReac Mild Yeast Verified 10/17/24 14:14 infection minocycline AdvReac Mild Yeast Verified 10/17/24 14:14 infection Home Medications Medication Instructions Recorded Confirmed Type acetaminophen 500 mg tablet 1,000 mg PO Q8H PRN pain 06/19/19 10/17/24 History (Tylenol Extra Strength) albuterol sulfate 90 mcg/actuation 2 puff inhalation Q4H PRN copd #18 11/04/23 10/17/24 Rx aerosol inhaler (Ventolin HFA) grams budesonide-formoterol HFA 80 2 puff inhalation BID #10.2 grams 05/11/24 10/17/24 Rx mcg-4.5 mcg/actuation aerosol inhaler (Symbicort) mometasone 50 mcg/actuation nasal 2 spray intranasal QAM #51 grams 06/19/24 10/17/24 Rx spray multivitamin 1 tab PO DAILY 08/09/24 10/17/24 History alfuzosin 10 mg tablet,extended 10 mg PO DAILY #30 tabs 08/14/24 10/17/24 Rx release 24 hr (Uroxatral) cyanocobalamin (vitamin B-12) 500 500 mcg PO QAM #30 tabs 08/30/24 10/17/24 Rx mcg tablet nitroglycerin 0.4 mg sublingual 0.4 mg sublingual UD PRN chest 09/06/24 10/17/24 Rx tablet (Nitrostat) pain #25 tabs aspirin 81 mg tablet,delayed 81 mg PO DAILY 09/13/24 10/17/24 History release (Enteric Coated Aspirin) omeprazole 20 mg capsule,delayed 40 mg (2 x 20 mg) PO BID #360 caps 11/02/24 Rx release Past Med/Surg History Problem List (Updated 11/11/24 @ 09:11 by Rafael Hickey MD) Syncope and collapse Symptomatic anemia Upper GI bleed Esophageal stenosis On home oxygen therapy 2L when walking/ exertion Malignant neoplasm of left lung (01/20/17) hx s/p surgery, chemo/xrt Chronic pulmonary embolism pt unaware Esophageal adenocarcinoma Dysphagia (Acute) difficulty swallowing some pills Duodenal ulcer disease Reflux esophagitis History of prostate cancer (Chronic 04/17/21) 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 Chronic pulmonary embolism Peyronie's disease LVH (left ventricular hypertrophy) Prostate nodule Lower urinary tract symptoms (LUTS) History of pneumonectomy (01/2004) Left + 2 ribs removed COPD (chronic obstructive pulmonary disease) (Chronic) Medical History Acute gastritis Esophageal candidiasis Acute exacerbation of chronic obstructive pulmonary disease Hypoxia BRYANT (dyspnea on exertion) Malignant neoplasm of prostate with intermediate recurrence risk, stage T2B-C or [place] 7 or prostate-specific antigen (PSA) 10-20 Herpes zoster Hematuria LVH (left ventricular hypertrophy) Primary cancer of right upper lobe of lung (01/20/17) Poor historian Aspiration pneumonia Remote hx per records (2012) Respiratory failure 2012 > resulted in ICU stay/required ventilator x2 days Surgical History History of esophagogastroduodenoscopy (EGD) History of pneumonectomy (01/2004) Left + 2 ribs removed 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 Family History Father Cardiac disorder Stroke Mother Cardiac disorder Diabetes Myocardial infarction Brother Diabetes Sister Breast cancer Other Cancer Denies family history of Ovarian cancer Prostate cancer Colorectal cancer Social History Smoking Status: Former smoker Tobacco Type: Cigarettes Age Started Using Tobacco: 14; Age Quit Using Tobacco: 42; packs per day: 2; Second Hand Exposure: Yes (as a child); Do You Dip or Chew Tobacco: Yes (Full leaf tobacco > advised none DOS); Hx Alcohol Use: Yes Alcohol type: hard liquor Alcohol type Comment: 6 oz w hiskey a day w/honey Alcohol Intake Frequency: 4 or More x per/Week Hx Substance Use: No Preferred Language: B[place] Communication Ability: Effective Visual Impairment: No Limitations Hearing Ability: Hard of Hearing Webmethods Consultant Required: No Beliefs That Will Affect Care: None marital status: Single Current Living Situation: Spouse current occupational status: retired Feels Safe at Home: Yes Childhood Exposure to Second-Hand Smoke: Yes Diet: regular Diet Comment: regular caffeine: Yes during the past year weight has: remained stable Dental Care, Regularly: No Physical Activity Frequency: Does not Exercise Seatbelt Use: never Sunscreen Use: No (can not go in direct sunlight) Assistive Devices: Oxygen - Continuous Review of Systems Review of Systems: The patient denies chest pain, palpitations, lower extremity swelling, fevers, chills, sweats, nausea, vomiting, diarrhea , constipation, abdominal pain, pelvic pain, blood in urine, dysuria, urinary frequency or urgency, rash, abnormal bruising or bleeding, focal weakness, numbness or tingling in arms or legs, generalized arthralgias or myalgias, back or neck pain, or night sweats. The review of systems is otherwise negative other than for that already noted above, and at least 10 systems have been reviewed. Physical Exam Physical Exam: The patient is awake, alert and oriented 3, well developed and well nourished, normocephalic and atraumatic, lying in bed and in no acute distress. HEENT--PERRL, EOMI, mucous membranes and oropharynx dry. Neck--supple. No JVD. No bruits. Thyroid normal, trachea midline, no adenopathy. Heart--normal S1 and S2. No murmurs, rubs or gallops. Lungs--clear bilaterally, no respiratory distress, no accessory muscle use. Abdomen--normal bowel sounds and soft. Nontender. Nondistended. Extremities--no cyanosis or clubbing. No edema. Dermatologic--normal skin turgor, normal color, no abnormal lymph nodes, no rash. Neurologic--cranial nerves II through XII grossly intact. Rheumatologic--normal range of motion. Psychiatric--normal affect. Results & Data Results & Data Vital Signs (Past 12 Hours) Vital Signs Temp Pulse Pulse Resp BP BP Pulse Ox 11/11/24 08:46 100 H 21 103/62 100 11/11/24 08:30 90 24 102/71 100 11/11/24 08:30 87 33 H 102/71 100 11/11/24 08:15 90 24 111/82 100 11/11/24 08:02 116 H 11/11/24 08:00 100 H 24 95/71 L 99 11/11/24 07:40 36.5 C 108 H 38 H 109/63 100 O2 Del Method O2 Flow Rate 11/11/24 08:46 Nasal Cannula 4 11/11/24 08:30 Nasal Cannula 4 11/11/24 08:30 Nasal Cannula 4 11/11/24 08:15 Nasal Cannula 4 11/11/24 08:02 11/11/24 08:00 Nasal Cannula 4 11/11/24 07:40 Nasal Cannula 4 Laboratory Results Laboratory Results WBC 14.01 K/ul (4.8-10.8) H 11/11/24 07:56 RBC 3.71 M/uL (4.70-6.10) L 11/11/24 07:56 Hgb 10.5 g/dl (14.0-18.0) L 11/11/24 07:56 POC Hgb 10.5 g/dl (14.0-18.0) L 11/11/24 07:58 Hct 32.9 % (42.0-52.0) L 11/11/24 07:56 POC Hct 31 % (42-52) L 11/11/24 07:58 MCV 88.7 fL (80.0-100.0) 11/11/24 07:56 MCH 28.3 pg (25.0-34.0) 11/11/24 07:56 MCHC 31.9 g/dL (32.0-36.0) L 11/11/24 07:56 RDW Std Deviation 43.7 fL (36.4-46.3) 11/11/24 07:56 RDW Coeff of Priti 13.4 % (11.5-14.5) 11/11/24 07:56 Plt Count 298 K/uL (130-400) 11/11/24 07:56 MPV 11.0 fL (9.4-12.4) 11/11/24 07:56 Immature Gran % (Auto) 0.5 % 11/11/24 07:56 Neut % (Auto) 77.4 % 11/11/24 07:56 Lymph % (Auto) 12.9 % 11/11/24 07:56 [place] % (Auto) 8.6 % 11/11/24 07:56 Eos % (Auto) 0.2 % 11/11/24 07:56 Baso % (Auto) 0.4 % 11/11/24 07:56 Neut # (Auto) 10.84 K/uL (1.40-6.50) H 11/11/24 07:56 Lymph # (Auto) 1.81 K/uL (1.20-3.40) 11/11/24 07:56 [place] # (Auto) 1.21 K/uL (0.11-0.59) H 11/11/24 07:56 Eos # (Auto) 0.03 K/uL (0.00-0.50) 11/11/24 07:56 Baso # (Auto) 0.05 K/uL (0.00-0.20) 11/11/24 07:56 Immature Gran # (Auto) 0.07 K/uL (0.01-0.20) 11/11/24 07:56 PT 11.5 Seconds (9.0-12.0) 11/11/24 07:56 INR 1.1 (0.9-1.1) 11/11/24 07:56 APTT 24 Seconds (21-31) 11/11/24 07:56 PTT Ratio 0.9 11/11/24 07:56 POC Sodium 137 mmol/L (135-144) 11/11/24 07:58 Sodium 138 mmol/L (136-145) 11/11/24 07:56 POC Potassium 4.7 mmol/L (3.3-5.0) 11/11/24 07:58 Potassium 4.7 mmol/L (3.5-5.1) 11/11/24 07:56 POC Chloride 101 mmol/L (101-112) 11/11/24 07:58 Chloride 101 mmol/L (98-107) 11/11/24 07:56 Carbon Dioxide 31 mmol/L (21-32) 11/11/24 07:56 POC Total CO2 29 mmol/L (24-31) 11/11/24 07:58 Anion Gap 6 (3-11) 11/11/24 07:56 POC Anion Gap 13.0 mmol/L (16-25) L 11/11/24 07:58 POC BUN 44 mg/dl (7-18) H 11/11/24 07:58 BUN 51 mg/dl (6-23) H 11/11/24 07:56 Creatinine 0.73 mg/dl (0.6-1.4) 11/11/24 07:56 POC Creatinine 0.9 mg/dl (0.6-1.3) 11/11/24 07:58 Est Cr Clr Drug Dosing 66.8 ml/min 11/11/24 07:56 eGFR 92.55 11/11/24 07:56 BUN/Creatinine Ratio 69.9 (10-20) H 11/11/24 07:56 Glucose 140 mg/dl (70-99(Fasting)) H 11/11/24 07:56 POC Glucose (other) 133 mg/dl (70-99) H 11/11/24 07:58 Calcium 8.3 mg/dl (8.6-10.3) L 11/11/24 07:56 POC Ioniz Calcium Tigist 1.14 mmol/l (1.12-1.32) 11/11/24 07:58 Total Bilirubin 0.6 mg/dl (0.2-1.0) 11/11/24 07:56 AST 11 U/L (13-39) L 11/11/24 07:56 ALT 8 U/L (7-52) 11/11/24 07:56 Alkaline Phosphatase 61 U/L (34-104) 11/11/24 07:56 Troponin I High Sens 9.4 pg/ml (0-20) 11/11/24 07:56 Total Protein 5.8 gm/dl (6.0-8.3) L 11/11/24 07:56 Albumin 3.4 gm/dl (3.4-5.0) 11/11/24 07:56 Globulin 2.4 gm/dl (2.5-4.0) L 11/11/24 07:56 Albumin/Globulin Ratio 1.4 (0.9-2) 11/11/24 07:56 Blood Type A Positive 11/11/24 08:02 Antibody Screen NEGATIVE 11/11/24 08:02 Crossmatch See Detail 11/11/24 08:02 Code Status & VTE Plan Code Status Full code VTE Prophylaxis Plan VTE Prophylaxis will be ordered: Yes PG Care Time/CCT Total # of Minutes Spent Total Time Spent with Patient: Total time spent is greater than 50% in coordination of care (as documented) at patient's floor/unit and/or counseling patient: Coding Level of Care Code 80068 INT INP/OBS CARE 3/75MIN Diagnoses Upper GI bleed K92.2 Symptomatic anemia D64.9 Syncope and collapse R55 Esophageal stenosis K22.2
--- NOTE | 2024-11-11 09:10 | XRay Report ---
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 Comparison: Comparison is made to chest radiographs 09/02/2024 FINDINGS: No lines and tubes are seen. Expected leftward mediastinal shift is seen with obscured borders of the heart and mediastinum. Postsurgical changes of left pneumonectomy. Chronic scarring is seen in the r ight upper lung. No evidence of pleural effusion or pneumothorax. IMPRESSION: Redemonstration of left pneumonectomy changes without acute abnormality. ACT 112: Negative or not required by law. Electronically signed by: Enrique Yusuf M.D. 11/11/2024 9:08 AM
[2024-11-11 09:25] LABS: Adenovirus PCR Not Detected (NotDetected); Bordetella parapertussis PCR Not Detected (NotDetected); Bordetella pertussis PCR Not Detected (NotDetected); Chlamydia pneumoniae PCR Not Detected (NotDetected); Coronavirus 229E PCR Not Detected (NotDetected); Coronavirus CoV-2 (COVID19)PCR Not Detected (NotDetected); Coronavirus HKU1 PCR Not Detected (NotDetected); Coronavirus NL63 PCR Not Detected (NotDetected); Coronavirus OC43PCR Not Detected (NotDetected); Human Metapneumovirus PCR Not Detected (NotDetected); Influenza A PCR Not Detected (NotDetected); Influenza B PCR Not Detected (NotDetected); Mycoplasma pneumoniae PCR Not Detected (NotDetected); Parainfluenza Virus 1 PCR Not Detected (NotDetected); Parainfluenza Virus 2 PCR Not Detected (NotDetected); Parainfluenza Virus 3 PCR Not Detected (NotDetected); Parainfluenza Virus 4 PCR Not Detected (NotDetected); Respiratory Syncytial VirusPCR Not Detected (NotDetected); Rhinovirus/Enterovirus PCR Not Detected (NotDetected)
--- NOTE | 2024-11-11 09:51 | Gastrointestinal Consultation ---
Date of Consultation November 11, 2024 Assessment & Plan (1) Upper GI bleed: Suspect etiology of anemia and GI bleeding is related to recent endoscopic treatment of esophageal stricture dilatation. Suspect he suffered a mucosal tear which has been bleeding since the procedure. Presently he is hemodynami brianna stable. I suspect that this should resolve with conservative medical management. Continue to keep him n.p.o. IV fluids IV PPI and monitor his hemoglobin and hematocrit. Recommend contacting his pompom maker to perform the procedure to update him on his condition. History of Present Illness Reason for Consultation: GI bleeding History of Present Illness Patient recently diagnosed with esophageal cancer on endoscopy status post endoscopic removal. Post removal he developed an esophageal stricture. Yesterday he underwent repeat endoscopy with esophageal stricture dilatation with some mucosal disruption. Postprocedure he developed some weakness dizziness presented to our ER found to have a hemoglobin of 10.5 and possible melena. He denies any abdominal pain shortness of breath or chest pain. He was presyncopal in the emergency room now stabilized with IV hydration. Receiving 1 unit of packed red blood cells. Allergies Allergy/AdvReac Type Severity Reaction Status Date / Time Penicillins Allergy Intermediate Difficulty Verified 11/11/24 09:45 Swallowing sucralfate [From Carafate] Allergy Mild Dizziness Verified 11/11/24 09:45 ciprofloxacin Allergy Unknown Difficulty Verified 11/11/24 09:45 Breathing latex Allergy Unknown Rash Verified 11/11/24 09:45 lorazepam Allergy Unknown Rash Verified 11/11/24 09:45 sulfamethoxazole Allergy Unknown Difficulty Verified 11/11/24 09:45 Breathing cephalexin AdvReac Mild Yeast Verified 11/11/24 09:45 infection minocycline AdvReac Mild Yeast Verified 11/11/24 09:45 infection Home Medications Medication Instructions Recorded Confirmed Type acetaminophen 500 mg tablet 1,000 mg PO Q8H PRN pain 06/19/19 10/17/24 History (Tylenol Extra Strength) albuterol sulfate 90 mcg/actuation 2 puff inhalation Q4H PRN copd #18 11/04/23 10/17/24 Rx aerosol inhaler (Ventolin HFA) grams budesonide-formoterol HFA 80 2 puff inhalation BID #10.2 grams 05/11/24 10/17/24 Rx mcg-4.5 mcg/actuation aerosol inhaler (Symbicort) mometasone 50 mcg/actuation nasal 2 spray intranasal QAM #51 grams 06/19/24 10/17/24 Rx spray multivitamin 1 tab PO DAILY 08/09/24 10/17/24 History alfuzosin 10 mg tablet,extended 10 mg PO DAILY #30 tabs 08/14/24 10/17/24 Rx release 24 hr (Uroxatral) cyanocobalamin (vitamin B-12) 500 500 mcg PO QAM #30 tabs 08/30/24 10/17/24 Rx mcg tablet nitroglycerin 0.4 mg sublingual 0.4 mg sublingual UD PRN chest 09/06/24 10/17/24 Rx tablet (Nitrostat) pain #25 tabs aspirin 81 mg tablet,delayed 81 mg PO DAILY 09/13/24 10/17/24 History release (Enteric Coated Aspirin) omeprazole 20 mg capsule,delayed 40 mg (2 x 20 mg) PO BID #360 caps 11/02/24 Rx release Patient History Medical History Acute gastritis Esophageal candidiasis Acute exacerbation of chronic obstructive pulmonary disease Hypoxia BRYANT (dyspnea on exertion) Malignant neoplasm of prostate with intermediate recurrence risk, stage T2B-C or [place] 7 or prostate-specific antigen (PSA) 10-20 Herpes zoster Hematuria LVH (left ventricular hypertrophy) Primary cancer of right upper lobe of lung (01/20/17) Poor historian Aspiration pneumonia Remote hx per records (2012) Respiratory failure 2012 > resulted in ICU stay/required ventilator x2 days Surgical History History of esophagogastroduodenoscopy (EGD) History of pneumonectomy (01/2004) Left + 2 ribs removed 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 Family History Father Cardiac disorder Stroke Mother Cardiac disorder Diabetes Myocardial infarction Brother Diabetes Sister Breast cancer Other Cancer Denies family history of Ovarian cancer Prostate cancer Colorectal cancer Social History Smoking Status: Former smoker Tobacco Type: Cigarettes Age Started Using Tobacco: 14; Age Quit Using Tobacco: 42; packs per day: 2; Second Hand Exposure: Yes (as a child); Do You Dip or Chew Tobacco: Yes (Full leaf tobacco > advised none DOS); Hx Alcohol Use: Yes Alcohol type: hard liquor Alcohol type Comment: 6 oz whiskey a day w/honey Alcohol Intake Frequency: 4 or More x per/Week Hx Substance Use: No Preferred Language: Kiswahili Communication Ability: Effective Visual Impairment: No Limitations Hearing Ability: Hard of Hearing Screen Stretcher Required: No Beliefs That Will Affect Care: None marital status: Single Current Living Situation: Spouse current occupational status: retired Feels Safe at Home: Yes Childhood Exposure to Second-Hand Smoke: Yes Diet: regular Diet Comment: regular caffeine: Yes during the past year weight has: remained stable Dental Care, Regularly: No Physical Activity Frequency: Does not Exercise Seatbelt Use: never Sunscreen Use: No (can not go in direct sunlight) Assistive Devices: Oxygen - Continuous Review of Systems Review of Systems: No fever No chills No SOB No CP No Abd pain Complaining of dizziness and lightheadedness. Physical Exam Physical Exam: Eyes; anicteric HENT No masses Chest clear to A Cor S1, S2 physiologic Abd: softer nontender no masses Ext no edema Results & Data Vital Signs (Past 12 Hours) Vital Signs Temp Pulse Pulse Resp BP BP Pulse Ox 11/11/24 09:40 36.4 C L 92 H 18 115/78 100 11/11/24 08:46 100 H 21 103/62 100 11/11/24 08:30 90 24 102/71 100 11/11/24 08:30 87 33 H 102/71 100 11/11/24 08:15 90 24 111/82 100 11/11/24 08:02 116 H 11/11/24 08:00 100 H 24 95/71 L 99 11/11/24 07:40 36.5 C 108 H 38 H 109/63 100 O2 Del Method O2 Flow Rate 11/11/24 09:40 4 11/11/24 08:46 Nasal Cannula 4 11/11/24 08:30 Nasal Cannula 4 11/11/24 08:30 Nasal Cannula 4 11/11/24 08:15 Nasal Cannula 4 11/11/24 08:02 11/11/24 08:00 Nasal Cannula 4 11/11/24 07:40 Nasal Cannula 4 Laboratory Results Laboratory Results - last 48 hr 11/11/24 11/11/24 11/11/24 07:56 07:58 08:02 WBC 14.01 H RBC 3.71 L Hgb 10.5 L POC Hgb 10.5 L Hct 32.9 L POC Hct 31 L MCV 88.7 MCH 28.3 MCHC 31.9 L RDW Std Deviation 43.7 RDW Coeff of Priti 13.4 Plt Count 298 MPV 11.0 Immature Gran % (Auto) 0.5 Neut % (Auto) 77.4 Lymph % (Auto) 12.9 [place] % (Auto) 8.6 Eos % (Auto) 0.2 Baso % (Auto) 0.4 Neut # (Auto) 10.84 H Lymph # (Auto) 1.81 [place] # (Auto) 1.21 H Eos # (Auto) 0.03 Baso # (Auto) 0.05 Immature Gran # (Auto) 0.07 PT 11.5 INR 1.1 APTT 24 PTT Ratio 0.9 POC Sodium 137 Sodium 138 POC Potassium 4.7 Potassium 4.7 POC Chloride 101 Chloride 101 Carbon Dioxide 31 POC Total CO2 29 Anion Gap 6 POC Anion Gap 13.0 L POC BUN 44 H BUN 51 H Creatinine 0.73 POC Creatinine 0.9 Est Cr Clr Drug Dosing 66.8 eGFR 92.55 BUN/Creatinine Ratio 69.9 H Glucose 140 H POC Glucose (other) 133 H Calcium 8.3 L POC Ioniz Calcium Tigist 1.14 Total Bilirubin 0.6 AST 11 L ALT 8 Alkaline Phosphatase 61 Troponin I High Sens 9.4 Total Protein 5.8 L Albumin 3.4 Globulin 2.4 L Albumin/Globulin Ratio 1.4 Stl C. diff Tox B Gene Negative Cdiff Gene Adenovirus (PCR) B. pertussis DNA (PCR) B.parapertussis DNA PCR C. pneumoniae DNA (PCR) Coronavirus OC43 (PCR) Coronavirus HKU1 (PCR) Coronavirus 229E (PCR) SARS-CoV-2 (PCR) Coronavirus NL63 (PCR) Human Metapneumovir PCR Influenza Type A (PCR) Influenza Type B (PCR) M. pneumoniae (PCR) Parainfluenza 1 (PCR) Parainfluenza 2 (PCR) Parainfluenza 3 (PCR) Parainfluenza 4 (PCR) RSV (PCR) Entero/Rhino (PCR) Blood Type A Positive Blood Type Recheck Antibody Screen NEGATIVE Crossmatch See Detail 11/11/24 11/11/24 08:43 Unknown WBC RBC Hgb POC Hgb Hct POC Hct MCV MCH MCHC RDW Std Deviation RDW Coeff of Priti Plt Count MPV Immature Gran % (Auto) Neut % (Auto) Lymph % (Auto) [place] % (Auto) Eos % (Auto) Baso % (Auto) Neut # (Auto) Lymph # (Auto) [place] # (Auto) Eos # (Auto) Baso # (Auto) Immature Gran # (Auto) PT INR APTT PTT Ratio POC Sodium Sodium POC Potassium Potassium POC Chloride Chloride Carbon Dioxide POC Total CO2 Anion Gap POC Anion Gap POC BUN BUN Creatinine POC Creatinine Est Cr Clr Drug Dosing eGFR BUN/Creatinine Ratio Glucose POC Glucose (other) Calcium POC Ioniz Calcium Tigist Total Bilirubin AST ALT Alkaline Phosphatase Troponin I High Sens Total Protein Albumin Globulin Albumin/Globulin Ratio Stl C. diff Tox B Gene Adenovirus (PCR) Not Detected B. pertussis DNA (PCR) Not Detected B.parapertussis DNA PCR Not Detected C. pneumoniae DNA (PCR) Not Detected Coronavirus OC43 (PCR) Not Detected Coronavirus HKU1 (PCR) Not Detected Coronavirus 229E (PCR) Not Detected SARS-CoV-2 (PCR) Not Detected Coronavirus NL63 (PCR) Not Detected Human Metapneumovir PCR Not Detected Influenza Type A (PCR) Not Detected Influenza Type B (PCR) Not Detected M. pneumoniae (PCR) Not Detected Parainfluenza 1 (PCR) Not Detected Parainfluenza 2 (PCR) Not Detected Parainfluenza 3 (PCR) Not Detected Parainfluenza 4 (PCR) Not Detected RSV (PCR) Not Detected Entero/Rhino (PCR) Not Detected Blood Type Blood Type Recheck A Positive Antibody Screen Crossmatch PG Care Time/CCT Total # of Minutes Spent Total Time Spent with Patient: Total time spent is greater than 50% in coordination of care (as documented) at patient's floor/unit and/or counseling patient: Coding Level of Care Code 81528 IN/OBS CONSULT LVL 4,60M Diagnoses Upper GI bleed K92.2
[2024-11-11 09:57] LABS: Adenovirus F 40/41 PCR Not Detected (NotDetected); Astrovirus PCR Not Detected (NotDetected); Campylobacter PCR Not Detected (NotDetected); Cryptosporidium PCR Not Detected (NotDetected); Cyclospora cayetanensis PCR Not Detected (NotDetected); Entamoeba histolytica PCR Not Detected (NotDetected); Enteroaggregative E.coli(EAEC) Not Detected (NotDetected); Enteropathogenic E.coli (EPEC) Not Detected (NotDetected); Enterotoxigenic E.coli (ETEC) Not Detected (NotDetected); Giardia lamblia PCR Not Detected (NotDetected); Norovirus GI/GII PCR Not Detected (NotDetected); Plesiomonas shigelloides PCR Not Detected (NotDetected); Rotavirus A PCR Not Detected (NotDetected); Salmonella PCR Not Detected (NotDetected); Sapovirus PCR Not Detected (NotDetected); Shiga-like Toxin E.coli (STEC) Not Detected (NotDetected); Shigella/Enteroinvasive E.coli Not Detected (NotDetected); Vibrio cholerae PCR Not Detected (NotDetected); Vibrio species PCR Not Detected (NotDetected); Yersinia enterocolitica PCR Not Detected (NotDetected)
[2024-11-11] MEDS ORDERED: ONDANSETRON INJ 2 MG/ML 2 ML VIAL IV PRN (10:38)
[2024-11-11] MEDS: cefTRIAXone SODIUM 1,000 MG/50 ML BAG IV SCH (12:37)
[2024-11-11] MEDS: FLUTICASONE/VILANTEROL 100/25MCG 14 PUFFS/INHALER INH SCH (12:55)
[2024-11-11] MEDS: ACETAMINOPHEN 1000 MG/100 ML IV IV PRN (12:55)
[2024-11-11] MEDS: ALBUT/IPRATROP 3MG/0.5MG NEB 3 ML VIAL NEB PRN (16:34)
[2024-11-11 18:32] LABS: Hematocrit (blood only) 32.2 % (42.0-52.0); Hemoglobin 10.6 g/dl (14.0-18.0)
[2024-11-11] MEDS ORDERED: ALUMINUM/MAGNESIUM SUSP 30 ML UDC PO PRN (21:37)
[2024-11-11] MEDS: FAMOTIDINE 20 MG TAB PO SCH (21:54)
[2024-11-11] MEDS: FAMOTIDINE 20MG IV PUSH 20 MG/5 ML SYR IV PRN (22:51)
[2024-11-12 00:44] LABS: Hematocrit (blood only) 31.8 % (42.0-52.0); Hemoglobin 10.6 g/dl (14.0-18.0)
[2024-11-12 05:57] LABS: Basophils # (auto) 0.06 K/uL (0.00-0.20); Basophils % (auto) 0.8 %; Eosinophils # (auto) 0.13 K/uL (0.00-0.50); Eosinophils % (auto) 1.7 %; Hematocrit (blood only) 33.3 % (42.0-52.0); Hemoglobin 11.1 g/dl (14.0-18.0); Immature Granulocytes # (auto) 0.03 K/uL (0.01-0.20); Immature Granulocytes % (auto) 0.4 %; Lymphocytes % (auto) 20.1 %; Mean Corpuscular Hemoglobin 29.4 pg (25.0-34.0); Mean Corpuscular Hgb Conc 33.3 g/dL (32.0-36.0); Mean Corpuscular Volume 88.1 fL (80.0-100.0); Mean Platelet Volume 11.1 fL (9.4-12.4); Monocytes % (auto) 10.7 %; Neutrophils # (auto) 4.96 K/uL (1.40-6.50); Neutrophils % (auto) 66.3 %; Platelet Count 216 K/uL (130-400); RDW Standard Deviation 45.1 fL (36.4-46.3); Red Blood Count 3.78 M/uL (4.70-6.10); White Blood Count 7.48 K/ul (4.8-10.8)
[2024-11-12 06:30] LABS: Albumin Level 3.2 gm/dl (3.4-5.0); BUN Creatinine Ratio 47.6 (10-20); Calcium 8.4 mg/dl (8.6-10.3); Creatinine Clr Calc Pharmacy 77.2 ml/min; Magnesium 1.8 mg/dl (1.7-2.4); Phosphorus 2.6 mg/dl (2.5-4.9); Potassium 4.2 mmol/L (3.5-5.1)
--- NOTE | 2024-11-12 07:44 | Hospitalist Progress Note ---
Date of Service November 12, 2024 Assessment & Plan (1) Upper GI bleed: (2) Symptomatic anemia: (3) Syncope and collapse: (4) Esophageal stenosis: Plan The patient is a 79-year-old male with a past medical history including esophageal stenosis, malignant neoplasm of left lung, chronic PE, esophageal adenocarcinoma, duodenal ulcer disease, reflux esophagitis, history of prostate cancer, LUTS, history of pneumonectomy, and COPD. the patient presented to the emergency department with dizziness. He did end up having a syncopal episode while in the bathroom in the in the emergency department. He did arouse to light stimulation, and did not require more significant interventions. He did have a large black-colored stool while in the bathroom. He was immediately given normal saline 1 L fluid bolus. And laboratories were ordered and drawn. He was found to have a hemoglobin of 10.5, significantly lower than the 14.0 that he had 9 days ago. He was done written for 2 units PRBCs, and additional 1 L normal saline bolus from the ED, and was referred for evaluation for admission. Patient was seen by gastroenterology Dr. Nation while in the ED, who reviewed the EGD that was performed in [facility] the previous day, and was agreeable with continue Protonix IV, transfusion as noted, and admission to the hospital. #Upper GI bleed- Hemoglobin on 11/02/2024 was 14 --> hemoglobin on admission is 10.5, however, that was before further bleeding, and is therefore likely significantly lower s/p EGD at [facility] 11/11, where he had dilatation performed with Dr Cruz Made NPO, placed on protonix gtt with serial H7H Type/screen and ordered 2u PRBC with 1L IVF on admission GI consulted Ongoing dizziness with ambulation/fatigue/hypoxia and hgb remains at 11.1 and additional 1u PRBC ordered with 1x lasix 20mg IV to prevent volume overload/pulm congestion Continue protonix gtt Clear liquid diet trial for now, monitor but would not advance past for now Repeat hgb following additional 1u PRBC, further checks this evening pending repeat level but if appropriate rise can defer until AM Ceftriaxone 1gm IV daily for translocation/tear if occurs Tylenol, zofran as needed ASA on hold Possible adv diet in AM Symptomatic anemia/syncope and collapse- Patient did have a syncopal episode while in the bathroom in the ED, and did arouse with aggressive intervention other than IV fluids Initial hemoglobin as noted above at 10.5, LA likely significantly lower s/p 2 units PRBCs, and 2 L normal saline bolus Additional systolic blood pressure after getting back in bed was 102, and has resumed to 126 after receiving 1 L normal saline bolus Additional 1u PRBC as above, BPs improved but remains with continued dizziness with standing similar to presentation and will monitor repeat blood counts/BPs Monitor for hypotension/worsening blood count for ICU/pressor support if needed Fall precautions, will add PT/OT consults while inpatient COPD- Continues routine inhalers, except changing budesonide-formoterol per formulary interchange some wheezing on exam, changed to nebulizers for improvement given prior inpatient stay/use for budesonide/formoterol Duonebs available prn Supplenental O2 as needed No sputum production Ceftriaxone IV continued for above but monitor for any issues/need for atypical Chronic medical problems: Prostate cancer Esophageal adenocarcinoma, reflux esophagitis, recurrent lung cancer, chronic pulmonary embolism-not on Xarelto Dispo: continued inpatient stay, additional PRBC. clear liquid diet ordered/GI consulted but remains on protonix gtt for now, consider to switch to BID in AM if hgb stable/diet able to be advanced without issue Admission and Anticipated Discharge Date Admission Date: November 11, 2024 Supervising Physician Co-Signing Physician Notes The patient was not seen by me. The chart was reviewed. Case discussed with CHRISTIANO Knott. Agree with assessment and plan Subjective Eval this moring, resting in bed, fatigued/wiped out, dizziness with standing. Per RN, did perk up after blood yesterday but appears similar. Additional 1u PRBC ordered, will add lasix x1 as given 3 unit. Breathing tx to nebs for wheezing/supp O2 as needed. No significant abd luis at this time but diet to clears/will monitor repeat counts/exam this afternoon and discussed messaged GI provider who did EGD and believes should respond nicely to tx and was simple procedure. Physical Exam 2 Physical Exam: General: 79yo male, frail/cachectic appearing, laying in bed, general pallor, occ cough, on 2L NC HEENT:mm slightly dry, trachea midline Resp: diminshed in the bases with crackles, faint exp wheezing, on 2L NC, occ cough/no tachypnea CV:sinus, +faint systolic murmur, no pitting edema, pulses present GI: +BS, scaphoid, nontender no santana MSK/Neuro: generalized weakness but appears nonfocal, answering questions appropriately but quite fatigued, no facial droop Psych: alert to person/place/time, fatigued/exhausted appearing Results & Data Results & Data Vital Signs (Past 12 Hours) Vital Signs Temp Pulse Pulse Resp BP Pulse Ox O2 Del Method 11/12/24 07:09 36.6 C 70 18 132/82 93 Nasal Cannula 11/12/24 03:02 36.6 C 79 18 128/78 94 Nasal Cannula 11/11/24 23:18 36.8 C 84 18 142/78 H 99 Nasal Cannula 11/11/24 22:00 80 11/11/24 20:30 Nasal Cannula O2 Flow Rate 11/12/24 07:09 2 11/12/24 03:02 11/11/24 23:18 11/11/24 22:00 11/11/24 20:30 2 Laboratory Results 11/12/24 05:35 11/12/24 05:35 PG Care Time/CCT Total # of Minutes Spent Total Time Spent with Patient: Total time spent is greater than 50% in coordination of care (as documented) at patient's floor/unit and/or counseling patient: Coding Level of Care Code 91723 SUB INP/OBS CARE 3/50MIN Diagnoses Upper GI bleed K92.2 Symptomatic anemia D64.9 Syncope and collapse R55 Esophageal stenosis K22.2
[2024-11-12 08:37] LABS: Ferritin 137.1 ng/ml (8-388)
--- NOTE | 2024-11-12 08:49 | Gastroenterology Progress Note ---
Date of Service November 12, 2024 Assessment & Plan (1) Upper GI bleed: Plan: Clinically resolved hemoglobin stable hemodynamically stable. Secondary to endoscopic intervention last week. Can advance to clear liquid diet. Continue to monitor hemoglobin hematocrit. Admission and Anticipated Discharge Date Admission Date: November 11, 2024 Subjective Denies shortness of breath chest pain or abdominal pain. No overt bleeding. Physical Exam Physical Exam: No acute distress Respiratory rate regular Cardiac rhythm regular Abdomen soft nontender Results & Data Results & Data Vital Signs (Past 12 Hours) Vital Signs Temp Pulse Pulse Resp BP Pulse Ox O2 Del Method 11/12/24 07:09 36.6 C 70 18 132/82 93 Nasal Cannula 11/12/24 03:02 36.6 C 79 18 128/78 94 Nasal Cannula 11/11/24 23:18 36.8 C 84 18 142/78 H 99 Nasal Cannula 11/11/24 22:00 80 O2 Flow Rate 11/12/24 07:09 2 11/12/24 03:02 11/11/24 23:18 11/11/24 22:00 Laboratory Results Laboratory Results - last 48 hr 11/11/24 11/11/24 11/11/24 07:56 07:58 08:02 WBC 14.01 H RBC 3.71 L Hgb 10.5 L POC Hgb 10.5 L Hct 32.9 L POC Hct 31 L MCV 88.7 MCH 28.3 MCHC 31.9 L RDW Std Deviation 43.7 RDW Coeff of Priti 13.4 Plt Count 298 MPV 11.0 Immature Gran % (Auto) 0.5 Neut % (Auto) 77.4 Lymph % (Auto) 12.9 [place] % (Auto) 8.6 Eos % (Auto) 0.2 Baso % (Auto) 0.4 Neut # (Auto) 10.84 H Lymph # (Auto) 1.81 [place] # (Auto) 1.21 H Eos # (Auto) 0.03 Baso # (Auto) 0.05 Immature Gran # (Auto) 0.07 PT 11.5 INR 1.1 APTT 24 PTT Ratio 0.9 POC Sodium 137 Sodium 138 POC Potassium 4.7 Potassium 4.7 POC Chloride 101 Chloride 101 Carbon Dioxide 31 POC Total CO2 29 Anion Gap 6 POC Anion Gap 13.0 L POC BUN 44 H BUN 51 H Creatinine 0.73 POC Creatinine 0.9 Est Cr Clr Drug Dosing 66.8 eGFR 92.55 BUN/Creatinine Ratio 69.9 H Glucose 140 H POC Glucose (other) 133 H Calcium 8.3 L POC Ioniz Calcium Tigist 1.14 Phosphorus Magnesium Iron TIBC Transferrin Transferrin % Sat Ferritin Total Bilirubin 0.6 AST 11 L ALT 8 Alkaline Phosphatase 61 Troponin I High Sens 9.4 Total Protein 5.8 L Albumin 3.4 Globulin 2.4 L Albumin/Globulin Ratio 1.4 Stl C. cayetanensis PCR Not Detected Stool Rotavirus A PCR Not Detected Stl Adenov F 40/41 PCR Not Detected Stool Astrovirus (PCR) Not Detected Stool Campylobacter PCR Not Detected Stl C. diff Tox B Gene Negative Cdiff Gene Stool Cryptosporidium PCR Not Detected Stl E.coli Shiga Tox PCR Not Detected Stl Enterotoxigenic E PCR Not Detected Stool EPEC (PCR) Not Detected Stool EAEC (PCR) Not Detected Stl E. histolytica PCR Not Detected Stool Giardia Lamblia PCR Not Detected Stool Salmonella PCR Not Detected Stool Sapovirus (PCR) Not Detected Stl P. shigelloides PCR Not Detected Stl Shigella/EIEC PCR Not Detected St Y.enterocolitica PCR Not Detected Stool Vibrio (PCR) Not Detected Stl Vibrio cholerae PCR Not Detected Stl Norovirus GI/GII PCR Not Detected Adenovirus (PCR) B. pertussis DNA (PCR) B.parapertussis DNA PCR C. pneumoniae DNA (PCR) Coronavirus OC43 (PCR) Coronavirus HKU1 (PCR) Coronavirus 229E (PCR) SARS-CoV-2 (PCR) Coronavirus NL63 (PCR) Human Metapneumovir PCR Influenza Type A (PCR) Influenza Type B (PCR) M. pneumoniae (PCR) Parainfluenza 1 (PCR) Parainfluenza 2 (PCR) Parainfluenza 3 (PCR) Parainfluenza 4 (PCR) RSV (PCR) Entero/Rhino (PCR) Blood Type A Positive Blood Type Recheck Antibody Screen NEGATIVE Crossmatch See Detail 11/11/24 11/11/24 11/11/24 08:43 18:10 Unknown WBC RBC Hgb 10.6 L POC Hgb Hct 32.2 L POC Hct MCV MCH MCHC RDW Std Deviation RDW Coeff of Priti Plt Count MPV Immature Gran % (Auto) Neut % (Auto) Lymph % (Auto) [place] % (Auto) Eos % (Auto) Baso % (Auto) Neut # (Auto) Lymph # (Auto) [place] # (Auto) Eos # (Auto) Baso # (Auto) Immature Gran # (Auto) PT INR APTT PTT Ratio POC Sodium Sodium POC Potassium Potassium POC Chloride Chloride Carbon Dioxide POC Total CO2 Anion Gap POC Anion Gap POC BUN BUN Creatinine POC Creatinine Est Cr Clr Drug Dosing eGFR BUN/Creatinine Ratio Glucose POC Glucose (other) Calcium POC Ioniz Calcium Tigist Phosphorus Magnesium Iron TIBC Transferrin Transferrin % Sat Ferritin Total Bilirubin AST ALT Alkaline Phosphatase Troponin I High Sens Total Protein Albumin Globulin Albumin/Globulin Ratio Stl C. cayetanensis PCR Stool Rotavirus A PCR Stl Adenov F 40/41 PCR Stool Astrovirus (PCR) Stool Campylobacter PCR Stl C. diff Tox B Gene Stool Cryptosporidium PCR Stl E.coli Shiga Tox PCR Stl Enterotoxigenic E PCR Stool EPEC (PCR) Stool EAEC (PCR) Stl E. histolytica PCR Stool Giardia Lamblia PCR Stool Salmonella PCR Stool Sapovirus (PCR) Stl P. shigelloides PCR Stl Shigella/EIEC PCR St Y.enterocolitica PCR Stool Vibrio (PCR) Stl Vibrio cholerae PCR Stl Norovirus GI/GII PCR Adenovirus (PCR) Not Detected B. pertussis DNA (PCR) Not Detected B.parapertussis DNA PCR Not Detected C. pneumoniae DNA (PCR) Not Detected Coronavirus OC43 (PCR) Not Detected Coronavirus HKU1 (PCR) Not Detected Coronavirus 229E (PCR) Not Detected SARS-CoV-2 (PCR) Not Detected Coronavirus NL63 (PCR) Not Detected Human Metapneumovir PCR Not Detected Influenza Type A (PCR) Not Detected Influenza Type B (PCR) Not Detected M. pneumoniae (PCR) Not Detected Parainfluenza 1 (PCR) Not Detected Parainfluenza 2 (PCR) Not Detected Parainfluenza 3 (PCR) Not Detected Parainfluenza 4 (PCR) Not Detected RSV (PCR) Not Detected Entero/Rhino (PCR) Not Detected Blood Type Blood Type Recheck A Positive Antibody Screen Crossmatch 11/12/24 11/12/24 00:19 05:35 WBC 7.48 RBC 3.78 L Hgb 10.6 L 11.1 L POC Hgb Hct 31.8 L 33.3 L POC Hct MCV 88.1 MCH 29.4 MCHC 33.3 RDW Std Deviation 45.1 RDW Coeff of Priti 14.0 Plt Count 216 MPV 11.1 Immature Gran % (Auto) 0.4 Neut % (Auto) 66.3 Lymph % (Auto) 20.1 [place] % (Auto) 10.7 Eos % (Auto) 1.7 Baso % (Auto) 0.8 Neut # (Auto) 4.96 Lymph # (Auto) 1.50 [place] # (Auto) 0.80 H Eos # (Auto) 0.13 Baso # (Auto) 0.06 Immature Gran # (Auto) 0.03 PT INR APTT PTT Ratio POC Sodium Sodium 143 POC Potassium Potassium 4.2 POC Chloride Chloride 106 Carbon Dioxide 36 H POC Total CO2 Anion Gap 1 L POC Anion Gap POC BUN BUN 30 H D Creatinine 0.63 POC Creatinine Est Cr Clr Drug Dosing 77.2 eGFR 96.76 BUN/Creatinine Ratio 47.6 H Glucose 99 POC Glucose (other) Calcium 8.4 L POC Ioniz Calcium Tigist Phosphorus 2.6 Magnesium 1.8 Iron 118 TIBC 230 L Transferrin 164 L Transferrin % Sat 51 H Ferritin 137.1 Total Bilirubin AST ALT Alkaline Phosphatase Troponin I High Sens Total Protein Albumin 3.2 L Globulin Albumin/Globulin Ratio Stl C. cayetanensis PCR Stool Rotavirus A PCR Stl Adenov F 40/41 PCR Stool Astrovirus (PCR) Stool Campylobacter PCR Stl C. diff Tox B Gene Stool Cryptosporidium PCR Stl E.coli Shiga Tox PCR Stl Enterotoxigenic E PCR Stool EPEC (PCR) Stool EAEC (PCR) Stl E. histolytica PCR Stool Giardia Lamblia PCR Stool Salmonella PCR Stool Sapovirus (PCR) Stl P. shigelloides PCR Stl Shigella/EIEC PCR St Y.enterocolitica PCR Stool Vibrio (PCR) Stl Vibrio cholerae PCR Stl Norovirus GI/GII PCR Adenovirus (PCR) B. pertussis DNA (PCR) B.parapertussis DNA PCR C. pneumoniae DNA (PCR) Coronavirus OC43 (PCR) Coronavirus HKU1 (PCR) Coronavirus 229E (PCR) SARS-CoV-2 (PCR) Coronavirus NL63 (PCR) Human Metapneumovir PCR Influenza Type A (PCR) Influenza Type B (PCR) M. pneumoniae (PCR) Parainfluenza 1 (PCR) Parainfluenza 2 (PCR) Parainfluenza 3 (PCR) Parainfluenza 4 (PCR) RSV (PCR) Entero/Rhino (PCR) Blood Type Blood Type Recheck Antibody Screen Crossmatch PG Care Time/CCT Total # of Minutes Spent Total Time Spent with Patient: Total time spent is greater than 50% in coordination of care (as documented) at patient's floor/unit and/or counseling patient: Coding Level of Care Code 36073 SUB INP/OBS CARE 2/35MIN Diagnoses Upper GI bleed K92.2
[2024-11-12] MEDS: SUCRALFATE 1 GM/10 ML UDC PO SCH (09:25)
[2024-11-12] MEDS ORDERED: SODIUM CHLORIDE 0.9% 50 ML IV PRN (11:09)
[2024-11-12] MEDS ORDERED: SODIUM CHLORIDE 0.9% 100 ML IV PRN (11:09)
[2024-11-12] MEDS: BUDESONIDE 0.5 MG/2 ML VIAL (PULMICORT) NEB SCH (12:11)
[2024-11-12] MEDS: FUROSEMIDE INJ 20 MG/2 ML VIAL IV ONE (12:49)
--- NOTE | 2024-11-12 16:12 | XRay Report ---
Chest radiograph, one view History: Follow-up Comparison: 11/11/2024 Findings/ Impression: Stable appearing changes of reported left pneumonectomy. There is a left hydropneumothorax that appears not significantly changed. Left hemithoracic volume loss with leftward deviation of the trachea. Redemonstrated is a flattened, irregular opacity at the right lung apex that appears to represent scarring. The bones are osteopenic. There are degenerative changes and areas of height loss throughout the thoracic spine. Electronically signed by Mekhi León 11-12-2024 4:12 PM
[2024-11-12 17:21] LABS: Hematocrit (blood only) 37.3 % (42.0-52.0); Hemoglobin 12.3 g/dl (14.0-18.0); Mean Corpuscular Hemoglobin 29.1 pg (25.0-34.0); Mean Corpuscular Volume 88.2 fL (80.0-100.0); Platelet Count 216 K/uL (130-400); RDW Coefficient of Variation 14.4 % (11.5-14.5); RDW Standard Deviation 46.3 fL (36.4-46.3); Red Blood Count 4.23 M/uL (4.70-6.10); White Blood Count 7.53 K/ul (4.8-10.8)
[2024-11-12 17:37] LABS: BUN Creatinine Ratio 30.9 (10-20); Calcium 8.2 mg/dl (8.6-10.3); Creatinine Clr Calc Pharmacy 71.5 ml/min; Potassium 3.6 mmol/L (3.5-5.1)
[2024-11-12] MEDS: FORMOTEROL 20 MCG/2 ML VIAL NEB SCH (19:20)
--- NOTE | 2024-11-12 20:48 | Communication Note ---
Date of Service: November 12, 2024 RN notified me of patient becoming more short of breath and having developed wheezing after completing a DuoNeb treatment. Also reports increased somnolence and increased work of breathing. On arrival to bedside, patient was noted to have some conversational dyspnea. Oxygen saturations between 95 to 100% with nasal cannula 2 lpm. To my exam, wheezing was noted on pulmonary auscultation but otherwise unremarkable. Patient was admitted due to UGIB after recent EGD with dilation of strictures on 11/10, but Hgb has been stable. There was concern for hemothorax secondary to said procedure, and had ordered chest CT which was not done yet by the time of my evaluation. Due to increased wheezing and work of breathing, did ask for CT chest to be done sooner. Suspected possible causes for current presentation could include rebound bronchospasm from duoneb therapy, hemothorax from esophageal trauma, chemical irritation leading to bronchospasm given known hx of COPD and acid reflux, or other. After patient returned from CT, RN states his respiratory status had already improved and was more awake and alert, and was only c/o post nasal drip. Will hold Albuterol treatment for now. Was considering IV steroids for management of bronchospasms, however, given improvement will hold off for now and wait for CT results. If bronchospasm recurs could consider IV steroids, and if this is done will change Pepcid to scheduled and continue protonix gtt for GI protection given recent UGIB. Resident Activity Tracking Resident Involvement: Resident Care Provided Care Provided: Adult [facility]
[2024-11-12] MEDS: OPTIRAY 320 100ml IV ONE (20:51)
[2024-11-12] MEDS: FLUTICASONE PROPIONATE NA SPR 16 GM BTL SCH (22:57)
--- NOTE | 2024-11-13 00:01 | CT Scan Report ---
Exam(s): CT CHEST With Contrast IV Amt: OPTIRAY 320 94ML EXAM: CT Chest With Intravenous Contrast CLINICAL HISTORY: recent egd/mucosal tear, anemia/melena. TECHNIQUE: Axial computed tomography images of the chest with intravenous contrast. CTDI is 8.25 mGy and DLP is 311.64 mGy-cm. Automated exposure control was utilized for the study. A dose lowering technique was utilized adhering to the principles of ALARA. CONTRAST: Patient received OPTIRAY 320 94ML of IV contrast COMPARISON: No relevant prior studies available. FINDINGS: Lungs: Stable left pneumonectomy with similar encapsulated fluid throughout the left hemithorax. Hyperexpansion of the right lung with the anterior medial aspect of the right upper lobe and right middle lobe segments extending across the midline. There is similar curvilinear chronic atelectasis or scarring extending to the lateral right apex from the right suprahilar region. Minimal subsegmental changes in the dependent right posterior lung base at the costophrenic margin. Asymmetric regional intermittent secretions in the subsegmental bronchi serving the posterior medial right lower lobe. Pleural space: As above. No right pleural effusion. No right pneumothorax. Heart: The cardiac chambers are prominently shifted to the left hemithorax, stable. The cardiac chambers are mildly prominent. Mild pericardial effusion, similar. Mild to moderate LAD calcification. Mediastinum: The esophagus is predominately decompressed with mild hyperdense material throughout. There is a stable metallic clip in the mid esophagus, similar to the previous examination. Focal outpouching of the mid to distal esophagus inferior to the surgical clip is again noted with the material noted throughout the esophagus. No definite paraesophageal inflammatory changes or pneumomediastinum. No definite esophageal obstruction. Bones/joints: Unremarkable. No acute fracture. No dislocation. Soft tissues: Unremarkable. Vasculature: The thoracic aorta is stable without dissection or significant aneurysm. The main pulmonary artery and right main pulmonary artery are somewhat dilated. No filling defects. Lymph nodes: Unremarkable. No enlarged lymph nodes. IMPRESSION: 1. Stable left pneumonectomy. Hyperexpansion of the right lung with the anterior medial aspect of the right upper lobe and right middle lobe segments extending across the midline. There is similar curvilinear chronic atelectasis or scarring extending to the lateral right apex from the right suprahilar region. Minimal subsegmental changes in the dependent right posterior lung base at the costophrenic margin. Asymmetric regional intermittent secretions in the subsegmental bronchi serving the posterior medial right lower lobe. No pleural effusion or pneumothorax. 2. The esophagus is predominately decompressed with mild hyperdense material throughout. There is a stable metallic clip in the mid esophagus, similar to the previous examination. Focal outpouching of the mid to distal esophagus inferior to the surgical clip is again noted with the material noted throughout the esophagus. No definite paraesophageal inflammatory changes or pneumomediastinum. No definite esophageal obstruction. Electronically signed by: Winston Rodrigues MD 11/13/24 00:00 AM
[2024-11-13 06:41] LABS: Basophils # (auto) 0.06 K/uL (0.00-0.20); Basophils % (auto) 0.9 %; Eosinophils # (auto) 0.23 K/uL (0.00-0.50); Eosinophils % (auto) 3.4 %; Hematocrit (blood only) 34.1 % (42.0-52.0); Hemoglobin 11.2 g/dl (14.0-18.0); Immature Granulocytes # (auto) 0.02 K/uL (0.01-0.20); Immature Granulocytes % (auto) 0.3 %; Lymphocytes # (auto) 1.14 K/uL (1.20-3.40); Mean Corpuscular Hemoglobin 28.7 pg (25.0-34.0); Mean Corpuscular Hgb Conc 32.8 g/dL (32.0-36.0); Mean Corpuscular Volume 87.4 fL (80.0-100.0); Mean Platelet Volume 10.9 fL (9.4-12.4); Monocytes # (auto) 0.94 K/uL (0.11-0.59); Neutrophils # (auto) 4.33 K/uL (1.40-6.50); Neutrophils % (auto) 64.4 %; Platelet Count 206 K/uL (130-400); RDW Coefficient of Variation 14.3 % (11.5-14.5); RDW Standard Deviation 45.3 fL (36.4-46.3); White Blood Count 6.72 K/ul (4.8-10.8)
[2024-11-13 06:56] LABS: Albumin Level 3.2 gm/dl (3.4-5.0); BUN Creatinine Ratio 30.2 (10-20); Creatinine Clr Calc Pharmacy 92.9 ml/min; Magnesium 1.7 mg/dl (1.7-2.4); Phosphorus 2.8 mg/dl (2.5-4.9); Potassium 3.2 mmol/L (3.5-5.1)
--- NOTE | 2024-11-13 07:48 | Hospitalist Progress Note ---
Date of Service November 13, 2024 Assessment & Plan (1) Upper GI bleed: (2) Symptomatic anemia: (3) Syncope and collapse: (4) Esophageal stenosis: Plan The patient is a 79-year-old male with a past medical history including esophageal stenosis, malignant neoplasm of left lung, chronic PE, esophageal adenocarcinoma, duodenal ulcer disease, reflux esophagitis, history of prostate cancer, LUTS, history of pneumonectomy, and COPD. Presented to ER w/ dizziness, syncopal episode in ER going to bathroom with large black colored stool, hgb 10.5 prior to BM and was down from 14 around 9 days ago Recent EGD w/ dilatation for stricture with GI at [place] on 11/11, Dr Cruz UGIB s/p 2u PRBC, 1L IVF for hypotension/syncope on admission w/ good response additional 1u PRBC 11/12 for inappropriate rise and ongoing sx/black bowel movements/pre-syncope w/ standing GI consulted Protonix gtt, carafate continued Hgb 12.3--> 11.2. BUN/Cr stable and BPs improved 123/73 -- no abdominal pain/more comfortable today and could be clearing out old blood but concerns for ongoing bleeding given drop from last evening and continued black/dark BMs (however notable have decreased per nursing) Continues on clear liquid diet for now but NPO at midnight ordered as GI plans for EGD in AM Remains on Ceftriaxone IV for coverage 40meq KCL, 1gm IV mag ordered to keep electrolytes stable. Monitor CBC/H&H, transfuse if needed Symptomatic anemia/syncope and collapse- as above, syncopal episode in ER suspected 2nd to GIB/anemia. No further syncope but dizziness improved with PRBC and fall precautions to be in place BP stable 123/73 and monitoring/tx as above PT/OT consults placed COPD- hx recurrent lung cancer, esophageal carcrinoma nebs ordered for wheezing/ease of use but did not tolerate last evening and changed back to inhaler. Lung exam stable compared to priors, on 2L supplemental O2 CT chest last evening w/ hyperdense material in esophagus but tolerated clear liquids with aspiration precautions at this time and plans for EGD in AM as above Hx chronic PEs, not on xarelto, with above not even able to consider at this time Incentive spirometer encouraged as able Dispo: continued inpatient stay, clear liquid diet. remains on protonix gtt and NPO at midnight as GI plans for repeat EGD in AM given continued dark stools overnight but per nursing has slowed and if hgb stable in AM ?if will defer but will plan to keep NPO at midnight in case Admission and Anticipated Discharge Date Admission Date: November 11, 2024 Subjective Eval this morning, sitting up at the side of the bed. Less distress, improvement in breathing/no further wheezing, on 2L. Nebs changed back to inhalers given distress, reports hasn't gotten nebs since 2007 and doesn't like them. No thrush on exam but cleaning mouth out/rinse following his inhaler as to be doing. Hgb stable, did have some bloody/dark stool overnight but nothing per nursing this morning. Discussed adv diet but he said problems with that too quickly last time and continues on clears but then said weakness and due to not eating enough and discussed boost/nutrition consult. Possible adv to full liquid for supper if desired but reports he already ordered his meals and will follow up. No abdominal pain/nausea. Some lightheadedness with standing but improved yesterday. Will have PT eval while inpatient. nutritoin consult pending. Questions/concrns addressed at this time. Physical Exam 2 Physical Exam: General: 79yo male, frail/cachectic appearing, sitting up at side of the bed today, less distress, remains on 2L NC but no further wheezing laying in bed, general pallor, occ cough, on 2L NC HEENT:mm slightly dry, trachea with slight deviation from his pneumonectomy, no evidence for tension ptx Resp: diminished in the bases/L side, no overt wheezing/distress, +cough at baseline, on 2L NC, no tachypnea CV: sinus, PAC/PVC on monitor, no pitting edema GI: +BS, scaphoid, nontender MSK/Neuro: generalized weakness but appears nonfocal, answering questions appropriately but quite fatigued, no facial droop Psych: alert to person/place/time, fatigued/exhausted appearing Results & Data Results & Data Vital Signs (Past 12 Hours) Vital Signs Temp Pulse Pulse Resp BP Pulse Ox O2 Del Method 11/13/24 07:34 36.6 C 83 18 97/71 L 98 Nasal Cannula 11/13/24 03:17 36.7 C 73 18 107/66 98 Nasal Cannula 11/12/24 22:40 36.6 C 84 18 100/60 99 Nasal Cannula 11/12/24 22:00 81 11/12/24 21:00 Nasal Cannula 11/12/24 20:11 Nasal Cannula O2 Flow Rate 11/13/24 07:34 11/13/24 03:17 2 11/12/24 22:40 2 11/12/24 22:00 11/12/24 21:00 2 11/12/24 20:11 Laboratory Results 11/13/24 06:15 11/13/24 06:15 Mag 1.7 Diagnostic Findings Chest X-Ray 11/11/24 08:43 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 Comparison: Comparison is made to chest radiographs 09/02/2024 FINDINGS: No lines and tubes are seen. Expected leftward mediastinal shift is seen with obscured borders of the heart and mediastinum. Postsurgical changes of left pneumonectomy. Chronic scarring is seen in the right upper lung. No evidence of pleural effusion or pneumothorax. IMPRESSION: Redemonstration of left pneumonectomy changes without acute abnormality. ACT 112: Negative or not required by law. Electronically signed by: Enrique Yusuf M.D. 11/11/2024 9:08 AM Chest X-Ray 11/12/24 15:47 Chest radiograph, one view History: Follow-up Comparison: 11/11/2024 Findings/ Impression: Stable appearing changes of reported left pneumonectomy. There is a left hydropneumothorax that appears not significantly changed. Left hemithoracic volume loss with leftward deviation of the trachea. Redemonstrated is a flattened, irregular opacity at the right lung apex that appears to represent scarring. The bones are osteopenic. There are degenerative changes and areas of height loss throughout the thoracic spine. Electronically signed by Mekhi León 11-12-2024 4:[address] 11/12/24 15:58 Exam(s): CT CHEST With Contrast IV Amt: OPTIRAY 320 94ML EXAM: CT Chest With Intravenous Contrast CLINICAL HISTORY: recent egd/mucosal tear, anemia/melena. TECHNIQUE: Axial computed tomography images of the chest with intravenous contrast. CTDI is 8.25 mGy and DLP is 311.64 mGy-cm. Automated exposure control was utilized for the study. A dose lowering technique was utilized adhering to the principles of ALARA. CONTRAST: Patient received OPTIRAY 320 94ML of IV contrast COMPARISON: No relevant prior studies available. FINDINGS: Lungs: Stable left pneumonectomy with similar encapsulated fluid throughout the left hemithorax. Hyperexpansion of the right lung with the anterior medial aspect of the right upper lobe and right middle lobe segments extending across the midline. There is similar curvilinear chronic atelectasis or scarring extending to the lateral right apex from the right suprahilar region. Minimal subsegmental changes in the dependent right posterior lung base at the costophrenic margin. Asymmetric regional intermittent secretions in the subsegmental bronchi serving the posterior medial right lower lobe. Pleural space: As above. No right pleural effusion. No right pneumothorax. Heart: The cardiac chambers are prominently shifted to the left hemithorax, stable. The cardiac chambers are mildly prominent. Mild pericardial effusion, similar. Mild to moderate LAD calcification. Mediastinum: The esophagus is predominately decompressed with mild hyperdense material throughout. There is a stable metallic clip in the mid esophagus, similar to the previous examination. Focal outpouching of the mid to distal esophagus inferior to the surgical clip is again noted with the material noted throughout the esophagus. No definite paraesophageal inflammatory changes or pneumomediastinum. No definite esophageal obstruction. Bones/joints: Unremarkable. No acute fracture. No dislocation. Soft tissues: Unremarkable. Vasculature: The thoracic aorta is stable without dissection or significant aneurysm. The main pulmonary artery and right main pulmonary artery are somewhat dilated. No filling defects. Lymph nodes: Unremarkable. No enlarged lymph nodes. IMPRESSION: 1. Stable left pneumonectomy. Hyperexpansion of the right lung with the anterior medial aspect of the right upper lobe and right middle lobe segments extending across the midline. There is similar curvilinear chronic atelectasis or scarring extending to the lateral right apex from the right suprahilar region. Minimal subsegmental changes in the dependent right posterior lung base at the costophrenic margin. Asymmetric regional intermittent secretions in the subsegmental bronchi serving the posterior medial right lower lobe. No pleural effusion or pneumothorax. 2. The esophagus is predominately decompressed with mild hyperdense material throughout. There is a stable metallic clip in the mid esophagus, similar to the previous examination. Focal outpouching of the mid to distal esophagus inferior to the surgical clip is again noted with the material noted throughout the esophagus. No definite paraesophageal inflammatory changes or pneumomediastinum. No definite esophageal obstruction. Electronically signed by: Winston Rodrigues MD 11/13/24 00:00 AM PG Care Time/CCT Total # of Minutes Spent Total Time Spent with Patient: Total time spent is greater than 50% in coordination of care (as documented) at patient's floor/unit and/or counseling patient: Coding Level of Care Code 57424 SUB INP/OBS CARE 3/50MIN Diagnoses Upper GI bleed K92.2 Symptomatic anemia D64.9 Syncope and collapse R55 Esophageal stenosis K22.2
[2024-11-13] MEDS: POTASSIUM CHLORIDE 20 MEQ/15 ML UDC PO SCH (09:43)
[2024-11-13] MEDS: FLUTICASONE/VILANTEROL 100/25MCG 14 PUFFS/INHALER INH SCH (09:43)
[2024-11-13] MEDS: MAGNESIUM SULFATE / D5W 1 GM/100 ML BAG IV ONE (09:44)
--- NOTE | 2024-11-13 11:24 | Gastroenterology Progress Note ---
Date of Service November 13, 2024 Assessment & Plan (1) Symptomatic anemia: (2) Upper GI bleed: Plan Patient has had ongoing bloody stools with last this morning. hgb dropped from 12.2 to 11.2. hemodynamically stable. Discussed case with Dr. Aldana and will plan to perform a repeat EGD tomorrow to further evaluate. - continue with protonix drip and carafate 1 gm qid. - follow hgb/hct. transfuse as needed. Admission and Anticipated Discharge Date Admission Date: November 11, 2024 Supervising Physician Co-Signing Physician Notes Persistent bleeding. Potentially from his esophageal dilatation. Can consider cauterization endoscopic clipping if bleeding site identified. Patient agreeable to tomorrow Subjective Patient had dark red blood again this morning with bowel movements. Also had some dark bloody stools over night. he tells me he has had multiple bowel movements. hgb dropped from 12.3 to 11.2. otherwise, he feels well. Last egd was done 11/11 with dilation of esophageal stricture. Review of Systems Review of Systems: All systems reviewed & are unremarkable except as noted in HPI & below Physical Exam Constitutional: WD/WN, vitals as above Respiratory: normal respiratory effort, lungs clear to auscultation Cardiovascular: Rate/Rhythm: regular rate and regular rhythm Gastrointestinal (Abdomen): normal bowel sounds, soft, nontender, no hepatosplenomegaly Psychiatric: Orientation: alert and oriented x 3 Results & Data Results & Data Vital Signs (Past 12 Hours) Vital Signs Temp Pulse Resp BP Pulse Ox O2 Del Method O2 Flow Rate 11/13/24 11:08 97.7 F 70 18 123/73 99 Nasal Cannula 2 11/13/24 07:34 97.9 F 83 18 97/71 L 98 Nasal Cannula 11/13/24 03:17 98.1 F 73 18 107/66 98 Nasal Cannula 2 Coding Level of Care Code 28403 SUB INP/OBS CARE 2/35MIN Diagnoses Symptomatic anemia D64.9 Upper GI bleed K92.2
--- NOTE | 2024-11-13 21:47 | Electrocardiogram Report ---
Test Reason : Blood Pressure : */* mmHG Vent. Rate : 96 BPM Atrial Rate : 96 BPM P-R Int : 142 ms QRS Dur : 78 ms QT Int : 380 ms P-R-T Axes : 87 46 77 degrees QTcB Int : 480 ms Normal sinus rhythm Nonspecific ST and T wave abnormality Prolonged QT Abnormal ECG When compared with ECG of 02-Sep-2024 16:05, Premature ventricular complexes are no longer Present Confirmed by Damian Kelly ([id number]) on 11/13/2024 9:47:00 PM Referred By: REFERRED SELF Confirmed By: Damian Kelly
[2024-11-13] MEDS: ALBUTEROL HFA 8 GM INHALER INH PRN (22:15)
[2024-11-14 06:32] LABS: Basophils # (auto) 0.03 K/uL (0.00-0.20); Basophils % (auto) 0.4 %; Hematocrit (blood only) 34.4 % (42.0-52.0); Hemoglobin 11.3 g/dl (14.0-18.0); Immature Granulocytes # (auto) 0.02 K/uL (0.01-0.20); Immature Granulocytes % (auto) 0.3 %; Lymphocytes # (auto) 0.63 K/uL (1.20-3.40); Lymphocytes % (auto) 9.3 %; Mean Corpuscular Hemoglobin 28.7 pg (25.0-34.0); Mean Corpuscular Hgb Conc 32.8 g/dL (32.0-36.0); Mean Corpuscular Volume 87.3 fL (80.0-100.0); Monocytes # (auto) 0.76 K/uL (0.11-0.59); Monocytes % (auto) 11.2 %; Neutrophils # (auto) 5.13 K/uL (1.40-6.50); Neutrophils % (auto) 75.8 %; Platelet Count 203 K/uL (130-400); RDW Coefficient of Variation 14.1 % (11.5-14.5); RDW Standard Deviation 45.1 fL (36.4-46.3); Red Blood Count 3.94 M/uL (4.70-6.10); White Blood Count 6.77 K/ul (4.8-10.8)
[2024-11-14 07:02] LABS: Albumin Level 3.2 gm/dl (3.4-5.0); Calcium 8.4 mg/dl (8.6-10.3); Magnesium 1.8 mg/dl (1.7-2.4); Phosphorus 2.1 mg/dl (2.5-4.9); Potassium 3.5 mmol/L (3.5-5.1)
--- NOTE | 2024-11-14 08:48 | Anesthesiology Consultation ---
Date of Service November 14, 2024 Assessment & Plan Chart Review Chart Review: Acceptable Risk for Surgery and Patient NOT seen in Pre Admission Testing Consults Requested none History Surgery Operation Date: 11/14/24 16:30 Proposed Procedures p Esophagogastroduodenoscopy Dr. Jovan Aldana MD Height/Weight Height: 6 ft Weight: 64.9 kg Allergies Allergy/AdvReac Type Severity Reaction Status Date / Time Penicillins Allergy Intermediate Difficulty Verified 11/11/24 09:45 Swallowing sucralfate [From Carafate] Allergy Mild Dizziness Verified 11/11/24 09:45 ciprofloxacin Allergy Unknown Difficulty Verified 11/11/24 09:45 Breathing latex Allergy Unknown Rash Verified 11/11/24 09:45 lorazepam Allergy Unknown Rash Verified 11/11/24 09:45 sulfamethoxazole Allergy Unknown Difficulty Verified 11/11/24 09:45 Breathing cephalexin AdvReac Mild Yeast Verified 11/11/24 09:45 infection minocycline AdvReac Mild Yeast Verified 11/11/24 09:45 infection Medications Home Medications Medication Instructions Recorded Confirmed Last Taken acetaminophen 500 mg tablet 1,000 mg PO Q8H PRN pain 06/19/19 11/11/24 Unknown (Tylenol Extra Strength) albuterol sulfate 90 mcg/actuation 2 puff inhalation Q4H PRN copd #18 11/04/23 11/11/24 Unknown aerosol inhaler (Ventolin HFA) grams budesonide-formoterol HFA 80 2 puff inhalation BID #10.2 grams 05/11/24 11/11/24 08/17/24 mcg-4.5 mcg/actuation aerosol inhaler (Symbicort) mometasone 50 mcg/actuation nasal 2 spray intranasal QAM #51 grams 06/19/24 11/11/24 08/16/24 spray multivitamin 1 tab PO DAILY 08/09/24 11/11/24 08/16/24 alfuzosin 10 mg tablet,extended 10 mg PO DAILY #30 tabs 08/14/24 11/11/24 08/16/24 release 24 hr (Uroxatral) cyanocobalamin (vitamin B-12) 500 500 mcg PO QAM #30 tabs 08/30/24 11/11/24 Unknown mcg tablet nitroglycerin 0.4 mg sublingual 0.4 mg sublingual UD PRN chest 09/06/24 11/11/24 Unknown tablet (Nitrostat) pain #25 tabs aspirin 81 mg tablet,delayed 81 mg PO DAILY 09/13/24 11/11/24 Unknown release (Enteric Coated Aspirin) omeprazole 20 mg capsule,delayed 40 mg (2 x 20 mg) PO BID #360 caps 11/02/24 11/11/24 Unknown release Active Medications Generic Name Dose Route Start Last Admin Trade Name Freq PRN Reason Stop Dose Admin Acetaminophen 1,000 mg 11/11/24 10:38 11/14/24 06:00 Acetaminophen 1000 Mg/100 Ml Iv IV 11/16/24 10:37 1,000 mg Q8H PRN Administration Pain or Fever Albuterol 2 puffs 11/11/24 10:38 11/13/24 22:15 Albuterol Hfa 8 Gm Inhaler INH 12/11/24 10:37 2 puffs Q4H PRN Administration copd/shortness of breath/wheez Albuterol 3 ml 11/11/24 10:38 11/12/24 20:09 Albut/Ipratrop 3mg/0.5mg Neb 3 Ml Vial NEB 12/11/24 10:37 3 ml Q2H PRN Administration dyspnea Protocol Fluticasone Propionate 2 sprays 11/12/24 21:45 11/14/24 08:34 Fluticasone Propionate Na Spr 16 Gm Btl NA 12/12/24 21:44 2 sprays BID MADDIE Administration Fluticasone/Vilanterol 1 puffs 11/13/24 09:00 11/14/24 08:35 Fluticasone/Vilanterol 100/25mcg 14 Puffs/Inhaler INH 12/13/24 08:59 1 puffs DAILY MADDIE Administration Protocol Pantoprazole Sodium 40 mg/ 100 mls @ 20 mls/hr 11/11/24 08:15 11/14/24 08:33 Dextrose IV 12/11/24 08:14 8 mg/hr Q5H MADDIE 20 mls/hr Administration 8 MG/HR Ceftriaxone Sodium 1,000 mg in 50 mls @ 100 mls/hr 11/11/24 11:00 11/13/24 13:15 Rocephin IV 11/21/24 10:59 Infused Q24H MADDIE Infusion Famotidine 20 mg in 5 mls @ 2.5 mls/min 11/11/24 22:00 11/11/24 22:51 Pepcid 20mg Iv Push IV 12/11/24 21:59 2.5 mls/min Q12H PRN Administration Heartburn Potassium Chloride 40 meq 11/13/24 09:00 11/14/24 08:35 Potassium Chloride 20 Meq/15 Ml Udc PO 12/13/24 08:59 Not Given QAM MADDIE Sucralfate 1 gm 11/12/24 09:00 11/14/24 08:35 Sucralfate 1 Gm/10 Ml Udc PO 12/12/24 08:59 Not Given QID MADDIE Past Medical History Medical History Acute gastritis Esophageal candidiasis Acute exacerbation of chronic obstructive pulmonary disease Hypoxia BRYANT (dyspnea on exertion) Malignant neoplasm of prostate with intermediate recurrence risk, stage T2B-C or [place] 7 or prostate-specific antigen (PSA) 10-20 Herpes zoster Hematuria LVH (left ventricular hypertrophy) Primary cancer of right upper lobe of lung (01/20/17) Poor historian Aspiration pneumonia Remote hx per records (2012) Respiratory failure 2012 > resulted in ICU stay/required ventilator x2 days Past Family History Family History Father Cardiac disorder Stroke Mother Cardiac disorder Diabetes Myocardial infarction Brother Diabetes Sister Breast cancer Other Cancer Denies family history of Ovarian cancer Prostate cancer Colorectal cancer Past Surgical History Surgical History History of esophagogastroduodenoscopy (EGD) History of pneumonectomy (01/2004) Left + 2 ribs removed 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 Social History Smoking Status: Former smoker tobacco type: pipe Do You Dip or Chew Tobacco: Yes (Full leaf tobacco > advised none DOS) Hx Alcohol Use: Yes Alcohol type: hard liquor alcohol intake frequency: 3 or more drinks per day Alcohol Intake Frequency Comment: not currently using Hx Substance Use: No substance use type: does not use Physical Exam Vital Signs Last Vital Signs Temp 98.2 F 11/14/24 07:31 Pulse 75 11/14/24 07:31 Resp 18 11/14/24 07:31 BP 119/69 11/14/24 07:31 Pulse Ox 99 11/14/24 07:31 O2 Del Method Nasal Cannula 11/14/24 07:31 O2 Flow Rate 2 11/14/24 07:31 Testing Laboratory Results 11/14/24 06:11 11/14/24 06:11 PT 11.5 Seconds (9.0-12.0) 11/11/24 07:56 INR 1.1 (0.9-1.1) 11/11/24 07:56 APTT 24 Seconds (21-31) 11/11/24 07:56 Blood Type A Positive 11/11/24 08:02 Antibody Screen NEGATIVE 11/11/24 08:02 Electrocardiogram Date: 11/11/24 Findings: + NSR @ prolonged QT Chest X-Ray Date: 11/12/24 Stable appearing changes of reported left pneumonectomy. There is a left hydropneumothorax that appears not significantly changed. Left hemithoracic volume loss with leftward deviation of the trachea. Redemonstrated is a flattened, irregular opacity at the right lung apex that appears to represent scarring. The bones are osteopenic. There are degenerative changes and areas of height loss throughout the thoracic spine.
--- NOTE | 2024-11-14 10:13 | History & Physical Bridge Note ---
Date of Service November 14, 2024 History & Physical Bridge Note I have examined the patient, reviewed the History & Physical and in the interval since the performance of the History & Physical I have noted the following changes of clinical significance: no changes noted. last bloody bowel movement was yesterday per patient. Patient tells me that he has been npo. no chest pain or sob. hgb stable at 11.3. - will plan for EGD today to assess. Supervising Physician Co-Signing Physician Notes Agree with above. EGD today
--- NOTE | 2024-11-14 13:08 | GI REPORT ---
[facility] Patient: SCAR CASTILLO : 1945 Sex at : Male Age: 79 Years Procedure: Upper GI endoscopy Date: 11/14/2024 Attending Physician: Manpreet Aldana MD Referring MD: Michael Lorenz Indications: - History of esophageal cancer. 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 Dilation a week ago. Melena since. For EGD and potential endoscopic intervention Medications: - Monitored Anesthesia Care Complications: - No immediate complications. Estimated Blood Loss: - Estimated blood loss was minimal. Procedure: - The egd scope was introduced through the mouth and advanced to the second part of the duodenum. - The upper GI endoscopy was accomplished without difficulty. - The patient tolerated the procedure well. Findings: - One benign-appearing, intrinsic moderate stenosis was found at the gastroesophageal junction. This stenosis measured 2 cm (in length). The stenosis was traversed. - A medium non-bleeding Phylicia-Juarez tear with stigmata of recent bleeding was found. Coagulation for bleeding prevention using bipolar probe was successful. - Mild mucosal changes characterized by congestion, erythema and erosion were found at the gastroesophageal junction. Biopsies were taken with a cold forceps for histology. Estimated blood loss was minimal. - The entire examined stomach was normal. - The examined duodenum was normal. Impression: - Benign-appearing esophageal stenosis. - Phylicia-Juarez tear. Treated with bipolar cautery. - Congested, erythematous, eroded mucosa in the esophagus. Biopsied. - Normal stomach. - Normal examined duodenum. - Post esophageal dilatation Phylicia-Juarez type tear visible vessel at the inferior margin. Not actively bleeding coagulated x 3 with BiCap coagulation. Surrounding tissue in this area is edematous congested and somewhat friable. This may just be inflammatory though this gentleman has a history of esophageal cancer. Biopsies performed - Of note patient has excessive sounding mucus upper airway noise. Complains of thick mucus. At endoscopy there was no mucus at or surrounding the cords likely bronchial in nature.. Recommendation: - Await pathology results. - PPI therapy - Potential discharge tomorrow in the absence of further bleeding or recurrent bleeding Procedure Code(s): - 28702-39, Esophagogastroduodenoscopy, flexible, transoral; with control of bleeding, any method - 02631, Esophagogastroduodenoscopy, flexible, transoral; with biopsy, single or multiple Diagnosis Code(s): - K22.2, Esophageal obstruction - K22.6, Gastro-esophageal laceration-hemorrhage syndrome - K22.89, Other specified disease of esophagus - K22.10, Ulcer of esophagus without bleeding CPT(R) - 2022 copyright [employer]. All Rights Reserved. The CPT codes, CCI edits and ICD codes generated are intended as suggestions and were generated based on input data. These codes are preliminary and upon tightener review may be revised to meet current compliance and payer requirements. The provider is responsible for the final determination of appropriate codes, and modifiers. Manpreet Aldana MD This document has been electronically signed. Note Initiated:11/14/2024 Note Completed:11/14/2024 1:07 PM \\[email or web address]\Results\LIVE\[id number]
--- NOTE | 2024-11-14 13:25 | Anesthesiology Progress Note ---
Date of Service November 14, 2024 Anesthesia Post Procedure Vital Signs Vital Signs: Temp Pulse Pulse Pulse Resp BP Pulse Ox 11/14/24 13:19 81 22 135/79 96 11/14/24 13:04 76 14 85/48 L 100 11/14/24 11:44 99.1 F 86 20 165/88 H 100 11/14/24 11:26 85 18 178/89 H 99 11/14/24 07:31 98.2 F 75 18 119/69 99 11/14/24 07:10 82 11/14/24 03:46 98.1 F 77 18 137/62 99 11/13/24 22:38 79 18 98 11/13/24 22:29 98.2 F 79 18 128/78 99 11/13/24 22:15 11/13/24 21:52 75 11/13/24 19:47 97.7 F 72 18 142/81 H 98 11/13/24 16:58 78 11/13/24 16:20 97.7 F 52 L 18 122/73 97 O2 Del Method O2 Flow Rate 11/14/24 13:19 Oxymask 15 11/14/24 13:04 Oxymask 10 11/14/24 11:44 Nasal Cannula 2 11/14/24 11:26 Nasal Cannula 11/14/24 07:31 Nasal Cannula 2 11/14/24 07:10 11/14/24 03:46 Nasal Cannula 2 11/13/24 22:38 Nasal Cannula 2 11/13/24 22:29 Nasal Cannula 2 11/13/24 22:15 Nasal Cannula 2 11/13/24 21:52 11/13/24 19:47 Nasal Cannula 2 11/13/24 16:58 11/13/24 16:20 Nasal Cannula 2 Pain Intensity Right Shoulder: Pain Intensity: 8 Transfer of Care Handoff Completed per policy Notes Mental Status: alert / awake / arousable and participated in evaluation Patient Amnestic to Procedure: Yes Nausea / Vomiting: adequately controlled Pain: adequately controlled Airway Patency, RR, SpO2: stable & adequate BP & HR: stable & adequate Hydration State: stable & adequate Anesthetic Complications: no major complications apparent and Pt Satisfied with anesthetic care Notes: called to recovery d/t low sats, patient reportedly in 60's, with quick recovery using jaw lift. likley related to low FRC and post op obstruction
--- NOTE | 2024-11-14 14:35 | Communication Note ---
Date of Service: November 14, 2024 A&P (1) Upper GI bleed: At endoscopy there was a mucosal tear Phylicia-Juarez type. Probable related to esophageal dilatation. Typical esophageal dilatation mucosal disruption is desired to improve swallowing. In this scenario however there was a visible vessel at the inferior aspect of that Phylicia-Juarez. This was coagulated. Hemostasis appears present. There was some inflammatory friable tissue proximal to this and with his history of esophageal cancer this was biopsied Await biopsies. Twice daily PPI therapy p.o. follow-up for rebleed. Patient likely will experience dysphagia persistent distal esophageal narrowing based on today's exam. Best to avoid meats and dry breads. Acute
--- NOTE | 2024-11-14 17:59 | Hospitalist Progress Note ---
Date of Service November 14, 2024 Assessment & Plan (1) Upper GI bleed: (2) Symptomatic anemia: (3) Syncope and collapse: (4) Esophageal stenosis: Plan The patient is a 79-year-old male with a past medical history including esophageal stenosis, malignant neoplasm of left lung, chronic PE, esophageal adenocarcinoma, duodenal ulcer disease, reflux esophagitis, history of prostate cancer, LUTS, history of pneumonectomy, and COPD. Presented to ER w/ dizziness, syncopal episode in ER going to bathroom with large black colored stool, hgb 10.5 prior to BM and was down from 14 around 9 days ago Recent EGD w/ dilatation for stricture with GI at [place] on 11/[address] Anthony BOWEN S/p 3 units pRBC during this hospitalization Hemoglobin remaining stable Was on Protonix gtt, which has since been switched to Protonix 40 mg p.o. twice daily. Carafate continued GI consulted: EGD performed 11/14 which showed medium nonbleeding Phylicia-Juarez tear treated with bipolar cautery, benign-appearing esophageal stenosis, and congested, erythematous, eroded mucosa of the esophagusbiopsied Recommendations: Await pathology results, oral PPI therapy BID Resumed minced/moist diet with vanilla boost BIDM per dietitian's recommendations Was on ceftriaxone IV for coverage of translocation/tear, discontinued 11/14. Broadened coverage with cefepime and Flagyl due to patient becoming febrile at 101.3F, tachycardic in the 100s Blood cultures, UA, urine culture ordered Symptomatic anemia/syncope and collapse- as above, syncopal episode in ER suspected 2nd to GIB/anemia. No further syncope but dizziness improved with PRBC and fall precautions to be in place PT/OT consulted, he may require a short-term rehab stay prior to returning home as he lives alone COPD- hx recurrent lung cancer, esophageal carcinoma Continue inhalers Hx chronic PEs, not on xarelto, with above not even able to consider at this time Incentive spirometer encouraged as able Dispo: continued inpatient stay given fever, tachycardia, awaiting biopsy results, monitoring hemoglobin Admission and Anticipated Discharge Date Admission Date: November 11, 2024 Supervising Physician Co-Signing Physician Notes Attending Attestation - Chart reviewed, care plan d/w CHRISTIANO Thomas. I agree w/ the stout components of her documentation. Appreciate GI assistance. Fever - blood/urine cx's. Check CXR. Michael Lorenz MD Subjective Patient seen and evaluated at bedside following his EGD. He was sleeping upon my entry to the room, but easily woke up to my voice. He reports feeling very fatigued following the procedure. He states "I am too tired to talk to you now" and asked for us to discuss his plan tomorrow. He denied any complaints or concerns at that time. Updated by RN in evening the patient became febrile to 101.3F and tachycardic in the 100s. Physical Exam Physical Exam: General: Frail/cachectic appearing male, fatigued lying in bed. No acute distress. Cardiac: Regular rate and rhythm without murmurs gallops or rubs. Pulm: Diminished lung sounds throughout (left-sided diminished consistent with history of pneumonectomy). No respiratory distress. 98% on 2L NC. Abdominal: Soft, nontender, scaphoid appearance. Bowel sounds present. Neuro: A&O x3. No focal neurological deficits. Results & Data Results & Data Vital Signs (Past 12 Hours) Vital Signs Temp Pulse Pulse Pulse Resp BP Pulse Ox 11/14/24 17:31 101.3 F H 107 H 20 149/82 H 98 11/14/24 17:09 61 11/14/24 15:41 98.2 F 106 H 18 163/83 H 98 11/14/24 14:35 90 20 99 11/14/24 14:12 94 H 90 20 135/77 95 11/14/24 13:35 85 20 143/77 H 98 11/14/24 13:19 81 22 135/79 96 11/14/24 13:04 76 14 85/48 L 100 11/14/24 11:44 99.1 F 86 20 165/88 H 100 11/14/24 11:26 85 18 178/89 H 99 11/14/24 09:00 11/14/24 07:31 98.2 F 75 18 119/69 99 11/14/24 07:10 82 O2 Del Method O2 Flow Rate 11/14/24 17:31 Nasal Cannula 2 11/14/24 17:09 11/14/24 15:41 Nasal Cannula 2 11/14/24 14:35 Nasal Cannula 2 11/14/24 14:12 Oxymask 8 11/14/24 13:35 Oxymask 10 11/14/24 13:19 Oxymask 15 11/14/24 13:04 Oxymask 10 11/14/24 11:44 Nasal Cannula 2 11/14/24 11:26 Nasal Cannula 11/14/24 09:00 Nasal Cannula 2 11/14/24 07:31 Nasal Cannula 2 11/14/24 07:10 Laboratory Results Reviewed CBC Reviewed chemistries Diagnostic Findings Reviewed EGD PG Care Time/CCT Total # of Minutes Spent Total Time Spent with Patient: Total time spent is greater than 50% in coordination of care (as documented) at patient's floor/unit and/or counseling patient: Coding Level of Care Code 17584 SUB INP/OBS CARE 3/50MIN Diagnoses Upper GI bleed K92.2 Symptomatic anemia D64.9 Syncope and collapse R55 Esophageal stenosis K22.2
[2024-11-14] MEDS: metroNIDAZOLE 500 MG/100 ML BAG IV SCH (20:47)
[2024-11-14] MEDS: CEFEPIME 2000MG 2,000 MG/20 ML SYR IV SCH (20:47)
[2024-11-14] MEDS: PANTOprazole 40 MG TAB PO SCH (20:53)
[2024-11-14 22:59] LABS: Appearance Urine Clear (Clear); Bilirubin Urine Negative (Negative); Blood Urine Negative (Negative); Color Urine Yellow; Glucose Urine UA Negative (Negative); Ketones Urine Trace (Negative); Leukocyte Esterase Urine Negative (Negative); Nitrite Urine Negative (Negative); Protein Urine Negative (Negative); Specific Gravity Urine 1.019 (1.000-1.030); Urobilinogen Urine Negative (Negative)
[2024-11-15] MEDS ORDERED: SODIUM CHLORIDE 0.9% NEBU SOLN 3 ML NEB PRN (01:00)
[2024-11-15] MEDS: SODIUM CHLOR 7% 4 ML NEB ONE (01:34)
[2024-11-15] MEDS ORDERED: SODIUM CHLOR 7% 4 ML NEB NEB PRN (01:35)
[2024-11-15 07:18] LABS: Hematocrit (blood only) 37.1 % (42.0-52.0); Hemoglobin 12.4 g/dl (14.0-18.0); Mean Corpuscular Hgb Conc 33.4 g/dL (32.0-36.0); Mean Corpuscular Volume 86.9 fL (80.0-100.0); Mean Platelet Volume 11.3 fL (9.4-12.4); Platelet Count 225 K/uL (130-400); RDW Coefficient of Variation 14.2 % (11.5-14.5); RDW Standard Deviation 44.8 fL (36.4-46.3); Red Blood Count 4.27 M/uL (4.70-6.10); White Blood Count 20.19 K/ul (4.8-10.8)
[2024-11-15] MEDS: LIDOCAINE 2% 2 ML VIAL/AMP(20MG/ML) INFIL ONE (07:20)
[2024-11-15] MEDS: PROPOFOL IV EMULSION 10 MG/ML 20 ML VIAL IV ONE (07:20)
[2024-11-15 07:41] LABS: Calcium 8.6 mg/dl (8.6-10.3); Creatinine Clr Calc Pharmacy 90.4 ml/min; Potassium 3.5 mmol/L (3.5-5.1)
[2024-11-15] MEDS: COUGH DROP (SUGAR FREE) LOZ 24 LOZ/1 BOX BUCCAL ONE (08:34)
[2024-11-15] MEDS: guaiFENesin 600 MG TABCR PO SCH (08:36)
--- NOTE | 2024-11-15 09:26 | XRay Report ---
XR chest 1V portable HISTORY: 79 years-old Male concern for aspiration shortness of breath with possible aspiration COMPARISON: 11/12/2024 TECHNIQUE: AP view of the chest FINDINGS: And left-sided pneumonectomy changes redemonstrated. Advanced pulmonary emphysema with chronic linear fibrosis of the right lung apex centered around a fiducial marker. Patchy right basilar airspace opa cities. No pneumothorax. Bones appear grossly intact. IMPRESSION: 1. Patchy right basilar opacities suggestive of pneumonia versus aspiration pneumonitis. 2. Emphysema with chronic posttreatment changes of the right upper lung. 3. Left-sided pneumonectomy. ACT 112: Negative or not required by law. The above report was generated using voice recognition software. It may contain grammatical, syntax o r spelling errors. Electronically signed by: Elmo Ocasio M.D. 11/15/2024 9:25 AM
--- NOTE | 2024-11-15 09:50 | Gastroenterology Progress Note ---
Date of Service November 15, 2024 Assessment & Plan (1) Esophageal stenosis: (2) Upper GI bleed: Plan Patient was unable to tolerate a regular diet this morning with minced and moist foods. - back down back to a full liquid diet for now since not tolerating solids. Would recommend that diet not be advanced beyond a mechanical soft diet. - continue to follow hgb/hct. - continue with protonix 40mg bid. recommend he continue with this on discharge. Admission and Anticipated Discharge Date Admission Date: November 11, 2024 Subjective so far he has only been able to tolerate liquids. he was given a regular diet this morning that was minced and moist and had some pain with swallowing the foods. no pain currently. s/p EGD yesterday with bipolar cautery applied to rodney deras tear. hgb improved to 12.4 (previously 11.3). no further blood bowel movements per patient. Review of Systems Review of Systems: All systems reviewed & are unremarkable except as noted in HPI & below Physical Exam Constitutional: WD/WN, vitals as above Respiratory: normal respiratory effort, lungs clear to auscultation Cardiovascular: Rate/Rhythm: regular rate and regular rhythm Gastrointestinal (Abdomen): normal bowel sounds, soft, nontender, no hepatosplenomegaly Psychiatric: Orientation: alert and oriented x 3 Results & Data Results & Data Vital Signs (Past 12 Hours) Vital Signs Temp Pulse Pulse Resp BP Pulse Ox O2 Del Method 11/15/24 09:00 110 H 11/15/24 09:00 Room Air 11/15/24 07:10 98.1 F 102 H 20 128/73 94 Nasal Cannula 11/15/24 02:24 98.4 F 125 H 18 153/72 H 96 Nasal Cannula 11/15/24 01:37 118 H 18 97 Nasal Cannula 11/14/24 23:17 99 H 11/14/24 22:33 98.2 F 103 H 18 123/70 94 Nasal Cannula O2 Flow Rate 11/15/24 09:00 11/15/24 09:00 11/15/24 07:10 2.0 11/15/24 02:24 4 11/15/24 01:37 4 11/14/24 23:17 11/14/24 22:33 2 PG Care Time/CCT Total # of Minutes Spent Total Time Spent with Patient: Total time spent is greater than 50% in coordination of care (as documented) at patient's floor/unit and/or counseling patient: Coding Level of Care Code 06044 SUB INP/OBS CARE 235MIN Diagnoses Esophageal stenosis K22.2 Upper GI bleed K92.2
[2024-11-15] MEDS ORDERED: FAMOTIDINE 20 MG TAB PO PRN (09:55)
[2024-11-15] MEDS: NYSTATIN SUSP 500,000 U/5 ML UDC PO SCH (13:52)
--- NOTE | 2024-11-15 13:59 | Hospitalist Progress Note ---
Date of Service November 15, 2024 Assessment & Plan (1) Upper GI bleed: (2) Aspiration pneumonia: (3) Symptomatic anemia: (4) Syncope and collapse: (5) Esophageal stenosis: Plan The patient is a 79-year-old male with a past medical history including esophageal stenosis, malignant neoplasm of left lung, chronic PE, esophageal adenocarcinoma, duodenal ulcer disease, reflux esophagitis, history of prostate cancer, LUTS, history of pneumonectomy, and COPD. Presented to ER w/ dizziness, syncopal episode in ER going to bathroom with large black colored stool, hgb 10.5 prior to BM and was down from 14 around 9 days ago Recent EGD w/ dilatation for stricture with GI at [place] on 11/[address] Anthony BOWEN S/p 3 units pRBC during this hospitalization Hemoglobin remaining stable Was on Protonix gtt, which has since been switched to Protonix 40 mg p.o. twice daily. Carafate continued GI consulted: EGD performed 11/14 which showed medium nonbleeding Phylicia-Juarez tear treated with bipolar cautery, benign-appearing esophageal stenosis, and congested, erythematous, eroded mucosa of the esophagusbiopsied Recommendations: Await pathology results, oral PPI therapy BID Trialed minced/moist diet with vanilla boost BIDM per dietitian's recommenda tions, but unfortunately could not tolerate and has been again downgraded to full liquids. Tolerating full liquid diet well Aspiration pneumonia Was on ceftriaxone IV for coverage of esophageal translocation/tear, discontinued 11/14. Broadened coverage due to patient becoming febrile and tachycardic evening 11/14 Leukocytosis of 20.19 (previously 6.77) - no further fevers, continue to monitor UA negative, urine culture and blood cultures pending CXR revealed RLL aspiration pneumonia Continue cefepime and Flagyl Supplemental O2 PRN to maintain SpO2>94% Oral thrush noted 11/15, started Nystatin suspension QID x 10 days Symptomatic anemia/syncope and collapse- as above, syncopal episode in ER suspected 2nd to GIB/anemia. No further syncope but dizziness improved with PRBC and fall precautions to be in place PT/OT consulted, he may require a short-term rehab stay prior to returning home as he lives alone COPD- hx recurrent lung cancer, esophageal carcinoma Continue inhalers Hx chronic PEs, not on xarelto, with above not even able to consider at this time Incentive spirometer encouraged as able Dispo: Discussed discharge planning with case management. Plan for patient to return home on hospice services on discharge. Per case management, patient can return with hospice on oral antibiotics Admission and Anticipated Discharge Date Admission Date: November 11, 2024 Supervising Physician Co-Signing Physician Notes Attending Attestation - Chart reviewed, care plan d/w CHRISTIANO Thomas. I agree w/ the stout components of her documentation. CXR with RLL pneumonia - aspiration? Cont cefepime/cont flagyl. Checked MRSA swab - negative, thus defer on MRSA coverage. Michael Lorenz MD Subjective Patient seen and evaluated at bedside. He reports "I feel lousy" and states that his breathing feels worse today. He is conversationally dyspneic. He states that he is SOB with exertion or prolonged talking. He denies SOB at rest/when not engaged in conversation. We discussed the results of his CXR from this morning that revealed RLL aspiration pneumonia, as well as the antibiotic adjustments made yesterday. He also reports that his throat hurts and believes he has "a film in [his] mouth." He reports that his full liquid diet went well for lunch and he ate it all. No additional complaints or concerns at this time. Physical Exam Physical Exam: General: Frail/cachectic appearing male, fatigued lying in bed. No acute distress. Mouth: Moist mucus membranes. White patchy infiltrates on tongue and left inner cheek, consistent with oral thrush. Erythematous oral cavity. Cardiac: Regular rate and rhythm without murmurs gallops or rubs. Pulm: RLL with course rhonchi. Diminished lung sounds throughout (left-sided diminished consistent with history of pneumonectomy). No respiratory distress. 97% on 2L NC. Abdominal: Soft, nontender, scaphoid appearance. Bowel sounds present. Neuro: A&O x3. No focal neurological deficits. Results & Data Results & Data Vital Signs (Past 12 Hours) Vital Signs Temp Pulse Pulse Resp BP Pulse Ox O2 Del Method 11/15/24 11:25 98.1 F 81 20 116/69 92 Nasal Cannula 11/15/24 09:00 110 H 11/15/24 09:00 Room Air 11/15/24 07:10 98.1 F 102 H 20 128/73 94 Nasal Cannula 11/15/24 02:24 98.4 F 125 H 18 153/72 H 96 Nasal Cannula O2 Flow Rate 11/15/24 11:25 2.0 11/15/24 09:00 11/15/24 09:00 11/15/24 07:10 2.0 11/15/24 02:24 4 Laboratory Results Reviewed CBC Reviewed BMP Reviewed UA and urine culture Reviewed blood cultures Diagnostic Findings Reviewed CXR Chest X-Ray 11/15/24 08:58 XR chest 1V portable HISTORY: 79 years-old Male concern for aspiration shortness of breath with possible aspiration COMPARISON: 11/12/2024 TECHNIQUE: AP view of the chest FINDINGS: And left-sided pneumonectomy changes redemonstrated. Advanced pulmonary emphysema with chronic linear fibrosis of the right lung apex centered around a fiducial marker. Patchy right basilar airspace opacities. No pneumothorax. Bones appear grossly intact. IMPRESSION: 1. Patchy right basilar opacities suggestive of pneumonia versus aspiration pneumonitis. 2. Emphysema with chronic posttreatment changes of the right upper lung. 3. Left-sided pneumonectomy. ACT 112: Negative or not required by law. The above report was generated using voice recognition software. It may contain grammatical, syntax or spelling errors. Electronically signed by: Elmo Ocasio M.D. 11/15/2024 9:25 AM PG Care Time/CCT Total # of Minutes Spent Total Time Spent with Patient: Total time spent is greater than 50% in coordination of care (as documented) at patient's floor/unit and/or counseling patient: Coding Level of Care Code 53933 SUB INP/OBS CARE 3/50MIN Diagnoses Upper GI bleed K92.2 Aspiration pneumonia J69.0 Symptomatic anemia D64.9 Syncope and collapse R55 Esophageal stenosis K22.2
[2024-11-15] MEDS: PANTOprazole 40 MG/10 ML SYR IV SCH (21:25)
[2024-11-16 03:57] VITALS: RESP 18
[2024-11-16 06:56] LABS: Hematocrit (blood only) 36.1 % (42.0-52.0); Hemoglobin 11.7 g/dl (14.0-18.0); Mean Corpuscular Hemoglobin 28.8 pg (25.0-34.0); Mean Corpuscular Hgb Conc 32.4 g/dL (32.0-36.0); Mean Corpuscular Volume 88.9 fL (80.0-100.0); Mean Platelet Volume 11.5 fL (9.4-12.4); Platelet Count 203 K/uL (130-400); RDW Coefficient of Variation 14.2 % (11.5-14.5); RDW Standard Deviation 45.9 fL (36.4-46.3); Red Blood Count 4.06 M/uL (4.70-6.10); White Blood Count 10.67 K/ul (4.8-10.8)
[2024-11-16 07:24] LABS: BUN Creatinine Ratio 43.2 (10-20); Calcium 8.6 mg/dl (8.6-10.3); Creatinine Clr Calc Pharmacy 122.8 ml/min; Potassium 3.6 mmol/L (3.5-5.1)
[2024-11-16 11:17] VITALS: BP 117/75; TEMP 98.1; O2SAT 96
[2024-11-16 13:37] VITALS: PULSE 94
--- NOTE | 2024-11-16 18:56 | Discharge Summary ---
Discharge Summary Date of Service November 16, 2024 Principal Dx & Hospital Course #1 = Principal Diagnosis (1) Upper GI bleed: (2) Aspiration pneumonia: (3) Symptomatic anemia: (4) Syncope and collapse: (5) Esophageal stenosis: Plan The patient is a 79-year-old male with a past medical history including esophageal stenosis, malignant neoplasm of left lung, chronic PE, esophageal adenocarcinoma, duodenal ulcer disease, reflux esophagitis, history of prostate cancer, LUTS, history of pneumonectomy, and COPD. Presented to ER w/ dizziness, syncopal episode in ER going to bathroom with large black colored stool, hgb 10.5 prior to BM and was down from 14 around 9 days ago Recent EGD w/ dilatation for stricture with GI at [facility] on 11/[address] Anthony HURTADOIB/Symptomatic anemia/syncope and collapse S/p 3 units pRBC during this hospitalization Hemoglobin remaining stable Was on Protonix gtt, which has since been switched to Protonix 40 mg p.o. twice daily. Carafate continued GI consulted: EGD performed 11/14 which showed medium nonbleeding Phylicia-Juarez tear treated with bipolar cautery, benign-appearing esophageal stenosis, and congested, erythematous, eroded mucosa of the esophagusbiopsied Recommendations: Await pathology results, oral PPI therapy BID Trialed minced/moist diet with vanilla boost BIDM per dietitian's recommendations, but unfortunately could not tolerate and has been again downgraded to full liquids. Tolerating full liquid diet well Aspiration pneumonia Was on ceftriaxone IV for coverage of esophageal translocation/tear, discon tinued 11/14. Broadened coverage due to patient becoming febrile and tachycardic evening 11/14 Leukocytosis resolved, no further fevers; UA negative, urine culture and blood cultures prelim neg CXR revealed RLL aspiration pneumonia Treated with cefepime and Flagyl inpatient, discharged with cefdinir and Flagyl x 7 additional days Supplemental O2 PRN to maintain SpO2>94% Oral thrush noted 11/15, started Nystatin suspension QID x 10 days COPD- hx recurrent lung cancer, esophageal carcinoma Continue inhalers Hx chronic PEs, not on xarelto, with above not even able to consider at this time Incentive spirometer encouraged as able Dispo: Discharged home with hospice reinitiated Admission HPI Per Admitting Provider The patient is a 79-year-old male with a past medical history including esophageal stenosis, malignant neoplasm of left lung, chronic PE, esophageal adenocarcinoma, duodenal ulcer disease, reflux esophagitis, history of prostate cancer, LUTS, history of pneumonectomy, and COPD. the patient presented to the emergency department with dizziness. He did end up having a syncopal episode while in the bathroom in the in the emergency department. He did arouse to light stimulation, and did not require more significant interventions. He did have a large black-colored stool while in the bathroom. He was immediately given normal saline 1 L fluid bolus. And laboratories were ordered and drawn. He was found to have a hemoglobin of 10.5, significantly lower than the 14.0 that he had 9 days ago. He was done written for 2 units PRBCs, and additional 1 L normal saline bolus from the ED, and was referred for evaluation for admission. Patient was seen by gastroenterology Dr. Nation while in the ED, who reviewed the EGD that was performed in [facility] the previous day, and was agreeable with continue Protonix IV, transfusion as noted, and admission to the hospital. Discharge Exam General: Frail/cachectic appearing male, fatigued lying in bed. No acute distress. Mouth: Moist mucus membranes. White patchy infiltrates on tongue and left inner cheek, consistent with oral thrush. Erythematous oral cavity. Cardiac: Regular rate and rhythm without murmurs gallops or rubs. Pulm: RLL with course rhonchi. Diminished lung sounds throughout (left-sided diminished consistent with history of pneumonectomy). No respiratory distress. 97% on 2L NC. Abdominal: Soft, nontender, scaphoid appearance. Bowel sounds present. Neuro: A&O x3. No focal neurological deficits. Discharge Plan Discharge Items Patient Disposition: Hospice - Home Reason For Visit: UGI BLEED, SYMPTOMATIC ANEMIA Discharge Diagnosis: Upper GI bleed, dysphagia, aspiration pneumonia Activity: Resume your previous activity Non-emergency contact: Primary Care Provider Call non-emergency contact if: you have any medication questions and your symptoms worsen Follow-up/Referrals: Mony Caicedo DO [Primary Care Provider] - 11/30/24 9:20 am (Hospital follow up with primary care physician is scheduled for November 30, 2024 at 9:20am) Diet: Full liquid Addtl Attending Provider Instructions: Mr. Abdi, You were admitted to the hospital due to an upper GI bleed and syncopal episode in the ER. You received 3 units of blood during this hospitalization and your hemoglobin has since remained stable. You were evaluated by the GI team who performed another EGD with biopsies. Additionally, you have aspiration pneumonia for which you are receiving antibiotics that he will continue taking at home. Finally, you have some oral thrush and were started on nystatin suspension that you will also continue taking at home. Upon discharge from the hospital: * Take cefdinir (oral antibiotic) 300 mg twice daily x 7 additional days. This is to treat your aspiration pneumonia. * Take Flagyl (oral antibiotic) 500 mg twice daily x 7 additional days. This is to treat your aspiration pneumonia. * Take nystatin suspension 4 times daily through 11/25/2024. This is to treat your oral thrush. * Use Zofran 4 mg disintegrating tablet every 6 hours as needed for nausea. * Take Carafate suspension 1 g 4 times daily. Continue taking your omeprazole (PPI) twice daily. * Continue your other medications as prescribed. * Follow-up with your PCP in 1-2 weeks. * You are being resumed on hospice on discharge. It was a pleasure taking care of you while you were in the hospital, Gillian Thomas PA-C Pending Studies at Discharge: Yes (EGD biopsies) Studies:: EGD biopsies Stand-Alone Forms: My [facility] Medications and DC Order Prescriptions: New famotidine 20 mg Tablet 20 mg PO BID Qty: 60 0RF nystatin 100,000 unit/mL Suspension 5 ml PO QID Qty: 250 0RF sucralfate 100 mg/mL Suspension 1 g PO QID Qty: 500 0RF guaifenesin [Mucinex] 600 mg Tablet Extended Release 12hr 600 mg PO Q12 Qty: 14 0RF cefdinir 300 mg capsule 300 mg PO BID Qty: 16 0RF metronidazole 500 mg tablet 500 mg PO BID 7 Days Qty: 14 0RF ondansetron 4 mg tablet,disintegrating 4 mg PO Q6H PRN (Reason: nausea and vomiting) Qty: 30 0RF Continued albuterol sulfate [Ventolin HFA] 90 mcg/actuation HFA aerosol inhaler 2 puff INH Q4H PRN (Reason: copd) Qty: 18 1RF Symbicort 80-4.5 mcg/actuation HFA aerosol inhaler 2 puff INH BID Qty: 10.2 11RF Rx Instructions: Last filled 07/05/24 x30 day supply mometasone 50 mcg/actuation spray,non-aerosol 2 spray intranasal QAM Qty: 51 3RF Rx Instructions: INSTILL 2 SPRAYS INTO EACH NOSTRIL DAILY alfuzosin [Uroxatral] 10 mg tablet extended release 24 hr 10 mg PO DAILY Qty: 30 5RF Rx Instructions: administer after supper each day nitroglycerin [Nitrostat] 0.4 mg tablet, sublingual 0.4 mg SL UD PRN (Reason: chest pain) Qty: 25 3RF omeprazole 20 mg capsule,delayed release(DR/EC) 40 mg PO BID Qty: 360 3RF acetaminophen [Tylenol Extra Strength] 500 mg tablet 1,000 mg PO Q8H PRN (Reason: pain) Rx Instructions: Unable to verify OTC meds w/ pt at this date/time. aspirin [Enteric Coated Aspirin] 81 mg tablet,delayed release (DR/EC) 81 mg PO DAILY Rx Instructions: Unable to verify OTC meds w/ pt at this date/time. multivitamin Tablet 1 tab PO DAILY Hold Instructions: until seen in follow up, or can take FLINSTONE CHEWABLE VITAMIN Rx Instructions: Unable to verify OTC meds w/ pt at this date/time. cyanocobalamin (vitamin B-12) 500 mcg Tablet 500 mcg PO QAM Qty: 30 0RF Rx Instructions: Unable to verify OTC meds w/ pt at this date/time. Discharge Orders: Discharge Order (Routine); Ordered 11/16/24 Ordered By: Gillian Salcido/Other Patient Handouts: COPD Using Inhalers, COPD: Chronic Coughing, COPD: Coping with Fatigue Admission Data Admit Date/Time: 11/11/24 09:01 Attending Provider: Michael Lorenz Admit Provider: Rafael Hickey Primary Care Provider: Mony Caicedo Other Providers: Darrel Nation I; Tianna Guerra; Kellen Case; Manpreet Aldana Other Interventions: Discharge Summary Assessment (RN) Last Done: 11/16/24 13:36 Hospital Stay Data Consultations 11/11/24 08:29 Consult Gastroenterology Stat ED Decision to Admit Stat Procedures Performed Operation Date: 11/14/24 16:30 Actual Procedures p EGD Hemostasis - Manpreet Aldana MD Diagnostic Imagining Performed 11/12/24 15:58 CT chest diagnostic w con Urgent Pending Results Patient Have Any Pending Studies at Discharge: Yes (EGD biopsies) Discharge Instructions Given to Patient (Per Discharging Provider) Mr. Abdi, Greg were admitted to the hospital due to an upper GI bleed and syncopal episode in the ER. You received 3 units of blood during this hospitalization and your hemoglobin has since remained stable. You were evaluated by the GI team who performed another EGD with biopsies. Additionally, you have aspiration pneumonia for which you are receiving antibiotics that he will continue taking at home. Finally, you have some oral thrush and were started on nystatin suspension that you will also continue taking at home. Upon discharge from the hospital: * Take cefdinir (oral antibiotic) 300 mg twice daily x 7 additional days. This is to treat your aspiration pneumonia. * Take Flagyl (oral antibiotic) 500 mg twice daily x 7 additional days. This is to treat your aspiration pneumonia. * Take nystatin suspension 4 times daily through 11/25/2024. This is to treat your oral thrush. * Use Zofran 4 mg disintegrating tablet every 6 hours as needed for nausea. * Take Carafate suspension 1 g 4 times daily. Continue taking your omeprazole (PPI) twice daily. * Continue your other medications as prescribed. * Follow-up with your PCP in 1-2 weeks. * You are being resumed on hospice on discharge. It was a pleasure taking care of you while you were in the hospital, Gillian Thomas PA-C Total Time Total Time Spent Total Time Spent (In Minutes): Greater than 30 minutes spent completing this discharge process including direct patient care, medication reconciliation, documentation, review of labs and images, and coordination of care. Coding Level of Care Code 33494 INP/OBS DISCH >30 MIN Diagnoses Upper GI bleed K92.2 Aspiration pneumonia J69.0 Symptomatic anemia D64.9 Syncope and collapse R55 Esophageal stenosis K22.2
--- NOTE | 2024-11-17 14:04 | Coding Query ---
ANEMIA To promote full compliance with coding requirements relating to patient care, physician participation is requested in all cases of medical biller/coder uncertainty. Please assist us with the question(s) below: Coding Question(s): The record reflects the following clinical findings: If these findings are indicative of anemia, please specify the known or suspected type by placing an "X" within the parenthesis (x). If other, please document type. Examples are: ( X) Acute blood loss anemia ( ) Acute Postoperative blood loss anemia ( ) Acute postoperative anemia due to dilutional fluids ( ) Chronic blood loss anemia ( ) Anemia of chronic disease ( ) Aplastic anemia ( ) Anemia due to renal disease ( ) Anemia in neoplastic disease ( ) Iron deficient anemia ( ) Anemia, unspecified or other ( ) Other: (please specify) Thank you Jeana LECHUGA
== END 2024-11-16 16:47 | disposition hospice, home (50) | DRG 368 ==
LOC: ED 07:30 → 2S 09:01 → SUATTDRO 09:01 → 2S 10:07
DX: Z88.0 Allergy status to penicillin; D64.9 Anemia, unspecified; Z79.899 Other long term (current) drug therapy; I27.82 Chronic pulmonary embolism; Z91.040 Latex allergy status; Z99.81 Dependence on supplemental oxygen; C34.90 Malignant neoplasm of unspecified part of unspecified bronchus or lung; Z88.2 Allergy status to sulfonamides; K22.2 Esophageal obstruction; Z88.8 Allergy status to other drugs, medicaments and biological substances; B37.0 Candidal stomatitis; Z88.1 Allergy status to other antibiotic agents; C15.9 Malignant neoplasm of esophagus, unspecified; R55 Syncope and collapse; K22.6 Gastro-esophageal laceration-hemorrhage syndrome; Z79.82 Long term (current) use of aspirin; Z85.46 Personal history of malignant neoplasm of prostate; J69.0 Pneumonitis due to inhalation of food and vomit; K22.10 Ulcer of esophagus without bleeding; Z79.51 Long term (current) use of inhaled steroids; J44.9 Chronic obstructive pulmonary disease, unspecified